=== PATIENT | female | born 1940 | race Caucasian/White ===

== ENCOUNTER 2017-02-01 08:44 | Day surgery (SDC) | payer BC ==
[2017-01-28 14:41] VITALS: BMI 23.2
[2017-02-01] MEDS ORDERED: PROPOFOL 20 ML ONE ×2 (10:41)
[2017-02-01] MEDS ORDERED: MIDAZOLAM HCL 2 MG/2 ML SINGLE DOSE VIAL ONE (10:41)
[2017-02-01] MEDS ORDERED: LIDOCAINE HCL/PF 2% SDV 5ML VIAL ONE (10:49)
[2017-02-01] MEDS ORDERED: ceFAZolin SODIUM 1 GM VIAL IVPB ONE (10:50)
[2017-02-01] MEDS ORDERED: ONDANSETRON 4 MG/2 ML VIAL IVPUSH PRN (11:13)
[2017-02-01] MEDS ORDERED: oxyCODONE HCL 5 MG TABLET PO PRN (11:13)
[2017-02-01] MEDS ORDERED: LACTATED RINGERS SOLUTION 1,000 ML IV SCH (11:15)
--- NOTE | 2017-02-01 11:50 | HP ---
Past Medical History - Primary Care Physician PCP:: Rogelio Holcomb - Admission Chief Complaint: 76yo female with uterine/endometrial polyps admitted for hysteroscopy, polypectomy, D&C History of Present Illness: US showed thick Endom, EMB showed uterine polyps. Pt with h/o breast cancer. History Source: Patient, Medical Record Limitations to Obtaining History: No Limitations - Past Medical History Cardiovascular: Yes: HTN, Hyperlipdemia Hepatobiliary: Yes: Cirrhosis (cryptogenic), Cholelithiasis Heme/Onc: Yes: Cancer (breast), Thrombocytopenia Endocrine: Yes: Diabetes Mellitus, Hypothyroidism - Past Surgical History Past Surgical History: Yes: Breast Biopsy, Mastectomy Hx Myomectomy: No Hx Transabdominal Cerclage: No Additional Surgical History: D&C - Smoking History Smoking history: Never smoked Have you smoked in the past 12 months: No - Alcohol/Substance Use Hx Alcohol Use: No History of Substance Use: reports: None - Social History Usual Living Arrangement: Yes: Alone ADL: Independent History of Recent Travel: No Home Medications - Allergies Allergies/Adverse Reactions: Allergies Allergy/AdvReac Type Severity Reaction Status Date / Time No Known Drug Allergies Allergy Verified 08/16/15 12:19 - Home Medications Home Medications: Ambulatory Orders Levothyroxine [Synthroid -] 88 mcg PO DAILY 06/21/15 Lovastatin 40 mg PO DAILY 06/21/15 Cholecalciferol (Vitamin D3) [Vitamin D3 -] 1,000 unit PO DAILY 01/28/17 Glipizide Xl [Glucotrol Xl -] 10 mg PO BID 01/28/17 Losartan Potassium [Cozaar] 100 mg PO DAILY 01/28/17 Niacin 500 mg PO DAILY 01/28/17 Spironolactone 25 mg PO DAILY 01/28/17 Tramadol HCl 50 mg PO TID PRN 01/28/17 Family Disease History - Family Disease History Family Disease History: Respiratory: Brother (?COPD, from smoking) Review of Systems - Review of Systems Constitutional: reports: No Symptoms Eyes: reports: No Symptoms HENT: reports: No Symptoms Neck: reports: No Symptoms Cardiovascular: reports: No Symptoms Respiratory: reports: No Symptoms Gastrointestinal: reports: No Symptoms Genitourinary: reports: No Symptoms Breasts: reports: No Symptoms Reported Musculoskeletal: reports: No Symptoms Integumentary: reports: No Symptoms Neurological: reports: No Symptoms Endocrine: reports: No Symptoms Hematology/Lymphatic: reports: No Symptoms Psychiatric: reports: No Symptoms Pain Intensity: 0 Physical Exam-GROCERY CHECKER Vital Signs: Vital Signs Temperature 97.9 F 01/28/17 14:33 Pulse Rate 70 01/28/17 14:33 Respiratory Rate 20 01/28/17 14:33 Blood Pressure 148/74 01/28/17 14:33 O2 Sat by Pulse Oximetry (%) 98 02/01/17 09:58 Constitutional: Yes: Well Nourished, No Distress, Calm Eyes: Yes: WNL, Conjunctiva Clear HENT: Yes: WNL, Atraumatic, Normocephalic Neck: Yes: WNL, Supple, Trachea Midline Cardiovascular: Yes: WNL, Regular Rate and Rhythm Respiratory: Yes: WNL, Regular, CTA Bilaterally Gastrointestinal: Yes: Normal Bowel Sounds, Soft ...Rectal Exam: Yes: Deferred Renal/: Yes: WNL Pelvis: Yes: WNL External Genitalia: Yes: Normal Internal Exam Deferred: No Vaginal Exam: Yes: Normal Cervix: Yes: Normal Uterus: Yes: Normal Adnexa: Normal: Left, Right Musculoskeletal: Yes: WNL Extremities: Yes: WNL Edema: No Integumentary: Yes: WNL Neurological: Yes: WNL, Alert, Oriented ...Motor Strength: WNL Psychiatric: Yes: WNL, Alert, Oriented Imaging - Results Ultrasound: Report Reviewed Assessment/Plan 76yo female admitted for hysteroscopy, polypectomy, D&C. We had discussed the risks, benefits, alternatives of surgery at length including but not limited to infection, bleeding, scarring, perforation, hysterectomy, etc. The pt verbalized understanding and requested to proceed with surgery. I emphasized that all surgeries have risks and no guarantees can be provided
--- NOTE | 2017-02-01 11:54 | OP ---
Operative Note - Note: Operative Date: 02/01/17 Pre-Operative Diagnosis: Endometrial hyperplasia. Uterine polyps. Personal Hx of breast cancer Operation: Hysteroscopy, polypectomy, D&C Findings: Multiple uterine polyps, large necrotic mass/tissue within uterine cavity Post-Operative Diagnosis: Same as Pre-op Surgeon: Rogelio Holcomb Anesthesiologist/SLASHER SAWYER: Jennifer Coronado Anesthesia: General Specimens Removed: Uterine polyps, uterine mass, endometrial curettings Estimated Blood Loss (mls): 35 Blood Volume Replaced (mls): 0 Fluid Volume Replaced (mls): 600 (Hysteroscopy deficit 200ml) Operative Report Dictated: Yes
[2017-02-01 12:43] VITALS: TEMP 98
[2017-02-01 14:13] VITALS: BP 142/74; PULSE 75
--- NOTE | 2017-02-02 09:11 | OP ---
DATE OF OPERATION: 02/01/2017 PREOPERATIVE DIAGNOSIS: Endometrial hyperplasia, uterine polyps, personal history of breast cancer. POSTOPERATIVE DIAGNOSIS: Endometrial hyperplasia, uterine polyps, personal history of breast cancer. PROCEDURE: Hysteroscopy, polypectomy, dilatation and curettage. SURGEON: Rogelio Holcomb MD ANESTHESIOLOGIST: Jennifer Coronado MD ANESTHESIA: General. COMPLICATIONS: None. ESTIMATED BLOOD LOSS: 35 mL. INTRAVENOUS FLUIDS: Crystalloid, 600 mL. HYSTEROSCOPY FLUID DEFICIT: Crystalloid, 200 mL. PATHOLOGY: Uterine polyps, uterine mass, endometrial curettings. FINDINGS: Examination under anesthesia revealed a slightly enlarged uterus with no pelvic or adnexal masses. Hysteroscopy revealed an atrophic uterine cavity with multiple uterine polyps as well as a large necrotic mass within endometrial cavity, which was semidetached and uncertain in etiology. DESCRIPTION OF PROCEDURE: The patient was met preoperatively. Risks, benefits, and alternatives of surgery were discussed in details. All questions were answered. The patient was brought to the OR with IV running. She was placed on the surgical table in the supine position. The anesthesia was established without difficulty. The patient was then placed in a dorsal lithotomy position using adjustable Reji stirrups. The patient was examined under anesthesia with the findings as described above. A time-out procedure was conducted as per standard protocol. The patient was then prepped and draped in the usual sterile fashion. A weighted speculum was introduced inside the vagina with good visualization of the cervix. The cervix was grasped with a single-tooth tenaculum. The endocervical os was dilated to accommodate a size 17 Larose dilator. A hysteroscope was gently introduced into the uterine cavity with the findings as described above. A TruClear hysteroscopic resection device was then used to resect multiple uterine polyps. A large semidetached necrotic uterine mass was also removed using polyp forceps. An endometrial curettage was then performed, and tissue was sent to Pathology. A hysteroscope was once again introduced into the uterine cavity. No other uterine lesions were noted. Good hemostasis was noted. All of the instruments were then removed from the patient. Sponge, instrument, lap counts were correct. The patient was returned to supine position. The patient was transferred to recovery room awake and in stable condition. Cindi [id number]
--- NOTE | 2017-02-02 10:29 | PATH ---
Surgical Pathology Report Patient Name: ALEXIS LAGOS [facility]. Rec. #: [id number] /Age/Gender: 1940 (Age: 76) / F Account: [id number] Location: [facility] SURGICAL Taken: 02/01/2017 Received: 02/01/2017 Reported: 02/02/2017 Physicians: Rogelio Holcomb M.D. Specimen(s) Received A: UTERINE POLYP B: UTERINE MASS C: ENDOMETRIAL CURETTINGS Clinical History History of breast cancer Uterine polyp, endometrial hyperplasia Final Diagnosis A. ENDOMETRIUM, POLYPECTOMY: PORTIONS OF BENIGN ENDOMETRIAL POLYP, AND ATROPHIC ENDOMETRIUM. NECROTIC AND FIBRINOUS MATERIAL IS PRESENT. NO ENDOMETRIAL HYPERPLASIA OR CARCINOMA IDENTIFIED. B. UTERINE MASS, EXCISION: NECROTIC MATERIAL WITH AREAS SUGGESTIVE OF INFARCTED ENDOMETRIAL POLYP. NO VIABLE TISSUE IDENTIFIED. C. ENDOMETRIUM, CURETTING: INACTIVE TO ATROPHIC ENDOMETRIUM, BENIGN ENDOCERVICAL EPITHELIUM, AND CLOTTED BLOOD. NO ENDOMETRIAL HYPERPLASIA OR CARCINOMA IDENTIFIED. Comment: Recommend correlation with clinical and radiologic findings and follow up as clinically indicated. Electronically Signed Josué Carroll M.D. Gross Description A. Received in formalin labeled "uterine polyp," is a 4.3 x 3.0 x 0.4 cm aggregate of contreras soft tissue fragments. The formalin is filtered and the specimen is entirely submitted in 3 cassettes. B. Received in formalin labeled "uterine mass," is a 4.8 x 2.5 x 0.4 cm portion of contreras-griffith, necrotic appearing soft tissue. The specimen is sectioned and entirely submitted in 3 cassettes. C. Received in formalin labeled "endometrial curettings," is a 1.3 x 1.0 x 0.2 cm aggregate of contreras red soft tissue fragments. The formalin is filtered and the specimen is entirely submitted in one cassette. DL/02/01/2017 saudi/02/01/2017
== END 2017-02-01 14:00 | disposition home or self-care (01) ==
LOC: JASU-SURG 08:44
PROVIDERS: ATTEND Obstetrics & Gynecology
PROC: 0UB98ZX Excision of Uterus, Via Natural or Artificial Opening Endoscopic, Diagnostic (ICD-10-PCS; principal; 2017-02-01 10:30)
PROC: 0UDB8ZX Extraction of Endometrium, Via Natural or Artificial Opening Endoscopic, Diagnostic (ICD-10-PCS; 2017-02-01 10:30)
DX: N85.00 Endometrial hyperplasia, unspecified (principal); N84.0 Polyp of corpus uteri; Z85.3 Personal history of malignant neoplasm of breast
CPT/HCPCS: 86850; 86900; 86901; 88304-TC; 88305-TC; 94760

== ENCOUNTER 2017-02-05 12:33 | Emergency (ER) | payer BC ==
[2017-02-05 13:36] VITALS: BMI 23.2
--- NOTE | 2017-02-05 14:27 | PDOC ---
History of Present Illness - General History Source: Patient Exam Limitations: No Limitations - History of Present Illness Initial Comments: 02/05/17 15:26 The patient is a 76 year old female, with a significant past medical history CAD , diabetes, hypertension, hyperlipidemia, hypothyroidism, vitamin D deficiency, thrombocytopenia, left breast cancer, cholelithiasis, endometrial hyperplasia/ polyps (s/p Hysteroscopic Polypectomy and D/C on 02/01/17), who presents to the emergency department sent by Dr. Salinas office for evaluation of surgical site vaginal bleeding s/p Hysteroscopic Polypectomy on 02/01/17. Patient reports she has been experiencing vaginal bleeding s/p surgery, and has gone through 2 pads today. Patient reports associated weakness, but denies any nausea , vomiting, diarrhea, constipation, headache, or dizziness. She denies any chest pain shortness of breath, diaphoresis, or palpitations. She denies any dysuria, hematuria, frequency, urgency, or urinary incontinence. She denies any fever or chills. She denies any recent travel or sick contacts. Allergies: NKDA Past Surgical History: Hysteroscopic polypectomy and D/C on 02/01/17 Social History: Non smoker. No ETOH or recreational drug use. PCP: Dr. Amador HEALTH PRACTICE MANAGER: Dr. Holcomb <Donald Ford - Last Filed: 02/05/17 17:41> <Katlyn Sorenson - Last Filed: 02/05/17 18:47> - General Chief Complaint: Revisit, Lab Variance Stated Complaint: REVISIT/ FOLLOW UP Time Seen by Provider: 02/05/17 13:56 Past History <Donald Ford - Last Filed: 02/05/17 17:41> - Past Medical History Anemia: Yes (THROMBOCYTOPENIA) Asthma: No Cancer: Yes (Breast LEFT) Cardiac Disorders: Yes (CAD) CVA: No COPD: No Dementia: No Diabetes: Yes GI Disorders: (cholelithiasis) Disorders: No HTN: Yes Hypercholesterolemia: Yes Liver Disease: No Seizures: No Thyroid Disease: Yes - Surgical History Abdominal Surgery: No Appendectomy: No Cardiac Surgery: No Cholecystectomy: No Lung Surgery: No Neurologic Surgery: No Orthopedic Surgery: No - Suicide/Smoking/Psychosocial Hx Smoking History: Never smoked Have you smoked in the past 12 months: No Information on smoking cessation initiated: No Hx Alcohol Use: No Drug/Substance Use Hx: No Substance Use Type: None Hx Substance Use Treatment: No <Katlyn Sorenson - Last Filed: 02/05/17 18:47> - Past Medical History Allergies/Adverse Reactions: Allergies Allergy/AdvReac Type Severity Reaction Status Date / Time No Known Drug Allergies Allergy Verified 02/05/17 13:27 Home Medications: Ambulatory Orders Levothyroxine [Synthroid -] 88 mcg PO DAILY 06/21/15 Lovastatin 40 mg PO DAILY 06/21/15 Cholecalciferol (Vitamin D3) [Vitamin D3 -] 1,000 unit PO DAILY 01/28/17 Glipizide Xl [Glucotrol Xl -] 10 mg PO BID 01/28/17 Losartan Potassium [Cozaar] 100 mg PO DAILY 01/28/17 Niacin 500 mg PO DAILY 01/28/17 Spironolactone 25 mg PO DAILY 01/28/17 Tramadol HCl 50 mg PO TID PRN 01/28/17 Review of Systems - Review of Systems Able to Perform ROS?: Yes Comments:: 02/05/17 15:30 GENERAL/CONSTITUTIONAL: Yes weakness. No fever or chills. HEAD, EYES, EARS, NOSE AND THROAT: No change in vision. No ear pain or discharge. No sore throat. GASTROINTESTINAL: No nausea, vomiting, diarrhea or constipation. GENITOURINARY: No dysuria, frequency, or change in urination. PELVIC: Yes vaginal spotting. CARDIOVASCULAR: No chest pain or shortness of breath. RESPIRATORY: No cough, wheezing, or hemoptysis. MUSCULOSKELETAL: No joint or muscle swelling or pain. No neck or back pain. SKIN: No rash NEUROLOGIC: No headache, vertigo, loss of consciousness, or change in strength/ sensation. ENDOCRINE: No increased thirst. No abnormal weight change. HEMATOLOGIC/LYMPHATIC: No anemia, easy bleeding, or history of blood clots. ALLERGIC/IMMUNOLOGIC: No hives or skin allergy. <Donald Ford - Last Filed: 02/05/17 17:41> *Physical Exam - Vital Signs Last Vital Signs Temp Pulse Resp BP Pulse Ox 98.3 F 80 16 159/75 100 02/05/17 13:28 02/05/17 13:28 02/05/17 13:28 02/05/17 13:28 02/05/17 13:28 - Physical Exam Comments: 02/05/17 15:30 Constitutional: Awake, alert, oriented. No acute distress. Head: Normocephalic. Atraumatic Eyes: PERRL. EOMI. Conjunctivae are not pale. ENT: Mucous membranes are moist and intact. Posterior pharynx without exudates or erythema. Uvula midline. Neck: Supple. Full ROM. No lymphadenopathy. Cardiovascular: Regular rate. Regular rhythm. S1, S2 regular. Distal pulses are 2+ and symmetric. Pulmonary/Chest: No evidence of respiratory distress. Clear to auscultation bilaterally No wheezing, rales or rhonchi. Abdominal: Soft and non-distended. There is no tenderness. No rebound, guarding or rigidity. No organomegaly. No palpable masses. Good bowel sounds. Pelvic: Blood in vaginal vault, but no clots or active bleeding. Cervix was closed. No adenexal tenderness and no cervical motion tenderness. Back: No CVA tenderness. Musculoskeletal: No edema. No cyanosis. No clubbing. Full range of motion in all extremities. No calf tenderness. Radial/pedal pulses are intact and 2+ bilaterally Skin: Skin is warm and dry. No petechiae. No purpura. Neurological: Alert and oriented to person, place, and time. Cranial nerves II -XII are grossly intact. Normal speech. Strength is grossly symmetric. No sensory deficits. Psychiatric: Good eye contact. Normal interaction, affect and behavior. <Donald Ford - Last Filed: 02/05/17 17:41> - Vital Signs Last Vital Signs Temp Pulse Resp BP Pulse Ox 98.3 F 80 16 159/75 100 02/05/17 13:28 02/05/17 13:28 02/05/17 13:28 02/05/17 13:28 02/05/17 13:28 <Katlyn Sorenson - Last Filed: 02/05/17 18:47> ED Treatment Course - LABORATORY CBC & Chemistry Diagram: 02/05/17 15:30 02/05/17 15:09 <Donald Ford - Last Filed: 02/05/17 17:41> - LABORATORY CBC & Chemistry Diagram: 02/05/17 15:30 02/05/17 15:09 <Katlyn Sorenson - Last Filed: 02/05/17 18:47> Medical Decision Making - Medical Decision Making 02/05/17 15:[address] Holcomb at 15:07. Awaiting call back. Case discussed with Dr. Villa, who requests US at this time and will f/u when results return. Dr. Youssef returned call, and requests US to be cancelled. <Donald Ford - Last Filed: 02/05/17 17:41> - Medical Decision Making 02/05/17 15:16 a/p: 76yo female 3 days s/p polypectomy, hysteroscopy, necrotic mass removal with DR. Holcomb now with vaginal bleeding -wearing a panty liner -no cp/sob/lightheaded -will check labs and discuss with Dr. Holcomb the plan for poss imaging vs MAP CLERK eval. 02/05/17 18:40 unofficial plt count is 87, pending official plt count by the lab 02/05/17 18:[address] Villa who states mild vaginal bleeding post hysteroscopy with polypectomy can be normal up to 2 weeks. Needs to follow up in the office. Hx of thrombocytopenia. Will recommend follow up with Dr. Gipson as well. Pt at this time with minimal bleeding. Not symptomatic from bleeding. HGB is 15. <Katlyn Sorenson - Last Filed: 02/05/17 18:47> *DC/Admit/Observation/Transfer - Attestations Scribe Attestion: 02/05/17 15:08 Documentation prepared by Donald Ford, acting as medical associate for Katlyn Sorenson DO. <Donald Ford - Last Filed: 02/05/17 17:41> - Discharge Dispostion Admit: No - Attestations Physician Attestion: 02/05/17 18:47 I, Dr. Katlyn Sorenson DO, attest that this document has been prepared under my direction and personally reviewed by me in its entirety. I further attest, that it accurately reflects all work, treatment, procedures and medical decision -making performed by me. <Katlyn Sorenson - Last Filed: 02/05/17 18:47> Diagnosis at time of Disposition: Vaginal bleeding, abnormal - Discharge Dispostion Disposition: HOME Condition at time of disposition: Stable - Referrals Referrals: Efren Amador MD [Primary Care Provider] - Rogelio Holcomb MD [Staff Physician] - Gume Gipson MD [Staff Physician] - - Patient Instructions Printed Discharge Instructions: DI for Vaginal Bleeding Additional Instructions: Please follow up with the armature winder repair. Please return to the ED with any further concerns. Please follow up with the ecological risk assessor for further eval of the low platelets. Please follow up with your PMD.
[2017-02-05] MEDS ORDERED: SODIUM CHLORIDE 0.9% 1000 ML INFUS.BAG IV ONE (15:05)
[2017-02-05 15:57] LABS: EOSINOPHIL 1.3 % (0-4.5); MCHC 33.9 g/dl (32.0-36.0); MEAN CELL VOLUME 94.4 fl (80-96); MEAN PLT VOLUME 11.8 fl (7.5-11.1); NEUTROPHILS 65.5 % (42.8-82.8); WHITE BLOOD COUNT 6.9 K/mm3 (4.0-10.0)
[2017-02-05 15:59] LABS: URINE APPEARANCE SLCLOUDY; URINE BILIRUBIN NEGATIVE (NEGATIVE); URINE BLOOD 3+ (NEGATIVE); URINE COLOR YELLOW; URINE GLUCOSE (UA) 2+ (NEGATIVE); URINE KETONE NEGATIVE (NEGATIVE); URINE NITRITE NEGATIVE (NEGATIVE); URINE PROTEIN NEGATIVE (NEGATIVE); URINE UROBILINOGEN NEGATIVE mg/dL (0.2-1.0)
[2017-02-05 16:02] LABS: ALBUMIN 3.7 g/dl (3.4-5.0); ALK PHOS 123 U/L (45-117); ANION GAP 7 (8-16); BILIRUBIN,TOTAL 0.9 mg/dL (0.2-1.0); CALCIUM 9.3 mg/dL (8.5-10.1); CO2 27 mmol/L (21-32); CREATININE 0.8 mg/dL (0.55-1.02); GLUCOSE,RANDOM 223 mg/dL (74-106); SGOT/AST 49 U/L (15-37); SGPT/ALT 46 U/L (12-78); TOT PROT 8.3 g/dl (6.4-8.2)
[2017-02-05 16:16] LABS: INR 1.16 (0.82-1.09); PROTHROMBIN TIME (PATIENT) 13.1 SEC (9.98-11.88)
[2017-02-05 16:27] LABS: URINE MUCUS RARE; URINE RBC 931 /hpf (0-3); URINE WBC 79 /hpf (3-5)
[2017-02-05 16:41] VITALS: BP 154/69; PULSE 79; TEMP 98.5
[2017-02-05 18:43] LABS: PLATELET COUNT 87 K/MM3 (134-434); PLATELET ESTIMATE SLT DECREASED (NORMAL)
[2017-02-05 19:24] LABS: URINE LEUK ESTERASE Negative (NEGATIVE)
== END 2017-02-05 18:56 | disposition home or self-care (01) ==
LOC: JER 12:33
DX: N99.820 Postprocedural hemorrhage of a genitourinary system organ or structure following a genitourinary system procedure (principal); I25.10 Atherosclerotic heart disease of native coronary artery without angina pectoris; I10 Essential (primary) hypertension; E11.9 Type 2 diabetes mellitus without complications; Z79.84 Long term (current) use of oral hypoglycemic drugs; E78.00 Pure hypercholesterolemia, unspecified; E03.9 Hypothyroidism, unspecified; E55.9 Vitamin D deficiency, unspecified; D69.6 Thrombocytopenia, unspecified; K80.20 Calculus of gallbladder without cholecystitis without obstruction; Z85.3 Personal history of malignant neoplasm of breast
CPT/HCPCS: 36415; 80053; 81003; 81015; 85025; 85610; 85730; 86850; 86900; 86901; 99283-25

== ENCOUNTER 2017-10-23 18:03 | Emergency (ER) | payer BC ==
[2017-10-23 18:07] VITALS: BP 117/86; PULSE 96; TEMP 98.1; BMI 21.2
--- NOTE | 2017-10-23 18:40 | PDOC ---
History of Present Illness - General Chief Complaint: Injury Stated Complaint: PAIN Time Seen by Provider: 10/23/17 18:32 History Source: Patient Exam Limitations: No Limitations - History of Present Illness Initial Comments: This is a 76 YOF with h/o NIDDM, hypothyroidism, and left breast CA who suffered a fall in the bathroom two days ago, striking her left lower rib cage and hip on ceramic rolando. She has had constant, worsening pain since that time. She additionally notes left lateral hip bruising. She denies any preceding symptoms before the fall (no palpitations, SOB, lightheadedness, chest pain, diaphoresis, or other symptoms), denies hitting her head or neck, and denies LOC as a result of the fall. She was able to pick herself up and walk around after this fall. She has not had any additional symptoms in the past two days except for SOB which she attributes to worsening rib pain. She has not taken any medications for the pain. Past History - Past Medical History Allergies/Adverse Reactions: Allergies Allergy/AdvReac Type Severity Reaction Status Date / Time No Known Drug Allergies Allergy Verified 10/23/17 18:07 Home Medications: Ambulatory Orders Levothyroxine [Synthroid -] 88 mcg PO DAILY 06/21/15 Lovastatin 40 mg PO DAILY 06/21/15 Losartan Potassium [Cozaar] 100 mg PO DAILY 01/28/17 Spironolactone 25 mg PO DAILY 01/28/17 Pioglitazone HCl [Actos] 30 mg PO DAILY 10/23/17 Tramadol HCl 50 mg PO BID PRN #10 tablet MDD 2 tabs 10/23/17 Anemia: Yes (THROMBOCYTOPENIA) Asthma: No Cancer: Yes (Breast LEFT) Cardiac Disorders: Yes (CAD) CVA: No COPD: No Dementia: No Diabetes: Yes GI Disorders: (cholelithiasis) Disorders: No HTN: Yes Hypercholesterolemia: Yes Liver Disease: No Seizures: No Thyroid Disease: Yes - Surgical History Abdominal Surgery: No Appendectomy: No Cardiac Surgery: No Cholecystectomy: No Lung Surgery: No Neurologic Surgery: No Orthopedic Surgery: No - Suicide/Smoking/Psychosocial Hx Smoking History: Never smoked Have you smoked in the past 12 months: No Hx Alcohol Use: No Drug/Substance Use Hx: No Substance Use Type: None Hx Substance Use Treatment: No Review of Systems - Review of Systems Able to Perform ROS?: Yes Constitutional: No: Chills, Fever, Unexplained wgt Loss HEENTM: No: Nose Congestion, Throat Pain Respiratory: Yes: Shortness of Breath (2/2 pain). No: Cough Cardiac (ROS): No: Chest Pain, Palpitations ABD/GI: Yes: Other (burping). No: Constipated, Diarrhea, Nausea, Vomiting : No: Burning, Dysuria Musculoskeletal: Yes: Other (rib pain, hip pain). No: Back Pain, Neck Pain Integumentary: Yes: Bruising. No: Rash Neurological: No: Headache, Numbness, Tingling, Weakness, Dizziness Endocrine: No: Unexplained Weight Gain, Unexplained Weight Loss *Physical Exam - Vital Signs Last Vital Signs Temp Pulse Resp BP Pulse Ox 98.1 F 96 H 18 117/86 99 10/23/17 18:05 10/23/17 18:05 10/23/17 18:05 10/23/17 18:05 10/23/17 18:05 - Physical Exam General Appearance: Yes: Nourished, Appropriately Dressed, Other (alert, oriented, nontoxic and well appearing, answering questions appropriately). No: Apparent Distress HEENT: positive: EOMI, MORIAH, Normal ENT Inspection, Normal Voice, Hearing Grossly Normal, Other (no cephalohematoma, no scalp laceration, no raccoon eyes , no montero sign, no hemotympanum, no CSF rhinorrhea/otorrhea). negative: Scleral Icterus (R), Scleral Icterus (L), Nasal Congestion Neck: positive: Trachea midline, Supple. negative: Tender, Rigid Respiratory/Chest: positive: Lungs Clear, Normal Breath Sounds, Other (equal bilateral breath sounds, no flail chest, mild tenderness to palpation of left posterior ribs 7-10 without ovelrying ecchymosis). negative: Respiratory Distress, Crackles, Rhonchi, Stridor, Wheezing Cardiovascular: positive: Regular Rhythm, Regular Rate, S1, S2, Murmur (2/6 systolic). negative: Edema, JVD Gastrointestinal/Abdominal: positive: Normal Bowel Sounds, Soft. negative: Tender, Organomegaly, Pulsatile Mass, Guarding Musculoskeletal: positive: Normal Inspection, Other (no midline vertebral tenderness C/T/L spine, no back hematoma). negative: CVA Tenderness, Decreased Range of Motion, Vertebral Tenderness Extremity: positive: Normal Capillary Refill, Normal Range of Motion, Pelvis Stable, Other (no thigh hematoma). negative: Tender, Cyanosis, Swelling Integumentary: positive: Normal Color, Dry, Warm, Bruising (one 3 cm and one 2 cm ecchymosis overlying left greater trochanter). 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 negative: EOM Palsy, Facial Droop, Numbness, Sensory Deficit, Confused, Disoriented ED Treatment Course - RADIOLOGY Radiology Studies Ordered: Category Date Time Status CHEST PA & LAT [RAD] Stat Radiology 10/23/17 18:34 Ordered HIP & PELVIS-LEFT [RAD] Stat Radiology 10/23/17 18:34 Ordered Medical Decision Making - Medical Decision Making 10/23/17 18:42 Elderly patient p/w GLF 2 days ago with subsequent hip and rib cage pain. Initial Vital Signs Temp Pulse Resp BP Pulse Ox 98.1 F 96 H 18 117/86 99 10/23/17 18:05 10/23/17 18:05 10/23/17 18:05 10/23/17 18:05 10/23/17 18:05 Exam: Results as noted in Physical Exam section. DDX IBNLT: rib fxr, chest wall contusion, hip/pelvis/femur fxr, hip dislocation , thigh hematoma, compartment syndrome, sprain/strain, contusion, etc. W/U ordered: XR hip/pelvis CXR T-spine XR EKG TX ordered: None Bedside US: negative FAST exam. XR Hip/Pelvis: Nothing acute T-spine XR: Nothing acute CXR: Nothing acute Reassessment: Patient feels well, no pain, wants to go home, walking around the department. Repeat VS: HR re-checked to be 80 on my repeat exam. DISCHARGE The Pt has gotten significant relief of symptoms with ED medications. They are appropriate for discharge with close outpatient follow up. The Pt is comfortable with this plan and will follow up with their PCP in 1-3 days. E-Rx written by Dr. Valencia for tramadol as patient cannot take Tylenol or Motrin. Specific return precautions are discussed and they will come back to the ER if necessary. *DC/Admit/Observation/Transfer Diagnosis at time of Disposition: Fall from ground level Chest wall contusion Qualifiers: Encounter type: initial encounter Laterality: left Qualified Code(s): S20.212A - Contusion of left front wall of thorax, initial encounter Hip pain Qualifiers: Laterality: left Qualified Code(s): M25.552 - Pain in left hip - Discharge Dispostion Disposition: HOME Condition at time of disposition: Stable Decision to Admit order: No - Prescriptions Prescriptions: Tramadol HCl 50 mg PO BID PRN #10 tablet MDD 2 tabs PRN Reason: Pain - Referrals Referrals: Efren Amador MD [Staff Physician] - - Patient Instructions Printed Discharge Instructions: DI for Rib Contusion Additional Instructions: You were seen in the ER for a fall and associated injuries. We did x-rays and did not see any abnormalities to the bones. After our assessment, we do not believe you are having a medical emergency at this time, and we believe you are safe to go home. Please follow up with your regular PCP doctor in 1-3 days. Call their clinic as soon as possible, tell them you were seen in the ER, and tell them you need an appointment. If you have any new or worsening symptoms, please come back to the ER at any time (24 hours a day). Read through the discharge instructions we are including in this information packet. If you are having severe or life threatening symptoms, or symptoms that make it unsafe to drive or have someone drive you, please call 911. - Post Discharge Activity
--- NOTE | 2017-10-23 19:12 | PDOC ---
Attending Attestation - Resident Resident Name: Erika Lezama - ED Attending Attestation I have performed the following: I have examined & evaluated the patient, The case was reviewed & discussed with the resident, I agree w/resident's findings & plan - HPI HPI: 10/23/17 19:07 76-year-old female with history of breast CA in remission, liver disease with some baseline from septicemia presents 3 days after mechanical slip and fall from her bathtub. Patient was closing a window when she lost her balance and fell backwards, landing on her back on her bathroom floor. No head injury or loss of consciousness, she stood up immediately and was completely asymptomatic until the next day, when she started having some discomfort in her left back, particularly with deep inspiration. No dyspnea on exertion or shortness of breath, no cough or hemoptysis, no palpitations or chest pain, no lightheadedness or syncope. She noticed 2 small bruises on her left hip today and given the persistence left back/rib pain, presents for evaluation. She is ambulating comfortably without leg/hip pain. Did not take anything for pain, has no other complaints. - Physicial Exam PE: 10/23/17 19:09 Vital signs stable, heart rate 84 on my examination, triage 95 Very well-appearing and high functioning 76-year-old woman seated in stretcher speaking full sentences in no acute distress Head is atraumatic, some vitiligo on her upper back No C-spine tenderness, full range of motion Heart is regular, lungs are clear without decreased breath sounds, symmetric chest rise. There is some focal tenderness to the mid scapular region of the lower left ribs around 10 or 11, there is no superimposed soft tissue swelling or bruising. Abdomen is benign, soft/nontender/nondistended, no guarding or rebound, no flank ecchymosis Pelvis is stable and nontender including the left hip, which is full range of motion. There is a 1 cm and 2 cm superficial ecchymosis over her left hip, no tracking ecchymosis or other deformity. Neurovascularly intact Neurologically intact - Medical Decision Making 10/23/17 19:10 76-year-old female with mechanical slip and fall 3 days ago, hemodynamically stable here a trauma exam very localized to the left posterior lower ribs, and without red flags concerning for internal bleeding or further deep tissue injury. She is well appearing and uncomfortable, and the delayed onset of her symptoms the following day is reassuring against fracture, and more consistent with bruising/contusion. Given 3 day duration and fall and hemodynamically stable, internal injury such as renal or retroperitoneal bleed is lower on the differential Chest x-ray, thoracic spine x-ray, left hip/pelvic x-ray Declining pain control Wants to go home, will reassess 10/23/17 20:59 on prelim review, no displaced fractures noted. slight irregularity to L hip but pt ambulating, has no pain, likely arthritic. neuro intact, d/c with return precautions. Heart Score/ECG Review #1 ECG reviewed & interpreted by me at: 19:18 General ECG Interpretation: Sinus Rhythm, Normal Rate (77), Normal Intervals ( qtc 416), No acute ischemic changes
--- NOTE | 2017-10-24 14:16 | EKG ---
Test Reason : Blood Pressure : / mmHG Vent. Rate : 077 BPM Atrial Rate : 077 BPM P-R Int : 198 ms QRS Dur : 088 ms QT Int : 368 ms P-R-T Axes : 020 -28 029 degrees QTc Int : 416 ms NORMAL SINUS RHYTHM CANNOT RULE OUT ANTERIOR INFARCT , AGE UNDETERMINED ABNORMAL ECG WHEN COMPARED WITH ECG OF 15-JUL-2015 18:24, NO SIGNIFICANT CHANGE WAS FOUND Confirmed by Jvue Kwan ([id number]) on 10/24/2017 2:16:35 PM Referred By: Confirmed By:Juve Kwan
== END 2017-10-23 21:03 | disposition home or self-care (01) ==
LOC: JER 18:03
DX: S20.212A Contusion of left front wall of thorax, initial encounter (principal); S70.02XA Contusion of left hip, initial encounter; W18.39XA Other fall on same level, initial encounter; Y93.89 Activity, other specified; Y92.031 Bathroom in apartment as the place of occurrence of the external cause; Y99.8 Other external cause status; I10 Essential (primary) hypertension; E11.9 Type 2 diabetes mellitus without complications; Z79.84 Long term (current) use of oral hypoglycemic drugs; E06.9 Thyroiditis, unspecified; D69.6 Thrombocytopenia, unspecified; C50.912 Malignant neoplasm of unspecified site of left female breast
CPT/HCPCS: 71046-TC-FY; 72070-TC-FY; 73523-TC-FY; 93005; 93010; 99282-25

== ENCOUNTER 2018-04-02 16:39 | Observation (INO) | payer BC ==
--- NOTE | 2018-04-02 16:57 | PDOC ---
Attending Attestation - HPI HPI: 04/02/18 18:04 The patient is a 77 year old female with a past medical history of HTN, NIDDM, hypothyroidism, cirrhosis here today for evaluation of bilateral leg swelling. The patient reports that her leg swelling has been present for a while but has been getting worse in the past few days. She also notes associated shortness of breath and abdominal pain which she reports is worse in the morning and is alleviated when she moves around. Patient denies headache, lightheadedness. Denies fever, chills. Denies chest pain. Denies nausea, vomiting, diarrhea. Allergies: NKA PCP: Efren Amador - Physicial Exam PE: 04/02/18 18:07 GENERAL: Awake, alert, and fully oriented, in no acute distress. Normal mood and affect. HEAD: No signs of trauma EYES: PERRLA, EOMI, sclera anicteric, conjunctiva clear ENT: Auricles normal inspection, hearing grossly normal, nares patent, oropharynx clear without exudates. Moist mucosa NECK: Normal ROM, supple, no lymphadenopathy, JVD, or masses LUNGS: Breath sounds equal, clear to auscultation bilaterally. No wheezes, and no crackles HEART: Regular rate and rhythm, normal S1 and S2, no murmurs, rubs or gallops ABDOMEN: +distended. Soft, nontender, normoactive bowel sounds. No guarding, no rebound. No masses EXTREMITIES: +1+ pitting edema of the bilateral lower extremities to the mid calf. Normal range of motion. No clubbing or cyanosis. No cords, erythema, or tenderness NEUROLOGICAL: Cranial nerves II through XII grossly intact. Normal speech, normal gait SKIN: Warm, Dry, normal turgor, no rashes or lesions noted. <Yaniv Delgado - Last Filed: 04/02/18 18:07> - Medical Decision Making 04/02/18 19:00 Pt presents to the ED complaining of bilateral leg edema that has been worsening over the last two days and shortness of breath that has been persistent for the last year. Denies chest pain. Differential included worsening liver failure, CHF, less likely ACS. Labs show elevated troponin. Will treat with ASA and admit for serial troponins. 04/02/18 19:12 <Ann Ramos - Last Filed: 04/02/18 19:13>
--- NOTE | 2018-04-02 17:26 | PDOC ---
History of Present Illness - General Chief Complaint: Edema Stated Complaint: SWELLING TO LEG Time Seen by Provider: 04/02/18 16:48 History Source: Patient Exam Limitations: No Limitations - History of Present Illness Initial Comments: 04/02/18 17:21 Patient is a 77F with history of HTN, NIDDM, hypothyroidism, cirrhosis here today complaining of bilateral leg swelling for the past 4-5 days. Patient endorses an associated shortness of breath and increasing abdominal distention. She states the abdominal distention has been getting worse for the past few months; she had her spironolactone dose changed from 50mg per day to 25mg per day because she was urinating too much. Denies chest pain, abdominal pain, fevers, nausea, vomiting. Endorses chills. Denies history of blood clots. Past History - Past Medical History Allergies/Adverse Reactions: Allergies Allergy/AdvReac Type Severity Reaction Status Date / Time No Known Drug Allergies Allergy Verified 04/02/18 16:43 Home Medications: Ambulatory Orders Levothyroxine [Synthroid -] 88 mcg PO DAILY 06/21/15 Lovastatin 40 mg PO DAILY 06/21/15 Losartan Potassium [Cozaar] 100 mg PO DAILY 01/28/17 Spironolactone 25 mg PO DAILY 01/28/17 Pioglitazone HCl [Actos] 30 mg PO DAILY 10/23/17 Anemia: Yes (THROMBOCYTOPENIA) Asthma: No Cancer: Yes (Breast LEFT) Cardiac Disorders: Yes (CAD) CVA: No COPD: No Dementia: No Diabetes: Yes GI Disorders: (cholelithiasis) Disorders: No HTN: Yes Hypercholesterolemia: Yes Liver Disease: No Seizures: No Thyroid Disease: Yes - Surgical History Abdominal Surgery: No Appendectomy: No Cardiac Surgery: No Cholecystectomy: No Lung Surgery: No Neurologic Surgery: No Orthopedic Surgery: No - Suicide/Smoking/Psychosocial Hx Smoking History: Never smoked Have you smoked in the past 12 months: No Hx Alcohol Use: No Drug/Substance Use Hx: No Substance Use Type: None Hx Substance Use Treatment: No Review of Systems - Review of Systems Comments:: 04/02/18 17:23 GENERAL/CONSTITUTIONAL: No fever +chills. No weakness. HEAD, EYES, EARS, NOSE AND THROAT: No change in vision. No sore throat. CARDIOVASCULAR: No chest pain +shortness of breath RESPIRATORY: No cough, wheezing, or hemoptysis. GASTROINTESTINAL: No nausea, vomiting, diarrhea or constipation. GENITOURINARY: No dysuria, frequency, or change in urination. MUSCULOSKELETAL: No joint or muscle swelling or pain. No neck or back pain. SKIN: No rash NEUROLOGIC: No headache, vertigo, loss of consciousness, or change in strength/ sensation. HEMATOLOGIC/LYMPHATIC: No anemia, easy bleeding, or history of blood clots. ALLERGIC/IMMUNOLOGIC: No hives or skin allergy. *Physical Exam - Vital Signs Last Vital Signs Temp Pulse Resp BP Pulse Ox 98.2 F 82 18 160/73 97 04/02/18 16:40 04/02/18 16:40 04/02/18 16:40 04/02/18 16:40 04/02/18 16:40 - Physical Exam Comments: 04/02/18 17:24 GENERAL: Awake, alert, and fully oriented, in no acute distress HEAD: No signs of trauma, normocephalic, atraumatic EYES: PERRLA, EOMI, sclera anicteric, conjunctiva clear ENT: Auricles normal inspection, hearing grossly normal, nares patent, oropharynx clear without exudates. Moist mucosa NECK: Normal ROM, supple, no lymphadenopathy, JVD, or masses LUNGS: No distress, speaks full sentences, decreased breath sounds on right HEART: Regular rate and rhythm, normal S1 and S2, no murmurs, rubs or gallops, peripheral pulses normal and equal bilaterally. ABDOMEN: +fluid wave, nontender EXTREMITIES: Normal inspection, Normal range of motion, 2+ edema. No clubbing or cyanosis. NEUROLOGICAL: Cranial nerves II through XII grossly intact. Normal speech, no focal sensorimotor deficits SKIN: Warm, Dry, normal turgor, no rashes or lesions noted. Moderate Sedation - Procedure Monitoring Vital Signs: Procedure Monitoring Vital Signs Temperature 98.2 F 04/02/18 16:40 Pulse Rate 82 04/02/18 16:40 Respiratory Rate 18 04/02/18 16:40 Blood Pressure 160/73 04/02/18 16:40 O2 Sat by Pulse Oximetry (%) 97 04/02/18 16:40 ED Treatment Course - LABORATORY CBC & Chemistry Diagram: 04/02/18 17:29 04/02/18 17:29 - RADIOLOGY Radiology Studies Ordered: Category Date Time Status CHEST X-RAY PORTABLE* [RAD] Stat Radiology 04/02/18 17:11 Ordered Medical Decision Making - Medical Decision Making 04/02/18 17:25 Patient is 77F here today with history of NIDDM, hypothyroidism, HTN, cirrhosis here today with signs of fluid overload. Vitals normal and stable. DDx is heavily weighted towards fluid overload 2/2 cirrhosis or CHF. Will evaluate with cardiac labs, bnp, ekg, cxr. PE considered, but does not fit clinical picture. 04/02/18 18:57 Laboratory Tests 04/02/18 04/02/18 17:29 17:29 WBC 3.2 L Hgb 9.0 L Plt Count 52 L D BUN 11 Creatinine 0.6 Creat Clearance w eGFR > 60 CK-MB (CK-2) 3.7 H Troponin I 0.08 H B-Natriuretic Peptide 60.2 CBC shows anemia, last hgb 15 1 year ago. Platelets at baseline. No symptoms of GI bleed reported. Patient reports having camera evaluate her GI from below, but is unsure what was done. FOBT added. CXR clear. CMP shows normal renal function, mildly elevated AST. Troponin indeterminate at 0.08. Will obs. Rectal exam shows no erica blood, several hemorrhoids, nontender. 04/02/18 19:40 D/w Dr Rogers. Accepted to tele obs. *DC/Admit/Observation/Transfer Diagnosis at time of Disposition: Troponin I above reference range - Discharge Dispostion Condition at time of disposition: Stable Decision to Admit order: Yes - Referrals Referrals: Efren Amador MD [Primary Care Provider] - - Patient Instructions - Post Discharge Activity
[2018-04-02 17:40] LABS: BASO % 1.4 % (0-2.0); EOS % 3.8 % (0-4.5); LYMPH % 27.7 % (8-40); MCH 22.2 pg (25.7-33.7); MEAN CELL VOLUME 69.4 fl (80-96); MEAN PLT VOLUME 10.8 fl (7.5-11.1); MONO % 7.5 % (3.8-10.2); NEUT % 59.6 % (42.8-82.8); PLATELET COUNT 52 K/MM3 (134-434); RBC 4.04 M/mm3 (3.60-5.2); RDW 20.2 % (11.6-15.6); WHITE BLOOD COUNT 3.2 K/mm3 (4.0-10.0)
[2018-04-02 18:03] LABS: INR 1.24 (0.83-1.09); PROTHROMBIN TIME (PATIENT) 14.7 SEC (9.7-13.0)
[2018-04-02 18:20] LABS: ALBUMIN 3.3 g/dl (3.4-5.0); ALK PHOS 125 U/L (45-117); ANION GAP 7 MMOL/L (8-16); BILIRUBIN,TOTAL 0.6 mg/dL (0.2-1); BLOOD UREA NITROGEN 11 mg/dL (7-18); CALCIUM 8.2 mg/dL (8.5-10.1); CHLORIDE 110 mmol/L (98-107); CO2 24 mmol/L (21-32); CREATININE 0.6 mg/dL (0.55-1.3); GLUCOSE,RANDOM 170 mg/dL (74-106); N-TERMINAL BNP 60.2 pg/ml (5-450); POTASSIUM 4.1 mmol/L (3.5-5.1); SGOT/AST 69 U/L (15-37); SGPT/ALT 30 U/L (13-61); SODIUM 141 mmol/L (136-145); TOT PROT 7.2 g/dl (6.4-8.2)
[2018-04-02] MEDS ORDERED: ASPIRIN 81 MG CHEWABLE TABLETS PO ONE (19:08)
[2018-04-02] MEDS ORDERED: ASPIRIN 81 MG CHEWABLE TABLETS ONE (20:07)
--- NOTE | 2018-04-02 21:25 | HP ---
CHIEF COMPLAINT: B/L Leg swelling and burning pain PCP: Dr. 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 She states the swelling has been occurring for the last few days, but with the burning she became afraid and came to the ED for evaluation. She is unsure of medication changes, but as per chart, her Spironolactone was recently decreased by half. She currently denies any chest pain, SOB, cough, abdominal pain, n/v/d, urinary symptoms. ER course was notable for: (1) H/H 9.0/28 (2) EKG normal sinus without concerning ST/T wave abnormalities (3) Troponin 0.04 Recent Travel: none PAST MEDICAL HISTORY: HTN, NIDDM, Hypothyroid, Cryptogenic cirrhosis PAST SURGICAL HISTORY: denies Social History: Smoking: Denies, former smoker many years ago, does not remember quantity Alcohol: Denies Drugs: Denies Family History: Allergies No Known Drug Allergies Allergy (Verified 04/02/18 16:43) HOME MEDICATIONS: Home Medications Medication Instructions Recorded Levothyroxine [Synthroid -] 88 mcg PO DAILY 06/21/15 Lovastatin 40 mg PO DAILY 06/21/15 Losartan Potassium [Cozaar] 100 mg PO DAILY 01/28/17 Spironolactone 25 mg PO DAILY 01/28/17 Pioglitazone HCl [Actos] 30 mg PO DAILY 10/23/17 REVIEW OF SYSTEMS CONSTITUTIONAL: Absent: fever, chills, diaphoresis, generalized weakness, malaise, loss of appetite, weight change HEENT: Absent: rhinorrhea, nasal congestion, throat pain, throat swelling, difficulty swallowing, mouth swelling, ear pain, eye pain, visual changes CARDIOVASCULAR: Absent: chest pain, syncope, palpitations, irregular heart rate, lightheadedness , peripheral edema RESPIRATORY: Absent: cough, shortness of breath, dyspnea with exertion, orthopnea, wheezing, stridor, hemoptysis GASTROINTESTINAL: Abdominal Fullness Absent: abdominal pain, abdominal distension, nausea, vomiting, diarrhea, constipation, melena, hematochezia GENITOURINARY: Absent: dysuria, frequency, urgency, hesitancy, hematuria, flank pain, genital pain MUSCULOSKELETAL: back pain, burning pain in LE Absent: myalgia, arthralgia, joint swelling, , neck pain SKIN: Absent: rash, itching, pallor HEMATOLOGIC/IMMUNOLOGIC: Absent: easy bleeding, easy bruising, lymphadenopathy, frequent infections ENDOCRINE: Absent: unexplained weight gain, unexplained weight loss, heat intolerance, cold intolerance NEUROLOGIC: Absent: headache, focal weakness or paresthesias, dizziness, unsteady gait, seizure, mental status changes, bladder or bowel incontinence PSYCHIATRIC: Absent: anxiety, depression, suicidal or homicidal ideation, hallucinations. PHYSICAL EXAMINATION Vital Signs - 24 hr 04/02/18 04/02/18 16:40 17:11 Temperature 98.2 F Pulse Rate 82 62 Respiratory 18 Rate Blood Pressure 160/73 O2 Sat by Pulse 97 98 Oximetry (%) GENERAL: A&O, no acute distress HEAD: Normocephalic, atraumatic. EYES: PERRL, no scleral icterus EARS, NOSE, THROAT: oropharynx clear without exudates. Moist mucous membranes. NECK: supple without lymphadenopathy LUNGS: CTA b/l, no crackles or wheezes HEART: Regular rate and rhythm, normal S1 and S2 without murmur ABDOMEN: Abdominal fullness noted with some shifting dullness, Soft, nontender to palpation, normoactive bowel sounds EXTREMITIES: 2+ pulses, warm, well-perfused. 1+ pitting edema below the knee NEUROLOGICAL: Cranial nerves II-XII grossly intact. Normal speech. PSYCHIATRIC: Cooperative. Good eye contact. Appropriate mood and affect. SKIN: Warm, dry, no rashes or lesions noted Laboratory Results - last 24 hr 04/02/18 04/02/18 04/02/18 17:29 17:29 17:29 WBC 3.2 L RBC 4.04 Hgb 9.0 L Hct 28.0 L D MCV 69.4 L MCH 22.2 L MCHC 32.0 RDW 20.2 H Plt Count 52 L D MPV 10.8 Absolute Neuts (auto) 1.9 Neutrophils % 59.6 Lymphocytes % 27.7 Monocytes % 7.5 Eosinophils % 3.8 D Basophils % 1.4 Nucleated RBC % 0 PT with INR 14.70 H INR 1.24 H Sodium 141 Potassium 4.1 Chloride 110 H Carbon Dioxide 24 Anion Gap 7 L BUN 11 Creatinine 0.6 Creat Clearance w eGFR > 60 Random Glucose 170 H Calcium 8.2 L Magnesium 2.0 Total Bilirubin 0.6 AST 69 H ALT 30 Alkaline Phosphatase 125 H Creatine Kinase 301 H Creatine Kinase Index 1.2 CK-MB (CK-2) 3.7 H Troponin I 0.08 H B-Natriuretic Peptide 60.2 Total Protein 7.2 Albumin 3.3 L Stool Occult Blood 04/02/18 19:05 WBC RBC Hgb Hct MCV MCH MCHC RDW Plt Count MPV Absolute Neuts (auto) Neutrophils % Lymphocytes % Monocytes % Eosinophils % Basophils % Nucleated RBC % PT with INR INR Sodium Potassium Chloride Carbon Dioxide Anion Gap BUN Creatinine Creat Clearance w eGFR Random Glucose Calcium Magnesium Total Bilirubin AST ALT Alkaline Phosphatase Creatine Kinase Creatine Kinase Index CK-MB (CK-2) Troponin I B-Natriuretic Peptide Total Protein Albumin Stool Occult Blood Negative ASSESSMENT/PLAN: 77 yo female with PMH of HTN, NIDDM, Hypothyroid, 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, with complaint of b/l leg swelling and pain, found to have Troponin of 0.04 in ED Leg Swelling and Pain -Edema likely secondary to chronic cirrhosis -ECHO to evaluate for wall motion abnormalities and CHF diagnosis as pt with no history of CHF -Lasix 40 mg IV Once -Will continue to monitor fluid output -I&Os -Daily weights Troponin -0.04 -Pt asymptomatic and denies any chest pain or concerning cardiac symptoms -EKG normal sinus with no concerning ST/T wave abnormalities -Cardiac monitoring -Repeat troponin ordered Anemia -Has not been worked up here in the past -H/H 9.0/28, MCV 69.4 -Retics and Iron studies ordered HTN -Losartan 100 mg PO Daily Hypothyroid -On synthroid 88 mcg PO Daily -Hypothyroidism could play role in edema though less likely -consider TSH if not fully resolved by above plan NIDDM -BGMs ACHS -Insulin sliding scale for glycemic control Cirrhosis -Prior CT consistent with cryptogenic cirrhosis, mildly enlarged spleen, prominent paraesophageal/gastric varices suggestive of portal hypertension -Likely contributing to abdominal fullness and fluid buildup DVT Prophylaxis -Lovenox 40 mg SQ, consider holding pending platelet count on repeat CBC FEN -Fluids: none -Electrolytes: No electrolyte abnormalities, BMP in AM -Nutrition: Na controlled diet Disposition Tele Observation, can likely DC in AM after repeat troponin overnight Visit type - Emergency Visit Emergency Visit: Yes ED Registration Date: 04/02/18 Care time: The patient presented to the Emergency Department on the above date and was hospitalized for further evaluation of their emergent condition. - New Patient This patient is new to me today: Yes Date on this admission: 04/02/18 - Critical Care Critical Care patient: No
--- NOTE | 2018-04-02 21:26 | PN ---
Teaching Attending Note Name of Resident: Graeme Mcintosh ATTENDING PHYSICIAN STATEMENT I saw and evaluated the patient. I reviewed the resident's note and discussed the case with the resident. I agree with the resident's findings and plan as documented. SUBJECTIVE: Patient is a 77 year old woman with history of HTN, NIDDM, HLD, left breast cancer, hypothyroidism, cirrhosis here today complaining of bilateral leg swelling for the past 4-5 days. Patient endorses an associated shortness of breath and increasing abdominal distention. She states the abdominal distention has been getting worse for the past few months; she had her spironolactone dose changed from 50mg per day to 25mg per day because she was urinating too much. Denies chest pain, abdominal pain, fevers, nausea, vomiting. Endorses chills. Denies history of blood clots. OBJECTIVE: Alert Vital Signs Period Temp Pulse Resp BP Sys/Carrizales Pulse Ox Last 24 Hr 98.2 F 62-82 18 160/73 97-98 HEENT: No Jaundice, eye redness or discharge, PERRLA, EOMI. Normocephalic, atraumatic. External ears are normal and hearing is grossly intact. No nasal discharge. Neck: Supple, nontender. No palpable adenopathy or thyromegaly. No JVD Chest: Good effort. Clear to auscultation and percussion. Heart: Regular. No S3, rub or murmur Abdomen: Not distended, soft, nontender and no HSM. No rebound or guarding. Normoactive bowel sounds. Ext: Peripheral pulses intact. Leg edema. Skin: Warm and dry. No petechiae, rash or ecchymosis. Neuro: Alert. Oriented x3. CN 2-12 grossly intact. Sensation grossly intact in all four extremities and DTR are symmetric. Home Medications Medication Instructions Recorded Levothyroxine [Synthroid -] 88 mcg PO DAILY 06/21/15 Lovastatin 40 mg PO DAILY 06/21/15 Losartan Potassium [Cozaar] 100 mg PO DAILY 01/28/17 Spironolactone 25 mg PO DAILY 01/28/17 Pioglitazone HCl [Actos] 30 mg PO DAILY 10/23/17 Abnormal Lab Results 04/02/18 04/02/18 04/02/18 17:29 17:29 17:29 WBC 3.2 L Hgb 9.0 L Hct 28.0 L D MCV 69.4 L MCH 22.2 L RDW 20.2 H Plt Count 52 L D PT with INR 14.70 H INR 1.24 H Chloride 110 H Anion Gap 7 L Random Glucose 170 H Calcium 8.2 L AST 69 H Alkaline Phosphatase 125 H Creatine Kinase 301 H CK-MB (CK-2) 3.7 H Troponin I 0.08 H Albumin 3.3 L ASSESSMENT AND PLAN: 1. Decompensated cirrhosis/Elevated troponin - Reportedly stopped taking spironolactone recently, thus the increasing leg edema. Will get sonogram to quantify ascites. No acute pathology on CXR. Will get ECHO to rule out CHF. Treat with IV lasix, restart aldactone, monitor daily standing weight and avoid excessive salt intake. Elevated troponin is likely due to demand ischemia. No changes of ischemia on EKG. Will trend troponin and rule out ACS. 2. Pancytopenia - Likely due to portal hypertension and splenomegaly. May also have bone marrow suppression. Do basic anemia work up including serial stool guaiacs, reticulocyte count and iron studies. 3. DM - Check HbA1c. Implement sliding scale insulin regimen. Provide comprehensive diabetes care with patient teaching and counseling about the importance of euglycemia, eye care and foot care. 4. DVT prophylaxis - Early ambulation. Low platelets precludes use of heparin or compression devices. 5. Advance directives - Full code
[2018-04-02] MEDS: INSULIN SLIDING SCALE (NOVOLOG) 1 VIAL SQ SCH (22:23)
[2018-04-02] MEDS ORDERED: FUROSEMIDE 40 MG/4 ML INJECTABLE VIAL IVPUSH ONE (22:54)
[2018-04-03] MEDS ORDERED: FUROSEMIDE 40 MG/4 ML INJECTABLE VIAL ONE (02:08)
[2018-04-03 06:14] LABS: HEMOGLOBIN 7.5 GM/dL (10.7-15.3); MCHC 30.1 g/dl (32.0-36.0); MEAN CELL VOLUME 69.7 fl (80-96); MEAN PLT VOLUME 9.6 fl (7.5-11.1); RBC 3.58 M/mm3 (3.60-5.2); RDW 20.1 % (11.6-15.6); RETICULOCYTES 1.82 % (0.5-1.5); WHITE BLOOD COUNT 2.1 K/mm3 (4.0-10.0)
[2018-04-03 06:20] LABS: PLATELET COUNT 31 K/MM3 (134-434)
[2018-04-03] MEDS: LEVOTHYROXINE NA 88 MCG TABLET (FP) PO SCH (07:19)
[2018-04-03] MEDS: INSULIN SLIDING SCALE (NOVOLOG) 1 VIAL SQ SCH ×4 (07:19→21:45)
[2018-04-03 07:33] LABS: ALBUMIN 2.6 g/dl (3.4-5.0); ALK PHOS 101 U/L (45-117); ANION GAP 5 MMOL/L (8-16); BILIRUBIN,TOTAL 0.6 mg/dL (0.2-1); BLOOD UREA NITROGEN 10 mg/dL (7-18); CALCIUM 8.1 mg/dL (8.5-10.1); CHLORIDE 111 mmol/L (98-107); CO2 27 mmol/L (21-32); CREATININE 0.5 mg/dL (0.55-1.3); GLUCOSE,RANDOM 108 mg/dL (74-106); MAGNESIUM 1.9 mg/dL (1.8-2.4); POTASSIUM 3.3 mmol/L (3.5-5.1); SGOT/AST 36 U/L (15-37); SGPT/ALT 21 U/L (13-61); SODIUM 144 mmol/L (136-145); TOT PROT 5.9 g/dl (6.4-8.2)
[2018-04-03] MEDS ORDERED: POTASSIUM CHLORIDE TABS 20 MEQ TABLET.ER (FP) PO ONE ×2 (09:45→10:59)
--- NOTE | 2018-04-03 09:47 | PN ---
Addendum entered and electronically signed by Andria Luna, RESIDENT 17:29: Repeat Troponin 0.12 from 0.08. Patient is asymptomatic. Ordered troponin at 10 pm. Will request night team to follow. Repeat Platelet count is pending. Original Note: Physical Exam: SUBJECTIVE: Patient seen and examined at bed side this morning. States her breathing has improved, chest pain and headache has resolved, b/l swelling of the legs has improved. Has chronic cough with production of whitish sputum. Has had it for many years. Denies fever, chills, rigors or sweating, chest pain, sob, palpitation, abdominal pain, nausea or vomiting. NO BM since admission. Bladder habit normal. Sleep/Appetite normal. no acute overnight events. OBJECTIVE: Vital Signs Period Temp Pulse Resp BP Sys/Carrizales Pulse Ox Last 24 Hr 98.2 F-98.4 F 62-82 16-18 149-160/73-94 96-98 GENERAL: Elderly female, lying in bed comfortably, is awake, alert, and fully oriented, in no acute distress. HEAD: Normal with no signs of trauma. EYES: EOM intact ,no pallor or icterus. ENT: Ears normal, dry mucous membranes. NECK: Supple. LUNGS: Breath sounds equal, clear to auscultation bilaterally, no wheezes, no crackles, no accessory muscle use. HEART: Regular rate and rhythm, S1, S2 without murmur. ABDOMEN: Soft, nontender, no organomegaly. UPPER EXTREMITIES: 2+ pulses, warm, well-perfused, no edema. LOWER EXTREMITIES: 2+ pulses, warm, well-perfused, B/L trace edema. NEUROLOGICAL: No facial droop. Normal speech, gait not observed. PSYCH: Normal mood, normal affect. SKIN: Warm, dry, normal turgor, no rashes or lesions noted Laboratory Results - last 24 hr 04/02/1818 04/02/18 17:29 17:29 17:29 WBC 3.2 L RBC 4.04 Hgb 9.0 L Hct 28.0 L D MCV 69.4 L MCH 22.2 L MCHC 32.0 RDW 20.2 H Plt Count 52 L D MPV 10.8 Absolute Neuts (auto) 1.9 Neutrophils % 59.6 Lymphocytes % 27.7 Monocytes % 7.5 Eosinophils % 3.8 D Basophils % 1.4 Nucleated RBC % 0 Retic Count PT with INR 14.70 H INR 1.24 H Sodium 141 Potassium 4.1 Chloride 110 H Carbon Dioxide 24 Anion Gap 7 L BUN 11 Creatinine 0.6 Creat Clearance w eGFR > 60 POC Glucometer Random Glucose 170 H Calcium 8.2 L Phosphorus Magnesium 2.0 Ferritin Total Bilirubin 0.6 AST 69 H ALT 30 Alkaline Phosphatase 125 H Creatine Kinase 301 H Creatine Kinase Index 1.2 CK-MB (CK-2) 3.7 H Troponin I 0.08 H B-Natriuretic Peptide 60.2 Total Protein 7.2 Albumin 3.3 L Stool Occult Blood 04/02/18 04/02/18 04/03/18 19:05 22:22 01:30 WBC RBC Hgb Hct MCV MCH MCHC RDW Plt Count MPV Absolute Neuts (auto) Neutrophils % Lymphocytes % Monocytes % Eosinophils % Basophils % Nucleated RBC % Retic Count PT with INR INR Sodium Potassium Chloride Carbon Dioxide Anion Gap BUN Creatinine Creat Clearance w eGFR POC Glucometer 182.13664 Random Glucose Calcium Phosphorus Magnesium Ferritin Total Bilirubin AST ALT Alkaline Phosphatase Creatine Kinase Creatine Kinase Index CK-MB (CK-2) Troponin I 0.10 H B-Natriuretic Peptide Total Protein Albumin Stool Occult Blood Negative 04/03/18 04/03/18 04/03/18 05:08 05:08 07:13 WBC 2.1 L RBC 3.58 L Hgb 7.5 L Hct 25.0 L MCV 69.7 L MCH 21.0 L MCHC 30.1 L RDW 20.1 H Plt Count 31 L* D MPV 9.6 D Absolute Neuts (auto) Neutrophils % Lymphocytes % Monocytes % Eosinophils % Basophils % Nucleated RBC % Retic Count 1.82 H PT with INR INR Sodium 144 Potassium 3.3 L Chloride 111 H Carbon Dioxide 27 Anion Gap 5 L BUN 10 Creatinine 0.5 L Creat Clearance w eGFR > 60 POC Glucometer [phone] Random Glucose 108 H Calcium 8.1 L Phosphorus 3.0 Magnesium 1.9 Ferritin 5.1 L Total Bilirubin 0.6 AST 36 ALT 21 Alkaline Phosphatase 101 Creatine Kinase Creatine Kinase Index CK-MB (CK-2) Troponin I 0.08 H B-Natriuretic Peptide Total Protein 5.9 L Albumin 2.6 L Stool Occult Blood Active Medications Generic Name Dose Route Start Last Admin Trade Name Freq PRN Reason Stop Dose Admin Atorvastatin Calcium 10 mg 04/03/18 22:00 Lipitor - PO HS TERESA Insulin Aspart 1 vial 04/02/18 22:00 04/03/18 07:19 Novolog Vial Sliding Scale - SQ Not Given ACHS [facility] Protocol Levothyroxine Sodium 88 mcg 04/03/18 07:00 04/03/18 07:19 Synthroid - PO 88 mcg DAILY@0700 [facility] Administration Losartan Potassium 100 mg 04/03/18 10:00 Cozaar - PO DAILY [facility] Spironolactone 25 mg 04/03/18 10:00 Aldactone - PO DAILY [facility] ASSESSMENT/PLAN: Patient is a 77 year female with PMH of HTN, NIDDM, Hypothyroidism, 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 # B/L Leg swelling and pain likely secondary to chronic cirrhosis Received one dose of IV Lasix, has only trace pitting edema. Patient reports , leg swelling has improved. BNP is 60, unlikely in CHF. No calf tenderness, low suspicion for DVT ECHO pending # Elevated troponins wihtout EKG changes likely demand ischemia Troponin 0.08--> pending Will trend # Thrombocytopenia could be from cirrhosis Hx of thrombocytopenia since 2010, highest 102, lowest 31 today. Platelet count 52---> 31 Hold a/c, will repeat CBC this afternoon. # Hypertension Continue Losartan 100 mg PO Daily and aldactone 25mg PO daily # Microcytic anemia H/H 01/07-->7.5/25, no signs of active bleeding. Iron studies pending. ferritin low. # Hypothyroid Continue Synthroid 88 mcg PO Daily # DM Continue ISS, finger stick BGMs, Watch for hypoglycemic episodes. # Hx of Cirrhosis # Hx of Breast cancer (off Tamoxifen) # FEN Not on IV fluids Electrolytes WNL Diabetic diet # Prophylaxis For DVT: On SCDs, a/c on hold due to thrombocytopenia For GI: not indicated # Code Status: Full Code # Dispo: Admitted in Tele. D/c planning in AM if labs are normal. Plan of care explained to the patient. She verbalized understanding. Case discussed with Dr. Donovan. Problem List - Problems (1) Troponin I above reference range Code(s): R74.8 - ABNORMAL LEVELS OF OTHER SERUM ENZYMES (2) Breast cancer Code(s): C50.919 - MALIGNANT NEOPLASM OF UNSP SITE OF UNSPECIFIED FEMALE BREAST (3) Dehydration Code(s): E86.0 - DEHYDRATION (4) HLD (hyperlipidemia) Code(s): E78.5 - HYPERLIPIDEMIA, UNSPECIFIED (5) HTN (hypertension) Code(s): I10 - ESSENTIAL (PRIMARY) HYPERTENSION (6) Thrombocytopenia Code(s): D69.6 - THROMBOCYTOPENIA, UNSPECIFIED Visit type - Emergency Visit Emergency Visit: Yes ED Registration Date: 04/02/18 Care time: The patient presented to the Emergency Department on the above date and was hospitalized for further evaluation of their emergent condition. - New Patient This patient is new to me today: Yes Date on this admission: 04/03/18 - Critical Care Critical Care patient: No - Discharge Referral Referred to [facility] Med P.C.: No
[2018-04-03] MEDS: SPIRONOLACTONE 25 MG TABLET (FP) PO SCH (10:55)
[2018-04-03] MEDS: LOSARTAN POTASSIUM 50 MG TABLET (FP) PO SCH (10:56)
[2018-04-03 16:12] LABS: HEMATOCRIT 26.4 % (32.4-45.2); HEMOGLOBIN 8.4 GM/dL (10.7-15.3); MCHC 31.9 g/dl (32.0-36.0); MEAN CELL VOLUME 69.1 fl (80-96); RBC 3.81 M/mm3 (3.60-5.2); RDW 20.6 % (11.6-15.6); WHITE BLOOD COUNT 2.5 K/mm3 (4.0-10.0)
[2018-04-03 18:35] LABS: PLATELET COUNT 62 K/MM3 (134-434)
--- NOTE | 2018-04-03 18:39 | PN ---
Teaching Attending Note Name of Resident: Andria Luna ATTENDING PHYSICIAN STATEMENT I saw and evaluated the patient. I reviewed the resident's note and discussed the case with the resident. I agree with the resident's findings and plan as documented. SUBJECTIVE: Patient has cough. She denies SOB. Leg edema has improved. OBJECTIVE: Vital Signs Period Temp Pulse Resp BP Sys/Carrizales Pulse Ox Last 24 Hr 97.0 F-98.4 F 72-100 16-20 131-149/65-94 96-97 HEART: S1S2, RRR LUNGS: Clear ABDOMEN: Soft, non-laura, non-distended, normal BS EXTREMITIES: Trace edema Laboratory Results - last 24 hr 04/02/18 04/02/18 04/02/18 17:29 19:05 22:22 WBC RBC Hgb Hct MCV MCH MCHC RDW Plt Count MPV Retic Count Sodium Potassium Chloride Carbon Dioxide Anion Gap BUN Creatinine Creat Clearance w eGFR POC Glucometer [phone] Random Glucose Calcium Phosphorus Magnesium Ferritin Total Bilirubin AST ALT Alkaline Phosphatase Creatine Kinase Index 1.2 CK-MB (CK-2) 3.7 H Troponin I Total Protein Albumin Stool Occult Blood Negative 04/03/18 04/03/18 04/03/18 01:30 05:08 05:08 WBC 2.1 L RBC 3.58 L Hgb 7.5 L Hct 25.0 L MCV 69.7 L MCH 21.0 L MCHC 30.1 L RDW 20.1 H Plt Count 31 L* D MPV 9.6 D Retic Count 1.82 H Sodium 144 Potassium 3.3 L Chloride 111 H Carbon Dioxide 27 Anion Gap 5 L BUN 10 Creatinine 0.5 L Creat Clearance w eGFR > 60 POC Glucometer Random Glucose 108 H Calcium 8.1 L Phosphorus 3.0 Magnesium 1.9 Ferritin 5.1 L Total Bilirubin 0.6 AST 36 ALT 21 Alkaline Phosphatase 101 Creatine Kinase Index CK-MB (CK-2) Troponin I 0.10 H 0.08 H Total Protein 5.9 L Albumin 2.6 L Stool Occult Blood 04/03/18 04/03/18 04/03/18 07:13 16:04 16:04 WBC 2.5 L RBC 3.81 Hgb 8.4 L Hct 26.4 L MCV 69.1 L MCH 22.0 L MCHC 31.9 L RDW 20.6 H Plt Count 62 L D MPV 11.0 D Retic Count Sodium Potassium Chloride Carbon Dioxide Anion Gap BUN Creatinine Creat Clearance w eGFR POC Glucometer 144.21954 Random Glucose Calcium Phosphorus Magnesium Ferritin Total Bilirubin AST ALT Alkaline Phosphatase Creatine Kinase Index CK-MB (CK-2) Troponin I 0.12 H Total Protein Albumin Stool Occult Blood 04/03/18 17:02 WBC RBC Hgb Hct MCV MCH MCHC RDW Plt Count MPV Retic Count Sodium Potassium Chloride Carbon Dioxide Anion Gap BUN Creatinine Creat Clearance w eGFR POC Glucometer 199 Random Glucose Calcium Phosphorus Magnesium Ferritin Total Bilirubin AST ALT Alkaline Phosphatase Creatine Kinase Index CK-MB (CK-2) Troponin I Total Protein Albumin Stool Occult Blood Current Medications Generic Name Dose Route Start Last Admin Trade Name Freq PRN Reason Stop Dose Admin Atorvastatin Calcium 10 mg 04/03/18 22:00 Lipitor - PO HS TERESA Insulin Aspart 1 vial 04/02/18 22:00 04/03/18 17:15 Novolog Vial Sliding Scale - SQ Not Given ACHS [facility] Protocol Levothyroxine Sodium 88 mcg 04/03/18 07:00 04/03/18 07:19 Synthroid - PO 88 mcg DAILY@0700 [facility] Administration Losartan Potassium 100 mg 04/03/18 10:00 04/03/18 10:56 Cozaar - PO 100 mg DAILY [facility] Administration Spironolactone 25 mg 04/03/18 10:00 04/03/18 10:55 Aldactone - PO 25 mg DAILY [facility] Administration ASSESSMENT AND PLAN: This is a 77 year old woman with a history of HTN, type 2 DM, hypothyroidism, cryptogenic cirrhosis, breast cancer, postmenopausal bleeding, D&C who presented to the ED with leg swelling and pain. 1. B/L leg edema and pain possibly secondary to cirrhosis - Edema improved with Lasix IV in ED - Echo pending 2. Elevated troponins, possibly demand ischemia - Continue telemetry monitoring - Continue to monitor troponins - Echo pending 3. Pancytopenia - Thought to be secondary to cirrhosis - Anemia likely iron deficiency - ferritin low; iron, TIBC, iron sat pending - Monitor CBC - If counts stable, would recommend outpatient heme follow up 4. Hypertension - Continue Cozaar, Aldactone 5. Hypothyroidism - Continue Synthroid 6. Type 2 DM - Continue Novolog sliding scale 7. Cryptogenic cirrhosis 8. History of breast cancer
[2018-04-03] MEDS: ATORVASTATIN CA 10 MG TABLET (FP) PO SCH (22:12)
[2018-04-04 04:11] LABS: SERUM IRON SATURATION 4 % (15-55); TOTAL IRON BINDING CAPACITY 410 ug/dL (250-450); UIBC 392 ug/dL (118-369)
[2018-04-04] MEDS: INSULIN SLIDING SCALE (NOVOLOG) 1 VIAL SQ SCH ×4 (05:59→21:25)
[2018-04-04] MEDS: LEVOTHYROXINE NA 88 MCG TABLET (FP) PO SCH (05:59)
[2018-04-04 06:51] LABS: HEMOGLOBIN 7.9 GM/dL (10.7-15.3); MCH 21.2 pg (25.7-33.7); MCHC 30.5 g/dl (32.0-36.0); MEAN CELL VOLUME 69.4 fl (80-96); MEAN PLT VOLUME 10.3 fl (7.5-11.1); PLATELET COUNT 37 K/MM3 (134-434); RBC 3.74 M/mm3 (3.60-5.2); RDW 20.3 % (11.6-15.6); WHITE BLOOD COUNT 2.4 K/mm3 (4.0-10.0)
[2018-04-04 07:04] LABS: ANION GAP 5 MMOL/L (8-16); BLOOD UREA NITROGEN 8 mg/dL (7-18); CALCIUM 8.3 mg/dL (8.5-10.1); CHLORIDE 110 mmol/L (98-107); CO2 26 mmol/L (21-32); CREATININE 0.5 mg/dL (0.55-1.3); GLUCOSE,RANDOM 122 mg/dL (74-106); POTASSIUM 3.7 mmol/L (3.5-5.1); SODIUM 141 mmol/L (136-145)
--- NOTE | 2018-04-04 07:14 | EKG ---
Test Reason : Blood Pressure : / mmHG Vent. Rate : 078 BPM Atrial Rate : 078 BPM P-R Int : 192 ms QRS Dur : 074 ms QT Int : 394 ms P-R-T Axes : -26 -35 004 degrees QTc Int : 449 ms NORMAL SINUS RHYTHM LEFT AXIS DEVIATION LOW VOLTAGE QRS CANNOT RULE OUT ANTERIOR INFARCT , AGE UNDETERMINED ABNORMAL ECG WHEN COMPARED WITH ECG OF 02-APR-2018 18:24, PREMATURE ATRIAL COMPLEXES ARE NO LONGER PRESENT Confirmed by JESSI CLAROS MD ([id number]) on 04/04/2018 7:14:37 AM Referred By: Confirmed By:JESSI CLAROS MD
--- NOTE | 2018-04-04 07:18 | EKG ---
Test Reason : Blood Pressure : / mmHG Vent. Rate : 073 BPM Atrial Rate : 073 BPM P-R Int : 200 ms QRS Dur : 074 ms QT Int : 400 ms P-R-T Axes : -28 -27 009 degrees QTc Int : 440 ms SINUS RHYTHM WITH PREMATURE ATRIAL COMPLEXES LOW VOLTAGE QRS BORDERLINE ECG WHEN COMPARED WITH ECG OF 23-OCT-2017 19:18, PREMATURE ATRIAL COMPLEXES ARE NOW PRESENT Confirmed by HARLAN GALO, JESSI ([id number]) on 04/04/2018 7:18:25 AM Referred By: Confirmed By:JESSI CLAROS MD
[2018-04-04] MEDS: LOSARTAN POTASSIUM 50 MG TABLET (FP) PO SCH (09:55)
[2018-04-04] MEDS: SPIRONOLACTONE 25 MG TABLET (FP) PO SCH (09:55)
--- NOTE | 2018-04-04 13:54 | ECHO ---
Name: ALEXIS LAGOS Exam:Adult Echocardiogram Study Date: 04/04/2018 09:19 AM Age: 77 yrs Reason For Study: possible chf Height: 59 in Weight: 114 lb BSA: 1.5 m2 MMode/2D Measurements & Calculations IVSd: 0.70 cm Ao root diam: 2.9 cm LVIDd: 3.6 cm LA dimension: 4.2 cm LVIDs: 2.4 cm ACS: 1.3 cm LVPWd: 0.77 cm IVSs: 1.1 cm LVPWs: 0.91 cm EDV(Teich): 55.0 ml ESV(Teich): 20.8 ml Doppler Measurements & Calculations MV E max ghanshyam: 110.3 cm/sec Ao V2 max: 148.3 cm/sec MV A max ghanshyam: 142.2 cm/sec Ao max P.8 mmHg MV E/A: 0.78 Ao V2 mean: 100.4 cm/sec Ao mean P.6 mmHg Ao V2 VTI: 32.2 cm Med Peak E' Ghanshyam: 5.8 cm/sec Med E/e': 18.9 Lat Peak E' Ghanshyam: 8.1 cm/sec Lat E/e': 13.6 Procedure A complete two-dimensional transthoracic echocardiogram was performed (2D, M-mode, Doppler and color flow Doppler). The study was technically excellent with all images being of optimal quality. Left Ventricle The left ventricular size, thickness and function are normal. The transmitral spectral Doppler flow p attern is suggestive of impaired LV relaxation. The left ventricular wall motion is normal. Right Ventricle The right ventricle is normal in size and function. There is normal right ventricular wall thickness. Atria Normal left and right atrial size and function. Mitral Valve There is mild mitral valve thickening. There is trace mitral regurgitation. Tricuspid Valve The tricuspid valve is normal in structure and function. There is trace tricuspid regurgitation. Aortic Valve There is mild aortic sclerosis.;. No aortic regurgitation is present. Pulmonic Valve The pulmonic valve is normal in structure and function. Trace pulmonic valvular regurgitation. Great Vessels The aortic root is normal size. Pericardium/Pleura There is no pericardial effusion. Interpretation Summary The left ventricular size, thickness and function are normal The transmitral spectral Doppler flow pattern is suggestive of impaired LV relaxation. The right ventricle is normal in size and function. Juve Kwan 04/04/2018 01:54 PM
[2018-04-04 14:57] VITALS: BMI 22.4
--- NOTE | 2018-04-04 17:53 | PN ---
Physical Exam: SUBJECTIVE: Patient seen and examined. She reports chronic cough with white sputum. She denies SOB. OBJECTIVE: Vital Signs Period Temp Pulse Resp BP Sys/Carrizales Pulse Ox Last 24 Hr 97.4 F-100.5 F 79-89 18-18 110-144/57-65 95-98 GENERAL: The patient is awake, alert, and fully oriented, in no acute distress. LUNGS: Breath sounds equal, clear to auscultation bilaterally, no wheezes, no crackles, no accessory muscle use. HEART: Regular rate and rhythm, S1, S2 without murmur, rub or gallop. ABDOMEN: Soft, nontender, nondistended, normoactive bowel sounds, no guarding, no rebound, no hepatosplenomegaly, no masses. EXTREMITIES: 2+ pulses, warm, well-perfused, no edema. Laboratory Results - last 24 hr 04/03/18 04/03/18 04/03/18 05:08 16:04 21:33 WBC RBC Hgb Hct MCV MCH MCHC RDW Plt Count 62 L D MPV 11.0 D Sodium Potassium Chloride Carbon Dioxide Anion Gap BUN Creatinine Creat Clearance w eGFR POC Glucometer Random Glucose Calcium Iron 18 L TIBC 410 Iron Saturation 4 L Troponin I 0.09 H 04/03/18 04/04/18 04/04/18 21:36 05:47 06:00 WBC 2.4 L RBC 3.74 Hgb 7.9 L Hct 26.0 L MCV 69.4 L MCH 21.2 L MCHC 30.5 L RDW 20.3 H Plt Count 37 L D MPV 10.3 Sodium Potassium Chloride Carbon Dioxide Anion Gap BUN Creatinine Creat Clearance w eGFR POC Glucometer 159 132 Random Glucose Calcium Iron TIBC Iron Saturation Troponin I 04/04/18 04/04/18 04/04/18 06:00 11:44 16:42 WBC RBC Hgb Hct MCV MCH MCHC RDW Plt Count MPV Sodium 141 Potassium 3.7 Chloride 110 H Carbon Dioxide 26 Anion Gap 5 L BUN 8 Creatinine 0.5 L Creat Clearance w eGFR > 60 POC Glucometer 213 131 Random Glucose 122 H Calcium 8.3 L Iron TIBC Iron Saturation Troponin I Active Medications Generic Name Dose Route Start Last Admin Trade Name Freq PRN Reason Stop Dose Admin Atorvastatin Calcium 10 mg 04/03/18 22:00 04/03/18 22:12 Lipitor - PO 10 mg HS TERESA Administration Insulin Aspart 1 vial 04/02/18 22:00 04/04/18 17:00 Novolog Vial Sliding Scale - SQ Not Given ACHS [facility] Protocol Levothyroxine Sodium 88 mcg 04/03/18 07:00 04/04/18 05:59 Synthroid - PO 88 mcg DAILY@0700 TERESA Administration Losartan Potassium 100 mg 04/03/18 10:00 04/04/18 09:55 Cozaar - PO 100 mg DAILY TERESA Administration Spironolactone 25 mg 04/03/18 10:00 04/04/18 09:55 Aldactone - PO 25 mg DAILY TERESA Administration ASSESSMENT/PLAN: This is a 77 year old woman with a history of HTN, hyperlipidemia, type 2 DM, hypothyroidism, cryptogenic cirrhosis, breast cancer, postmenopausal bleeding, D &C who presented to the ED with leg swelling and pain. 1. B/L leg edema and pain possibly secondary to cirrhosis - Edema improved with Lasix IV in ED - Echo shows normal LV size and function, impaired LV relaxation, normal RV 2. Elevated troponins, possibly demand ischemia - Continue telemetry monitoring - Troponins 0.08-0.12 - no further monitoring - Echo shows normal LV size and function, impaired LV relaxation, normal RV 3. Pancytopenia - Thought to be secondary to cirrhosis - Anemia likely iron deficiency - ferritin, iron, iron sat low; TIBC normal - Monitor CBC - Start iron supplementation - If counts stable, would recommend outpatient heme follow up 4. Hypertension - Continue Cozaar, Aldactone 5. Hyperlipidemia - Continue Lipitor 6. Hypothyroidism - Continue Synthroid 7. Type 2 DM - Continue Novolog sliding scale 8. Cryptogenic cirrhosis 9. History of breast cancer Visit type - Emergency Visit Emergency Visit: Yes ED Registration Date: 04/02/18 Care time: The patient presented to the Emergency Department on the above date and was hospitalized for further evaluation of their emergent condition. - New Patient This patient is new to me today: No - Critical Care Critical Care patient: No - Discharge Referral Referred to [facility] Med P[facility].: No
[2018-04-04] MEDS: ATORVASTATIN CA 10 MG TABLET (FP) PO SCH (21:25)
[2018-04-05] MEDS: LEVOTHYROXINE NA 88 MCG TABLET (FP) PO SCH (06:21)
[2018-04-05] MEDS: INSULIN SLIDING SCALE (NOVOLOG) 1 VIAL SQ SCH ×4 (06:21→21:17)
[2018-04-05 07:49] LABS: EOS % 4.5 % (0-4.5); HEMOGLOBIN 8.7 GM/dL (10.7-15.3); LYMPH % 32.1 % (8-40); MCH 20.9 pg (25.7-33.7); MCHC 29.9 g/dl (32.0-36.0); MEAN PLT VOLUME 9.9 fl (7.5-11.1); MONO % 9.5 % (3.8-10.2); NEUT % 52.9 % (42.8-82.8); PLATELET COUNT 51 K/MM3 (134-434); RBC 4.14 M/mm3 (3.60-5.2); RDW 20.4 % (11.6-15.6); WHITE BLOOD COUNT 2.8 K/mm3 (4.0-10.0)
[2018-04-05 08:14] LABS: ANION GAP 9 MMOL/L (8-16); BLOOD UREA NITROGEN 9 mg/dL (7-18); CALCIUM 8.1 mg/dL (8.5-10.1); CHLORIDE 110 mmol/L (98-107); CO2 25 mmol/L (21-32); CREATININE 0.5 mg/dL (0.55-1.3); GLUCOSE,RANDOM 123 mg/dL (74-106); POTASSIUM 3.5 mmol/L (3.5-5.1); SODIUM 143 mmol/L (136-145)
[2018-04-05] MEDS: SPIRONOLACTONE 25 MG TABLET (FP) PO SCH (09:30)
[2018-04-05] MEDS: LOSARTAN POTASSIUM 50 MG TABLET (FP) PO SCH (09:30)
[2018-04-05 10:45] LABS: ANISOCYTOSIS 1+; MACROCYTOSIS 0; PLATELET ESTIMATE DECREASED
--- NOTE | 2018-04-05 11:22 | PN ---
Physical Exam: SUBJECTIVE: Patient seen and examined at bed side this morning. states she feels much better, swelling of the legs have improved. Denies chest pain, sob, cough, palpitation, abdominal pain, nausea or vomiting. No BM since admission. Bladder habit normal. No acute overnight events. OBJECTIVE: Vital Signs Period Temp Pulse Resp BP Sys/Carrizales Pulse Ox Last 24 Hr 98 F-98.3 F 77-86 18-20 110-141/52-67 95-95 GENERAL: Elderly female, lying in bed comfortably, is awake, alert, and fully oriented, in no acute distress. HEAD: Normal with no signs of trauma. EYES: EOM intact ,no pallor or icterus. ENT: Ears normal, moist mucous membranes. NECK: Supple. LUNGS: Breath sounds equal, clear to auscultation bilaterally, no wheezes, no crackles, no accessory muscle use. HEART: Regular rate and rhythm, S1, S2 without murmur. ABDOMEN: Soft, nontender, no organomegaly. UPPER EXTREMITIES: 2+ pulses, warm, well-perfused, no edema. LOWER EXTREMITIES: 2+ pulses, warm, well-perfused, B/L trace edema. NEUROLOGICAL: No facial droop. Normal speech, gait not observed. PSYCH: Normal mood, normal affect. SKIN: Warm, dry, normal turgor, no rashes or lesions noted Laboratory Results - last 24 hr 04/04/18 04/04/18 04/04/18 11:44 16:42 20:29 WBC RBC Hgb Hct MCV MCH MCHC RDW Plt Count MPV Absolute Neuts (auto) Neutrophils % Lymphocytes % Monocytes % Eosinophils % Basophils % Nucleated RBC % Sodium Potassium Chloride Carbon Dioxide Anion Gap BUN Creatinine Creat Clearance w eGFR POC Glucometer 213 131 178 Random Glucose Calcium 04/05/18 04/05/18 04/05/18 05:32 06:00 06:00 WBC 2.8 L RBC 4.14 Hgb 8.7 L Hct 29.0 L MCV 70.0 L MCH 20.9 L MCHC 29.9 L RDW 20.4 H Plt Count 51 L D MPV 9.9 Absolute Neuts (auto) 1.5 Neutrophils % 52.9 Lymphocytes % 32.1 Monocytes % 9.5 Eosinophils % 4.5 Basophils % 1.0 Nucleated RBC % 0 Sodium 143 Potassium 3.5 Chloride 110 H Carbon Dioxide 25 Anion Gap 9 BUN 9 Creatinine 0.5 L Creat Clearance w eGFR > 60 POC Glucometer 135 Random Glucose 123 H Calcium 8.1 L Active Medications Generic Name Dose Route Start Last Admin Trade Name Flora PRN Reason Stop Dose Admin Atorvastatin Calcium 10 mg 04/03/18 22:00 04/04/18 21:25 Lipitor - PO 10 mg HS TERESA Administration Insulin Aspart 1 vial 04/02/18 22:00 04/05/18 06:21 Novolog Vial Sliding Scale - SQ Not Given ACHS TERESA Protocol Levothyroxine Sodium 88 mcg 04/03/18 07:00 04/05/18 06:21 Synthroid - PO 88 mcg DAILY@0700 TERESA Administration Losartan Potassium 100 mg 04/03/18 10:00 04/05/18 09:30 Cozaar - PO 100 mg DAILY TERESA Administration Spironolactone 25 mg 04/03/18 10:00 04/05/18 09:30 Aldactone - PO 25 mg DAILY TERESA Administration ASSESSMENT/PLAN: Patient is a 77 year female with PMH of HTN, NIDDM, Hypothyroidism, 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 # Constipation No BM since admission. Will add bowel regimen # # Microcytic anemia likely from Iron def anemia No signs of active bleeding. Will add Ferrous sulphate. # B/L Leg swelling and pain likely secondary to chronic cirrhosis- improved. Leg swelling has improved. Not on Lasix. BNP is 60, unlikely in CHF. No calf tenderness, low suspicion for DVT ECHO 04/04/18: Left ventricular size, thickness and function normal. Suggestive of impaired LV relaxation. Right ventricle is normal in size and function. # Elevated troponins without EKG changes likely demand ischemia Troponins trended down. # Thrombocytopenia could be from cirrhosis Platelet count pending. Hx of thrombocytopenia since 2010, highest 102, lowest 31 today. Hold a/c due to thrombocytopenia # Hypertension-controlled Continue Losartan 100 mg PO Daily and aldactone 25mg PO daily # Hypothyroid Continue Synthroid 88 mcg PO Daily # DM Continue ISS, finger stick BGMs, Watch for hypoglycemic episodes. # Hx of Cirrhosis # Hx of Breast cancer (off Tamoxifen) # FEN Not on IV fluids Electrolytes WNL Diabetic diet # Prophylaxis For DVT: On SCDs, a/c on hold due to thrombocytopenia For GI: not indicated # Code Status: Full Code # Dispo: Admitted in Tele. D/c planning tomorrow. Plan of care explained to the patient. She verbalized understanding. Case discussed with Dr. Donovan. Problem List - Problems (1) Troponin I above reference range Code(s): R74.8 - ABNORMAL LEVELS OF OTHER SERUM ENZYMES (2) Breast cancer Code(s): C50.919 - MALIGNANT NEOPLASM OF UNSP SITE OF UNSPECIFIED FEMALE BREAST (3) Dehydration Code(s): E86.0 - DEHYDRATION (4) HLD (hyperlipidemia) Code(s): E78.5 - HYPERLIPIDEMIA, UNSPECIFIED (5) HTN (hypertension) Code(s): I10 - ESSENTIAL (PRIMARY) HYPERTENSION (6) Thrombocytopenia Code(s): D69.6 - THROMBOCYTOPENIA, UNSPECIFIED Visit type - Emergency Visit Emergency Visit: Yes ED Registration Date: 04/02/18 Care time: The patient presented to the Emergency Department on the above date and was hospitalized for further evaluation of their emergent condition. - New Patient This patient is new to me today: No - Critical Care Critical Care patient: No - Discharge Referral Referred to [facility] Med P.C.: No
[2018-04-05] MEDS ORDERED: SENNOSIDES 8.6MG TABLET (FP) PO PRN (11:23)
[2018-04-05] MEDS ORDERED: DOCUSATE SODIUM 100 MG CAPSULE (FP) PO PRN (11:23)
[2018-04-05] MEDS: FERROUS SO4 325 MG TABLET (FP) PO SCH (12:06)
[2018-04-05 12:42] LABS: HEMATOCRIT 27.1 % (32.4-45.2); HEMOGLOBIN 8.8 GM/dL (10.7-15.3); MCH 22.2 pg (25.7-33.7); MCHC 32.4 g/dl (32.0-36.0); MEAN CELL VOLUME 68.7 fl (80-96); MEAN PLT VOLUME 9.4 fl (7.5-11.1); PLATELET COUNT 54 K/MM3 (134-434); RBC 3.94 M/mm3 (3.60-5.2); RDW 20.1 % (11.6-15.6); WHITE BLOOD COUNT 2.7 K/mm3 (4.0-10.0)
[2018-04-05 13:22] LABS: ANION GAP 9 MMOL/L (8-16); BLOOD UREA NITROGEN 9 mg/dL (7-18); CALCIUM 7.9 mg/dL (8.5-10.1); CHLORIDE 109 mmol/L (98-107); CO2 24 mmol/L (21-32); CREATININE 0.6 mg/dL (0.55-1.3); GLUCOSE,RANDOM 202 mg/dL (74-106); POTASSIUM 3.5 mmol/L (3.5-5.1); SODIUM 141 mmol/L (136-145)
--- NOTE | 2018-04-05 18:42 | PN ---
Teaching Attending Note Name of Resident: Andria Luna ATTENDING PHYSICIAN STATEMENT I saw and evaluated the patient. I reviewed the resident's note and discussed the case with the resident. I agree with the resident's findings and plan as documented. SUBJECTIVE: No new complaints. OBJECTIVE: Vital Signs Period Temp Pulse Resp BP Sys/Carrizales Pulse Ox Last 24 Hr 98 F-98.3 F 77-94 18-18 110-141/52-73 95-95 GENERAL: The patient is awake, alert, and fully oriented, in no acute distress. LUNGS: Breath sounds equal, clear to auscultation bilaterally, no wheezes, no crackles, no accessory muscle use. HEART: Regular rate and rhythm, S1, S2 without murmur, rub or gallop. ABDOMEN: Soft, nontender, nondistended, normoactive bowel sounds, no guarding, no rebound, no hepatosplenomegaly, no masses. EXTREMITIES: 2+ pulses, warm, well-perfused, no edema. Laboratory Results - last 24 hr 04/04/18 04/05/18 04/05/18 20:29 05:32 06:00 WBC 2.8 L RBC 4.14 Hgb 8.7 L Hct 29.0 L MCV 70.0 L MCH 20.9 L MCHC 29.9 L RDW 20.4 H Plt Count 51 L D MPV 9.9 Absolute Neuts (auto) 1.5 Neutrophils % 52.9 Lymphocytes % 32.1 Monocytes % 9.5 Eosinophils % 4.5 Basophils % 1.0 Nucleated RBC % 0 Hypochromia 1+ Platelet Estimate Decreased Polychromasia 0 Poikilocytosis 1+ Anisocytosis 1+ Microcytosis 1+ Macrocytosis 0 Sodium Potassium Chloride Carbon Dioxide Anion Gap BUN Creatinine Creat Clearance w eGFR POC Glucometer 178 135 Random Glucose Calcium 04/05/18 04/05/18 04/05/18 06:00 11:31 12:29 WBC 2.7 L RBC 3.94 Hgb 8.8 L Hct 27.1 L MCV 68.7 L MCH 22.2 L MCHC 32.4 RDW 20.1 H Plt Count 54 L MPV 9.4 Absolute Neuts (auto) Neutrophils % Lymphocytes % Monocytes % Eosinophils % Basophils % Nucleated RBC % Hypochromia Platelet Estimate Polychromasia Poikilocytosis Anisocytosis Microcytosis Macrocytosis Sodium 143 Potassium 3.5 Chloride 110 H Carbon Dioxide 25 Anion Gap 9 BUN 9 Creatinine 0.5 L Creat Clearance w eGFR > 60 POC Glucometer 279 Random Glucose 123 H Calcium 8.1 L 04/05/18 04/05/18 12:29 17:14 WBC RBC Hgb Hct MCV MCH MCHC RDW Plt Count MPV Absolute Neuts (auto) Neutrophils % Lymphocytes % Monocytes % Eosinophils % Basophils % Nucleated RBC % Hypochromia Platelet Estimate Polychromasia Poikilocytosis Anisocytosis Microcytosis Macrocytosis Sodium 141 Potassium 3.5 Chloride 109 H Carbon Dioxide 24 Anion Gap 9 BUN 9 Creatinine 0.6 Creat Clearance w eGFR > 60 POC Glucometer 150 Random Glucose 202 H Calcium 7.9 L Current Medications Generic Name Dose Route Start Last Admin Trade Name Freq PRN Reason Stop Dose Admin Atorvastatin Calcium 10 mg 04/03/18 22:00 04/04/18 21:25 Lipitor - PO 10 mg HS TERESA Administration Docusate Sodium 100 mg 04/05/18 11:23 Colace - PO BID PRN CONSTIPATION Ferrous Sulfate 325 mg 04/05/18 11:30 04/05/18 12:06 Feosol - PO 325 mg DAILY TERESA Administration Insulin Aspart 1 vial 04/02/18 22:00 04/05/18 17:16 Novolog Vial Sliding Scale - SQ Not Given ACHS [facility] Protocol Levothyroxine Sodium 88 mcg 04/03/18 07:00 04/05/18 06:21 Synthroid - PO 88 mcg DAILY@0700 TERESA Administration Losartan Potassium 100 mg 04/03/18 10:00 04/05/18 09:30 Cozaar - PO 100 mg DAILY TERESA Administration Senna 2 tab 04/05/18 11:23 Senna - PO HS PRN CONSTIPATION Spironolactone 25 mg 04/03/18 10:00 04/05/18 09:30 Aldactone - PO 25 mg DAILY TERESA Administration ASSESSMENT AND PLAN: This is a 77 year old woman with a history of HTN, hyperlipidemia, type 2 DM, hypothyroidism, cryptogenic cirrhosis, breast cancer, postmenopausal bleeding, D &C who presented to the ED with leg swelling and pain. 1. B/L leg edema and pain possibly secondary to cirrhosis - Edema improved with Lasix IV in ED - Echo shows normal LV size and function, impaired LV relaxation, normal RV 2. Elevated troponins, possibly demand ischemia - Continue telemetry monitoring - Troponins 0.08-0.12 - no further monitoring - Echo shows normal LV size and function, impaired LV relaxation, normal RV 3. Pancytopenia - Thought to be secondary to cirrhosis - Anemia likely iron deficiency - ferritin, iron, iron sat low; TIBC normal - Ferrous sulfate started - WBC, Hgb, platelets stable - Outpatient heme follow up 4. Hypertension - Continue Cozaar, Aldactone 5. Hyperlipidemia - Continue Lipitor 6. Hypothyroidism - Continue Synthroid 7. Type 2 DM - Continue Novolog sliding scale 8. Cryptogenic cirrhosis 9. History of breast cancer
[2018-04-05] MEDS: ATORVASTATIN CA 10 MG TABLET (FP) PO SCH (21:17)
[2018-04-06] MEDS: LEVOTHYROXINE NA 88 MCG TABLET (FP) PO SCH (06:05)
[2018-04-06] MEDS: INSULIN SLIDING SCALE (NOVOLOG) 1 VIAL SQ SCH ×2 (06:05→11:55)
[2018-04-06 07:37] LABS: HEMATOCRIT 26.6 % (32.4-45.2); HEMOGLOBIN 8.6 GM/dL (10.7-15.3); MCH 22.2 pg (25.7-33.7); MCHC 32.4 g/dl (32.0-36.0); MEAN CELL VOLUME 68.5 fl (80-96); MEAN PLT VOLUME 9.7 fl (7.5-11.1); PLATELET COUNT 62 K/MM3 (134-434); RBC 3.88 M/mm3 (3.60-5.2); RDW 20.7 % (11.6-15.6); WHITE BLOOD COUNT 2.9 K/mm3 (4.0-10.0)
[2018-04-06 08:35] LABS: ANION GAP 8 MMOL/L (8-16); BLOOD UREA NITROGEN 11 mg/dL (7-18); CHLORIDE 108 mmol/L (98-107); CO2 25 mmol/L (21-32); CREATININE 0.5 mg/dL (0.55-1.3); GLUCOSE,RANDOM 131 mg/dL (74-106); POTASSIUM 3.6 mmol/L (3.5-5.1); SODIUM 141 mmol/L (136-145)
[2018-04-06 08:57] VITALS: BP 114/54; PULSE 85; TEMP 98
[2018-04-06] MEDS: FERROUS SO4 325 MG TABLET (FP) PO SCH (09:03)
[2018-04-06] MEDS: SPIRONOLACTONE 25 MG TABLET (FP) PO SCH (09:03)
[2018-04-06] MEDS: LOSARTAN POTASSIUM 50 MG TABLET (FP) PO SCH (09:03)
--- NOTE | 2018-04-06 11:52 | DS ---
Physical Exam: SUBJECTIVE: Patient seen and examined at bed side this morning. Reports she feels better. SOB and leg swelling has resolved. Denies chest pain, sob, cough, palpitation, abdominal pain, nausea or vomiting. No acute overnight events. No events on tele. OBJECTIVE: Vital Signs Period Temp Pulse Resp BP Sys/Carrizales Pulse Ox Last 24 Hr 98.0 F-98.3 F 74-94 18-18 112-130/54-73 95-95 PHYSICAL EXAM GENERAL: Elderly female, lying in bed comfortably, is awake, alert, and fully oriented, in no acute distress. HEAD: Normal with no signs of trauma. EYES: EOM intact ,no pallor or icterus. ENT: Ears normal, moist mucous membranes. NECK: Supple. LUNGS: Breath sounds equal, clear to auscultation bilaterally, no wheezes, no crackles, no accessory muscle use. HEART: Regular rate and rhythm, S1, S2 without murmur. ABDOMEN: Soft, nontender, no organomegaly. UPPER EXTREMITIES: 2+ pulses, warm, well-perfused, no edema. LOWER EXTREMITIES: 2+ pulses, warm, well-perfused, no edema. NEUROLOGICAL: No facial droop. Normal speech, gait not observed. PSYCH: Normal mood, normal affect. SKIN: Warm, dry, normal turgor, no rashes or lesions noted LABS Laboratory Results - last 24 hr 04/05/18 04/05/18 04/05/18 12:29 12:29 17:14 WBC 2.7 L RBC 3.94 Hgb 8.8 L Hct 27.1 L MCV 68.7 L MCH 22.2 L MCHC 32.4 RDW 20.1 H Plt Count 54 L MPV 9.4 Sodium 141 Potassium 3.5 Chloride 109 H Carbon Dioxide 24 Anion Gap 9 BUN 9 Creatinine 0.6 Creat Clearance w eGFR > 60 POC Glucometer 150 Random Glucose 202 H Calcium 7.9 L 04/05/18 04/06/18 04/06/18 21:15 06:04 06:10 WBC 2.9 L RBC 3.88 Hgb 8.6 L Hct 26.6 L MCV 68.5 L MCH 22.2 L MCHC 32.4 RDW 20.7 H Plt Count 62 L MPV 9.7 Sodium Potassium Chloride Carbon Dioxide Anion Gap BUN Creatinine Creat Clearance w eGFR POC Glucometer 162 144 Random Glucose Calcium 04/06/18 06:10 WBC RBC Hgb Hct MCV MCH MCHC RDW Plt Count MPV Sodium 141 Potassium 3.6 Chloride 108 H Carbon Dioxide 25 Anion Gap 8 BUN 11 Creatinine 0.5 L Creat Clearance w eGFR > 60 POC Glucometer Random Glucose 131 H Calcium 8.0 L HOSPITAL COURSE: Date of Admission:04/02/18 Date of Discharge: 04/06/18 Patient is a 77 year female with PMH of HTN, NIDDM, Hypothyroidism, 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 Was admitted in Tele with continuous cardiac monitoring. There were no events on tele during hospitalization. Echo was done on 04/04/18 which showed Left ventricular size, thickness and function normal. Suggestive of impaired LV relaxation. Right ventricle is normal in size and function. BNP was 60 , CHF ruled out. With a dose of IV Lasix her shortness of breath improved and b/l leg swelling decreased. On further assessment, she didn't require lasix. There was slight elevations in troponins which trended down, no EKG changes, likely from demand ischemia. She was found to have Iron deficiency anemia, started on Ferrous Sulphate. Patient was also constipated, started on bowel regimen and had normal bowel movements today. Has h/o thrombocytopenia which could be from cryptogenic cirrhosis. Hx of thrombocytopenia since 2010, didn't require platelet transfusion. Hypertension-controlled with Losartan 100 mg PO Daily and aldactone 25mg PO daily. DM- Pioglitazone was stopped , ISS during hospitalization and started on Metformin 500 mg PO daily. 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 Labs are unremarkable. Hospitalization course was uncomplicated. Hence, stable for discharge. Plan of care explained to the patient. She verbalized understanding. Minutes to complete discharge: 45 Discharge Summary Reason For Visit: ELEVATED TROPONIN I LEVEL Current Active Problems Hypophosphatemia (Acute) Troponin I above reference range (Acute) Condition: Improved - Instructions Diet, Activity, Other Instructions: You were admitted for evaluation of bilateral swelling of the leg and shortness of breath which has now resolved. You were diagnosed to have Iron deficiency anemia so sending you prescription for Iron pills. Please take once daily. You might notice dark colored stool after you start taking Iron. Please drink plenty of water to avoid constipation. Please follow the instructions below:- 1. Primary care physician within a week. 2. Follow up with your oncologist 3. Drink plenty of water 4. Exercise at least 3-4 times/week, 30 mins/day. 5. Continue taking your home medications daily. 6. We discontinued Pioglitazone and added Metformin 500 mg PO daily for diabetes. Please repeat your blood work in a month. Return to the ED if your symptoms worsen or if you develop any new symptoms. Referrals: Efren Amador MD [Primary Care Provider] - 1 Week Disposition: HOME - Home Medications Comprehensive Discharge Medication List: Ambulatory Orders Levothyroxine [Synthroid -] 88 mcg PO DAILY 06/21/15 Lovastatin 40 mg PO DAILY 06/21/15 Losartan Potassium [Cozaar] 100 mg PO DAILY 01/28/17 Spironolactone 25 mg PO DAILY 01/28/17 Ferrous Sulfate 325 mg PO DAILY #30 tablet 04/06/18 Problem List - Problems (1) Troponin I above reference range Code(s): R74.8 - ABNORMAL LEVELS OF OTHER SERUM ENZYMES (2) Breast cancer Code(s): C50.919 - MALIGNANT NEOPLASM OF UNSP SITE OF UNSPECIFIED FEMALE BREAST (3) Dehydration Code(s): E86.0 - DEHYDRATION (4) HLD (hyperlipidemia) Code(s): E78.5 - HYPERLIPIDEMIA, UNSPECIFIED (5) HTN (hypertension) Code(s): I10 - ESSENTIAL (PRIMARY) HYPERTENSION (6) Thrombocytopenia Code(s): D69.6 - THROMBOCYTOPENIA, UNSPECIFIED This patient is new to me today: Yes Date on this admission: 04/06/18 Emergency Visit: No Critical Care patient: No - Discharge Referral Referred to [facility] Med [facility].: No
--- NOTE | 2018-04-06 14:15 | PN ---
Teaching Attending Note Name of Resident: Andria Luna ATTENDING PHYSICIAN STATEMENT I saw and evaluated the patient. I reviewed the resident's note and discussed the case with the resident. I agree with the resident's findings and plan as documented. SUBJECTIVE: Ms Machuca says she is feeling well and is without complaint. Denies cp, sob, n/v, leg edema OBJECTIVE: Gen: nad Pulm: ctab w/o w/r/r CV: rrr w/o m/r/g Abd: +bs, s/nt/nd Ext: no c/c/e ASSESSMENT AND PLAN: Ms Machuca is a very pleasant 77 year old female who came in with bilateral leg edema. She was admitted to telemetry as there was concern for CHF. She received lasix and her leg edema improved. She had an ECHO which was normal. She was noted to have thromboyctopenia, this was monitored and it improved as well. Her venous duplex dopplers were negative for DVT. Currently she is doing well and stable for discharge. Her pioglitazone was changed to metformin secondary to pioglitazone can cause edema. Problem List - Problems (1) Bilateral leg edema Code(s): R60.0 - LOCALIZED EDEMA (2) Troponin I above reference range Code(s): R74.8 - ABNORMAL LEVELS OF OTHER SERUM ENZYMES (3) HLD (hyperlipidemia) Code(s): E78.5 - HYPERLIPIDEMIA, UNSPECIFIED (4) HTN (hypertension) Code(s): I10 - ESSENTIAL (PRIMARY) HYPERTENSION (5) Hypothyroid Code(s): E03.9 - HYPOTHYROIDISM, UNSPECIFIED (6) Thrombocytopenia Code(s): D69.6 - THROMBOCYTOPENIA, UNSPECIFIED
== END 2018-04-06 12:40 | disposition home or self-care (01) ==
LOC: JER 16:39 → JERBED 19:08 → J4S 04-03 11:38
PROVIDERS: ADMIT Internal Medicine; ATTEND Internal Medicine
PROC: 3E033GC Introduction of Other Therapeutic Substance into Peripheral Vein, Percutaneous Approach (ICD-10-PCS; principal; 2018-04-02)
PROC: 3E013VG Introduction of Insulin into Subcutaneous Tissue, Percutaneous Approach (ICD-10-PCS; 2018-04-02)
DX: R77.8 Other specified abnormalities of plasma proteins (principal); R60.0 Localized edema; M79.605 Pain in left leg; M79.604 Pain in right leg; E86.0 Dehydration; E83.39 Other disorders of phosphorus metabolism; D61.818 Other pancytopenia; D64.9 Anemia, unspecified; I10 Essential (primary) hypertension; E11.9 Type 2 diabetes mellitus without complications; E03.9 Hypothyroidism, unspecified; K74.69 Other cirrhosis of liver; I25.10 Atherosclerotic heart disease of native coronary artery without angina pectoris; Z85.3 Personal history of malignant neoplasm of breast; D69.6 Thrombocytopenia, unspecified
CPT/HCPCS: 36415; 71045-TC-FY; 80048; 80053; 82272; 82550; 82553; 82728; 82962; 83540; 83550; 83735; 83880; 84100; 84484; 85025; 85027; 85044; 85610; 93005; 93010; 93306-TC; 93970-TC; 96372; 96374; 99285-25; G0378

== ENCOUNTER 2018-06-23 10:41 | Inpatient (IN) | payer BC ==
--- NOTE | 2018-06-23 12:10 | PDOC ---
History of Present Illness - General Chief Complaint: Weakness Stated Complaint: BACK PAIN/ABD Time Seen by Provider: 06/23/18 12:07 - History of Present Illness Initial Comments: 77yo F with PMH of HTN, HLD, DM, hypothyroid, cryptogenic cirrhosis with thrombocytopenia, breast CA, colitis presenting with back pain and bloating. Patient states that for the past 3-4 days she feels 7/10 back pain anytime she bends down. Denies any fall or inciting injury. She does admit to picking up heavy objects as she is cleaning around the house. Patient has not taken anything for her pain as her primary care physician has advised her to be careful of her kidneys and liver. Denies saddle anesthesia, urinary/stool incontinence, or recent weight changes. She is generally adherent with her medicines, only missing about 3-4 doses in the past month. Patient feels her stomach is distended. She has had regular bowel movements, though they are sometimes loose. Last bowel movement was today and was a normal formed brown stool without blood. Denies abdominal pain, though she will sometimes feel a pain overlying her left lower ribs intermittently which she has told her doctor about and has been Xrayed for. Patient lives with her son at home and reports feeling like she can perform ADLs at home without difficulty. She was admitted to the hospital for lower leg edema around [place] time last year. Denies fevers, but endorses feeling cold all the time. No chest pain or shortness of breath. PCP: Dr. Efren Amador Past History - Past Medical History Allergies/Adverse Reactions: Allergies Allergy/AdvReac Type Severity Reaction Status Date / Time No Known Drug Allergies Allergy Verified 06/23/18 11:10 Home Medications: Ambulatory Orders Albuterol Sulfate [Proair Respiclick] 90 mcg IH Q4H PRN 06/23/18 Cholecalciferol (Vitamin D3) [Vitamin D3] 1,000 unit PO DAILY 06/23/18 Ferrous Sulfate 325 mg PO DAILY 06/23/18 Glipizide [Glucotrol Xl] 10 mg PO BID 06/23/18 Levothyroxine [Synthroid -] 75 mcg PO DAILY 06/23/18 Losartan Potassium [Cozaar] 100 mg PO DAILY 06/23/18 Lovastatin 40 mg PO DAILY 06/23/18 Niacinamide [Niacin] 500 mg PO DAILY 06/23/18 Pioglitazone HCl [Actos] 30 mg PO DAILY 06/23/18 Spironolactone 25 mg PO DAILY 06/23/18 Anemia: Yes (THROMBOCYTOPENIA) Asthma: No Cancer: Yes (Breast LEFT) Cardiac Disorders: Yes (CAD) CVA: No COPD: No Dementia: No Diabetes: Yes GI Disorders: (cholelithiasis) Disorders: No HTN: Yes Hypercholesterolemia: Yes Liver Disease: No Seizures: No Thyroid Disease: Yes - Surgical History Abdominal Surgery: No Appendectomy: No Cardiac Surgery: No Cholecystectomy: No Lung Surgery: No Neurologic Surgery: No Orthopedic Surgery: No - Immunization History Immunization Up to Date: Yes - Suicide/Smoking/Psychosocial Hx Smoking History: Former smoker Have you smoked in the past 12 months: No If you are a former smoker, when did you quit?: 17YEARS AGO Information on smoking cessation initiated: No Hx Alcohol Use: No Drug/Substance Use Hx: No Substance Use Type: None Hx Substance Use Treatment: No Review of Systems - Review of Systems Comments:: Constitutional: no fever, no chills HEENT: no throat pain, no dysphagia Cardiovascular: no chest pain, no palpitations Respiratory: no cough, no shortness of breath Gastrointestinal: no abdominal pain, +distention Genitourinary: no dysuria, no frequency Musculoskeletal: +back pain, no myalgia Skin: no rash, no itching Neurologic: no headache, no dizziness *Physical Exam - Vital Signs Last Vital Signs Temp Pulse Resp BP Pulse Ox 97.8 F 85 20 107/75 99 06/23/18 11:04 06/23/18 11:04 06/23/18 11:04 06/23/18 11:04 06/23/18 11:04 - Physical Exam Comments: General: Awake, alert, and fully oriented, in no acute distress, pleasant Head: No signs of trauma Eyes: EOMI, sclera anicteric ENT: Moist mucus membranes Neck: Normal ROM, supple Lungs: Lungs clear, Normal breath sounds Cardio: Regular rhythm, S1 and S2 present Abdomen: Soft, nontender. No guarding, no rebound, no masses. No fluid wave appreciated. Extremities: Normal range of motion, Distal pulses present SKIN: Warm, Dry, normal turgor Neurologic: Cranial nerves II through XII grossly intact. Normal speech Moderate Sedation - Procedure Monitoring Vital Signs: Procedure Monitoring Vital Signs Temperature 97.8 F 06/23/18 11:04 Pulse Rate 85 06/23/18 11:04 Respiratory Rate 20 06/23/18 11:04 Blood Pressure 107/75 06/23/18 11:04 O2 Sat by Pulse Oximetry (%) 99 06/23/18 11:04 ED Treatment Course - LABORATORY CBC & Chemistry Diagram: 06/23/18 12:00 06/23/18 16:50 Medical Decision Making - Medical Decision Making 77yo F with PMH of HTN, HLD, DM, hypothyroid, cryptogenic cirrhosis with thrombocytopenia, breast CA, colitis presenting with back pain and bloating. DDX including but not limited to MSK, breast CA metastasis, spinal stenosis, fracture DDX including but not limited to ascites, constipation, anasarca, Basic workup Lidocaine patch for back pain Informed than potassium hemolyzed. Will repeat BMP 06/23/18 13:10 repeat K=5.9 insulin/dextrose albuterol Labs showing dehydration 1L NS EKG: rate 131, Qtc 283, peaked t waves Plan to admit for hyperkalemia Patient reports she has only had coffee today and two meals yesterday. She has been told to eat three meals a day but finds this difficult. 06/23/18 14:[address] Quach. Plan to repeat BMP and EKG. If peaked t waves and hyperkalemia resolved, plan to admit to telemetry. Otherwise, will consult the ICU. 06/23/18 15:36 Repeat K=4.5 EKG no longer has peaked t waves Admitted to telemetry 06/23/18 21:22 *DC/Admit/Observation/Transfer Diagnosis at time of Disposition: Hyperkalemia - Discharge Dispostion Condition at time of disposition: Guarded Decision to Admit order: Yes - Referrals - Patient Instructions - Post Discharge Activity
[2018-06-23 12:30] LABS: EOS % 1.3 % (0-4.5); HEMATOCRIT 37.8 % (32.4-45.2); LYMPH % 23.3 % (8-40); MCH 32.5 pg (25.7-33.7); MCHC 34.3 g/dl (32.0-36.0); MEAN CELL VOLUME 94.7 fl (80-96); MEAN PLT VOLUME 11.3 fl (7.5-11.1); MONO % 7.9 % (3.8-10.2); NEUT % 66.5 % (42.8-82.8); PLATELET COUNT 85 K/MM3 (134-434); RBC 3.99 M/mm3 (3.60-5.2); RDW 26.1 % (11.6-15.6); WHITE BLOOD COUNT 4.8 K/mm3 (4.0-10.0)
[2018-06-23 12:54] LABS: INR 1.14 (0.83-1.09); PROTHROMBIN TIME (PATIENT) 13.5 SEC (9.7-13.0)
--- NOTE | 2018-06-23 12:54 | PDOC ---
Attending Attestation - Resident Resident Name: Carolina Kramer - ED Attending Attestation I have performed the following: I have examined & evaluated the patient, The case was reviewed & discussed with the resident, I agree w/resident's findings & plan - HPI HPI: 06/23/18 16:13 77YOF, with a significant past medical history of Thrombocytopenia, HTN, NIDDM, Hypothyroid, Cryptogenic cirrhosis, and breast ca (in remission), who presents to the emergency department with, back pain and stomach distention/bloating. No cp, sob. Compliant with meds, occasionally missing doses of her medications. Denies fever, chills, chest pain, SOB, palpitation, dizziness, weakness, N, V, D , abdominal pain, bladder and bowel problems, leg swelling, No sick contacts or travel. No new changes in medications. Allergies: NKA Past Medical History: Thrombocytopenia, HTN, NIDDM, Hypothyroid, Cryptogenic cirrhosis, and breast ca (in remission) Social history: Lives with family. Former smoker. No alcohol. No illicit drugs. Surgical history: None reported. PMD: Dr. Amador - Physicial Exam PE: 06/23/18 16:13 NAD, well appearing, PERRL, EOMI, MMM, nl conjunctiva, anicteric; neck supple. lungs clear, RRR, abdomen soft nontender, mild distension, no rebound or guarding. BROWN x4, no focal neuro deficits. No peripheral edema. normal color for ethnicity, WWP, +Hypopigmentation to the skin. - Medical Decision Making 06/23/18 12:54 I, Bia Johnston MD, attest that this document has been prepared under my direction and personally reviewed by me in its entirety. I further attest, that it accurately reflects all work, treatment, procedures and medical decision -making performed by me. See HPI for details DDx. electrolyte/metabolic derangements, ACS, arrhythmia, uremia, renal insufficiency, dehydration, infection. Vital signs reviewed, wnl. normal HR, no respiratory distress or hypoxia. Prior notes reviewed, including admissions, discharges and consultations. laboratory results and imaging reviewed, basic labs and lytes wnl, notable for -hyperkalemia with EKG changes, peaked T waves, though minimally symptomatic - baseline elevated coags with liver disease. - trop and bnp neg CXR neg for effusion/edema or infiltrate, normal cardiac silhouette. EKG normal sinus rhythm, no interval abnormalities, narrow QRS, ST segments and morphology normal. Nonspecific T wave abnormalities similar to prior EKGs, + peaked T waves noted. ED course: hyper K treatment with calcium, dextrose/insulin, albuterol no benefit of kayexalate. Cr function normal. is dehydrated based on BUN/Cr ratio. given IVF hydration recheck labs and EKG admit for hyper-K workup, hydration and medical management. 06/23/18 16:15 06/23/18 16:58 Heart Score/ECG Review #1 ECG reviewed & interpreted by me at: 12:35 General ECG Interpretation: Sinus Rhythm, Normal Rate Compared to previous ECG there are: No significant change 06/23/18 12:54 EKG normal sinus rhythm at 66 bpm, no interval abnormalities, narrow QRS, ST and T wave segments and morphology normal. Nonspecific T wave abnormalities with some artifact. (rate not 131 bpm as labelled on EKG); peaked T waves on repeat. 06/23/18 14:16
[2018-06-23] MEDS ORDERED: LIDOCAINE 5% TOPICAL PATCH TP ONE (12:57)
[2018-06-23] MEDS ORDERED: LIDOCAINE 5% TOPICAL PATCH ONE (12:59)
[2018-06-23 13:05] LABS: ALBUMIN 3.6 g/dl (3.4-5.0); ALK PHOS 129 U/L (45-117); ANION GAP 5 MMOL/L (8-16); BILIRUBIN,TOTAL 0.6 mg/dL (0.2-1); BLOOD UREA NITROGEN 34 mg/dL (7-18); CALCIUM 9.4 mg/dL (8.5-10.1); CHLORIDE 106 mmol/L (98-107); CO2 22 mmol/L (21-32); GLUCOSE,RANDOM 144 mg/dL (74-106); MAGNESIUM 2.6 mg/dL (1.8-2.4); SGOT/AST 56 U/L (15-37); SGPT/ALT 47 U/L (13-61); SODIUM 133 mmol/L (136-145); TOT PROT 7.7 g/dl (6.4-8.2)
[2018-06-23 13:06] LABS: POTASSIUM 6.6 mmol/L (3.5-5.1)
[2018-06-23 14:01] LABS: ANION GAP 6 MMOL/L (8-16); BLOOD UREA NITROGEN 33 mg/dL (7-18); CALCIUM 9.2 mg/dL (8.5-10.1); CHLORIDE 108 mmol/L (98-107); CO2 19 mmol/L (21-32); CREATININE 0.9 mg/dL (0.55-1.3); GLUCOSE,RANDOM 131 mg/dL (74-106); POTASSIUM 5.9 mmol/L (3.5-5.1); SODIUM 132 mmol/L (136-145)
[2018-06-23] MEDS ORDERED: SODIUM CHLORIDE 1,000 ML IV STA (14:16)
[2018-06-23] MEDS ORDERED: CALCIUM GLUCONATE 10% - 1,000 MG/10 ML VIAL IVPB ONE (14:18)
[2018-06-23] MEDS ORDERED: ALBUTEROL SO4 0.083% IH SOL 2.5 MG/3 ML VIAL.NEB. NEB ONE ×2 (14:23→14:25)
[2018-06-23] MEDS ORDERED: INSULIN REGULAR HUMAN 100 UNITS/ML *VIAL IVPUSH ONE (14:24)
[2018-06-23] MEDS ORDERED: CALCIUM GLUCONATE 10% - 1,000 MG/10 ML VIAL ONE (14:26)
[2018-06-23] MEDS ORDERED: DEXTROSE 50%-WATER - 25 GM/50 ML VIAL IVPUSH ONE (14:26)
[2018-06-23] MEDS ORDERED: DEXTROSE 50%-WATER 25 GM/50 ML DISP.SYRIN ONE (14:40)
[2018-06-23] MEDS ORDERED: INSULIN REGULAR HUMAN 100 UNITS/ML *VIAL ONE (14:41)
[2018-06-23 15:06] LABS: ANISOCYTOSIS 1+; MACROCYTOSIS 1+; OVALOCYTE 1+; PLATELET ESTIMATE DECREASED
--- NOTE | 2018-06-23 15:34 | EKG ---
Test Reason : Blood Pressure : / mmHG Vent. Rate : 131 BPM Atrial Rate : 131 BPM P-R Int : 228 ms QRS Dur : 074 ms QT Int : 192 ms P-R-T Axes : 020 -29 -22 degrees QTc Int : 283 ms SINUS TACHYCARDIA WITH 1ST DEGREE A-V BLOCK WITH FREQUENT PREMATURE VENTRICULAR COMPLEXES IN A PATTERN OF BIGEMINY POSSIBLE ANTERIOR INFARCT (CITED ON OR BEFORE 03-APR-2018) ABNORMAL ECG WHEN COMPARED WITH ECG OF 03-APR-2018 08:00, PREMATURE VENTRICULAR COMPLEXES ARE NOW PRESENT IA INTERVAL HAS INCREASED VENT. RATE HAS INCREASED BY 53 BPM NONSPECIFIC T WAVE ABNORMALITY NOW EVIDENT IN LATERAL LEADS Confirmed by DIANNA GALO, ELÍAS ([id number]) on 06/23/2018 3:34:27 PM Referred By: Confirmed By:ELÍAS BUSTAMANTE MD
[2018-06-23 17:47] LABS: ANION GAP 8 MMOL/L (8-16); BLOOD UREA NITROGEN 31 mg/dL (7-18); CALCIUM 9.4 mg/dL (8.5-10.1); CHLORIDE 110 mmol/L (98-107); CO2 17 mmol/L (21-32); CREATININE 0.9 mg/dL (0.55-1.3); GLUCOSE,RANDOM 52 mg/dL (74-106); POTASSIUM 4.5 mmol/L (3.5-5.1); SODIUM 135 mmol/L (136-145)
--- NOTE | 2018-06-23 18:08 | HP ---
CHIEF COMPLAINT: PCP: HISTORY OF PRESENT ILLNESS: 77 with a history of breast CA s/p left lumpectomy and tamoxofen (%yrs ago; d/ cd due to vaginal bleeding), cryptogenic cirrhosis, PAD, colitis, who presents with lower back pain and bloating and nausea after eating [id number]. Denies fever , chills, v. States she has liquid like foul, green stool. ER course was notable for:hyperkalemia; exg with peeked t waves; s/p insulin/ca gluc/albuterol; ekg improved Recent Travel: no PAST MEDICAL HISTORY: cryptogenic cirrhosis, breast ca s/p partial mastectomy/LN biopsy, NIDDM, HLD, HTN, hypothyroidism, PAD, chronic thrombocytopenia, colitis in 06/2015, PAST SURGICAL HISTORY: lumpectomy Social History: Smoking:one year when 17 yo Alcohol:no Drugs: no Family History: Allergies No Known Drug Allergies Allergy (Verified 06/23/18 11:10) HOME MEDICATIONS: Home Medications Medication Instructions Recorded Levothyroxine [Synthroid -] 88 mcg PO DAILY 06/21/15 Lovastatin 40 mg PO DAILY 06/21/15 Losartan Potassium [Cozaar] 100 mg PO DAILY 01/28/17 Spironolactone 25 mg PO DAILY 01/28/17 Ferrous Sulfate 325 mg PO DAILY #30 tablet 04/06/18 Metformin HCl [Glucophage] 500 mg PO DAILY #30 tablet 04/06/18 REVIEW OF SYSTEMS CONSTITUTIONAL: Absent: fever, chills, diaphoresis, generalized weakness, malaise, loss of appetite, weight change HEENT: Absent: rhinorrhea, nasal congestion, throat pain, throat swelling, difficulty swallowing, mouth swelling, ear pain, eye pain, visual changes CARDIOVASCULAR: Absent: chest pain, syncope, palpitations, irregular heart rate, lightheadedness , peripheral edema RESPIRATORY: Absent: cough, shortness of breath, dyspnea with exertion, orthopnea, wheezing, stridor, hemoptysis GASTROINTESTINAL: Positive: abdominal distension, nausea, Absent: abdominal pain, vomiting, diarrhea, constipation, melena, hematochezia GENITOURINARY: Absent: dysuria, frequency, urgency, hesitancy, hematuria, flank pain, genital pain MUSCULOSKELETAL: Absent: myalgia, arthralgia, joint swelling, back pain, neck pain SKIN: Absent: rash, itching, pallor HEMATOLOGIC/IMMUNOLOGIC: Absent: easy bleeding, easy bruising, lymphadenopathy, frequent infections ENDOCRINE: Absent: unexplained weight gain, unexplained weight loss, heat intolerance, cold intolerance NEUROLOGIC: Absent: headache, focal weakness or paresthesias, dizziness, unsteady gait, seizure, mental status changes, bladder or bowel incontinence PSYCHIATRIC: Absent: anxiety, depression, suicidal or homicidal ideation, hallucinations. PHYSICAL EXAMINATION Vital Signs - 24 hr 06/23/18 06/23/18 11:04 16:47 Temperature 97.8 F Pulse Rate 85 Pulse Rate [ 98 H Apical] Respiratory 20 18 Rate Blood Pressure 107/75 Blood Pressure 121/56 L [Right Arm] O2 Sat by Pulse 99 100 Oximetry (%) GENERAL: Awake, alert, and fully oriented, in no acute distress. HEAD: Normal with no signs of trauma. EYES: Pupils equal, round and reactive to light, extraocular movements intact, sclera anicteric, conjunctiva clear. No lid lag. EARS, NOSE, THROAT: Ears normal, nares patent, oropharynx clear without exudates. Moist mucous membranes. NECK: Normal range of motion, supple without lymphadenopathy, JVD, or masses. Breast/axilla; area of left breast where lumpectomy was done no erythema. swelling; nipple discharge or masses LUNGS: Breath sounds equal, clear to auscultation bilaterally. No wheezes, and no crackles. No accessory muscle use. HEART: Regular rate and rhythm, normal S1 and S2 without murmur, rub or gallop. ABDOMEN: abdominal distention; LLQ tenderness MUSCULOSKELETAL: Normal range of motion at all joints. No bony deformities or tenderness. No CVA tenderness. UPPER EXTREMITIES: 2+ pulses, warm, well-perfused. No cyanosis. No clubbing. No peripheral edema. LOWER EXTREMITIES: 2+ pulses, warm, well-perfused. No calf tenderness. No peripheral edema. NEUROLOGICAL: Cranial nerves II-XII intact. Normal speech. Normal gait. PSYCHIATRIC: Cooperative. Good eye contact. Appropriate mood and affect. SKIN: Warm, dry, normal turgor, no rashes or lesions noted, normal capillary refill. Laboratory Results - last 24 hr 06/23/18 06/23/18 06/23/18 12:00 12:00 12:05 WBC 4.8 RBC 3.99 Hgb 13.0 Hct 37.8 D MCV 94.7 MCH 32.5 D MCHC 34.3 RDW 26.1 H Plt Count 85 L D MPV 11.3 H D Absolute Neuts (auto) 3.2 Neutrophils % 66.5 D Lymphocytes % 23.3 D Monocytes % 7.9 Eosinophils % 1.3 Basophils % 1.0 Nucleated RBC % 0 Hypochromia 0 Platelet Estimate Decreased Polychromasia 0 Poikilocytosis 1+ Anisocytosis 1+ Microcytosis 0 Macrocytosis 1+ Ovalocytes 1+ PT with INR 13.50 H INR 1.14 H Sodium 133 L Potassium 6.6 H* Chloride 106 Carbon Dioxide 22 Anion Gap 5 L BUN 34 H Creatinine 1.0 Creat Clearance w eGFR 53.48 Random Glucose 144 H Calcium 9.4 Magnesium 2.6 H Total Bilirubin 0.6 AST 56 H ALT 47 Alkaline Phosphatase 129 H Troponin I 0.02 B-Natriuretic Peptide 22.0 Total Protein 7.7 Albumin 3.6 TSH 0.97 06/23/18 06/23/18 13:23 16:50 WBC RBC Hgb Hct MCV MCH MCHC RDW Plt Count MPV Absolute Neuts (auto) Neutrophils % Lymphocytes % Monocytes % Eosinophils % Basophils % Nucleated RBC % Hypochromia Platelet Estimate Polychromasia Poikilocytosis Anisocytosis Microcytosis Macrocytosis Ovalocytes PT with INR INR Sodium 132 L 135 L Potassium 5.9 H 4.5 Chloride 108 H 110 H Carbon Dioxide 19 L 17 L Anion Gap 6 L 8 BUN 33 H 31 H Creatinine 0.9 0.9 Creat Clearance w eGFR > 60 60.40 Random Glucose 131 H 52 L Calcium 9.2 9.4 Magnesium Total Bilirubin AST ALT Alkaline Phosphatase Troponin I B-Natriuretic Peptide Total Protein Albumin TSH ASSESSMENT/PLAN: This is a 77 year old female with a history of cryptogenic cirrhosis, breast CA , PAD, HTN, HLD, hypothyroid, who presents with abodominal distention and nausea after eating with back pain usually provoked at the same time. #abdominal bloating; nausea -currently slightly distended; +BS -will order CT abdomen and pelvis to r/o colitis/partial sbo, possible mets? -keep npo for now -stool studies c diff # back pain; r/o bone mets - #hyperkalemia with initial ekg changes -now improved medically ttreated -dc spironolacton -d/c losartan K -legal counsel on diet #hypothyroid: -cont levothyroxine #Cryptogenic cirrhosis with CT evidence of splenomegaly/gastric and esophageal varices -may be attributing to thrombocytopenia Diet: npo for now IVF scds gi ppl Visit type - Emergency Visit Emergency Visit: Yes ED Registration Date: 06/23/18 Care time: The patient presented to the Emergency Department on the above date and was hospitalized for further evaluation of their emergent condition. - New Patient This patient is new to me today: No - Critical Care Critical Care patient: No
[2018-06-23] MEDS ORDERED: SODIUM CHLORIDE 1,000 ML IV SCH ×2 (18:15→18:30)
--- NOTE | 2018-06-23 18:28 | PN ---
Teaching Attending Note Name of Resident: Viry Guaman ATTENDING PHYSICIAN STATEMENT I saw and evaluated the patient. I reviewed the resident's note and discussed the case with the resident. I agree with the resident's findings and plan as documented with exceptions below. SUBJECTIVE: 77 yof with PMhx of cryptogenic cirrhosis with CT evidence of splenomegaly/ gastric and esophageal varices, breast ca s/p partial mastectomy/LN biopsy. off tamoxifen due to vaginal bleed, NIDDM, HLD, HTN, hypothyroidism, PAD, chronic thrombocytopenia, colitis in 06/2015, no prior EGD/colonscopy comes with 3 weeks of progressive abdominal bloating/distension, low back pain, nausea, multiple soft greenish stools with decreased oral intake. Denies any fevers, chills, dark or bloody stools, abdominal pain, recent antibiotics, travel or sick contact. patient reports eating bananas as is good for 'potassium'. 12 point ROS done, weakness but negative for leg weakness/tingling/numbness, fall, chest pain, palpitations, dyspnea or dizziness. OBJECTIVE: Vital Signs Period Temp Pulse Resp BP Sys/Carrizales Pulse Ox Last 24 Hr 97.8 F 85-98 18-20 107-121/56-75 99-100 Intake & Output 06/20/18 06/21/18 06/22/18 06/23/18 23:59 23:59 23:59 23:59 Weight 108 lb GENERAL: Awake, alert, and fully oriented, in no acute distress. HEAD: Normal with no signs of trauma. EYES: Pupils equal, round and reactive to light, extraocular movements intact, sclera anicteric, conjunctiva clear. No lid lag. EARS, NOSE, THROAT: Ears normal, nares patent, oropharynx clear without exudates. dry mucous membranes. NECK: Normal range of motion, supple , no JVD appreciated LUNGS: Breath sounds equal, clear to auscultation bilaterally. No wheezes, and no crackles. No accessory muscle use. HEART: Regular rate and rhythm, normal S1 and S2 ABDOMEN: Soft, distended, Mild LLQ tenderness, no voluntary or involuntary guarding or rigidity, positive bowel sounds, splenomegaly MUSCULOSKELETAL: Normal range of motion at all joints. No bony deformities or tenderness. No CVA tenderness. no spinal tenderness present UPPER EXTREMITIES: 2+ pulses, warm, well-perfused. No cyanosis. No clubbing. No peripheral edema. LOWER EXTREMITIES: 2+ pulses, warm, well-perfused. No calf tenderness. No peripheral edema. NEUROLOGICAL: AAOx3, Cranial nerves II-XII intact. Normal speech. Normal gait. PSYCHIATRIC: Cooperative. Good eye contact. Appropriate mood and affect. SKIN: Warm, dry, decreased skin turgor, no rashes or lesions noted, normal capillary refill. Home Medications Medication Instructions Recorded Albuterol Sulfate [Proair 90 mcg IH Q4H PRN 06/23/18 Respiclick] Cholecalciferol (Vitamin D3) 1,000 unit PO DAILY 06/23/18 [Vitamin D3] Ferrous Sulfate 325 mg PO DAILY 06/23/18 Glipizide [Glucotrol Xl] 10 mg PO BID 06/23/18 Levothyroxine [Synthroid -] 75 mcg PO DAILY 06/23/18 Losartan Potassium [Cozaar] 100 mg PO DAILY 06/23/18 Lovastatin 40 mg PO DAILY 06/23/18 Niacinamide [Niacin] 500 mg PO DAILY 06/23/18 Pioglitazone HCl [Actos] 30 mg PO DAILY 06/23/18 Spironolactone 25 mg PO DAILY 06/23/18 Active Medications Atorvastatin Calcium (Lipitor -) 10 mg PO HS [facility] Heparin Sodium (Porcine) (Heparin -) 5,000 unit SQ TID [facility] Sodium Chloride (Normal Saline -) 1,000 mls @ 100 mls/hr IV ASDIR [facility] Insulin Aspart (Novolog Vial Sliding Scale -) 1 vial SQ [facility]; Protocol Levothyroxine Sodium (Synthroid -) 75 mcg PO DAILY@0700 [facility] Miscellaneous (Lidoderm Patch Removal) 1 each DAILY@2200 [facility] Laboratory Results - last 24 hr 06/23/18 06/23/18 06/23/18 12:00 12:00 12:05 WBC 4.8 RBC 3.99 Hgb 13.0 Hct 37.8 D MCV 94.7 MCH 32.5 D MCHC 34.3 RDW 26.1 H Plt Count 85 L D MPV 11.3 H D Absolute Neuts (auto) 3.2 Neutrophils % 66.5 D Lymphocytes % 23.3 D Monocytes % 7.9 Eosinophils % 1.3 Basophils % 1.0 Nucleated RBC % 0 Hypochromia 0 Platelet Estimate Decreased Polychromasia 0 Poikilocytosis 1+ Anisocytosis 1+ Microcytosis 0 Macrocytosis 1+ Ovalocytes 1+ PT with INR 13.50 H INR 1.14 H Sodium 133 L Potassium 6.6 H* Chloride 106 Carbon Dioxide 22 Anion Gap 5 L BUN 34 H Creatinine 1.0 Creat Clearance w eGFR 53.48 Random Glucose 144 H Calcium 9.4 Magnesium 2.6 H Total Bilirubin 0.6 AST 56 H ALT 47 Alkaline Phosphatase 129 H Troponin I 0.02 B-Natriuretic Peptide 22.0 Total Protein 7.7 Albumin 3.6 TSH 0.97 06/23/18 06/23/18 13:23 16:50 WBC RBC Hgb Hct MCV MCH MCHC RDW Plt Count MPV Absolute Neuts (auto) Neutrophils % Lymphocytes % Monocytes % Eosinophils % Basophils % Nucleated RBC % Hypochromia Platelet Estimate Polychromasia Poikilocytosis Anisocytosis Microcytosis Macrocytosis Ovalocytes PT with INR INR Sodium 132 L 135 L Potassium 5.9 H 4.5 Chloride 108 H 110 H Carbon Dioxide 19 L 17 L Anion Gap 6 L 8 BUN 33 H 31 H Creatinine 0.9 0.9 Creat Clearance w eGFR > 60 60.40 Random Glucose 131 H 52 L Calcium 9.2 9.4 Magnesium Total Bilirubin AST ALT Alkaline Phosphatase Troponin I B-Natriuretic Peptide Total Protein Albumin TSH EKG 1 peaked T waves in Anterolateral leads EKG 2 NSR, T waves changes resolved ASSESSMENT AND PLAN: 77 yof with PMHx of 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 -Nausea/diarrhea/Abdominal distension/back pain, r/o infectious vs inlammatory colitis, mets vs ascitis/Decompensated cirrhosis, IBD -HYperkalemia with EKG changes, suspect from dehydration/High K diet and continuation of aldactone/Losartan -Dehydration -Cryptogenic cirrhosis with CT evidence of splenomegaly/gastric and esophageal varices -breast ca s/p partial mastectomy/LN biopsy -NIDDM -HTN -Hypothyroidism -PAD -Chronic thrombocytopenia -Colitis 06/2015 Plan: K normalized. Admit to telemetry, low K diet counseling. IVF, hold aldactone/losartan for now CT A/P. Clears as tolerated. Abx and GI input based on imaging and clinical symptoms. Stool studies including ova &P, C difficile toxin. Continue levothyroxine PT eval Dispo pending GI input and clinical improvement. Protonix daily. DVTPPX with SCDs given thrombocytopenia. Plan discussed with patient in detail, all questions answered. Care co-ordinated with ED. total admit time 65 min.
[2018-06-23] MEDS ORDERED: DEXTROSE 5%-NORMAL SALINE 1,000 ML IV SCH (18:30)
[2018-06-23] MEDS ORDERED: ATORVASTATIN CA 10 MG TABLET (FP) PO SCH (22:00)
[2018-06-23] MEDS ORDERED: LIDOCAINE PATCH REMOVAL MC SCH (22:00)
[2018-06-23] MEDS: HEPARIN NA (PORCINE) 5,000 UNITS/ML 1ML VIAL SQ SCH (22:37)
[2018-06-23] MEDS: INSULIN SLIDING SCALE (NOVOLOG) 1 VIAL SQ SCH (22:38)
[2018-06-24] MEDS: HEPARIN NA (PORCINE) 5,000 UNITS/ML 1ML VIAL SQ SCH ×2 (06:24→14:02)
[2018-06-24] MEDS: INSULIN SLIDING SCALE (NOVOLOG) 1 VIAL SQ SCH ×2 (06:24→11:32)
[2018-06-24] MEDS ORDERED: LEVOTHYROXINE NA 75 MCG TABLET (FP) PO SCH (07:00)
[2018-06-24 07:42] LABS: BASO % 0.5 % (0-2.0); EOS % 2.1 % (0-4.5); HEMATOCRIT 30.2 % (32.4-45.2); HEMOGLOBIN 10.4 GM/dL (10.7-15.3); LYMPH % 35.1 % (8-40); MCH 32.2 pg (25.7-33.7); MCHC 34.3 g/dl (32.0-36.0); MEAN CELL VOLUME 93.9 fl (80-96); MEAN PLT VOLUME 9.9 fl (7.5-11.1); MONO % 6.9 % (3.8-10.2); NEUT % 55.4 % (42.8-82.8); PLATELET COUNT 42 K/MM3 (134-434); RBC 3.22 M/mm3 (3.60-5.2); RDW 26.1 % (11.6-15.6); WHITE BLOOD COUNT 3.2 K/mm3 (4.0-10.0)
[2018-06-24 08:03] LABS: BLOOD UREA NITROGEN 19 mg/dL (7-18); CHLORIDE 109 mmol/L (98-107); CO2 19 mmol/L (21-32); CREATININE 0.7 mg/dL (0.55-1.3); GLUCOSE,RANDOM 92 mg/dL (74-106); POTASSIUM 5.3 mmol/L (3.5-5.1); SODIUM 136 mmol/L (136-145)
[2018-06-24 08:04] LABS: ALBUMIN 3.2 g/dl (3.4-5.0); ALK PHOS 107 U/L (45-117); ANION GAP 9 MMOL/L (8-16); BILIRUBIN,DIRECT 0.3 mg/dL (0.0-0.2); BILIRUBIN,TOTAL 0.6 mg/dL (0.2-1); CALCIUM 8.8 mg/dL (8.5-10.1); GAMMA GLUTAMYL TRANSPEPTIDASE 191 U/L (5-85); MAGNESIUM 1.7 mg/dL (1.8-2.4); PHOSPHOROUS 3.3 mg/dL (2.5-4.9); SGOT/AST 39 U/L (15-37); SGPT/ALT 33 U/L (13-61); TOT PROT 6.4 g/dl (6.4-8.2)
[2018-06-24] MEDS ORDERED: MAGNESIUM SULF 50% (8.12 MEQ/2 ML-1 GM VIAL) IVPB ONE (08:45)
[2018-06-24] MEDS ORDERED: SODIUM POLYSTYRENE SULFONATE 15 GM/60 ML BOTTLE PO ONE (08:45)
[2018-06-24] MEDS ORDERED: PATIENT'S OWN MEDICATION (NON-FORMULARY) (Losartan Potassium [Cozaar] 100 MG) PO SCH (10:00)
[2018-06-24] MEDS ORDERED: PANTOPRAZOLE 40 MG TABLET (FP) PO SCH (10:00)
--- NOTE | 2018-06-24 11:07 | EKG ---
Test Reason : Blood Pressure : / mmHG Vent. Rate : 079 BPM Atrial Rate : 079 BPM P-R Int : 216 ms QRS Dur : 076 ms QT Int : 372 ms P-R-T Axes : 022 -27 031 degrees QTc Int : 426 ms SINUS RHYTHM WITH 1ST DEGREE A-V BLOCK WITH PREMATURE ATRIAL COMPLEXES CANNOT RULE OUT INFERIOR INFARCT , AGE UNDETERMINED ABNORMAL ECG Confirmed by AGUILA AUSTIN MD ([id number]) on 06/24/2018 11:07:12 AM Referred By: Confirmed By:AGUILA AUSTIN MD
[2018-06-24 11:28] LABS: N-TERMINAL BNP 48.8 pg/ml (5-450)
--- NOTE | 2018-06-24 12:21 | PN ---
Teaching Attending Note Name of Resident: Viry Guaman ATTENDING PHYSICIAN STATEMENT I saw and evaluated the patient. I reviewed the resident's note and discussed the case with the resident. I agree with the resident's findings and plan as documented with exceptions below. SUBJECTIVE: Patient seen and examined. no nausea, vomiting, diarrhea. Tolerating diet well. No abdominal pain or concerns. OBJECTIVE: Vital Signs Period Temp Pulse Resp BP Sys/Carrizales Pulse Ox Last 24 Hr 97.8 F-98.6 F 76-98 17-20 118-130/54-66 97-100 Intake & Output 06/21/18 06/22/18 06/23/18 06/24/18 23:59 23:59 23:59 23:59 Weight 108 lb 109 lb 12.8 oz General: sitting in bed in no acute distress Chest: CTAB, no rales or wheezing Abdomen: soft, NT throughout, ND positive bowel sounds Extremities: no edema Home Medications Medication Instructions Recorded Albuterol Sulfate [Proair 90 mcg IH Q4H PRN 06/23/18 Respiclick] Cholecalciferol (Vitamin D3) 1,000 unit PO DAILY 06/23/18 [Vitamin D3] Ferrous Sulfate 325 mg PO DAILY 06/23/18 Glipizide [Glucotrol Xl] 10 mg PO BID 06/23/18 Levothyroxine [Synthroid -] 75 mcg PO DAILY 06/23/18 Losartan Potassium [Cozaar] 100 mg PO DAILY 06/23/18 Lovastatin 40 mg PO DAILY 06/23/18 Niacinamide [Niacin] 500 mg PO DAILY 06/23/18 Pioglitazone HCl [Actos] 30 mg PO DAILY 06/23/18 Spironolactone 25 mg PO DAILY 06/23/18 Active Medications Atorvastatin Calcium (Lipitor -) 10 mg PO HS TERESA Last Admin: 06/23/18 22:37 Dose: 10 mg Heparin Sodium (Porcine) (Heparin -) 5,000 unit SQ TID TERESA Last Admin: 06/24/18 06:24 Dose: 5,000 unit Sodium Chloride (Normal Saline -) 1,000 mls @ 100 mls/hr IV ASDIR TERSEA Last Admin: 06/23/18 21:20 Dose: 100 mls/hr Insulin Aspart (Novolog Vial Sliding Scale -) 1 vial SQ ACHS [facility]; Protocol Last Admin: 06/24/18 11:32 Dose: Not Given Levothyroxine Sodium (Synthroid -) 75 mcg PO DAILY@0700 [facility] Last Admin: 06/24/18 06:24 Dose: 75 mcg Miscellaneous (Lidoderm Patch Removal) 1 each MC DAILY@2200 [facility] Last Admin: 06/23/18 22:38 Dose: 1 each Pantoprazole Sodium (Protonix -) 40 mg PO DAILY [facility] Last Admin: 06/24/18 10:17 Dose: 40 mg Laboratory Results - last 24 hr 06/23/18 06/23/18 06/23/18 12:00 12:00 12:05 WBC 4.8 RBC 3.99 Hgb 13.0 Hct 37.8 D MCV 94.7 MCH 32.5 D MCHC 34.3 RDW 26.1 H Plt Count 85 L D MPV 11.3 H D Absolute Neuts (auto) 3.2 Neutrophils % 66.5 D Lymphocytes % 23.3 D Monocytes % 7.9 Eosinophils % 1.3 Basophils % 1.0 Nucleated RBC % 0 Hypochromia 0 Platelet Estimate Decreased Polychromasia 0 Poikilocytosis 1+ Anisocytosis 1+ Microcytosis 0 Macrocytosis 1+ Ovalocytes 1+ PT with INR 13.50 H INR 1.14 H Sodium 133 L Potassium 6.6 H* Chloride 106 Carbon Dioxide 22 Anion Gap 5 L BUN 34 H Creatinine 1.0 Creat Clearance w eGFR 53.48 POC Glucometer Random Glucose 144 H Calcium 9.4 Phosphorus Magnesium 2.6 H Total Bilirubin 0.6 Direct Bilirubin GGT AST 56 H ALT 47 Alkaline Phosphatase 129 H Troponin I 0.02 B-Natriuretic Peptide 22.0 Total Protein 7.7 Albumin 3.6 TSH 0.97 06/23/18 06/23/18 06/23/18 13:23 16:50 22:36 WBC RBC Hgb Hct MCV MCH MCHC RDW Plt Count MPV Absolute Neuts (auto) Neutrophils % Lymphocytes % Monocytes % Eosinophils % Basophils % Nucleated RBC % Hypochromia Platelet Estimate Polychromasia Poikilocytosis Anisocytosis Microcytosis Macrocytosis Ovalocytes PT with INR INR Sodium 132 L 135 L Potassium 5.9 H 4.5 Chloride 108 H 110 H Carbon Dioxide 19 L 17 L Anion Gap 6 L 8 BUN 33 H 31 H Creatinine 0.9 0.9 Creat Clearance w eGFR > 60 60.40 POC Glucometer 112 Random Glucose 131 H 52 L Calcium 9.2 9.4 Phosphorus Magnesium Total Bilirubin Direct Bilirubin GGT AST ALT Alkaline Phosphatase Troponin I B-Natriuretic Peptide Total Protein Albumin TSH 06/24/18 06/24/18 06/24/18 05:30 05:30 06:16 WBC 3.2 L RBC 3.22 L Hgb 10.4 L Hct 30.2 L D MCV 93.9 MCH 32.2 MCHC 34.3 RDW 26.1 H Plt Count 42 L D MPV 9.9 D Absolute Neuts (auto) 1.8 Neutrophils % 55.4 Lymphocytes % 35.1 D Monocytes % 6.9 Eosinophils % 2.1 Basophils % 0.5 Nucleated RBC % 0 Hypochromia Platelet Estimate Polychromasia Poikilocytosis Anisocytosis Microcytosis Macrocytosis Ovalocytes PT with INR INR Sodium 136 Potassium 5.3 H Chloride 109 H Carbon Dioxide 19 L Anion Gap 9 BUN 19 H Creatinine 0.7 Creat Clearance w eGFR 80.72 POC Glucometer 95 Random Glucose 92 Calcium 8.8 Phosphorus 3.3 Magnesium 1.7 L Total Bilirubin 0.6 Direct Bilirubin 0.3 H GGT 191 H AST 39 H ALT 33 Alkaline Phosphatase 107 Troponin I B-Natriuretic Peptide 48.8 Total Protein 6.4 Albumin 3.2 L TSH 06/24/18 11:29 WBC RBC Hgb Hct MCV MCH MCHC RDW Plt Count MPV Absolute Neuts (auto) Neutrophils % Lymphocytes % Monocytes % Eosinophils % Basophils % Nucleated RBC % Hypochromia Platelet Estimate Polychromasia Poikilocytosis Anisocytosis Microcytosis Macrocytosis Ovalocytes PT with INR INR Sodium Potassium Chloride Carbon Dioxide Anion Gap BUN Creatinine Creat Clearance w eGFR POC Glucometer 175 Random Glucose Calcium Phosphorus Magnesium Total Bilirubin Direct Bilirubin GGT AST ALT Alkaline Phosphatase Troponin I B-Natriuretic Peptide Total Protein Albumin TSH CT A/p results reviewed ASSESSMENT AND PLAN: 77 yof with PMHx of 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 -Nausea/diarrhea/Abdominal distension/back pain, resolved, ?self-limiting gastroenteritis -Hyperkalemia with EKG changes, suspect from dehydration/High K diet and continuation of aldactone/Losartan -Dehydration -Hypomagnesemia -Cryptogenic cirrhosis with CT evidence of splenomegaly/gastric and esophageal varices -Breast ca s/p partial mastectomy/LN biopsy -NIDDM -HTN -Hypothyroidism -PAD -Chronic thrombocytopenia -Colitis 06/2015 Plan: No GI symptoms inhouse. Tolerating diet. Advance to regular. Low K diet, Dietary consult for low K diet education. Kayexalate x 1, continue to hold aldactone/ARB. Continue levothyroxine Hold oral DM meds, ISS. Dispo plan for d/c later today if K normalized and tolerating diet well. Plan discussed with patient and nursing, all questions answered.
[2018-06-24 12:43] VITALS: BMI 21.2
[2018-06-24 14:14] LABS: ANION GAP 9 MMOL/L (8-16); BLOOD UREA NITROGEN 18 mg/dL (7-18); CALCIUM 8.6 mg/dL (8.5-10.1); CHLORIDE 109 mmol/L (98-107); CO2 17 mmol/L (21-32); CREATININE 0.7 mg/dL (0.55-1.3); GLUCOSE,RANDOM 216 mg/dL (74-106); POTASSIUM 4.5 mmol/L (3.5-5.1); SODIUM 135 mmol/L (136-145)
[2018-06-24 15:27] VITALS: BP 109/63; PULSE 90; TEMP 98.1
--- NOTE | 2018-06-24 16:41 | DS ---
Physical Exam: SUBJECTIVE: Patient seen and examined; no complaints; vital s stable; tolerated regular diet without symptoms; hyperkalemia has resolved; OBJECTIVE: Vital Signs Period Temp Pulse Resp BP Sys/Carrizales Pulse Ox Last 24 Hr 97.8 F-98.6 F 76-98 17-20 109-130/54-66 97-100 PHYSICAL EXAM GENERAL: The patient is awake, alert, and fully oriented, in no acute distress. LUNGS: Breath sounds equal, clear to auscultation bilaterally, no wheezes, no crackles, no accessory muscle use. HEART: Regular rate and rhythm, S1, S2 without murmur, rub or gallop. ABDOMEN: Soft, nontender, slightly' distended, normoactive bowel sounds, no guarding, no rebound, no hepatosplenomegaly, no masses. EXTREMITIES: 2+ pulses, warm, well-perfused, no edema. NEUROLOGICAL: Cranial nerves II through XII grossly intact. Normal speech, gait not observed. PSYCH: Normal mood, normal affect. SKIN: Warm, dry, normal turgor, no rashes or lesions noted. LABS Laboratory Results - last 24 hr 06/23/18 06/23/18 06/24/18 16:50 22:36 05:30 WBC 3.2 L RBC 3.22 L Hgb 10.4 L Hct 30.2 L D MCV 93.9 MCH 32.2 MCHC 34.3 RDW 26.1 H Plt Count 42 L D MPV 9.9 D Absolute Neuts (auto) 1.8 Neutrophils % 55.4 Lymphocytes % 35.1 D Monocytes % 6.9 Eosinophils % 2.1 Basophils % 0.5 Nucleated RBC % 0 Sodium 135 L Potassium 4.5 Chloride 110 H Carbon Dioxide 17 L Anion Gap 8 BUN 31 H Creatinine 0.9 Creat Clearance w eGFR 60.40 POC Glucometer 112 Random Glucose 52 L Calcium 9.4 Phosphorus Magnesium Total Bilirubin Direct Bilirubin GGT AST ALT Alkaline Phosphatase B-Natriuretic Peptide Total Protein Albumin 06/24/18 06/24/18 06/24/18 05:30 06:16 11:29 WBC RBC Hgb Hct MCV MCH MCHC RDW Plt Count MPV Absolute Neuts (auto) Neutrophils % Lymphocytes % Monocytes % Eosinophils % Basophils % Nucleated RBC % Sodium 136 Potassium 5.3 H Chloride 109 H Carbon Dioxide 19 L Anion Gap 9 BUN 19 H Creatinine 0.7 Creat Clearance w eGFR 80.72 POC Glucometer 95 175 Random Glucose 92 Calcium 8.8 Phosphorus 3.3 Magnesium 1.7 L Total Bilirubin 0.6 Direct Bilirubin 0.3 H GGT 191 H AST 39 H ALT 33 Alkaline Phosphatase 107 B-Natriuretic Peptide 48.8 Total Protein 6.4 Albumin 3.2 L 06/24/18 13:40 WBC RBC Hgb Hct MCV MCH MCHC RDW Plt Count MPV Absolute Neuts (auto) Neutrophils % Lymphocytes % Monocytes % Eosinophils % Basophils % Nucleated RBC % Sodium 135 L Potassium 4.5 Chloride 109 H Carbon Dioxide 17 L Anion Gap 9 BUN 18 Creatinine 0.7 Creat Clearance w eGFR 80.72 POC Glucometer Random Glucose 216 H Calcium 8.6 Phosphorus Magnesium Total Bilirubin Direct Bilirubin GGT AST ALT Alkaline Phosphatase B-Natriuretic Peptide Total Protein Albumin HOSPITAL COURSE: Date of Admission:06/23/18 Date of Discharge: 06/24/18 This is a 77 year old female with a history of cryptogenic cirrhosis, breast CA , PAD, HTN, HLD, hypothyroid, who presents with abdominal distention and nausea after eating with back pain usually provoked at the same time. Patient was found to have hyperkalemia with peaked t waves on ecg. She was medically treated and potassium decreased and ecg peaked t waves resolved #abdominal bloating; nausea -currently slightly distended; +BS -will order CT abdomen and pelvis to r/o colitis/partial sbo, possible mets? -keep npo for now -stool studies c diff Repeat K levels normal. patient has been tolerating diet. Low K diet education has been provided. hypoglycemia resolved, Blood sugars rising. patient with earlier than expected resolution of Gi symptoms and electrolyte abnormalities. D/c home today with outpatient PCP and GI follow up. # back pain; r/o bone mets - #hyperkalemia with initial ekg changes -now improved medically ttreated -dc spironolacton -d/c losartan K -career guidance counselor on diet #hypothyroid: -cont levothyroxine #Cryptogenic cirrhosis with CT evidence of splenomegaly/gastric and esophageal varices -may be attributing to thrombocytopenia Discharge Summary Reason For Visit: HYPERKALEMIA Current Active Problems Abdominal discomfort (Acute) Hyperkalemia (Acute) Condition: Stable - Instructions Diet, Activity, Other Instructions: Ms Machuca, you were in the hospital for high potassium. Please be advised that we have changed some of your medications. Also, you abdominal CAT scan was negative. PLease follow up with your primary and power line installer for further management. Medication: STOP taking aldactone (spironolactone) STOP taking losartan Continue: lovastatin, levothyroxine, ferrous iron, pioglitazone Diet: low potassium diet; monitor for food that are high in potassium; ex banana and canned beans. low carb and sugar diet duet o you diabetes history Activity: As tolerated. You blood pressure medications have been stopped for now. Your BP has been stable in the hospital off the medications. You are recommended home BP check daily till your next doctor. If your SBP (upper reading) is persistently > 135 please call your doctor to discuss starting your on an alternate BP medication. Also you are recommended to check blood sugars before meals and at bedtime and maintain a diary. Notify your doctor if > 150 or any concerns. noted Follow up plan: -please visit your primary care physician with in one week to monitor you blood counts, electrolytes including potassium and magnesium and to discuss you regimen for diabetes medications. -please be advised; your blood pressure in hospital have been normal without blood pressure medication. Please check your blood pressure daily; also follow up with your primary doctor to monitor you blood pressure. -please follow up with you power line installer Dr. Bertrand. BLOOD WORK: BMP (basic metabolic panel) and CBC (Complete blood count) in 3-4 days with your doctor. If you notice any new weakness, nausea, vomiting, diarrhea, inability to eat or any new concerns, please call 911 or come to the ED> Referrals: Efren Amador MD [Primary Care Provider] - Yadiel Bertrand MD [Staff Physician] - Disposition: HOME - Home Medications Comprehensive Discharge Medication List: Ambulatory Orders Albuterol Sulfate [Proair Respiclick] 90 mcg IH Q4H PRN 06/23/18 Cholecalciferol (Vitamin D3) [Vitamin D3] 1,000 unit PO DAILY 06/23/18 Ferrous Sulfate 325 mg PO DAILY 06/23/18 Levothyroxine [Synthroid -] 75 mcg PO DAILY 06/23/18 Lovastatin 40 mg PO HS 06/24/18 Pioglitazone HCl [Actos] 30 mg PO DAILY 06/24/18
== END 2018-06-24 17:55 | disposition home or self-care (01) | DRG 641 ==
LOC: JER 10:41 → JERBED 14:37 → OBSVTOIN 18:01 → J4W 21:34
PROVIDERS: ADMIT Hospitalist; ATTEND Hospitalist
DX: E87.5 Hyperkalemia (principal); I85.00 Esophageal varices without bleeding; I86.4 Gastric varices; R16.1 Splenomegaly, not elsewhere classified; E03.9 Hypothyroidism, unspecified; I10 Essential (primary) hypertension; E86.0 Dehydration; E78.5 Hyperlipidemia, unspecified; R10.9 Unspecified abdominal pain; K74.69 Other cirrhosis of liver; Z85.3 Personal history of malignant neoplasm of breast; D69.6 Thrombocytopenia, unspecified; I25.10 Atherosclerotic heart disease of native coronary artery without angina pectoris; Z87.891 Personal history of nicotine dependence; E11.9 Type 2 diabetes mellitus without complications; Z79.84 Long term (current) use of oral hypoglycemic drugs; Z90.12 Acquired absence of left breast and nipple
CPT/HCPCS: 36415; 71045-TC-FY; 74177-TC; 80048; 80053; 80076; 82962; 82977; 83735; 83880; 84100; 84443; 84484; 85025; 85027; 85610; 93005; 93010; 99283-25; G0378; J1644; J7030

== ENCOUNTER 2018-08-23 07:20 | Day surgery (SDC) | payer BC, OTHER ==
[2018-08-22 16:37] VITALS: BMI 22.0
[2018-08-23 08:59] VITALS: TEMP 97.1
[2018-08-23 09:50] VITALS: BP 146/73; PULSE 69
== END 2018-08-23 09:51 | disposition home or self-care (01) ==
LOC: JASU-ENDO 07:20
PROVIDERS: ATTEND Internal Medicine Gastroenterology
PROC: 0DJ08ZZ Inspection of Upper Intestinal Tract, Via Natural or Artificial Opening Endoscopic (ICD-10-PCS; principal; 2018-08-23 08:30)
DX: Z13.810 Encounter for screening for upper gastrointestinal disorder (principal); I85.00 Esophageal varices without bleeding; K31.9 Disease of stomach and duodenum, unspecified
CPT/HCPCS: 82962

== ENCOUNTER 2019-10-01 10:06 | Inpatient (IN) | payer BC, OTHER ==
--- NOTE | 2019-10-01 10:42 | PDOC ---
History of Present Illness - General Chief Complaint: Lightheaded Stated Complaint: DIZZY/WEAKNESS Time Seen by Provider: 10/01/19 10:33 History Source: Patient Exam Limitations: Clinical Condition - History of Present Illness Initial Comments: Hx limited bc patient is a poor historian. She does not give a good historical narrative but can answer goal directed questions appropriately. Carol is an 78 yo F w a hx of HTN, HLD, NIDDM, hypothyroidism, cryptogenic cirrhosis with thrombocytopenia, breast CA, and colitis who presents to the [facility] er from home because she has been feeling weak and dizzy. She states she feels like she is drunk and cannot walk straight but she did not actually drink any alcohol. She states she has been having headaches but does not have one here in the ER today. Patient states her abdomen is frequently distended but she has no pain at the present time. She states that she recently received a "detox for her abdomen" but cannot explain the exact details. Denies chest pain, SOB, difficulty breathing, nausea, vomiting. PCP: Dr. Amador PSH: Hysteroscopic polypectomy Allergies: NKA, NKDA Social Hx: Denies smoking, drinking, and other substance abuse. Past History - Medical History Allergies/Adverse Reactions: Allergies Allergy/AdvReac Type Severity Reaction Status Date / Time No Known Drug Allergies Allergy Verified 10/01/19 10:11 Home Medications: Ambulatory Orders Albuterol Sulfate [Proair Respiclick] 90 mcg IH BID 06/23/18 Cholecalciferol (Vitamin D3) [Vitamin D3] 1,000 unit PO DAILY 06/23/18 Ferrous Sulfate 325 mg PO DAILY 06/23/18 Levothyroxine [Synthroid -] 75 mcg PO DAILY 06/23/18 Lovastatin 40 mg PO HS 06/24/18 Glipizide 10 mg PO DAILY 08/23/18 Omeprazole 20 mg PO DAILY #1 tablet. 08/23/18 Propranolol HCl 10 mg PO TID 08/23/18 Spironolactone 25 mg PO DAILY 08/23/18 Anemia: Yes (THROMBOCYTOPENIA) Asthma: No Cancer: Yes (Breast LEFT) Cardiac Disorders: Yes (CAD) CVA: No COPD: No Dementia: No Diabetes: Yes GI Disorders: (cholelithiasis) Disorders: No HTN: Yes Hypercholesterolemia: Yes Liver Disease: No Seizures: No Thyroid Disease: Yes (Hypo) - Surgical History Abdominal Surgery: No Appendectomy: No Cardiac Surgery: No Cholecystectomy: No Lung Surgery: No Neurologic Surgery: No Orthopedic Surgery: No - Immunization History Immunization Up to Date: Yes - Psycho-Social/Smoking History Smoking History: Never smoked Have you smoked in the past 12 months: No If you are a former smoker, when did you quit?: 17YEARS AGO Review of Systems - Review of Systems Able to Perform ROS?: Yes Comments:: CONSTITUTIONAL: Present: fatigue Absent: fever, no chills EYES: Absent: visual changes ENT: Absent: ear pain, no sore throat CARDIOVASCULAR: Absent: chest pain, no palpitations RESPIRATORY: Absent: cough, no SOB GI: Present: Abdominal distension Absent: abdominal pain, no nausea, no vomiting, no constipation, no diarrhea GENITOURINARY: Absent: dysuria, no frequency, no hematuria MUSKULOSKELETAL: Absent: back pain, no arthralgia, no myalgia SKIN: Absent: rash NEURO: Present: headache *Physical Exam - Vital Signs Last Vital Signs Temp Pulse Resp BP Pulse Ox 98 F 78 18 120/63 97 10/01/19 10:07 10/01/19 10:07 10/01/19 10:07 10/01/19 10:07 10/01/19 10:07 - Physical Exam GENERAL: Confused. Laying calm on the bed. No apparent distress. HEENT: Normocephalic, atraumatic. PERRL, EOM intact. CARDIOVASCULAR: Normal S1, S2. Regular rate and rhythm. PULMONARY: No evidence of respiratory distress. Lungs clear to auscultation bilaterally. No wheezing, rales or rhonchi. ABDOMEN: Abdomen is distended. There is no abdominal TTP. Abdomen is soft, not peritoneal, no rebound or guarding. Normal bowel sounds. EXTREMITIES: Normal ROM in all four extremities. No gross deformities. SKIN: Warm, dry. No rash NEUROLOGICAL: No focal neurological deficits. ED Treatment Course - LABORATORY CBC & Chemistry Diagram: 10/01/19 10:35 10/01/19 10:35 - RADIOLOGY Radiograph Interpretation: CTAP: HISTORY PROVIDED: Abdominal distention TECHNIQUE: Sequential axial images were obtained from the domes of the diaphragm through the symphysis pubis. The study is limited without the use of any contrast material. There is a 2 cm mass within the right middle lobe anteriorly that has increased in size since a prior study of 06/23/2018. Multiple additional nodules are identified b ilaterally. This appearance is suspicious for metastatic disease. Clinical correlation is advised. There is a moderate amount of ascites throughout the abdomen and pelvis. The liver is somewhat small in size. It is irregular in contour consistent with advanced hepatocellular disease. The spleen is also enlarged measuring 13.6 cm in craniocaudad dimension. This is an additional sign of cirrhosis. The pancreas, adrenal glands and kidneys demonstrate no significant abnormalities. Calcified gallstones are identified within the gallbladder. There is no evidence of pneumoperitoneum, bowel obstruction or intra-abdominal abscess. Examination of the pelvis demonstrates no evidence of pelvic masses, fluid collections or lymphadenopathy. There is no evidence of acute bony pathology. IMPRESSION: 1. Bibasilar lung nodules. The largest nodule measures approximately 2 cm within the right middle lobe and has increased in size since 06/23/2018. These nodules are suspicious for metastatic disease. 2. Findings consistent with cirrhosis, including a small irregular liver, ascites and splenomegaly. 3. Cholelithiasis. 4. No evidence of acute pathology within the abdomen or pelvis. Please see above discussion. Medical Decision Making - Medical Decision Making Hx limited bc patient is a poor historian. She does not give a good historical narrative but can answer goal directed questions appropriately. Carol is an 78 yo F w a hx of HTN, HLD, NIDDM, hypothyroidism, cryptogenic cirrhosis with thrombocytopenia, breast CA, and colitis who presents to the [facility] er from home because she has been feeling weak and dizzy. She states she feels like she is drunk and cannot walk straight but she did not actually drink any alcohol. She states she has been having headaches but does not have one here in the ER today. Patient states her abdomen is frequently distended but she has no pain at the present time. She states that she recently received a "detox for her abdomen" but cannot explain the exact details. Per Carine daughter: "all the water taken out of her bc of her liver." Her whole process was performed at [facility]. They took out two liters of water from her abdomen via paracentesis. Erika the daughter who is [place] - [phone] Denies chest pain, SOB, difficulty breathing, nausea, vomiting. Vital Signs Temp Pulse Resp BP Pulse Ox 98 F 78 18 120/63 97 10/01/19 10:07 10/01/19 10:07 10/01/19 10:07 10/01/19 10:07 10/01/19 10:07 DDx IBNLT: Brain bleed, electrolyte/metabolic disturbance, MURPHY, ACS, pancreatitis, UTI, dehydration, CVA, hepatic encephelopathy, myxedema coma Plan: Labs, urine, EKG, head CT, Abdomen CT, CXR, admission to hospital as patient is an unsafe discharge Labs: - ELevated ammonia level suggesting hepatic encephalopathy, - Patient has an MURPHY - Mildly elevated trop, appears baseline Urine: Unremarkable Head CT: Unremarkable CXR: unremarkable Dispo: Admission to hospital - Accepted onto Dr. [place] service Discharge - Discharge Information Problems reviewed: Yes Clinical Impression/Diagnosis: Hepatic encephalopathy, MURPHY (acute kidney injury), Weakness, Confusion Condition: Stable - Admission Yes - Follow up/Referral Referrals: Yadiel Bertrand MD [Primary Care Provider] - - Patient Discharge Instructions - Post Discharge Activity
[2019-10-01] MEDS ORDERED: SODIUM CHLORIDE 1,000 ML IV ONE (10:43)
[2019-10-01 11:07] LABS: URINE APPEARANCE CLEAR; URINE BILIRUBIN NEGATIVE (NEGATIVE); URINE COLOR YELLOW; URINE GLUCOSE (UA) NEGATIVE (NEGATIVE); URINE KETONE NEGATIVE (NEGATIVE); URINE LEUK ESTERASE NEGATIVE (NEGATIVE); URINE NITRITE NEGATIVE (NEGATIVE); URINE PROTEIN NEGATIVE (NEGATIVE)
[2019-10-01 11:23] LABS: BASO % 0.8 % (0-2.0); EOS % 3.5 % (0-4.5); HEMATOCRIT 40.3 % (32.4-45.2); HEMOGLOBIN 13.9 GM/dL (10.7-15.3); LYMPH % 15.5 % (8-40); MCHC 34.5 g/dl (32.0-36.0); MEAN CELL VOLUME 98.6 fl (80-96); MEAN PLT VOLUME 10.7 fl (7.5-11.1); MONO % 7.6 % (3.8-10.2); NEUT % 72.6 % (42.8-82.8); PLATELET COUNT 156 K/MM3 (134-434); RBC 4.09 M/mm3 (3.60-5.2); RDW 14.6 % (11.6-15.6); WHITE BLOOD COUNT 9.8 K/mm3 (4.0-10.0)
[2019-10-01 11:31] LABS: VENOUS BASE EXCESS 3.2 mmol/L (-2-2); VENOUS O2 SATURATION 82.6 % (70-80); VENOUS PCO2 36.8 mmHg (38-52); VENOUS PH 7.475 (7.310-7.410)
[2019-10-01 11:46] LABS: ALBUMIN 2.9 g/dl (3.4-5.0); BILIRUBIN,TOTAL 1.9 mg/dL (0.2-1); BLOOD UREA NITROGEN 25.4 mg/dL (7-18); CALCIUM 8.1 mg/dL (8.5-10.1); CREATININE 1.8 mg/dL (0.55-1.3); N-TERMINAL BNP 149.4 pg/ml (5-450); POTASSIUM 4.3 mmol/L (3.5-5.1); TOT PROT 7.2 g/dl (6.4-8.2)
[2019-10-01 11:47] LABS: INR 1.27 (0.83-1.09)
[2019-10-01 11:49] LABS: ACTIVATED PTT 30.3 SECONDS (25.2-36.5)
--- NOTE | 2019-10-01 12:58 | PDOC ---
Documentation entered by Mitra Brown SCRIBE, acting as scribe for Gume Ricketts MD. Gume Ricketts MD: This documentation has been prepared by the Kevin potter Xhesika, SCRIBE, under my direction and personally reviewed by me in its entirety. I confirm that the documentation accurately reflects all work, treatment, procedures, and medical decision making performed by me. Attending Attestation - Resident Resident Name: Jeff Vasquez - ED Attending Attestation I have performed the following: I have examined & evaluated the patient, The case was reviewed & discussed with the resident, I agree w/resident's findings & plan, Exceptions are as noted - HPI HPI: 10/01/19 10:41 Patient is an 78 year old female with a PMH of HTN, HLD, DM, hypothyroid, cryptogenic cirrhosis with thrombocytopenia, breast CA, colitis who presents to the ED with dizziness and generalized weakness x3 days. Patient describes her dizziness as "feeling drunk but is not drunk." Pt states her abdomen is always distended. Pt states she recently had a "stomach detox" where they took something out of her abdomen. Pt is a poor historian and unable to contribute to further history. Pt reports a remote headache earlier but denies a headache now. Patient denies SOB, chest pain. Denies fevers, chills, N/V/D. Denies any urinary complaints. Allergies: NKDA 10/01/19 12:49 per marah, she had a paracentesis at [facility] approx 2 weeks ago. - Physicial Exam PE: 10/01/19 12:50 GENERAL: The patient is awake, alert, and oriented x 2, slow to respond HEAD: Normocephalic, atraumatic. EYES: extraocular movements intact, sclera anicteric, conjunctiva clear. ENT: Normal voice, dry mucous membranes. NECK: Normal range of motion, supple LUNGS: Breath sounds equal, clear to auscultation bilaterally. No wheezes, no rhonchi, no rales. HEART: Regular rate and rhythm, normal S1 and S2 without murmur, rub or gallop. ABDOMEN: Soft, nontender, distended abdomen, No guarding, no rebound. No CVA te nderness NEUROLOGICAL: No facial assymetry, Normal speech, normal finger to nose, normal rpapid alternating movements, UE/LE 5/5 and symmetric SKIN: Warm, Dry, normal turgor, - Medical Decision Making 10/01/19 12:55 ddx 0 includes but not limited to occult infection, metabolic derangement, hyperammoniemia, cva labs reviewed elevated cr, ammonia ct head wot occult findings anticipate admission for further mnagement suspect her AMS may be due to hyper ammoniemia Heart Score/ECG Review - ECG Impressions Comment:: 10/01/19 12:56 Twelve-lead EKG was performed and reviewed by me. There is normal sinus rhythm with a normal rate. Rate of 73 PACs present LAFB Abnormal R wave progression 10/01/19 13:03 Discharge - Discharge Information Problems reviewed: Yes Clinical Impression/Diagnosis: Hepatic encephalopathy, UMRPHY (acute kidney injury), Weakness, Confusion Condition: Stable Disposition: HOME - Follow up/Referral - Patient Discharge Instructions - Post Discharge Activity
--- NOTE | 2019-10-01 14:33 | HP ---
CHIEF COMPLAINT: feels dizzy, unsteady while walking and stomach big again PCP: Perry HISTORY OF PRESENT ILLNESS: 78 year old female with a PMH of HTN, HLD, DM, hypothyroid, cryptogenic cirrhosis with thrombocytopenia, breast CA, colitis who presents to the ED with dizziness and generalized weakness x3 days. Patient describes her dizziness as "feeling drunk but is not drunk." Pt denies any hx of alcohol use. States not sure how she got this liver problem. Pt states her abdomen is always distended. Pt states she recently had a "stomach detox" where they took something out of her abdomen. From patient's daughter, chart reports she had a large volume paracentesis about 2 weeks ago at [facility]. Pt reports a remote headache earlier but denies a headache now. Patient denies SOB, chest pain. Denies fevers, chills, N/V/D. Denies any urinary complaints. No recent illnesses except for the paracentesis two weeks ago. No other sick contacts. Pt resides with her son at home. ER course was notable for: (1) abdominal distention (2) Cr 1.8 (3) ammonia 137 (4) Tsh 19 Recent Travel: Denies PAST MEDICAL HISTORY: as above PAST SURGICAL HISTORY: polypectomy Social History: Smoking: denies Alcohol: denies Drugs: denies Allergies No Known Drug Allergies Allergy (Verified 10/01/19 10:11) HOME MEDICATIONS: Home Medications Medication Instructions Recorded Albuterol Sulfate [Proair 90 mcg IH BID 06/23/18 Respiclick] Cholecalciferol (Vitamin D3) 1,000 unit PO DAILY 06/23/18 [Vitamin D3] Ferrous Sulfate 325 mg PO DAILY 06/23/18 Levothyroxine [Synthroid -] 75 mcg PO DAILY 06/23/18 Lovastatin 40 mg PO HS 06/24/18 Glipizide 10 mg PO DAILY 08/23/18 Omeprazole 20 mg PO DAILY #1 tablet. 08/23/18 Propranolol HCl 10 mg PO TID 08/23/18 Spironolactone 25 mg PO DAILY 08/23/18 REVIEW OF SYSTEMS CONSTITUTIONAL: Absent: fever, chills, diaphoresis POS generalized weakness, malaise, some loss of appetite, No weight change HEENT: Absent: rhinorrhea, nasal congestion, throat pain, throat swelling, difficulty swallowing, mouth swelling, ear pain, eye pain, visual changes pos headache CARDIOVASCULAR: Absent: chest pain, syncope, palpitations, irregular heart rate, lightheadedness, peripheral edema RESPIRATORY: Absent: cough, shortness of breath, dyspnea with exertion, orthopnea, wheezing, stridor, hemoptysis GASTROINTESTINAL: Absent: abdominal pain, pos abdominal distension, No nausea, vomiting, diarrhea, constipation, melena, hematochezia GENITOURINARY: Absent: dysuria, frequency, urgency, hesitancy, hematuria, flank pain, genital pain MUSCULOSKELETAL: Absent: myalgia, arthralgia, joint swelling, back pain, neck pain SKIN: Absent: rash, itching, pallor HEMATOLOGIC/IMMUNOLOGIC: Absent: easy bleeding, easy bruising, lymphadenopathy, frequent infections ENDOCRINE: Absent: unexplained weight gain, unexplained weight loss, heat intolerance, cold intolerance NEUROLOGIC: Absent: headache, focal weakness or paresthesias, dizziness, unsteady gait, seizure, mental status changes, bladder or bowel incontinence PSYCHIATRIC: Absent: anxiety, depression, suicidal or homicidal ideation, hallucinations. PHYSICAL EXAMINATION Vital Signs - 24 hr 10/01/19 10/01/19 10:07 14:11 Temperature 98 F 98.4 F Pulse Rate 78 Pulse Rate [ 81 Apical] Respiratory 18 19 Rate Blood Pressure 120/63 Blood Pressure 129/80 [Right Arm] O2 Sat by Pulse 97 98 Oximetry (%) GENERAL: Awake, alert, and fully oriented, in no acute distress. Forgetful at times but mostly oriented HEAD: Normal with no signs of trauma. EYES: extraocular movements intact, sclera anicteric, conjunctiva clear. No lid lag. EARS, NOSE, THROAT: Ears normal, nares patent, oropharynx clear without exudates. Moist mucous membranes. NECK: Normal range of motion, supple LUNGS: Breath sounds equal, clear to auscultation bilaterally. No wheezes, and no crackles. No accessory muscle use. HEART: Regular rate and rhythm, normal S1 and S2 without murmur, rub or gallop. ABDOMEN: Soft, nontender, Softly distended normoactive bowel sounds, no guarding, no rebound, no masses. No hepatomegaly or splenomegaly. MUSCULOSKELETAL: Normal range of motion at all joints. No bony deformities or tenderness. No CVA tenderness. UPPER EXTREMITIES: 2+ pulses, warm, well-perfused. No cyanosis. No clubbing. No peripheral edema. LOWER EXTREMITIES: 2+ pulses, warm, well-perfused. No calf tenderness. No peripheral edema. NEUROLOGICAL: Cranial nerves II-XII intact. Normal speech. PSYCHIATRIC: Cooperative. Good eye contact. Appropriate mood and affect. SKIN: Warm, dry, normal turgor, no rashes or lesions noted, normal capillary refill. Laboratory Results - last 24 hr 10/01/19 10/01/19 10/01/19 10:35 10:35 10:35 WBC 9.8 RBC 4.09 Hgb 13.9 Hct 40.3 D MCV 98.6 H MCH 34.0 H MCHC 34.5 RDW 14.6 D Plt Count 156 D MPV 10.7 Absolute Neuts (auto) 7.1 Neutrophils % 72.6 D Lymphocytes % 15.5 D Monocytes % 7.6 Eosinophils % 3.5 Basophils % 0.8 Nucleated RBC % 0 PT with INR 15.00 H INR 1.27 H PTT (Actin FS) 30.3 VBG pH POC VBG pCO2 POC VBG pO2 VBG HCO3 VBG O2 Sat ([place]) VBG Base Excess Sodium 141 Potassium 4.3 Chloride 104 Carbon Dioxide 25 Anion Gap 12 BUN 25.4 H Creatinine 1.8 H Est GFR (CKD-EPI)AfAm 30.28 Est GFR (CKD-EPI)NonAf 26.12 Random Glucose 124 H Calcium 8.1 L Total Bilirubin 1.9 H AST 78 H ALT 34 Alkaline Phosphatase 194 H Ammonia Creatine Kinase 260 H Creatine Kinase Index 1.2 CK-MB (CK-2) 3.3 Troponin I 0.08 H B-Natriuretic Peptide 149.4 Total Protein 7.2 Albumin 2.9 L TSH 19.80 H Urine Color Urine Appearance Urine pH Ur Specific [place] Urine Protein Urine Glucose (UA) Urine Ketones Urine Blood Urine Nitrite Urine Bilirubin Urine Urobilinogen Ur Leukocyte Esterase Urine Osmolality Ur Random Creatinine Ur Random Sodium HIV Ag/Ab Combo Qual 10/01/19 10/01/19 10/01/19 10:35 10:35 10:35 WBC RBC Hgb Hct MCV MCH MCHC RDW Plt Count MPV Absolute Neuts (auto) Neutrophils % Lymphocytes % Monocytes % Eosinophils % Basophils % Nucleated RBC % PT with INR INR PTT (Actin FS) VBG pH 7.475 H POC VBG pCO2 36.8 L POC VBG pO2 < 46.9 VBG HCO3 26.5 VBG O2 Sat ([place]) 82.6 H VBG Base Excess 3.2 H Sodium Potassium Chloride Carbon Dioxide Anion Gap BUN Creatinine Est GFR (CKD-EPI)AfAm Est GFR (CKD-EPI)NonAf Random Glucose Calcium Total Bilirubin AST ALT Alkaline Phosphatase Ammonia 137.20 H Creatine Kinase Creatine Kinase Index CK-MB (CK-2) Troponin I B-Natriuretic Peptide Total Protein Albumin TSH Urine Color Urine Appearance Urine pH Ur Specific [place] Urine Protein Urine Glucose (UA) Urine Ketones Urine Blood Urine Nitrite Urine Bilirubin Urine Urobilinogen Ur Leukocyte Esterase Urine Osmolality Ur Random Creatinine Ur Random Sodium HIV Ag/Ab Combo Qual Negative 10/01/19 10/01/19 10:45 10:45 WBC RBC Hgb Hct MCV MCH MCHC RDW Plt Count MPV Absolute Neuts (auto) Neutrophils % Lymphocytes % Monocytes % Eosinophils % Basophils % Nucleated RBC % PT with INR INR PTT (Actin FS) VBG pH POC VBG pCO2 POC VBG pO2 VBG HCO3 VBG O2 Sat ([place]) VBG Base Excess Sodium Potassium Chloride Carbon Dioxide Anion Gap BUN Creatinine Est GFR (CKD-EPI)AfAm Est GFR (CKD-EPI)NonAf Random Glucose Calcium Total Bilirubin AST ALT Alkaline Phosphatase Ammonia Creatine Kinase Creatine Kinase Index CK-MB (CK-2) Troponin I B-Natriuretic Peptide Total Protein Albumin TSH Urine Color Yellow Urine Appearance Clear Urine pH 8.0 D Ur Specific [place] 1.010 Urine Protein Negative Urine Glucose (UA) Negative Urine Ketones Negative Urine Blood Negative Urine Nitrite Negative Urine Bilirubin Negative Urine Urobilinogen 1.0 Ur Leukocyte Esterase Negative Urine Osmolality 266 L Ur Random Creatinine 76.0 Ur Random Sodium 43 HIV Ag/Ab Combo Qual EKG: SR@73bpm, blocked p's? LAFB, Q's in 2,[address] abd/pelvis: bibasilar nodules splenomegaly acites cirrhosis CXR: NAPD ASSESSMENT/PLAN: 78 y/o female with the above med hx admitted with MURPHY, ascites due to cryptogenic cirrhosis *MURPHY - on two diuretics for cirrhosis, WIll hold due to increased CR Gentle hydrate with 250cc bolus Recheck in am Start of hepatorenal? prerenal? *cryptogenic cirrhosis with ascites -- IR eval for paracentesis Restart diuretics once renal fn stablizies Cont bb Add lactulose for increased ammonia ?hepatic encephalopahy -- seems awake and alert with appropriate mental status *hypothyroidism - reports taking her medication daily TSH high Will increase dose *bibasilar nodules on ct chest -- concerning for malignancy (met lesions) Will order a dedicated ct chest for further eval *DM - place on iss with bgm monitoring dc oral agents *HL - cont statin dvt prophy - platelets stable, place on sq heparin Family Medical History Family Hx Cardiac Disorders: Mother Family Hx Diabetes: Mother Problem List - Problem (1) MURPHY (acute kidney injury) Code(s): N17.9 - ACUTE KIDNEY FAILURE, UNSPECIFIED (2) Abdominal discomfort Code(s): R10.9 - UNSPECIFIED ABDOMINAL PAIN (3) Cirrhosis Code(s): K74.60 - UNSPECIFIED CIRRHOSIS OF LIVER Visit type - Emergency Visit Emergency Visit: Yes Care time: The patient presented to the Emergency Department on the above date and was hospitalized for further evaluation of their emergent condition. - New Patient This patient is new to me today: Yes Date on this admission: 10/01/19 - Critical Care Critical Care patient: No
[2019-10-01] MEDS ORDERED: SODIUM CHLORIDE 500 ML IV STA (15:11)
[2019-10-01] MEDS: INSULIN SLIDING SCALE (NOVOLOG) 1 VIAL SQ SCH ×2 (16:21→22:19)
[2019-10-01] MEDS: LEVOTHYROXINE NA 100 MCG TABLET (FP) PO SCH (17:23)
[2019-10-01] MEDS: LACTULOSE 20 GM/30 ML UDC (FOR ORAL USE ONLY) PO SCH ×2 (17:23→22:19)
[2019-10-01 18:00] VITALS: BMI 34.4
[2019-10-01] MEDS ORDERED: ALBUTEROL SO4 HFA INHALER IH PRN (22:00)
[2019-10-01] MEDS ORDERED: ATORVASTATIN CA 10 MG TABLET (FP) PO SCH (22:00)
[2019-10-01] MEDS ORDERED: PT OWN MED DRAWER 7, Y5N ONE (22:04)
[2019-10-01] MEDS: HEPARIN NA (PORCINE) 5,000 UNITS/ML 1ML VIAL SQ SCH (22:19)
[2019-10-02] MEDS: LEVOTHYROXINE NA 100 MCG TABLET (FP) PO SCH (06:25)
[2019-10-02] MEDS: INSULIN SLIDING SCALE (NOVOLOG) 1 VIAL SQ SCH ×4 (06:26→22:14)
[2019-10-02 07:52] LABS: HEMATOCRIT 33.7 % (32.4-45.2); HEMOGLOBIN 11.4 GM/dL (10.7-15.3); MCHC 33.9 g/dl (32.0-36.0); MEAN CELL VOLUME 100.4 fl (80-96); MEAN PLT VOLUME 10.4 fl (7.5-11.1); PLATELET COUNT 86 K/MM3 (134-434); RBC 3.35 M/mm3 (3.60-5.2); RDW 14.7 % (11.6-15.6); WHITE BLOOD COUNT 5.4 K/mm3 (4.0-10.0)
[2019-10-02 08:46] LABS: CALCIUM 7.8 mg/dL (8.5-10.1); CREATININE 1.2 mg/dL (0.55-1.3); MAGNESIUM 1.7 mg/dL (1.8-2.4); PHOSPHOROUS 2.9 mg/dL (2.5-4.9)
[2019-10-02 08:51] LABS: POTASSIUM 2.9 mmol/L (3.5-5.1)
[2019-10-02] MEDS ORDERED: cefTRIAXone SODIUM 1 GM VIAL ONE (09:08)
[2019-10-02] MEDS ORDERED: DEXTROSE 5%-WATER - 50 ML IVPB ONE (09:08)
[2019-10-02] MEDS: FERROUS SO4 325 MG TABLET (FP) PO SCH (09:17)
[2019-10-02] MEDS: PANTOPRAZOLE 20 MG TABLET PO SCH (09:17)
[2019-10-02] MEDS: CHOLECALCIFEROL (VIT D3) 1,000 UNIT (25 MCG) TABLET PO SCH (09:17)
[2019-10-02] MEDS: LACTULOSE 20 GM/30 ML UDC (FOR ORAL USE ONLY) PO SCH ×4 (09:17→22:13)
[2019-10-02] MEDS: CEFTRIAXONE 1 GM in DEXTROSE 5%-WATER - 50 ML IVPB SCH (09:17)
[2019-10-02] MEDS: HEPARIN NA (PORCINE) 5,000 UNITS/ML 1ML VIAL SQ SCH ×2 (09:17→22:13)
--- NOTE | 2019-10-02 09:25 | EKG ---
Test Reason : Blood Pressure : / mmHG Vent. Rate : 073 BPM Atrial Rate : 073 BPM P-R Int : 194 ms QRS Dur : 084 ms QT Int : 436 ms P-R-T Axes : -28 -47 013 degrees QTc Int : 480 ms SINUS RHYTHM WITH PREMATURE ATRIAL COMPLEXES First degree AVB LEFT ANTERIOR FASCICULAR BLOCK CANNOT RULE OUT INFERIOR INFARCT (CITED ON OR BEFORE 23-JUN-2018) ABNORMAL ECG WHEN COMPARED WITH ECG OF 23-JUN-2018 16:58, QT HAS LENGTHENED Confirmed by Shannon Rick ([id number]) on 10/02/2019 9:25:13 AM Referred By: Confirmed By:Shannon Rick
[2019-10-02] MEDS: KCL 10 MEQ IVPB 10 MEQ/100 ML INFUS.BAG IVPB SCH ×3 (09:54→14:48)
[2019-10-02] MEDS ORDERED: POTASSIUM CHLORIDE TABS 20 MEQ TABLET.ER (FP) PO ONE (10:00)
[2019-10-02] MEDS ORDERED: MAGNESIUM SULF 50% (8.12 MEQ/2 ML-1 GM VIAL) IVPB ONE (10:26)
[2019-10-02 12:46] LABS: ALBUMIN 2.6 g/dl (3.4-5.0); BILIRUBIN,TOTAL 1.3 mg/dL (0.2-1); BLOOD UREA NITROGEN 22.4 mg/dL (7-18); CREATININE 1.2 mg/dL (0.55-1.3); POTASSIUM 3.3 mmol/L (3.5-5.1); TOT PROT 6.3 g/dl (6.4-8.2)
--- NOTE | 2019-10-02 13:42 | PN ---
Physical Exam: SUBJECTIVE: Patient seen and examined at bedside. States that her belly has been this size for a while. OBJECTIVE: Vital Signs Period Temp Pulse Resp BP Sys/Carrizales Pulse Ox Last 24 Hr 97.9 F-98.4 F 64-82 16-19 100-129/50-80 94-98 Gen: NAD, AAOx3 HEENT: NCAT, EOMI Neck: No jvd Cardio: rrr, normal s1s2, no mrg noted Pulm: cta b/l Abd: Distended, soft, nontender Ext: mild edema Laboratory Results - last 24 hr 10/01/19 10/01/19 10/01/19 11:20 16:18 21:08 WBC RBC Hgb Hct MCV MCH MCHC RDW Plt Count MPV Sodium Potassium Chloride Carbon Dioxide Anion Gap BUN Creatinine Est GFR (CKD-EPI)AfAm Est GFR (CKD-EPI)NonAf POC Glucometer 101 113 Random Glucose Calcium Phosphorus Magnesium Total Bilirubin AST ALT Alkaline Phosphatase Total Protein Albumin Hep A IgM Ab Confirm Negative Hep Bs Antigen Negative Hep B Core IgM Ab Negative Hepatitis C Ab (EIA) 0.1 10/02/19 10/02/19 10/02/19 06:24 07:00 07:00 WBC 5.4 RBC 3.35 L Hgb 11.4 Hct 33.7 D MCV 100.4 H MCH 34.0 H MCHC 33.9 RDW 14.7 Plt Count 86 L D MPV 10.4 Sodium 144 Potassium 2.9 L* Chloride 110 H Carbon Dioxide 22 Anion Gap 13 BUN 23.0 H Creatinine 1.2 Est GFR (CKD-EPI)AfAm 49.43 Est GFR (CKD-EPI)NonAf 42.65 POC Glucometer 117 Random Glucose 123 H Calcium 7.8 L Phosphorus 2.9 Magnesium 1.7 L Total Bilirubin AST ALT Alkaline Phosphatase Total Protein Albumin Hep A IgM Ab Confirm Hep Bs Antigen Hep B Core IgM Ab Hepatitis C Ab (EIA) 10/02/19 10/02/19 11:10 11:21 WBC RBC Hgb Hct MCV MCH MCHC RDW Plt Count MPV Sodium 142 Potassium 3.3 L Chloride 109 H Carbon Dioxide 24 Anion Gap 9 BUN 22.4 H Creatinine 1.2 Est GFR (CKD-EPI)AfAm 49.43 Est GFR (CKD-EPI)NonAf 42.65 POC Glucometer 182 Random Glucose 194 H Calcium 8.0 L Phosphorus Magnesium Total Bilirubin 1.3 H AST 40 H ALT 25 Alkaline Phosphatase 153 H Total Protein 6.3 L Albumin 2.6 L Hep A IgM Ab Confirm Hep Bs Antigen Hep B Core IgM Ab Hepatitis C Ab (EIA) Active Medications Generic Name Dose Route Start Last Admin Trade Name Freq PRN Reason Stop Dose Admin Albuterol Sulfate 1 puff 10/01/19 22:00 Ventolin Hfa Inhaler - IH Q12H PRN SHORTNESS OF BREATH Atorvastatin Calcium 10 mg 10/01/19 22:00 10/01/19 22:18 Lipitor - PO 10 mg HS TERESA Administration Cholecalciferol 1,000 unit 10/02/19 10:00 10/02/19 09:17 Vitamin D3 - PO 1,000 unit DAILY TERESA Administration Ferrous Sulfate 325 mg 10/02/19 10:00 10/02/19 09:17 Feosol - PO 325 mg DAILY TERESA Administration Heparin Sodium (Porcine) 5,000 unit 10/01/19 22:00 10/02/19 09:17 Heparin - SQ 5,000 unit BID TERESA Administration Ceftriaxone Sodium 1 gm/ 50 mls @ 100 mls/hr 10/02/19 10:00 10/02/19 09:17 Dextrose IVPB 100 mls/hr DAILY TERESA Administration Protocol Insulin Aspart 1 vial 10/01/19 16:30 10/02/19 11:29 Novolog Vial Sliding Scale - SQ 2 units ACHS TERESA Administration Protocol Lactulose 20 gm 10/02/19 10:21 Cephulac (Oral Use) PO QID TERESA Levothyroxine Sodium 100 mcg 10/01/19 17:00 10/02/19 06:25 Synthroid - PO 10/08/19 07:00 100 mcg DAILY@0700 TERESA Administration Pantoprazole Sodium 20 mg 10/02/19 10:00 10/02/19 09:17 Protonix - PO 20 mg DAILY TERESA Administration Propranolol HCl 10 mg 10/01/19 22:00 10/02/19 06:25 Inderal - PO 10 mg TID TERSEA Administration ASSESSMENT/PLAN: 78 y/o F with PMH HTN, HLD, DM, hypothyroid, cryptogenic cirrhosis with thrombocytopenia, breast CA, colitis who presents to the ED with dizziness and generalized weakness x3 days. She was admitted with MURPHY and cryptogenic cirrhosis. Cirrhosis/Actites/hepatic encephalopathy with thrombocytopenia -long-statnding cryptogenic cirrhosis -reportedly with some confusion on admission. AAOx3 on my exam -elevated ammonia -bilirubin improving -AST & AlkP moderately elevated -ascites present -Paracentesis. 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 Peripherally located in anterior chest -suspiscious for metastatic disease -Pulm on board -may benefit from biopsy HTN -c/w propranolol HLD -hold statin in setting of liver failure DM -BGM, ISS ACHS Hypothyroid -c/w levothyroxine DVT ppx -HSQ Visit type - Emergency Visit Emergency Visit: No - New Patient This patient is new to me today: Yes Date on this admission: 10/02/19 - Critical Care Critical Care patient: No ATTENDING PHYSICIAN STATEMENT I saw and evaluated the patient. I reviewed the resident's note and discussed the case with the resident. I agree with the resident's findings and plan as documented. SUBJECTIVE: OBJECTIVE: ASSESSMENT AND PLAN:
[2019-10-02] MEDS ORDERED: PT OWN MED DRAWER 7, Y5N ONE ×3 (13:45→21:39)
--- NOTE | 2019-10-02 14:43 | CON.PULM ---
Consult Consult Specialty:: PULM/CCM Referred by:: Hospitalist Reason for Consultation:: abnornmal CT - History of Present Illness Chief Complaint: SOB / increased ascites History of Present Illness: 78 F, HTN, HLD, DM, hypothyroid, cryptogenic cirrhosis with thrombocytopenia, breast CA, colitis, and recent large volume paracentesis at [facility]. Admitted via the ER due to dizziness and generalized weakness x 3 days. No overt CP or SOB. No fever or chills. No hemoptysis or night sweats. CT: increased irregular lung nodules (right) : increased from previous imaging. Spoke with PMD (Dr Amador) Patient has been followed in the past for these nodules with serial scans. - History Source History Provided By: Patient Limitations to Obtaining History: Poor Historian - Past Medical History Cardio/Vascular: Yes: HTN, Hyperlipdemia Pulmonary: Yes: Bronchitis. No: Asthma, Cancer, COPD, O2 Dependent, Pneumonia, Previously Intubated, Pulmonary Embolus, Pulmonary Fibrosis, Sleep Apnea Gastrointestinal: Yes: Ascites Hepatobiliary: Yes: Cirrhosis (cryptogenic), Cholelithiasis ...: No Endocrine: Yes: Diabetes Mellitus, Hypothyroidism - Past Surgical History Past Surgical History: Yes: Breast Biopsy, Mastectomy - Alcohol/Substance Use Hx Alcohol Use: No History of Substance Use: reports: None - Smoking History Smoking history: Never smoked Have you smoked in the past 12 months: No If you are a former smoker, when did you quit?: 17YEARS AGO - Social History ADL: Independent History of Recent Travel: No Home Medications - Allergies Allergies/Adverse Reactions: Allergies Allergy/AdvReac Type Severity Reaction Status Date / Time No Known Drug Allergies Allergy Verified 10/01/19 10:11 - Home Medications Home Medications: Ambulatory Orders Albuterol Sulfate [Proair Respiclick] 90 mcg IH BID 06/23/18 Cholecalciferol (Vitamin D3) [Vitamin D3] 1,000 unit PO DAILY 06/23/18 Ferrous Sulfate 325 mg PO DAILY 06/23/18 Levothyroxine [Synthroid -] 75 mcg PO DAILY 06/23/18 Lovastatin 40 mg PO HS 06/24/18 Glipizide 10 mg PO DAILY 08/23/18 Omeprazole 20 mg PO DAILY #1 tablet. 08/23/18 Propranolol HCl 10 mg PO TID 08/23/18 Spironolactone 25 mg PO DAILY 08/23/18 Review of Systems - Review of Systems Constitutional: reports: Lethargy, Malaise, Weakness. denies: Chills, Fever, Night Sweats, Unintentional Wgt. Loss Eyes: reports: No Symptoms HENT: reports: No Symptoms, Ringing in Ears Cardiovascular: reports: Edema. denies: Chest Pain, Palpitations, Shortness of Breath Respiratory: reports: Cough, Orthopnea. denies: Hemoptysis, PND, Snoring, SOB, SOB on Exertion, Wheezing Gastrointestinal: reports: Bloating, Indigestion, Nausea. denies: Rectal Bleeding, Vomiting Blood Genitourinary: reports: No Symptoms Breasts: reports: No Symptoms Reported Musculoskeletal: reports: No Symptoms Integumentary: reports: No Symptoms Neurological: reports: No Symptoms Endocrine: reports: No Symptoms Hematology/Lymphatic: reports: No Symptoms Psychiatric: reports: No Symptoms Physical Exam Vital Sings: Vital Signs Temperature 98 F 10/02/19 08:11 Pulse Rate 67 10/02/19 08:11 Respiratory Rate 16 10/02/19 08:46 Blood Pressure 109/50 L 10/02/19 08:11 O2 Sat by Pulse Oximetry (%) 96 10/02/19 08:46 Constitutional: Yes: No Distress, Obese Eyes: Yes: Conjunctiva Clear, EOM Intact HENT: Yes: Atraumatic, Normocephalic Neck: Yes: Supple, Trachea Midline Cardiovascular: Yes: Regular Rate and Rhythm Respiratory: Yes: Diminished, Dullness. No: Accessory Muscle Use, Rales, Rhonchi, SOB, SOB on Exertion, Stridor, Tachypnea, Wheezes ...Inspection: Yes: WNL Gastrointestinal: Yes: Soft, Abdomen, Obese, Other (Ascites ) Renal/: Yes: WNL, Urethral Discharge Musculoskeletal: Yes: WNL Extremities: Yes: WNL Edema: Yes Peripheral Pulses WNL: No Integumentary: Yes: WNL Neurological: Yes: WNL, Alert, Oriented ...Motor Strength: WNL Psychiatric: Yes: WNL, Alert, Oriented Labs: CBC, BMP 10/02/19 07:00 10/02/19 11:10 Imaging - Results Chest X-ray: Report Reviewed, Image Reviewed Cat Scan: Report Reviewed, Image Reviewed Problem List - Problems (1) Cirrhosis Code(s): K74.60 - UNSPECIFIED CIRRHOSIS OF LIVER (2) Weakness Code(s): R53.1 - WEAKNESS (3) Abdominal discomfort Code(s): R10.9 - UNSPECIFIED ABDOMINAL PAIN (4) Bilateral leg edema Code(s): R60.0 - LOCALIZED EDEMA (5) Breast cancer Code(s): C50.919 - MALIGNANT NEOPLASM OF UNSP SITE OF UNSPECIFIED FEMALE BREAST (6) HLD (hyperlipidemia) Code(s): E78.5 - HYPERLIPIDEMIA, UNSPECIFIED (7) HTN (hypertension) Code(s): I10 - ESSENTIAL (PRIMARY) HYPERTENSION (8) Hypothyroid Code(s): E03.9 - HYPOTHYROIDISM, UNSPECIFIED (9) Thrombocytopenia Code(s): D69.6 - THROMBOCYTOPENIA, UNSPECIFIED Assessment/Plan D/W PMD : patient has been followed with serial CT scans. No PET imaging or biopsy has been performed. Supplemental O2 as needed Daily weights Paracentesis. Monitor off ABX PET imaging after discharge (D/W PMD) Will follow Thank you. Dr Lake
--- NOTE | 2019-10-02 14:59 | CONSULT ---
Consult Consult Specialty:: Nephrology Reason for Consultation:: hypokalemia and ascites - History of Present Illness Chief Complaint: malaise History of Present Illness: Pt is an 78 year old female with pmhx of htn, hld, DM, hypothyroidism, cryptogenic cirrhosis, thrombocytopenia and breast cancer who presents to the ER with generalized weakness and malaise. 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 She was also found to be hypokalemic. She does not remember why or how she developed liver disease. She denies shortness of breath. She recently had paracentesis in [facility]. SHe denies chest pain. She denies dysuria or hematuria. She denies fevers or chills. - History Source History Provided By: Patient, Medical Record - Past Medical History Cardio/Vascular: Yes: HTN, Hyperlipdemia Pulmonary: Yes: Bronchitis Gastrointestinal: Yes: Ascites Hepatobiliary: Yes: Cirrhosis (cryptogenic), Cholelithiasis ...: No Endocrine: Yes: Diabetes Mellitus, Hypothyroidism - Past Surgical History Past Surgical History: Yes: Breast Biopsy, Mastectomy - Alcohol/Substance Use Hx Alcohol Use: No History of Substance Use: reports: None - Smoking History Smoking history: Never smoked Have you smoked in the past 12 months: No If you are a former smoker, when did you quit?: 17YEARS AGO - Social History ADL: Independent History of Recent Travel: No Home Medications - Allergies Allergies/Adverse Reactions: Allergies Allergy/AdvReac Type Severity Reaction Status Date / Time No Known Drug Allergies Allergy Verified 10/01/19 10:11 - Home Medications Home Medications: Ambulatory Orders Albuterol Sulfate [Proair Respiclick] 90 mcg IH BID 06/23/18 Cholecalciferol (Vitamin D3) [Vitamin D3] 1,000 unit PO DAILY 06/23/18 Ferrous Sulfate 325 mg PO DAILY 06/23/18 Levothyroxine [Synthroid -] 75 mcg PO DAILY 06/23/18 Lovastatin 40 mg PO HS 06/24/18 Glipizide 10 mg PO DAILY 08/23/18 Omeprazole 20 mg PO DAILY #1 tablet. 08/23/18 Propranolol HCl 10 mg PO TID 08/23/18 Spironolactone 25 mg PO DAILY 08/23/18 Family Medical History Family History: Denies Review of Systems - Review of Systems Constitutional: reports: Malaise Eyes: reports: No Symptoms HENT: reports: No Symptoms Neck: reports: No Symptoms Cardiovascular: reports: No Symptoms. denies: Edema Respiratory: reports: No Symptoms Gastrointestinal: reports: Other (ascites) Genitourinary: reports: No Symptoms Musculoskeletal: reports: No Symptoms Neurological: reports: No Symptoms Endocrine: reports: No Symptoms Hematology/Lymphatic: reports: No Symptoms Psychiatric: reports: No Symptoms Physical Exam Vital Signs: Vital Signs Temperature 98 F 10/02/19 08:11 Pulse Rate 67 10/02/19 08:11 Respiratory Rate 16 10/02/19 08:46 Blood Pressure 109/50 L 10/02/19 08:11 O2 Sat by Pulse Oximetry (%) 96 10/02/19 08:46 Constitutional: Yes: Calm Eyes: Yes: Conjunctiva Clear HENT: Yes: Atraumatic Neck: Yes: Supple Cardiovascular: Yes: S1, S2 Respiratory: Yes: CTA Bilaterally Gastrointestinal: Yes: Ascites Musculoskeletal: Yes: WNL Edema: No Neurological: Yes: Oriented Labs: CBC, BMP 10/02/19 07:00 10/02/19 11:10 Imaging - Results Cat Scan: Report Reviewed Problem List - Problems (1) MURPHY (acute kidney injury) Code(s): N17.9 - ACUTE KIDNEY FAILURE, UNSPECIFIED (2) Cirrhosis Code(s): K74.60 - UNSPECIFIED CIRRHOSIS OF LIVER Assessment/Plan Current Medications Generic Name Dose Route Start Last Admin Trade Name Freq PRN Reason Stop Dose Admin Albuterol Sulfate 1 puff 10/01/19 22:00 Ventolin Hfa Inhaler - IH Q12H PRN SHORTNESS OF BREATH Cholecalciferol 1,000 unit 10/02/19 10:00 10/02/19 09:17 Vitamin D3 - PO 1,000 unit DAILY TERESA Administration Ferrous Sulfate 325 mg 10/02/19 10:00 10/02/19 09:17 Feosol - PO 325 mg DAILY TERESA Administration Heparin Sodium (Porcine) 5,000 unit 10/01/19 22:00 10/02/19 09:17 Heparin - SQ 5,000 unit BID TERESA Administration Ceftriaxone Sodium 1 gm/ 50 mls @ 100 mls/hr 10/02/19 10:00 10/02/19 09:17 Dextrose IVPB 100 mls/hr DAILY TERESA Administration Protocol Insulin Aspart 1 vial 10/01/19 16:30 10/02/19 11:29 Novolog Vial Sliding Scale - SQ 2 units ACHS TERESA Administration Protocol Lactulose 20 gm 10/02/19 10:21 10/02/19 14:52 Cephulac (Oral Use) PO 20 gm QID TERESA Administration Levothyroxine Sodium 100 mcg 10/01/19 17:00 10/02/19 06:25 Synthroid - PO 10/08/19 07:00 100 mcg DAILY@0700 TERESA Administration Pantoprazole Sodium 20 mg 10/02/19 10:00 10/02/19 09:17 Protonix - PO 20 mg DAILY TERESA Administration Propranolol HCl 10 mg 10/01/19 22:00 10/02/19 14:48 Inderal - PO 10 mg TID TERESA Administration Laboratory Tests 10/01/19 10/01/19 10/01/19 10:35 10:45 10:45 Sodium Potassium Creatinine 1.8 H Urine Protein Negative Urine Blood Negative Ur Random Sodium 43 10/02/19 10/02/19 07:00 11:10 Sodium 144 142 Potassium 2.9 L* 3.3 L Creatinine 1.2 1.2 Urine Protein Urine Blood Ur Random Sodium Impression 1. MURPHY 2. hypokalemia 3. liver cirrhosis 4. ascites 5. htn 6. hld 7. dm 8. breast ca 9. lung nodules 10. thombocytopenia Plan - renal function improved - repeat labs in am - replace potassium - follow paracentesis results - agree with albumin - will evaluate for aldactone in am - pt for paracentesis
--- NOTE | 2019-10-02 16:49 | CON.GI ---
Consult Consult Specialty:: GI: For Dr. Workman who resumes care 10/02 Referred by:: Hospitalist Service Reason for Consultation:: Cirrhosis - History of Present Illness Chief Complaint: Weakness History of Present Illness: 78F admitted for evaluation of generalized weakness. She is a poor historian. H&P describes her as having a "drunk sensation". Has history of decompensated cirrhosis (presumably CHOW?) and is followed by Dr. Yadiel Bertrand. She had a paracentesis performed 2 weeks ago at [facility] per the chart. She had an upper endoscopy with Dr. Bertrand 08/23/18 revealing medium sized esophageal varices, portal gastropathy. Unclear if she has had a colonoscopy. CT scan on admission revealed findings consistent with portal hypertension / cirrhosis and bilateral pulmonasry nodules (seen by Dr. ferris this admission, advised PET as outpatient). She denies abdominal pain. Does state that she has been more constipated over the last couple of weeks. She denies nausea, vomiting, rectal bleeding, melena. She had a paracentesis today. It is unclear how much was removed or if studies were sent. Her main complaint is cough. - History Source History Provided By: Patient, Medical Record Limitations to Obtaining History: Poor Historian - Past Medical History Cardio/Vascular: Yes: HTN, Hyperlipdemia Pulmonary: Yes: Bronchitis Gastrointestinal: Yes: Ascites Hepatobiliary: Yes: Cirrhosis (cryptogenic), Cholelithiasis ...: No Heme/Onc: Yes: Cancer (Left breast cancer) Infectious Disease: Yes: Herpes Zoster Endocrine: Yes: Diabetes Mellitus, Hypothyroidism - Past Surgical History Past Surgical History: Yes: Breast Biopsy, Mastectomy - Alcohol/Substance Use Hx Alcohol Use: No History of Substance Use: reports: None - Smoking History Smoking history: Never smoked Have you smoked in the past 12 months: No If you are a former smoker, when did you quit?: 17YEARS AGO - Social History ADL: Independent History of Recent Travel: No Home Medications - Allergies Allergies/Adverse Reactions: Allergies Allergy/AdvReac Type Severity Reaction Status Date / Time No Known Drug Allergies Allergy Verified 10/01/19 10:11 - Home Medications Home Medications: Ambulatory Orders Albuterol Sulfate [Proair Respiclick] 90 mcg IH BID 06/23/18 Cholecalciferol (Vitamin D3) [Vitamin D3] 1,000 unit PO DAILY 06/23/18 Ferrous Sulfate 325 mg PO DAILY 06/23/18 Levothyroxine [Synthroid -] 75 mcg PO DAILY 06/23/18 Lovastatin 40 mg PO HS 06/24/18 Glipizide 10 mg PO DAILY 08/23/18 Omeprazole 20 mg PO DAILY #1 tablet. 08/23/18 Propranolol HCl 10 mg PO TID 08/23/18 Spironolactone 25 mg PO DAILY 08/23/18 Family Medical History Other Family History: No family hsitory of colorectal cancer / liver disease or other GI malignancy. Review of Systems - Review of Systems Constitutional: reports: Weakness. denies: Chills Cardiovascular: denies: Chest Pain, Edema Respiratory: reports: Cough Gastrointestinal: reports: Constipation. denies: Abdominal Pain, Diarrhea, Melena, Nausea, Rectal Bleeding, Vomiting Physical Exam-GI Vital Signs: Vital Signs Temperature 98.0 F 10/02/19 13:00 Pulse Rate 69 10/02/19 13:00 Respiratory Rate 16 10/02/19 13:00 Blood Pressure 135/61 10/02/19 13:00 O2 Sat by Pulse Oximetry (%) 96 10/02/19 08:46 Constitutional: Yes: Calm Eyes: No: Sclera Icterus Cardiovascular: Yes: Regular Rate and Rhythm, Murmur (2/6 systolic murmur at the LSB) Respiratory: Yes: CTA Bilaterally Gastrointestinal Inspection: Yes: Distention (softly protuberant). No: Scars ...Auscultate: Yes: Normoactive Bowel Sounds ...Palpate: Yes: Hepatomegaly (Indurated border of liver), Soft. No: Tenderness ...Percussion: Yes: Fluid Wave. No: Tympanitic ...Rectal Exam: Yes: Other (+ external hemorrhoids. No masses, trace light contreras stool in rectal vault, guaiac negative) Edema: No (No LE edema) Neurological: Yes: Alert, Oriented (x person, place, partially to time (did not know the month)), [employer] Labs: CBC, BMP 10/02/19 07:00 10/02/19 11:10 INR, PTT INR 1.27 (0.83-1.09) H 10/01/19 10:35 Hepatic Panel Total Bilirubin 1.3 mg/dL (0.2-1) H 10/02/19 11:10 AST 40 U/L (15-37) H 10/02/19 11:10 ALT 25 U/L (13-61) 10/02/19 11:10 Alkaline Phosphatase 153 U/L (45-117) H 10/02/19 11:10 Albumin 2.6 g/dl (3.4-5.0) L 10/02/19 11:10 Imaging - Results Cat Scan: Report Reviewed, Image Reviewed Problem List - Problems (1) Cirrhosis Assessment/Plan: With hepatic encephalopathy: By description, constipation may have precipitated the enceophalopathy. Also with indurated liver border noted on exam: Advise: Agree with Lactulos 20g QID for now. Titrate to 4-5 loose BM's to day and avoid excessive diarrhea. Gentle IV hydration for 1 liter Monitor mental status Continue non selective beta von. Hold for SBP<90, HR <55 or if patient symptomatic Triple phase MRI of the abdomen to exclude hepatoma / evaluate for portal vein thrombosis that could be contributing to more rapid ascited accumulation paracentesis was performed today. If not done please send fluid for cell count with Diff, culture, total protein, albumin, cytology Will need diuretic therapy started prior to discharge (can start with Lasix 40mg / Aldactone 100mg daily and titrate as needed) Daily weights, I's and O's COVID testing pending Code(s): K74.60 - UNSPECIFIED CIRRHOSIS OF LIVER Qualifiers: Hepatic cirrhosis type: unspecified hepatic cirrhosis Ascites presence: with ascites Qualified Code(s): K74.60 - Unspecified cirrhosis of liver; R18.8 - Other ascites
[2019-10-02] MEDS: ALBUMIN HUMAN 25% 100 ML VIAL IVPB SCH (17:57)
--- NOTE | 2019-10-02 18:12 | PN ---
Progress Note (short form) - Note Progress Note: An addendum to Dr Sol's excellent GI consultation. Pt has been followed by me for cirrhosis. Ascites developed this year and was difficult to control, at least in part because Ms Machuca has been confused about her medications. I have tried repeatedly to help her organize her outpatient medications. Her most recent prescribed meds at of September 24 were: spironolactone 100 mg po daily furosemide 40 mg po daily glipizide ER 10 mg po daily losartan pot 100 mg po daily levothyroxine 0.075 mg po daily (note: this was the dose on the bottles she last brought to me, it may not be what was prescribed or what she was taking). Iron was stopped as she was not iron deficient and was having trouble keeping her medications straight. She also had not been taking propranolol in a while; although it is certainly advisable for someone with varices, it probably added to her confusion. She had a negative test for SARS-2 on 09/26/19. I performed a diagnostic and therapeutic paracentesis on 09/28/19 (not two weeks ago, rather, 4 days ago), removing 2.5L of clear, straw-colored fluid. Pt was given IV albumin during the procedure. The albumin on the fluid was <1, glucose 95, total protein <3, consistent with a transudate (serum albumin was 3.3 on 09/25). The cytology is stlll pending; I spoke with the pathologist, who stated that it could be a poorly differentiated adenoca but it also may just be free-floating liver cells, and immunohistochemical staining is pending. Her BUN had been 23, creatinine 1.10 (on 09/25). CBC, BMP 10/02/19 07:00 10/02/19 11:10 There is no suggestion of hepatorenal syndrome. It appears that she was encephalopathic on admission. Agree with lactulose. Would resume furosemide and spironolactone at the doses prescribed as outpatient. I do not know whether her prescribed thyroid replacement was 100 mcg or [address] Amador should be able to clarify this.
[2019-10-02 18:31] LABS: BF WBC & OTHER NUCLEATED CELLS 373 /mm3
[2019-10-02 19:17] LABS: BODY FLUID BASOPHIL 0 %; BODY FLUID MACROPHAGES 10 %; BODY FLUID MESOTHELIAL 71 %; BODY FLUID MONOCYTE 0 %; BODYL FLD EOSINOPHIL 1 %
[2019-10-03] MEDS: ALBUMIN HUMAN 25% 100 ML VIAL IVPB SCH (01:21)
[2019-10-03] MEDS: LEVOTHYROXINE NA 100 MCG TABLET (FP) PO SCH (06:42)
[2019-10-03] MEDS: INSULIN SLIDING SCALE (NOVOLOG) 1 VIAL SQ SCH ×5 (06:42→21:54)
[2019-10-03] MEDS ORDERED: PT OWN MED DRAWER 7, Y5N ONE (07:04)
[2019-10-03 08:41] LABS: BASO % 0.9 % (0-2.0); EOS % 2.4 % (0-4.5); HEMATOCRIT 31.1 % (32.4-45.2); HEMOGLOBIN 10.7 GM/dL (10.7-15.3); MCH 34.3 pg (25.7-33.7); MCHC 34.3 g/dl (32.0-36.0); MEAN CELL VOLUME 100.1 fl (80-96); MEAN PLT VOLUME 10.4 fl (7.5-11.1); MONO % 7.5 % (3.8-10.2); NEUT % 62.2 % (42.8-82.8); PLATELET COUNT 70 K/MM3 (134-434); RBC 3.11 M/mm3 (3.60-5.2); RDW 15.4 % (11.6-15.6); WHITE BLOOD COUNT 3.9 K/mm3 (4.0-10.0)
[2019-10-03 08:54] LABS: INR 1.3 (0.83-1.09); PROTHROMBIN TIME (PATIENT) 15.4 SEC (9.7-13.0)
[2019-10-03 09:08] LABS: ALBUMIN 3.1 g/dl (3.4-5.0); BILIRUBIN,TOTAL 1.9 mg/dL (0.2-1); BLOOD UREA NITROGEN 17.5 mg/dL (7-18); CALCIUM 8.3 mg/dL (8.5-10.1); CREATININE 0.9 mg/dL (0.55-1.3); POTASSIUM 3.4 mmol/L (3.5-5.1); TOT PROT 5.9 g/dl (6.4-8.2)
[2019-10-03] MEDS ORDERED: POTASSIUM CHLORIDE TABS 20 MEQ TABLET.ER (FP) PO ONE (09:15)
--- NOTE | 2019-10-03 09:29 | PN ---
Progress Note (short form) - Note Progress Note: I contacted Dr Amador, her primary care physician. Her prescribed dose of levothyroxine is 75 mcg, not 100 mcg. I changed the order.
[2019-10-03] MEDS ORDERED: cefTRIAXone SODIUM 1 GM VIAL ONE (10:06)
[2019-10-03] MEDS ORDERED: DEXTROSE 5%-WATER - 50 ML IVPB ONE (10:07)
[2019-10-03] MEDS: PANTOPRAZOLE 20 MG TABLET PO SCH (10:13)
[2019-10-03] MEDS: FUROSEMIDE 40 MG TABLET (FP) PO SCH (10:13)
[2019-10-03] MEDS: FERROUS SO4 325 MG TABLET (FP) PO SCH (10:13)
[2019-10-03] MEDS: LACTULOSE 20 GM/30 ML UDC (FOR ORAL USE ONLY) PO SCH ×4 (10:13→21:54)
[2019-10-03] MEDS: CHOLECALCIFEROL (VIT D3) 1,000 UNIT (25 MCG) TABLET PO SCH (10:13)
[2019-10-03] MEDS: SPIRONOLACTONE 25 MG TABLET PO SCH (10:14)
[2019-10-03] MEDS: CEFTRIAXONE 1 GM in DEXTROSE 5%-WATER - 50 ML IVPB SCH (10:18)
[2019-10-03] MEDS: HEPARIN NA (PORCINE) 5,000 UNITS/ML 1ML VIAL SQ SCH ×2 (10:18→21:54)
--- NOTE | 2019-10-03 10:39 | PN ---
Progress Note (short form) - Note Progress Note: Pt alert, awake, oriented, sitting in chair having breakfast and feeding herself. She complains of feeling "jumpy", which may be a consequence of too much thyroid replacement (see my previous notes). No asterixis. CBC, BMP 10/03/19 07:16 10/03/19 07:16 Ascitic fluid cell count does not suggest spontaneous bacterial peritonitis. Awaiting final cytology report from the large volume paracentesis performed 09/28/19.
--- NOTE | 2019-10-03 10:43 | PN ---
<Keith Tomlin - Last Filed: 10/03/19 10:40> Physical Exam: SUBJECTIVE: Patient seen and examined at bedside. Feels better. OBJECTIVE: Vital Signs Period Temp Pulse Resp BP Sys/Carrizales Pulse Ox Last 24 Hr 98.0 F-98.2 F 62-75 16-18 95-135/50-66 95 Gen: NAD, AAOx3 HEENT: NCAT, EOMI Neck: No jvd Cardio: rrr, normal s1s2, no mrg noted Pulm: cta b/l Abd: Distended, soft, nontender Ext: mild edema Laboratory Results - last 24 hr 10/01/19 10/01/19 10/02/19 11:20 14:35 11:10 WBC RBC Hgb Hct MCV MCH MCHC RDW Plt Count MPV Absolute Neuts (auto) Neutrophils % Lymphocytes % Monocytes % Eosinophils % Basophils % Nucleated RBC % PT with INR INR Sodium 142 Potassium 3.3 L Chloride 109 H Carbon Dioxide 24 Anion Gap 9 BUN 22.4 H Creatinine 1.2 Est GFR (CKD-EPI)AfAm 49.43 Est GFR (CKD-EPI)NonAf 42.65 POC Glucometer Random Glucose 194 H Calcium 8.0 L Total Bilirubin 1.3 H AST 40 H ALT 25 Alkaline Phosphatase 153 H Total Protein 6.3 L Albumin 2.6 L Fluid Source Fluid WBC Fluid RBC Fluid Neutrophils Fluid Lymphocytes Pleural Monocytes Pleural Eosinophils Pleural Basophils Pleural Macrophages Pleural Mesothelial COVID-19 ([facility]) Not detected Hep A IgM Ab Confirm Negative Hep Bs Antigen Negative Hep B Core IgM Ab Negative Hepatitis C Ab (EIA) 0.1 10/02/19 10/02/19 10/02/19 11:21 13:30 16:25 WBC RBC Hgb Hct MCV MCH MCHC RDW Plt Count MPV Absolute Neuts (auto) Neutrophils % Lymphocytes % Monocytes % Eosinophils % Basophils % Nucleated RBC % PT with INR INR Sodium Potassium Chloride Carbon Dioxide Anion Gap BUN Creatinine Est GFR (CKD-EPI)AfAm Est GFR (CKD-EPI)NonAf POC Glucometer 182 173 Random Glucose Calcium Total Bilirubin AST ALT Alkaline Phosphatase Total Protein Albumin Fluid Source Abd.fluid Fluid WBC 373 Fluid RBC 467 Fluid Neutrophils 18 Fluid Lymphocytes 0 Pleural Monocytes 0 Pleural Eosinophils 1 Pleural Basophils 0 Pleural Macrophages 10 Pleural Mesothelial 71 COVID-19 ([facility]) Hep A IgM Ab Confirm Hep Bs Antigen Hep B Core IgM Ab Hepatitis C Ab (EIA) 10/02/19 10/03/19 10/03/19 20:53 06:08 07:16 WBC 3.9 L RBC 3.11 L Hgb 10.7 Hct 31.1 L MCV 100.1 H MCH 34.3 H MCHC 34.3 RDW 15.4 Plt Count 70 L MPV 10.4 Absolute Neuts (auto) 2.4 Neutrophils % 62.2 Lymphocytes % 27.0 D Monocytes % 7.5 Eosinophils % 2.4 Basophils % 0.9 Nucleated RBC % 0 PT with INR INR Sodium Potassium Chloride Carbon Dioxide Anion Gap BUN Creatinine Est GFR (CKD-EPI)AfAm Est GFR (CKD-EPI)NonAf POC Glucometer 152 111 Random Glucose Calcium Total Bilirubin AST ALT Alkaline Phosphatase Total Protein Albumin Fluid Source Fluid WBC Fluid RBC Fluid Neutrophils Fluid Lymphocytes Pleural Monocytes Pleural Eosinophils Pleural Basophils Pleural Macrophages Pleural Mesothelial COVID-19 ([facility]) Hep A IgM Ab Confirm Hep Bs Antigen Hep B Core IgM Ab Hepatitis C Ab (EIA) 10/03/19 10/03/19 07:16 07:16 WBC RBC Hgb Hct MCV MCH MCHC RDW Plt Count MPV Absolute Neuts (auto) Neutrophils % Lymphocytes % Monocytes % Eosinophils % Basophils % Nucleated RBC % PT with INR 15.40 H INR 1.30 H Sodium 145 Potassium 3.4 L Chloride 115 H Carbon Dioxide 23 Anion Gap 7 L BUN 17.5 Creatinine 0.9 Est GFR (CKD-EPI)AfAm 69.99 Est GFR (CKD-EPI)NonAf 60.39 POC Glucometer Random Glucose 105 Calcium 8.3 L Total Bilirubin 1.9 H AST 27 ALT 20 Alkaline Phosphatase 112 Total Protein 5.9 L Albumin 3.1 L Fluid Source Fluid WBC Fluid RBC Fluid Neutrophils Fluid Lymphocytes Pleural Monocytes Pleural Eosinophils Pleural Basophils Pleural Macrophages Pleural Mesothelial COVID-19 ([facility]) Hep A IgM Ab Confirm Hep Bs Antigen Hep B Core IgM Ab Hepatitis C Ab (EIA) Active Medications Generic Name Dose Route Start Last Admin Trade Name Freq PRN Reason Stop Dose Admin Albuterol Sulfate 1 puff 10/01/19 22:00 Ventolin Hfa Inhaler - IH Q12H PRN SHORTNESS OF BREATH Cholecalciferol 1,000 unit 10/02/19 10:00 10/03/19 10:13 Vitamin D3 - PO 1,000 unit DAILY [facility] Administration Ferrous Sulfate 325 mg 10/02/19 10:00 10/03/19 10:13 Feosol - PO 325 mg DAILY [facility] Administration Furosemide 40 mg 10/03/19 10:00 10/03/19 10:13 Lasix - PO 40 mg DAILY [facility] Administration Heparin Sodium (Porcine) 5,000 unit 10/01/19 22:00 10/03/19 10:18 Heparin - SQ 5,000 unit BID [facility] Administration Ceftriaxone Sodium 1 gm/ 50 mls @ 100 mls/hr 10/02/19 10:00 10/03/19 10:18 Dextrose IVPB 100 mls/hr DAILY [facility] Administration Protocol Insulin Aspart 1 vial 10/01/19 16:30 10/03/19 06:42 Novolog Vial Sliding Scale - SQ Not Given ACHS [facility] Protocol Lactulose 20 gm 10/02/19 10:21 10/03/19 10:13 Cephulac (Oral Use) PO 20 gm QID [facility] Administration Levothyroxine Sodium 75 mcg 10/04/19 07:00 Synthroid - PO DAILY@0700 [facility] Pantoprazole Sodium 20 mg 10/02/19 10:00 10/03/19 10:13 Protonix - PO 20 mg DAILY [facility] Administration Propranolol HCl 10 mg 10/01/19 22:00 10/03/19 06:42 Inderal - PO Not Given TID [facility] Spironolactone 100 mg 10/03/19 10:00 10/03/19 10:14 Aldactone - PO 100 mg DAILY [facility] Administration ASSESSMENT/PLAN: 78 y/o F with PMH HTN, HLD, DM, hypothyroid, cryptogenic cirrhosis with thrombocytopenia, breast CA, colitis who presents to the ED with dizziness and generalized weakness x3 days. She was admitted with MURPHY and cryptogenic cirrhosis. Cirrhosis/Actites/hepatic encephalopathy with thrombocytopenia -long-statnding cryptogenic cirrhosis -reportedly with some confusion on admission -elevated ammonia -bilirubin worse today -AST & AlkP moderately elevated -ascites present -Paracentesis. Results pending -Hepatitis panel unremarkable -prophylactic Ceftriaxone -Lactulose to 4 BM daily -Hold statin -GI on board. 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 Peripherally located in anterior chest -suspiscious for metastatic disease -Pulm on board -may benefit from biopsy HTN -c/w propranolol HLD -hold statin in setting of liver failure DM -BGM, ISS ACHS Hypothyroid -c/w levothyroxine DVT ppx -HSQ Visit type - Emergency Visit Emergency Visit: No - New Patient This patient is new to me today: No - Critical Care Critical Care patient: No ATTENDING PHYSICIAN STATEMENT I saw and evaluated the patient. I reviewed the resident's note and discussed the case with the resident. I agree with the resident's findings and plan as documented. SUBJECTIVE: OBJECTIVE: ASSESSMENT AND PLAN: <Farhan Jacobsen - Last Filed: 10/03/19 18:57> Physical Exam: SUBJECTIVE: Patient seen and examined OBJECTIVE: Vital Signs Period Temp Pulse Resp BP Sys/Carrizales Pulse Ox Last 24 Hr 98.0 F-98.3 F 62-75 18-20 95-122/50-68 95-95 Laboratory Results - last 24 hr 10/01/19 10/02/19 10/02/19 14:35 13:30 20:53 WBC RBC Hgb Hct MCV MCH MCHC RDW Plt Count MPV Absolute Neuts (auto) Neutrophils % Lymphocytes % Monocytes % Eosinophils % Basophils % Nucleated RBC % PT with INR INR Sodium Potassium Chloride Carbon Dioxide Anion Gap BUN Creatinine Est GFR (CKD-EPI)AfAm Est GFR (CKD-EPI)NonAf POC Glucometer 152 Random Glucose Calcium Total Bilirubin AST ALT Alkaline Phosphatase Total Protein Albumin Fluid Neutrophils 18 Fluid Lymphocytes 0 Pleural Monocytes 0 Pleural Eosinophils 1 Pleural Basophils 0 Pleural Macrophages 10 Pleural Mesothelial 71 COVID-19 ([facility]) Not detected 10/03/19 10/03/19 10/03/19 06:08 07:16 07:16 WBC 3.9 L RBC 3.11 L Hgb 10.7 Hct 31.1 L MCV 100.1 H MCH 34.3 H MCHC 34.3 RDW 15.4 Plt Count 70 L MPV 10.4 Absolute Neuts (auto) 2.4 Neutrophils % 62.2 Lymphocytes % 27.0 D Monocytes % 7.5 Eosinophils % 2.4 Basophils % 0.9 Nucleated RBC % 0 PT with INR INR Sodium 145 Potassium 3.4 L Chloride 115 H Carbon Dioxide 23 Anion Gap 7 L BUN 17.5 Creatinine 0.9 Est GFR (CKD-EPI)AfAm 69.99 Est GFR (CKD-EPI)NonAf 60.39 POC Glucometer 111 Random Glucose 105 Calcium 8.3 L Total Bilirubin 1.9 H AST 27 ALT 20 Alkaline Phosphatase 112 Total Protein 5.9 L Albumin 3.1 L Fluid Neutrophils Fluid Lymphocytes Pleural Monocytes Pleural Eosinophils Pleural Basophils Pleural Macrophages Pleural Mesothelial COVID-19 ([facility]) 10/03/19 10/03/19 10/03/19 07:16 11:24 16:46 WBC RBC Hgb Hct MCV MCH MCHC RDW Plt Count MPV Absolute Neuts (auto) Neutrophils % Lymphocytes % Monocytes % Eosinophils % Basophils % Nucleated RBC % PT with INR 15.40 H INR 1.30 H Sodium Potassium Chloride Carbon Dioxide Anion Gap BUN Creatinine Est GFR (CKD-EPI)AfAm Est GFR (CKD-EPI)NonAf POC Glucometer 165 144 Random Glucose Calcium Total Bilirubin AST ALT Alkaline Phosphatase Total Protein Albumin Fluid Neutrophils Fluid Lymphocytes Pleural Monocytes Pleural Eosinophils Pleural Basophils Pleural Macrophages Pleural Mesothelial COVID-19 ([facility]) Active Medications Generic Name Dose Route Start Last Admin Trade Name Freq PRN Reason Stop Dose Admin Albuterol Sulfate 1 puff 10/01/19 22:00 Ventolin Hfa Inhaler - IH Q12H PRN SHORTNESS OF BREATH Cholecalciferol 1,000 unit 10/02/19 10:00 10/03/19 10:13 Vitamin D3 - PO 1,000 unit DAILY [facility] Administration Ferrous Sulfate 325 mg 10/02/19 10:00 10/03/19 10:13 Feosol - PO 325 mg DAILY [facility] Administration Furosemide 40 mg 10/03/19 10:00 10/03/19 10:13 Lasix - PO 40 mg DAILY [facility] Administration Heparin Sodium (Porcine) 5,000 unit 10/01/19 22:00 10/03/19 10:18 Heparin - SQ 5,000 unit BID [facility] Administration Ceftriaxone Sodium 1 gm/ 50 mls @ 100 mls/hr 10/02/19 10:00 10/03/19 10:18 Dextrose IVPB 100 mls/hr DAILY [facility] Administration Protocol Insulin Aspart 1 vial 10/01/19 16:30 10/03/19 16:50 Novolog Vial Sliding Scale - SQ Not Given ACHS [facility] Protocol Lactulose 20 gm 10/02/19 10:21 10/03/19 18:24 Cephulac (Oral Use) PO 20 gm QID [facility] Administration Levothyroxine Sodium 75 mcg 10/04/19 07:00 Synthroid - PO DAILY@0700 [facility] Pantoprazole Sodium 20 mg 10/02/19 10:00 10/03/19 10:13 Protonix - PO 20 mg DAILY [facility] Administration Propranolol HCl 10 mg 10/01/19 22:00 10/03/19 16:23 Inderal - PO Not Given TID [facility] Spironolactone 100 mg 10/03/19 10:00 10/03/19 10:14 Aldactone - PO 100 mg DAILY [facility] Administration ASSESSMENT/PLAN: 78 y/o F with PMH HTN, HLD, DM, hypothyroid, cryptogenic cirrhosis with thrombocytopenia, breast CA, colitis who presents to the ED with dizziness and generalized weakness x3 days. She was admitted with MURPHY and cryptogenic cirrhosis. Cirrhosis/Actites/hepatic encephalopathy with thrombocytopenia -long-statnding cryptogenic cirrhosis -reportedly with some confusion on admission -elevated ammonia -bilirubin worse today -AST & AlkP moderately elevated -ascites present -Paracentesis. Results pending for chemistry but cytologys is negative -Hepatitis panel unremarkable -prophylactic Ceftriaxone -Lactulose to 4 BM daily -Hold statin -GI on board. 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 Peripherally located in anterior chest -suspiscious for metastatic disease -Pulm on board -may benefit from biopsy HTN -c/w propranolol HLD -hold statin in setting of liver failure DM -BGM, ISS ACHS Hypothyroid -c/w levothyroxine DVT ppx -HSQ ATTENDING PHYSICIAN STATEMENT I saw and evaluated the patient. I reviewed the resident's note and discussed the case with the resident. I agree with the resident's findings and plan as documented. SUBJECTIVE: OBJECTIVE: ASSESSMENT AND PLAN:
--- NOTE | 2019-10-03 11:50 | PN ---
Progress Note, Physician - Current Medication List Current Medications: Active Medications Albuterol Sulfate (Ventolin Hfa Inhaler -) 1 puff IH Q12H PRN PRN Reason: SHORTNESS OF BREATH Cholecalciferol (Vitamin D3 -) 1,000 unit PO DAILY [facility] Last Admin: 10/03/19 10:13 Dose: 1,000 unit Documented by: Ferrous Sulfate (Feosol -) 325 mg PO DAILY [facility] Last Admin: 10/03/19 10:13 Dose: 325 mg Documented by: Furosemide (Lasix -) 40 mg PO DAILY [facility] Last Admin: 10/03/19 10:13 Dose: 40 mg Documented by: Heparin Sodium (Porcine) (Heparin -) 5,000 unit SQ BID [facility] Last Admin: 10/03/19 10:18 Dose: 5,000 unit Documented by: Ceftriaxone Sodium 1 gm/ (Dextrose) 50 mls @ 100 mls/hr IVPB DAILY [facility]; Protocol Last Admin: 10/03/19 10:18 Dose: 100 mls/hr Documented by: Insulin Aspart (Novolog Vial Sliding Scale -) 1 vial SQ ACHS [facility]; Protocol Last Admin: 10/03/19 06:42 Dose: Not Given Documented by: Lactulose (Cephulac (Oral Use)) 20 gm PO QID [facility] Last Admin: 10/03/19 10:13 Dose: 20 gm Documented by: Levothyroxine Sodium (Synthroid -) 75 mcg PO DAILY@0700 [facility] Pantoprazole Sodium (Protonix -) 20 mg PO DAILY [facility] Last Admin: 10/03/19 10:13 Dose: 20 mg Documented by: Propranolol HCl (Inderal -) 10 mg PO TID [facility] Last Admin: 10/03/19 06:42 Dose: Not Given Documented by: Spironolactone (Aldactone -) 100 mg PO DAILY [facility] Last Admin: 10/03/19 10:14 Dose: 100 mg Documented by: - Objective Vital Signs: Vital Signs Temperature 98.3 F 10/03/19 10:00 Pulse Rate 71 10/03/19 10:00 Respiratory Rate 20 10/03/19 10:00 Blood Pressure 122/55 L 10/03/19 10:00 O2 Sat by Pulse Oximetry (%) 95 10/03/19 09:00 Labs: CBC, BMP 10/03/19 07:16 10/03/19 07:16 INR, PTT INR 1.30 (0.83-1.09) H 10/03/19 07:16 Assessment/Plan Problem List - Problems (1) Cirrhosis Code(s): K74.60 - UNSPECIFIED CIRRHOSIS OF LIVER (2) Weakness Code(s): R53.1 - WEAKNESS (3) Abdominal discomfort Code(s): R10.9 - UNSPECIFIED ABDOMINAL PAIN (4) Bilateral leg edema Code(s): R60.0 - LOCALIZED EDEMA (5) Breast cancer Code(s): C50.919 - MALIGNANT NEOPLASM OF UNSP SITE OF UNSPECIFIED FEMALE BREAST (6) HLD (hyperlipidemia) Code(s): E78.5 - HYPERLIPIDEMIA, UNSPECIFIED (7) HTN (hypertension) Code(s): I10 - ESSENTIAL (PRIMARY) HYPERTENSION (8) Hypothyroid Code(s): E03.9 - HYPOTHYROIDISM, UNSPECIFIED (9) Thrombocytopenia Code(s): D69.6 - THROMBOCYTOPENIA, UNSPECIFIED Assessment/Plan D/W PMD : patient has been followed with serial CT scans. No PET imaging or biopsy has been performed. Supplemental O2 as needed Daily weights Monitor off ABX PET imaging after discharge (D/W PMD) monitor ammonia level lactulose aldactone DR LÓPEZ
--- NOTE | 2019-10-03 14:17 | PN ---
Progress Note, Physician History of Present Illness: Pt seen and examined at bedside. She is awake and alert. She denies shortness of breath. - Current Medication List Current Medications: Active Medications Albuterol Sulfate (Ventolin Hfa Inhaler -) 1 puff IH Q12H PRN PRN Reason: SHORTNESS OF BREATH Cholecalciferol (Vitamin D3 -) 1,000 unit PO DAILY [facility] Last Admin: 10/03/19 10:13 Dose: 1,000 unit Documented by: Ferrous Sulfate (Feosol -) 325 mg PO DAILY [facility] Last Admin: 10/03/19 10:13 Dose: 325 mg Documented by: Furosemide (Lasix -) 40 mg PO DAILY [facility] Last Admin: 10/03/19 10:13 Dose: 40 mg Documented by: Heparin Sodium (Porcine) (Heparin -) 5,000 unit SQ BID [facility] Last Admin: 10/03/19 10:18 Dose: 5,000 unit Documented by: Ceftriaxone Sodium 1 gm/ (Dextrose) 50 mls @ 100 mls/hr IVPB DAILY [facility]; Protocol Last Admin: 10/03/19 10:18 Dose: 100 mls/hr Documented by: Insulin Aspart (Novolog Vial Sliding Scale -) 1 vial SQ ACHS [facility]; Protocol Last Admin: 10/03/19 11:47 Dose: 2 units Documented by: Lactulose (Cephulac (Oral Use)) 20 gm PO QID [facility] Last Admin: 10/03/19 10:13 Dose: 20 gm Documented by: Levothyroxine Sodium (Synthroid -) 75 mcg PO DAILY@0700 [facility] Pantoprazole Sodium (Protonix -) 20 mg PO DAILY [facility] Last Admin: 10/03/19 10:13 Dose: 20 mg Documented by: Propranolol HCl (Inderal -) 10 mg PO TID [facility] Last Admin: 10/03/19 06:42 Dose: Not Given Documented by: Spironolactone (Aldactone -) 100 mg PO DAILY [facility] Last Admin: 10/03/19 10:14 Dose: 100 mg Documented by: - Objective Vital Signs: Vital Signs Temperature 98.3 F 10/03/19 10:00 Pulse Rate 71 10/03/19 10:00 Respiratory Rate 20 10/03/19 10:00 Blood Pressure 122/55 L 10/03/19 10:00 O2 Sat by Pulse Oximetry (%) 95 10/03/19 09:00 Constitutional: Yes: Calm Eyes: Yes: Conjunctiva Clear HENT: Yes: Atraumatic Neck: Yes: Supple Cardiovascular: Yes: S1, S2 Respiratory: Yes: CTA Bilaterally Gastrointestinal: Yes: Soft, Ascites Genitourinary: Yes: WNL Musculoskeletal: Yes: WNL Edema: No Integumentary: Yes: WNL Neurological: Yes: Oriented Labs: CBC, BMP 10/03/19 07:16 10/03/19 07:16 INR, PTT INR 1.30 (0.83-1.09) H 10/03/19 07:16 Problem List - Problems (1) MURPHY (acute kidney injury) Code(s): N17.9 - ACUTE KIDNEY FAILURE, UNSPECIFIED (2) Cirrhosis Code(s): K74.60 - UNSPECIFIED CIRRHOSIS OF LIVER Qualifiers: Hepatic cirrhosis type: unspecified hepatic cirrhosis Ascites presence: with ascites Qualified Code(s): K74.60 - Unspecified cirrhosis of liver; R18.8 - Other ascites Assessment/Plan Current Medications Generic Name Dose Route Start Last Admin Trade Name Freq PRN Reason Stop Dose Admin Albuterol Sulfate 1 puff 10/01/19 22:00 Ventolin Hfa Inhaler - IH Q12H PRN SHORTNESS OF BREATH Cholecalciferol 1,000 unit 10/02/19 10:00 10/03/19 10:13 Vitamin D3 - PO 1,000 unit DAILY [facility] Administration Ferrous Sulfate 325 mg 10/02/19 10:00 10/03/19 10:13 Feosol - PO 325 mg DAILY [facility] Administration Furosemide 40 mg 10/03/19 10:00 10/03/19 10:13 Lasix - PO 40 mg DAILY [facility] Administration Heparin Sodium (Porcine) 5,000 unit 10/01/19 22:00 10/03/19 10:18 Heparin - SQ 5,000 unit BID [facility] Administration Ceftriaxone Sodium 1 gm/ 50 mls @ 100 mls/hr 10/02/19 10:00 10/03/19 10:18 Dextrose IVPB 100 mls/hr DAILY [facility] Administration Protocol Insulin Aspart 1 vial 10/01/19 16:30 10/03/19 11:47 Novolog Vial Sliding Scale - SQ 2 units ACHS [facility] Administration Protocol Lactulose 20 gm 10/02/19 10:21 10/03/19 10:13 Cephulac (Oral Use) PO 20 gm QID [facility] Administration Levothyroxine Sodium 75 mcg 10/04/19 07:00 Synthroid - PO DAILY@0700 [facility] Pantoprazole Sodium 20 mg 10/02/19 10:00 10/03/19 10:13 Protonix - PO 20 mg DAILY [facility] Administration Propranolol HCl 10 mg 10/01/19 22:00 10/03/19 06:42 Inderal - PO Not Given TID [facility] Spironolactone 100 mg 10/03/19 10:00 10/03/19 10:14 Aldactone - PO 100 mg DAILY [facility] Administration Impression 1. MURPHY 2. hypokalemia 3. liver cirrhosis 4. ascites 5. htn 6. hld 7. dm 8. breast ca 9. lung nodules 10. 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
--- NOTE | 2019-10-03 16:06 | PN ---
Progress Note (short form) - Note Progress Note: Final cytology on 09/28/19 paracentesis: negative for malignancy, only reactive mesothelial cells.
--- NOTE | 2019-10-03 16:08 | PATH ---
Cytology Non-Gynecological Report Patient Name: ALEXIS LAGOS Med. Rec. #: [id number] /Age/Gender: 1940 (Age: 78) / F Account: [id number] Location: [address] [place] [address]/[facility] Taken: 10/02/2019 Received: 10/02/2019 Reported: 10/03/2019 Physicians: Cindi Torres M.D. Specimen(s) Received A: ABDOMINAL FLUID B: ABDOMINAL FLUID Clinical History Cirrhosis, breast CA Final Diagnosis A-B. ABDOMINAL FLUID, PARACENTESIS: SATISFACTORY FOR EVALUATION. NEGATIVE FOR MALIGNANCY. MESOTHELIAL CELLS, MACROPHAGES, FEW NEUTROPHILS, AND FEW LYMPHOCYTES PRESENT. Electronically Signed Yael Key M.D. Gross Description A. Approximately 55 cc of cloudy yellow fluid received fixed in 50% alcohol. One cytofunnel prepared and Pap stained. One cellblock prepared. B. Approximately 2200 cc of yellow fluid received fresh. One cytofunnel prepared and Pap stained. One cellblock prepared.
[2019-10-04] MEDS: INSULIN SLIDING SCALE (NOVOLOG) 1 VIAL SQ SCH ×2 (06:54→11:38)
[2019-10-04] MEDS ORDERED: LEVOTHYROXINE NA 75 MCG TABLET (FP) PO SCH (07:00)
[2019-10-04] MEDS ORDERED: PT OWN MED DRAWER 7, Y5N ONE ×2 (07:11→14:01)
[2019-10-04 08:58] LABS: BASO % 0.9 % (0-2.0); EOS % 3.7 % (0-4.5); HEMATOCRIT 34.1 % (32.4-45.2); HEMOGLOBIN 11.6 GM/dL (10.7-15.3); LYMPH % 22.5 % (8-40); MCH 34.5 pg (25.7-33.7); MEAN CELL VOLUME 101.5 fl (80-96); MEAN PLT VOLUME 10.6 fl (7.5-11.1); MONO % 7.7 % (3.8-10.2); NEUT % 65.2 % (42.8-82.8); PLATELET COUNT 79 K/MM3 (134-434); RBC 3.36 M/mm3 (3.60-5.2); WHITE BLOOD COUNT 4.5 K/mm3 (4.0-10.0)
[2019-10-04 09:08] LABS: ALBUMIN 3.1 g/dl (3.4-5.0); BILIRUBIN,TOTAL 1.3 mg/dL (0.2-1); CALCIUM 8.5 mg/dL (8.5-10.1); CREATININE 0.9 mg/dL (0.55-1.3); POTASSIUM 3.9 mmol/L (3.5-5.1); TOT PROT 6.4 g/dl (6.4-8.2)
--- NOTE | 2019-10-04 09:53 | PN ---
Physical Exam: SUBJECTIVE: Patient seen and examined at bedside. Looks better. OBJECTIVE: Vital Signs Period Temp Pulse Resp BP Sys/Carrizales Pulse Ox Last 24 Hr 97.8 F-98.3 F 69-86 19-20 101-139/54-77 96 Gen: NAD, AAOx3 HEENT: NCAT, EOMI Neck: No jvd Cardio: rrr, normal s1s2, no mrg noted Pulm: cta b/l Abd: Distended, soft, nontender Ext: no edema Laboratory Results - last 24 hr 10/03/19 10/03/19 10/03/19 11:24 16:46 21:04 WBC RBC Hgb Hct MCV MCH MCHC RDW Plt Count MPV Absolute Neuts (auto) Neutrophils % Lymphocytes % Monocytes % Eosinophils % Basophils % Nucleated RBC % Sodium Potassium Chloride Carbon Dioxide Anion Gap BUN Creatinine Est GFR (CKD-EPI)AfAm Est GFR (CKD-EPI)NonAf POC Glucometer 165 144 148 Random Glucose Calcium Total Bilirubin AST ALT Alkaline Phosphatase Total Protein Albumin 10/04/19 10/04/19 10/04/19 05:52 07:40 07:40 WBC 4.5 RBC 3.36 L Hgb 11.6 Hct 34.1 MCV 101.5 H MCH 34.5 H MCHC 34.0 RDW 15.0 Plt Count 79 L MPV 10.6 Absolute Neuts (auto) 3.0 Neutrophils % 65.2 Lymphocytes % 22.5 Monocytes % 7.7 Eosinophils % 3.7 Basophils % 0.9 Nucleated RBC % 0 Sodium 143 Potassium 3.9 Chloride 113 H Carbon Dioxide 21 Anion Gap 8 BUN 18.0 Creatinine 0.9 Est GFR (CKD-EPI)AfAm 69.99 Est GFR (CKD-EPI)NonAf 60.39 POC Glucometer 141 Random Glucose 129 H Calcium 8.5 Total Bilirubin 1.3 H AST 35 ALT 23 Alkaline Phosphatase 146 H Total Protein 6.4 Albumin 3.1 L Active Medications Generic Name Dose Route Start Last Admin Trade Name Freq PRN Reason Stop Dose Admin Albuterol Sulfate 1 puff 10/01/19 22:00 Ventolin Hfa Inhaler - IH Q12H PRN SHORTNESS OF BREATH Cholecalciferol 1,000 unit 10/02/19 10:00 10/03/19 10:13 Vitamin D3 - PO 1,000 unit DAILY [facility] Administration Ferrous Sulfate 325 mg 10/02/19 10:00 10/03/19 10:13 Feosol - PO 325 mg DAILY [facility] Administration Furosemide 40 mg 10/03/19 10:00 10/03/19 10:13 Lasix - PO 40 mg DAILY [facility] Administration Heparin Sodium (Porcine) 5,000 unit 10/01/19 22:00 10/03/19 21:54 Heparin - SQ 5,000 unit BID [facility] Administration Ceftriaxone Sodium 1 gm/ 50 mls @ 100 mls/hr 10/02/19 10:00 10/03/19 10:18 Dextrose IVPB 100 mls/hr DAILY [facility] Administration Protocol Insulin Aspart 1 vial 10/01/19 16:30 10/04/19 06:54 Novolog Vial Sliding Scale - SQ Not Given ACHS [facility] Protocol Lactulose 20 gm 10/02/19 10:21 10/03/19 21:54 Cephulac (Oral Use) PO 20 gm QID [facility] Administration Levothyroxine Sodium 75 mcg 10/04/19 07:00 10/04/19 06:54 Synthroid - PO 75 mcg DAILY@0700 [facility] Administration Pantoprazole Sodium 20 mg 10/02/19 10:00 10/03/19 10:13 Protonix - PO 20 mg DAILY [facility] Administration Propranolol HCl 10 mg 10/01/19 22:00 10/04/19 06:54 Inderal - PO 10 mg TID [facility] Administration Spironolactone 100 mg 10/03/19 10:00 10/03/19 10:14 Aldactone - PO 100 mg DAILY [facility] Administration ASSESSMENT/PLAN: 78 y/o F with PMH HTN, HLD, DM, hypothyroid, cryptogenic cirrhosis with thrombocytopenia, breast CA, colitis who presents to the ED with dizziness and generalized weakness x3 days. She was admitted with MURPHY and cryptogenic cirrhosis. Cirrhosis/Actites/hepatic encephalopathy with thrombocytopenia -long-statnding cryptogenic cirrhosis -reportedly with some confusion on admission -elevated ammonia -bilirubin worse today -AST & AlkP moderately elevated -ascites present -Paracentesis. Results pending -Hepatitis panel unremarkable -prophylactic Ceftriaxone -Lactulose to 4 BM daily -Hold statin -GI on board. 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 Peripherally located in anterior chest -suspiscious for metastatic disease -Pulm on board -may benefit from biopsy. Planning for PET following d/c HTN -c/w propranolol HLD -hold statin in setting of liver failure DM -BGM, ISS ACHS Hypothyroid -c/w levothyroxine DVT ppx -HSQ Visit type - Emergency Visit Emergency Visit: No - New Patient This patient is new to me today: No - Critical Care Critical Care patient: No ATTENDING PHYSICIAN STATEMENT I saw and evaluated the patient. I reviewed the resident's note and discussed the case with the resident. I agree with the resident's findings and plan as documented. SUBJECTIVE: OBJECTIVE: ASSESSMENT AND PLAN:
[2019-10-04] MEDS ORDERED: cefTRIAXone SODIUM 1 GM VIAL ONE (10:10)
[2019-10-04] MEDS ORDERED: DEXTROSE 5%-WATER - 50 ML IVPB ONE (10:11)
[2019-10-04] MEDS: PANTOPRAZOLE 20 MG TABLET PO SCH (10:30)
[2019-10-04] MEDS: CHOLECALCIFEROL (VIT D3) 1,000 UNIT (25 MCG) TABLET PO SCH (10:30)
[2019-10-04] MEDS: LACTULOSE 20 GM/30 ML UDC (FOR ORAL USE ONLY) PO SCH ×2 (10:30→14:08)
[2019-10-04] MEDS: FERROUS SO4 325 MG TABLET (FP) PO SCH (10:30)
[2019-10-04] MEDS: FUROSEMIDE 40 MG TABLET (FP) PO SCH (10:30)
[2019-10-04] MEDS: SPIRONOLACTONE 25 MG TABLET PO SCH (10:30)
[2019-10-04] MEDS: HEPARIN NA (PORCINE) 5,000 UNITS/ML 1ML VIAL SQ SCH (10:30)
[2019-10-04] MEDS: CEFTRIAXONE 1 GM in DEXTROSE 5%-WATER - 50 ML IVPB SCH (10:30)
[2019-10-04] MEDS ORDERED: INSULIN (NOVOLOG) ASPART 100 UNITS/ML 10ML VIAL ONE (11:35)
--- NOTE | 2019-10-04 12:39 | PN ---
Progress Note, Physician History of Present Illness: Pt seen and examined at bedside. She is awake and alert. She denies shortness of breath. - Current Medication List Current Medications: Active Medications Albuterol Sulfate (Ventolin Hfa Inhaler -) 1 puff IH Q12H PRN PRN Reason: SHORTNESS OF BREATH Cholecalciferol (Vitamin D3 -) 1,000 unit PO DAILY [facility] Last Admin: 10/04/19 10:30 Dose: 1,000 unit Documented by: Ferrous Sulfate (Feosol -) 325 mg PO DAILY [facility] Last Admin: 10/04/19 10:30 Dose: 325 mg Documented by: Furosemide (Lasix -) 40 mg PO DAILY [facility] Last Admin: 10/04/19 10:30 Dose: 40 mg Documented by: Heparin Sodium (Porcine) (Heparin -) 5,000 unit SQ BID [facility] Last Admin: 10/04/19 10:30 Dose: 5,000 unit Documented by: Ceftriaxone Sodium 1 gm/ (Dextrose) 50 mls @ 100 mls/hr IVPB DAILY [facility]; Protocol Last Admin: 10/04/19 10:30 Dose: 100 mls/hr Documented by: Insulin Aspart (Novolog Vial Sliding Scale -) 1 vial SQ ACHS [facility]; Protocol Last Admin: 10/04/19 11:38 Dose: 2 units Documented by: Lactulose (Cephulac (Oral Use)) 20 gm PO QID [facility] Last Admin: 10/04/19 10:30 Dose: 20 gm Documented by: Levothyroxine Sodium (Synthroid -) 75 mcg PO DAILY@0700 [facility] Last Admin: 10/04/19 06:54 Dose: 75 mcg Documented by: Pantoprazole Sodium (Protonix -) 20 mg PO DAILY [facility] Last Admin: 10/04/19 10:30 Dose: 20 mg Documented by: Propranolol HCl (Inderal -) 10 mg PO TID [facility] Last Admin: 10/04/19 06:54 Dose: 10 mg Documented by: Spironolactone (Aldactone -) 100 mg PO DAILY [facility] Last Admin: 10/04/19 10:30 Dose: 100 mg Documented by: - Objective Vital Signs: Vital Signs Temperature 97.9 F 10/04/19 10:00 Pulse Rate 66 10/04/19 10:00 Respiratory Rate 20 10/04/19 10:00 Blood Pressure 138/70 06/24/20 10:00 O2 Sat by Pulse Oximetry (%) 96 10/03/19 21:00 Constitutional: Yes: Calm Eyes: Yes: Conjunctiva Clear HENT: Yes: Atraumatic Cardiovascular: Yes: S1, S2 Respiratory: Yes: CTA Bilaterally Gastrointestinal: Yes: Ascites Genitourinary: Yes: WNL Musculoskeletal: Yes: WNL Edema: No Neurological: Yes: Oriented Psychiatric: Yes: Oriented Labs: CBC, BMP 10/04/19 07:40 10/04/19 07:40 INR, PTT INR 1.30 (0.83-1.09) H 10/03/19 07:16 Problem List - Problems (1) MURPHY (acute kidney injury) Code(s): N17.9 - ACUTE KIDNEY FAILURE, UNSPECIFIED (2) Cirrhosis Code(s): K74.60 - UNSPECIFIED CIRRHOSIS OF LIVER Qualifiers: Hepatic cirrhosis type: unspecified hepatic cirrhosis Ascites presence: with ascites Qualified Code(s): K74.60 - Unspecified cirrhosis of liver; R18.8 - Other ascites Assessment/Plan Current Medications Generic Name Dose Route Start Last Admin Trade Name Freq PRN Reason Stop Dose Admin Albuterol Sulfate 1 puff 10/01/19 22:00 Ventolin Hfa Inhaler - IH Q12H PRN SHORTNESS OF BREATH Cholecalciferol 1,000 unit 10/02/19 10:00 10/04/19 10:30 Vitamin D3 - PO 1,000 unit DAILY [facility] Administration Ferrous Sulfate 325 mg 10/02/19 10:00 10/04/19 10:30 Feosol - PO 325 mg DAILY [facility] Administration Furosemide 40 mg 10/03/19 10:00 10/04/19 10:30 Lasix - PO 40 mg DAILY [facility] Administration Heparin Sodium (Porcine) 5,000 unit 10/01/19 22:00 10/04/19 10:30 Heparin - SQ 5,000 unit BID [facility] Administration Ceftriaxone Sodium 1 gm/ 50 mls @ 100 mls/hr 10/02/19 10:00 10/04/19 10:30 Dextrose IVPB 100 mls/hr DAILY [facility] Administration Protocol Insulin Aspart 1 vial 10/01/19 16:30 10/04/19 11:38 Novolog Vial Sliding Scale - SQ 2 units ACHS [facility] Administration Protocol Lactulose 20 gm 10/02/19 10:21 10/04/19 10:30 Cephulac (Oral Use) PO 20 gm QID [facility] Administration Levothyroxine Sodium 75 mcg 10/04/19 07:00 10/04/19 06:54 Synthroid - PO 75 mcg DAILY@0700 [facility] Administration Pantoprazole Sodium 20 mg 10/02/19 10:00 10/04/19 10:30 Protonix - PO 20 mg DAILY [facility] Administration Propranolol HCl 10 mg 10/01/19 22:00 10/04/19 06:54 Inderal - PO 10 mg TID [facility] Administration Spironolactone 100 mg 10/03/19 10:00 10/04/19 10:30 Aldactone - PO 100 mg DAILY [facility] Administration Impression 1. MURPHY 2. hypokalemia 3. liver cirrhosis 4. ascites 5. htn 6. hld 7. dm 8. breast ca 9. lung nodules 10. thombocytopenia Plan - renal function stable - cont duiretics - GI follow up - monitor lytes - repeat labs in am - check mag level
--- NOTE | 2019-10-04 13:14 | PN ---
Progress Note (short form) - Note Progress Note: Resting in NAD on RA. No CP or SOB. No acute events overnight. Intake & Output 10/01/19 10/02/19 10/03/19 10/04/19 23:59 23:59 23:59 23:59 Intake Total 950 375 820 Output Total 3 Balance 947 375 820 Weight 113 lb 0.5 oz Last Vital Signs Temp Pulse Resp BP Pulse Ox 97.9 F 66 20 138/70 95 10/04/19 10:00 10/04/19 10:00 10/04/19 10:00 10/04/19 10:00 10/04/19 09:00 Active Medications Albuterol Sulfate (Ventolin Hfa Inhaler -) 1 puff IH Q12H PRN PRN Reason: SHORTNESS OF BREATH Cholecalciferol (Vitamin D3 -) 1,000 unit PO DAILY [facility] Last Admin: 10/04/19 10:30 Dose: 1,000 unit Documented by: Ferrous Sulfate (Feosol -) 325 mg PO DAILY [facility] Last Admin: 10/04/19 10:30 Dose: 325 mg Documented by: Furosemide (Lasix -) 40 mg PO DAILY [facility] Last Admin: 10/04/19 10:30 Dose: 40 mg Documented by: Heparin Sodium (Porcine) (Heparin -) 5,000 unit SQ BID [facility] Last Admin: 10/04/19 10:30 Dose: 5,000 unit Documented by: Ceftriaxone Sodium 1 gm/ (Dextrose) 50 mls @ 100 mls/hr IVPB DAILY [facility]; Protocol Last Admin: 10/04/19 10:30 Dose: 100 mls/hr Documented by: Insulin Aspart (Novolog Vial Sliding Scale -) 1 vial SQ ACHS [facility]; Protocol Last Admin: 10/04/19 11:38 Dose: 2 units Documented by: Lactulose (Cephulac (Oral Use)) 20 gm PO QID [facility] Last Admin: 10/04/19 10:30 Dose: 20 gm Documented by: Levothyroxine Sodium (Synthroid -) 75 mcg PO DAILY@0700 [facility] Last Admin: 10/04/19 06:54 Dose: 75 mcg Documented by: Pantoprazole Sodium (Protonix -) 20 mg PO DAILY [facility] Last Admin: 10/04/19 10:30 Dose: 20 mg Documented by: Propranolol HCl (Inderal -) 10 mg PO TID [facility] Last Admin: 10/04/19 06:54 Dose: 10 mg Documented by: Spironolactone (Aldactone -) 100 mg PO DAILY [facility] Last Admin: 10/04/19 10:30 Dose: 100 mg Documented by: Constitutional: Yes: No Distress, Obese Eyes: Yes: Conjunctiva Clear, EOM Intact HENT: Yes: Atraumatic, Normocephalic Neck: Yes: Supple, Trachea Midline Cardiovascular: Yes: Regular Rate and Rhythm Respiratory: Yes: Diminished, Dullness. No: Accessory Muscle Use, Rales, Rhonchi, SOB, SOB on Exertion, Stridor, Tachypnea, Wheezes ...Inspection: Yes: WNL Gastrointestinal: Yes: Soft, Abdomen, Obese, Other (Ascites ) Renal/: Yes: WNL, Urethral Discharge Musculoskeletal: Yes: WNL Extremities: Yes: WNL Edema: Yes Peripheral Pulses WNL: No Integumentary: Yes: WNL Neurological: Yes: WNL, Alert, Oriented ...Motor Strength: WNL Psychiatric: Yes: WNL, Alert, Oriented Labs: Laboratory Results - last 24 hr 10/03/19 10/03/19 10/04/19 16:46 21:04 05:52 WBC RBC Hgb Hct MCV MCH MCHC RDW Plt Count MPV Absolute Neuts (auto) Neutrophils % Lymphocytes % Monocytes % Eosinophils % Basophils % Nucleated RBC % Sodium Potassium Chloride Carbon Dioxide Anion Gap BUN Creatinine Est GFR (CKD-EPI)AfAm Est GFR (CKD-EPI)NonAf POC Glucometer 144 148 141 Random Glucose Calcium Total Bilirubin AST ALT Alkaline Phosphatase Total Protein Albumin 10/04/19 10/04/19 10/04/19 07:40 07:40 11:32 WBC 4.5 RBC 3.36 L Hgb 11.6 Hct 34.1 MCV 101.5 H MCH 34.5 H MCHC 34.0 RDW 15.0 Plt Count 79 L MPV 10.6 Absolute Neuts (auto) 3.0 Neutrophils % 65.2 Lymphocytes % 22.5 Monocytes % 7.7 Eosinophils % 3.7 Basophils % 0.9 Nucleated RBC % 0 Sodium 143 Potassium 3.9 Chloride 113 H Carbon Dioxide 21 Anion Gap 8 BUN 18.0 Creatinine 0.9 Est GFR (CKD-EPI)AfAm 69.99 Est GFR (CKD-EPI)NonAf 60.39 POC Glucometer 214 Random Glucose 129 H Calcium 8.5 Total Bilirubin 1.3 H AST 35 ALT 23 Alkaline Phosphatase 146 H Total Protein 6.4 Albumin 3.1 L Imaging - Results Chest X-ray: Report Reviewed, Image Reviewed Cat Scan: Report Reviewed, Image Reviewed Problem List - Problems (1) Cirrhosis Code(s): K74.60 - UNSPECIFIED CIRRHOSIS OF LIVER (2) Weakness Code(s): R53.1 - WEAKNESS (3) Abdominal discomfort Code(s): R10.9 - UNSPECIFIED ABDOMINAL PAIN (4) Bilateral leg edema Code(s): R60.0 - LOCALIZED EDEMA (5) Breast cancer Code(s): C50.919 - MALIGNANT NEOPLASM OF UNSP SITE OF UNSPECIFIED FEMALE BREAST (6) HLD (hyperlipidemia) Code(s): E78.5 - HYPERLIPIDEMIA, UNSPECIFIED (7) HTN (hypertension) Code(s): I10 - ESSENTIAL (PRIMARY) HYPERTENSION (8) Hypothyroid Code(s): E03.9 - HYPOTHYROIDISM, UNSPECIFIED (9) Thrombocytopenia Code(s): D69.6 - THROMBOCYTOPENIA, UNSPECIFIED Assessment/Plan Previously D/W PMD : patient has been followed with serial CT scans. No PET imaging or biopsy has been performed. Supplemental O2 only as needed Daily weights Monitor off ABX PET imaging after discharge (D/W PMD) Dr Lake Problem List - Problems (1) Cirrhosis Code(s): K74.60 - UNSPECIFIED CIRRHOSIS OF LIVER Qualifiers: Hepatic cirrhosis type: unspecified hepatic cirrhosis Ascites presence: with ascites Qualified Code(s): K74.60 - Unspecified cirrhosis of liver; R18.8 - Other ascites (2) Weakness Code(s): R53.1 - WEAKNESS (3) Abdominal discomfort Code(s): R10.9 - UNSPECIFIED ABDOMINAL PAIN (4) Bilateral leg edema Code(s): R60.0 - LOCALIZED EDEMA (5) Breast cancer Code(s): C50.919 - MALIGNANT NEOPLASM OF UNSP SITE OF UNSPECIFIED FEMALE BREAST (6) HLD (hyperlipidemia) Code(s): E78.5 - HYPERLIPIDEMIA, UNSPECIFIED (7) HTN (hypertension) Code(s): I10 - ESSENTIAL (PRIMARY) HYPERTENSION (8) Hypothyroid Code(s): E03.9 - HYPOTHYROIDISM, UNSPECIFIED (9) Thrombocytopenia Code(s): D69.6 - THROMBOCYTOPENIA, UNSPECIFIED
[2019-10-04 14:20] VITALS: BP 120/60; PULSE 81; TEMP 98
--- NOTE | 2019-10-04 14:21 | DS ---
Physical Exam: SUBJECTIVE: Patient seen and examined at bedside. Feels much better OBJECTIVE: Vital Signs Period Temp Pulse Resp BP Sys/Carrizales Pulse Ox Last 24 Hr 97.8 F-98.0 F 66-86 19-20 101-139/54-77 95-96 PHYSICAL EXAM Gen: Awake, alert, NAD HEENT: NCAT, EOMI Neck: supple, no jvd Cardio: rrr, normal s1s2, no mrg Pulm: cta b/l Abd: distended, soft, nontender Ext: no edema LABS Laboratory Results - last 24 hr 10/03/19 10/03/19 10/04/19 16:46 21:04 05:52 WBC RBC Hgb Hct MCV MCH MCHC RDW Plt Count MPV Absolute Neuts (auto) Neutrophils % Lymphocytes % Monocytes % Eosinophils % Basophils % Nucleated RBC % Sodium Potassium Chloride Carbon Dioxide Anion Gap BUN Creatinine Est GFR (CKD-EPI)AfAm Est GFR (CKD-EPI)NonAf POC Glucometer 144 148 141 Random Glucose Calcium Total Bilirubin AST ALT Alkaline Phosphatase Total Protein Albumin 10/04/19 10/04/19 10/04/19 07:40 07:40 11:32 WBC 4.5 RBC 3.36 L Hgb 11.6 Hct 34.1 MCV 101.5 H MCH 34.5 H MCHC 34.0 RDW 15.0 Plt Count 79 L MPV 10.6 Absolute Neuts (auto) 3.0 Neutrophils % 65.2 Lymphocytes % 22.5 Monocytes % 7.7 Eosinophils % 3.7 Basophils % 0.9 Nucleated RBC % 0 Sodium 143 Potassium 3.9 Chloride 113 H Carbon Dioxide 21 Anion Gap 8 BUN 18.0 Creatinine 0.9 Est GFR (CKD-EPI)AfAm 69.99 Est GFR (CKD-EPI)NonAf 60.39 POC Glucometer 214 Random Glucose 129 H Calcium 8.5 Total Bilirubin 1.3 H AST 35 ALT 23 Alkaline Phosphatase 146 H Total Protein 6.4 Albumin 3.1 L HOSPITAL COURSE: Date of Admission:10/01/19 Date of Discharge: 10/04/19 Mrs Machuca is an 78 y/o F with a PMH HTN, HLD, DM, hypothyroid, cryptogenic cirrhosis with thrombocytopenia, breast CA, colitis who presented to the ED with dizziness and generalized weakness x3 days. She was admitted with MURPHY and cryptogenic cirrhosis with acute hepatic encephalopathy. She was treated with diuretics and lactulose, and she had a paracentesis. Her mental status improved. In discussion with her md physician dermatologist, the decision was made to stop her propranalol as it may be worsening her mental status. She is being discharged with lactulose and instructions to follow up with Dr. Bertrand in the office on Wednesday. She had an elevated creatinine on admission which was attributed to MURPHY likely 2/2 hepatorenal syndrome. 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 She was found to have Lung nodules on CT which was suspicious for metastasis. Pulmonary was consulted, and recommended out patient PET scan. Her other chronic medical problems were treated with home medications. Her out patient plan was discussed with her daughter who helps care for her. Stable for discharge. Minutes to complete discharge: 35 Discharge Summary Problems reviewed: Yes Reason For Visit: ACUTE KIDNEY INJURY; WEAKNESS; EPATIC ENCEPHALOPA Current Active Problems MURPHY (acute kidney injury) (Acute) Cirrhosis (Acute) Confusion (Acute) Hepatic encephalopathy (Acute) Weakness (Acute) Condition: Stable - Instructions Diet, Activity, Other Instructions: You were in the hospital because of liver failure. You need to follow up with your primary care doctor and with your GI doctor, Dr. Bertrand who can see you on Wednesday. Your imaging showed lung nodules that need to be followed up by your regular doctor and by a lung doctor. You will need more imaging tests, which can be done as an out patient. You need to call and make appointments. The contact information is in your discharge packet. STOP taking propranalol. You are being sent home with a medicine called Lactulose. You need to adjust the dose of this medication so that you have about 3 or 4 bowel movements per day. If you have less than 3 or more than 4, you should call your doctor to adjust the dosage. If you experience worsening symptoms, call your doctor or return to the emergency room. Referrals: Efren Amador MD [Staff Physician] - Yadiel Bertrand MD [Primary Care Provider] - Davina Sanchez MD [Staff Physician] - Jose D Rivas MD [Staff Physician] - Disposition: HOME - Home Medications Comprehensive Discharge Medication List: Ambulatory Orders Albuterol Sulfate [Proair Respiclick] 90 mcg IH BID 06/23/18 Cholecalciferol (Vitamin D3) [Vitamin D3] 1,000 unit PO DAILY 06/23/18 Ferrous Sulfate 325 mg PO DAILY 06/23/18 Levothyroxine [Synthroid -] 75 mcg PO DAILY 06/23/18 Lovastatin 40 mg PO HS 06/24/18 Glipizide 10 mg PO DAILY 08/23/18 Omeprazole 20 mg PO DAILY #1 tablet. 08/23/18 Propranolol HCl 10 mg PO TID 08/23/18 Spironolactone 25 mg PO DAILY 08/23/18 Lactulose (Oral Use) [Cephulac -] 20 gm PO QID #56 c 10/04/19 This patient is new to me today: No Emergency Visit: No Critical Care patient: No - Discharge Referral Referred to [facility] Med [facility].C[facility] No ATTENDING PHYSICIAN STATEMENT I saw and evaluated the patient. I reviewed the resident's note and discussed the case with the resident. I agree with the resident's findings and plan as documented. SUBJECTIVE: OBJECTIVE: ASSESSMENT AND PLAN:
[2019-10-04 17:07] LABS: BODY FLUID ALBUMIN 0.9 g/dL (Not Estab.)
== END 2019-10-04 16:17 | disposition home or self-care (01) | DRG 432 ==
LOC: JER 10:06 → JERBED 12:33 → J5S 14:45
PROVIDERS: ADMIT Internal Medicine; ATTEND Internal Medicine
PROC: 0W9G3ZX Drainage of Peritoneal Cavity, Percutaneous Approach, Diagnostic (ICD-10-PCS; principal; 2019-10-02)
DX: K74.69 Other cirrhosis of liver (principal); K76.7 Hepatorenal syndrome; N17.9 Acute kidney failure, unspecified; R18.8 Other ascites; K72.90 Hepatic failure, unspecified without coma; E87.6 Hypokalemia; R91.8 Other nonspecific abnormal finding of lung field; D69.6 Thrombocytopenia, unspecified; E11.9 Type 2 diabetes mellitus without complications; I10 Essential (primary) hypertension; E78.5 Hyperlipidemia, unspecified; E03.9 Hypothyroidism, unspecified
CPT/HCPCS: 36415; 70450-TC; 71045-TC-FY; 71250-TC; 74176-TC; 76942-TC; 80048; 80053; 80074; 81003; 82042; 82140; 82150; 82465; 82550; 82553; 82565; 82803; 82945; 82962; 83615; 83735; 83880; 83935; 83986; 84100; 84157; 84300; 84443; 84478; 84484; 85025; 85027; 85610; 85730; 87070; 87075; 87086; 87102; 87116; 87205; 87206; 87210; 87389; 88108; 88305-TC; 93005; 93010; 99285-25; J1644; U0003

== ENCOUNTER 2019-11-19 08:40 | Inpatient (IN) | payer BC, OTHER ==
--- NOTE | 2019-11-19 08:55 | PDOC ---
History of Present Illness - General Chief Complaint: Lethargy Stated Complaint: AMS Time Seen by Provider: 11/19/19 08:45 History Source: Patient, EMS, Old Records Exam Limitations: No Limitations - History of Present Illness Initial Comments: 11/19/19 08:55 Carol Machuca is an 78F with PMH HTN, HLD, NIDDM, hypothyroidism, cryptogenic cirrhosis with thrombocytopenia c/c hepatic encephalopathy, breast CA, and colitis, BIBA for AMS. Patient reports that she was walking around naked in her apartment this AM and is not sure why, found by her son in this state and got dressed. Did not eat breakfast. Said she was craving watermelon, so she and her son went out to buy some. Lives on first floor apartment, elevator broken. Tried walking up stairs and fell down, watermelon crushed, injured her left knee and big toe, denies LOC or head injury. Denies chest pain, SOB, fever, chills, N/V, sensation of heat, dizziness, cough, or palpitations. Denies recollection of the event. Has known history of hepatic encephalopathy and ascites 2/2 cryptogenic cirrhosis. Last paracentesis last September, follows with Dr. Bertrand. Denies abdominal pain, says her stomach is the normal amount of swelling. Has outpatient lactulose but apparently pharmacy has not filled, has not been taking. Denies allergies. Denies recent alcohol/drug/tobacco use. Past History - Medical History Allergies/Adverse Reactions: Allergies Allergy/AdvReac Type Severity Reaction Status Date / Time No Known Drug Allergies Allergy Verified 11/19/19 09:17 Home Medications: Ambulatory Orders Albuterol Sulfate [Proair Respiclick] 90 mcg IH BID 06/23/18 Cholecalciferol (Vitamin D3) [Vitamin D3] 1,000 unit PO DAILY 06/23/18 Ferrous Sulfate 325 mg PO DAILY 06/23/18 Levothyroxine [Synthroid -] 75 mcg PO DAILY 06/23/18 Lovastatin 40 mg PO HS 06/24/18 Glipizide 10 mg PO DAILY 08/23/18 Omeprazole 20 mg PO DAILY #1 tablet. 08/23/18 Spironolactone 25 mg PO DAILY 08/23/18 Lactulose (Oral Use) [Cephulac -] 20 gm PO QID #56 udc 10/04/19 Anemia: Yes (THROMBOCYTOPENIA) Asthma: No Cancer: Yes (Breast LEFT) Cardiac Disorders: Yes (CAD) CVA: No COPD: No Dementia: No Diabetes: Yes GI Disorders: (cholelithiasis) Disorders: No HTN: Yes Hypercholesterolemia: Yes Liver Disease: No Seizures: No Thyroid Disease: Yes (Hypo) - Surgical History Abdominal Surgery: No Appendectomy: No Cardiac Surgery: No Cholecystectomy: No Lung Surgery: No Neurologic Surgery: No Orthopedic Surgery: No - Immunization History Immunization Up to Date: Yes - Psycho-Social/Smoking History Smoking History: Never smoked Have you smoked in the past 12 months: No If you are a former smoker, when did you quit?: 17YEARS AGO Review of Systems - Review of Systems Able to Perform ROS?: Yes Constitutional: No: Symptoms Reported HEENTM: No: Symptoms Reported Respiratory: No: Symptoms reported Cardiac (ROS): No: Symptoms Reported ABD/GI: No: Constipated, Diarrhea, Nausea, Poor Appetite, Poor Fluid Intake, Vomiting : No: Symptoms Reported Musculoskeletal: Yes: Joint Swelling Integumentary: Yes: Bruising Neurological: Yes: Unsteady Gait Endocrine: No: Symptoms Reported Hematologic/Lymphatic: No: Symptoms Reported All Other Systems: Reviewed and Negative *Physical Exam - Physical Exam General Appearance: Yes: Nourished, Appropriately Dressed, Thin, Other (abdominal swelling with thin extremities, but resting comfortably in bed). No: Apparent Distress HEENT: positive: EOMI, MORIAH, Normal Voice, Symmetrical, Pharynx Normal, Hearing Grossly Normal, Other (no jaundice noted to tongue or eyes). negative: Scleral Icterus (R), Scleral Icterus (L), Pharyngeal Erythema, Tonsillar Exudate, Tonsillar Erythema Neck: positive: Normal Thyroid, Supple. negative: Tender, Rigid, Decreased range of motion, Lymphadenopathy (R), Lymphadenopathy (L), Tender lateral, Tender midline Respiratory/Chest: positive: Lungs Clear, Normal Breath Sounds. negative: Chest Tender, Respiratory Distress, Accessory Muscle Use, Labored Respiration, Crackles, Rales, Rhonchi, Stridor, Wheezing Cardiovascular: negative: Regular Rhythm, Regular Rate, Murmur Gastrointestinal/Abdominal: positive: Normal Bowel Sounds, Protuberent, Distended, Hernia (periumbilical). negative: Tender, Tenderness Musculoskeletal: positive: Normal Inspection. negative: CVA Tenderness (R), CVA Tenderness (L), Decreased Range of Motion Extremity: positive: Normal Capillary Refill, Normal Range of Motion, Pelvis Stable. 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 negative: Numbness, Sensory Deficit ED Treatment Course - LABORATORY CBC & Chemistry Diagram: 11/19/19 09:34 11/19/19 09:34 Medical Decision Making - Medical Decision Making 11/19/19 11:38 Patient presents with AMS and mechanical fall today with PMH hepatic disease and encephalopathy and has not been taking lactulose. VSS, no evidence of fever, patient fully A/O but has asterixis. Concerned for SBP vs. hyperammonemi a/encephalopahty vs. UTI vs. PNA. Patient denies syncope or cardiac symptoms, lower concern for ACS-related syncope. Evaluating broadly with CBC/CMP/CP/ammonia/ECG/CXR/BNP/Mag/Phos. Getting CT head/c-spine given fall and AMS this morning. XR left knee and big toe, non- tender and full ROM but bruised. ECG shows sinus tachycardia with HR 106, QTc 478, no ROJELIO/D or TWI. CXR atelectasis at bases possibly 2/[address] head no acute pathology. CT c-spine shows multilevel disc-herniation but no acute fracture. L foot XR no pathology. L knee XR no pathology. Labs notable for: - WBC 7.5, lower suspicion for SBP - Coags WNL - AST 83 - ammonia 148.80, consistent with prior - trop 0.10, has baseline leak - Cr 1.1 - UA contaminated with epithelials but no concerning markers of infection Called Dr. Bertrand's office, spoke to Dr. Workman. Patient not taking lactulose, recommends giving dose of lactulose now, lower concern for SBP. If admitting will consult. 11/19/19 11:46 Plan to admit patient to Med/Surg for fall and hepatic evaluation. 11/19/19 12:20 Dr. Ordoñez at bedside to evaluate, accepts for admission to Med/Surg. Discharge - Discharge Information Problems reviewed: Yes Clinical Impression/Diagnosis: Hepatic encephalopathy AMS (altered mental status) Qualifiers: Altered mental status type: unspecified Qualified Code(s): R41.82 - Altered mental status, unspecified Fall Qualifiers: Encounter type: initial encounter Qualified Code(s): W19.XXXA - Unspecified fall, initial encounter Condition: Stable - Admission Yes - Follow up/Referral - Patient Discharge Instructions - Post Discharge Activity
[2019-11-19 09:47] LABS: BASO % 0.4 % (0-2.0); EOS % 2.1 % (0-4.5); HEMATOCRIT 39.3 % (32.4-45.2); HEMOGLOBIN 13.4 GM/dL (10.7-15.3); LYMPH % 15.6 % (8-40); MCH 35.1 pg (25.7-33.7); MCHC 34.2 g/dl (32.0-36.0); MEAN CELL VOLUME 102.7 fl (80-96); MEAN PLT VOLUME 11.4 fl (7.5-11.1); MONO % 7.9 % (3.8-10.2); PLATELET COUNT 106 K/MM3 (134-434); RBC 3.83 M/mm3 (3.60-5.2); RDW 14.1 % (11.6-15.6); WHITE BLOOD COUNT 7.5 K/mm3 (4.0-10.0)
[2019-11-19 09:59] LABS: INR 1.22 (0.83-1.09); PROTHROMBIN TIME (PATIENT) 14.4 SEC (9.7-13.0)
[2019-11-19 10:02] LABS: ACTIVATED PTT 29.6 SECONDS (25.2-36.5)
[2019-11-19 10:14] LABS: BILIRUBIN,TOTAL 1.3 mg/dL (0.2-1); BLOOD UREA NITROGEN 21.6 mg/dL (7-18); CALCIUM 8.6 mg/dL (8.5-10.1); CREATININE 1.1 mg/dL (0.55-1.3); MAGNESIUM 1.8 mg/dL (1.8-2.4); PHOSPHOROUS 2.8 mg/dL (2.5-4.9); POTASSIUM 4.3 mmol/L (3.5-5.1); TOT PROT 7.4 g/dl (6.4-8.2)
[2019-11-19 10:47] LABS: EPI CELLS >36 /uL (0-25.1); HYALINE CASTS 0 /uL (0-3.1); URINE APPEARANCE CLOUDY; URINE BACTERIA 293 /uL (0-1359); URINE BILIRUBIN NEGATIVE (NEGATIVE); URINE COLOR YELLOW; URINE GLUCOSE (UA) NEGATIVE (NEGATIVE); URINE KETONE NEGATIVE (NEGATIVE); URINE LEUK ESTERASE TRACE (NEGATIVE); URINE NITRITE NEGATIVE (NEGATIVE); URINE PROTEIN NEGATIVE (NEGATIVE); URINE RBC 8 /uL (0-23.9); URINE UROBILINOGEN 0.2 mg/dL (0.2-1.0); URINE WBC 19 /uL (0-25.8)
[2019-11-19] MEDS ORDERED: LACTULOSE 20 GM/30 ML UDC (FOR ORAL USE ONLY) PO PRN (11:33)
[2019-11-19] MEDS ORDERED: LACTULOSE 20 GM/30 ML UDC (FOR ORAL USE ONLY) ONE (11:37)
--- NOTE | 2019-11-19 12:07 | HP ---
CHIEF COMPLAINT: AMS PCP: Dr. Amador HISTORY OF PRESENT ILLNESS: 78yo F with h/o of hypothyroidism, cryptogenic cirrhosis, HTN, HLD, previous Breast Ca of unknown type, and iron deficiency anemia who presents today with altered mental status. Pt is pleasantly confused, but does not confabulate or have any dysarthria or aphasia. She does not remember the course of the days. Per EMR, pt was tracey in by son who found her walking around naked and confused. She has suffered from long-standing cirrhosis and was given instructions to take Lactulose. She did not fill her prescription and has not been taking her medication as prescribed. Patient is followed by Dr. Bertrand on an outpatient basis for her cirrhosis. Today, patient fell noted to be likely mechanical in her altered state. She suffered abrasions on her head and shoulder and in the ED trauma workup was all negative. Pt currently denies any pain or complaints at the current moment. She is pleasant and oriented to self. She cannot provide further history. PAST MEDICAL HISTORY: As above PAST SURGICAL HISTORY: Unable to obtain Social History (per chart): Smoking: Never Alcohol: None Drugs: None Family Hx: No incidence of cirrhosis Allergies No Known Drug Allergies Allergy (Verified 11/19/19 09:17) HOME MEDICATIONS: Home Medications Medication Instructions Recorded Albuterol Sulfate [Proair 90 mcg IH BID 06/23/18 Respiclick] Cholecalciferol (Vitamin D3) 1,000 unit PO DAILY 06/23/18 [Vitamin D3] Ferrous Sulfate 325 mg PO DAILY 06/23/18 Levothyroxine [Synthroid -] 75 mcg PO DAILY 06/23/18 Lovastatin 40 mg PO HS 06/24/18 Glipizide 10 mg PO DAILY 08/23/18 Omeprazole 20 mg PO DAILY #1 tablet. 08/23/18 Propranolol HCl 10 mg PO TID 08/23/18 Spironolactone 25 mg PO DAILY 08/23/18 Lactulose (Oral Use) [Cephulac -] 20 gm PO QID #56 c 10/04/19 REVIEW OF SYSTEMS As per HPI PHYSICAL EXAMINATION Vital Signs - 24 hr 11/19/19 08:40 Temperature 98.3 F Pulse Rate 110 H Respiratory 18 Rate Blood Pressure 130/67 O2 Sat by Pulse 100 Oximetry (%) GENERAL: Awake, alert, and oriented to self, NAD HEENT: No hematomas noted, sclera anicteric, EOMI, LORA, MMM, abraisions of L face without any erythema or edema noted NECK: No JVD, No C-spine tenderness with palpation LUNGS: CTA bilaterally. No wheezes, and no crackles. No accessory muscle use. HEART: RRR, normal S1 and S2 without murmur ABDOMEN: Soft, mod distended, nontender, distant BS, no guarding, no masses appreciated, no hepatomegaly, no caput medusa. No asterixis EXTREMITIES: 2+ pulses, warm, well-perfused. No calf tenderness. No peripheral edema. PSYCHIATRIC: Cooperative. Good eye contact. SKIN: Warm, dry, no rashes, abrasions as above Laboratory Results - last 24 hr 11/19/19 11/19/19 11/19/19 09:34 09:34 09:34 WBC 7.5 RBC 3.83 Hgb 13.4 Hct 39.3 D MCV 102.7 H MCH 35.1 H MCHC 34.2 RDW 14.1 Plt Count 106 L D MPV 11.4 H Absolute Neuts (auto) 5.5 Neutrophils % 74.0 Lymphocytes % 15.6 D Monocytes % 7.9 Eosinophils % 2.1 Basophils % 0.4 Nucleated RBC % 0 PT with INR 14.40 H INR 1.22 H PTT (Actin FS) 29.6 Sodium 138 Potassium 4.3 Chloride 107 Carbon Dioxide 20 L Anion Gap 11 BUN 21.6 H Creatinine 1.1 Est GFR (CKD-EPI)AfAm 54.91 Est GFR (CKD-EPI)NonAf 47.38 Random Glucose 137 H Calcium 8.6 Phosphorus 2.8 Magnesium 1.8 Total Bilirubin 1.3 H AST 83 H ALT 44 Alkaline Phosphatase 312 H Ammonia Creatine Kinase 109 Troponin I 0.10 H Total Protein 7.4 Albumin 3.0 L Lipase 193 Urine Color Urine Appearance Urine pH Ur Specific [place] Urine Protein Urine Glucose (UA) Urine Ketones Urine Blood Urine Nitrite Urine Bilirubin Urine Urobilinogen Ur Leukocyte Esterase Urine WBC (Auto) Urine RBC (Auto) Urine Casts (Auto) U Epithel Cells (Auto) Urine Bacteria (Auto) 11/19/19 11/19/19 09:34 10:40 WBC RBC Hgb Hct MCV MCH MCHC RDW Plt Count MPV Absolute Neuts (auto) Neutrophils % Lymphocytes % Monocytes % Eosinophils % Basophils % Nucleated RBC % PT with INR INR PTT (Actin FS) Sodium Potassium Chloride Carbon Dioxide Anion Gap BUN Creatinine Est GFR (CKD-EPI)AfAm Est GFR (CKD-EPI)NonAf Random Glucose Calcium Phosphorus Magnesium Total Bilirubin AST ALT Alkaline Phosphatase Ammonia 148.80 H Creatine Kinase Troponin I Total Protein Albumin Lipase Urine Color Yellow Urine Appearance Cloudy Urine pH 7.0 Ur Specific [place] 1.006 L Urine Protein Negative Urine Glucose (UA) Negative Urine Ketones Negative Urine Blood Negative Urine Nitrite Negative Urine Bilirubin Negative Urine Urobilinogen 0.2 Ur Leukocyte Esterase Trace Urine WBC (Auto) 19 Urine RBC (Auto) 8 Urine Casts (Auto) 0 U Epithel Cells (Auto) >36 Urine Bacteria (Auto) 293 ASSESSMENT/PLAN: Hepatic Encephalopathy Cirrhosis with ascites Type 2 DM Hyperlipidemia Iron deficiency anemia --Given patient's noncompliance with lactulose it explains her presentation --Lactulose QID scheduled until pt has 2-3 BM in 24hr period --Fall precautions --Continue to reorient for confusion and avoid DANIELA's list medications --GI on board --Continue Aldactone daily --Pt previously had propanolol discontinued on last admission; continue to hold until notable evidence of varices --Continue rest of home medications with exception of iron supplementation Diet: Soft diet PPX: Lovenox SQ daily Dispo: Admit M/S Max Ordoñez DO - IM Visit type - Medication Review Med list reviewed for High Risk Meds patients 65 and older: Yes - Emergency Visit Emergency Visit: Yes ED Registration Date: 11/19/19 Care time: The patient presented to the Emergency Department on the above date and was hospitalized for further evaluation of their emergent condition. - New Patient This patient is new to me today: Yes Date on this admission: 11/19/19 - Critical Care Critical Care patient: No
--- NOTE | 2019-11-19 12:17 | PDOC ---
Documentation entered by Kristina Hopson SCRIBE, acting as scribe for Sandy Murray MD. Sandy Murray MD: This documentation has been prepared by the scribeMark Anthony Ana, SCRIBE, under my direction and personally reviewed by me in its entirety. I confirm that the documentation accurately reflects all work, treatment, procedures, and medical decision making performed by me. Attending Attestation - Resident Resident Name: ShalondasheyAnthony - ED Attending Attestation I have performed the following: I have examined & evaluated the patient, The case was reviewed & discussed with the resident, I agree w/resident's findings & plan, Exceptions are as noted - HPI HPI: 11/19/19 09:08 Patient is an 78 year old female with a significant past medical history of hypertension, HLD, diabetes, hypothyroid, cryptogenic cirrhosis with thrombocytopenia, breast cancer, colitis, and hepatic encephalopathy, who presents to the ED, BBA, with altered mental status since earlier this morning. Patient stated she did not eat breakfast and was craving watermelon so she and her son went to buy some. Patient said elevator in her apartment building is broken so she was trying to walk up her stairs with watermelon in hand when she fell down injuring her left knee, left big toe, and watermelon was crushed. Patient also mentioned that she was found by her son while she was walking naked around her apartment and cannot recall why she was doing this. Patient endorses: left leg pain and let foot pain. Patient denies: any head trauma, LOC, sensation of heat, fever, chills, nausea, vomiting, SOB, cough, palpitations, chest pain, abdominal pain, diarrhea, constipation, or any other related symptoms. (Denies any recollection of event). Allergies: NKDA - Physicial Exam PE: 11/19/19 10:09 General: non-toxic appearing Chest: CTAB, good air entry, no wheezes rales or rhonchi CVS: + s1 s2, RRR Abdomen: obese, distended, +fluid wave, nt, no rebound, no guarding Neuro: Aox3, no focal deficits, moving all extremities freely, +asterixis - Medical Decision Making 11/19/19 10:11 78 yo F with fall yesterday and concern for decompensated liver failure given report of AMS at home (walking around the house naked) and asterixis on exam. Plan: -labs -urine -cxr -xr L foot/ankle -CT head -CT c-spine -admit This clinical encounter is taking place during a federal and state health care emergency attributable to the novel Ham Virus pandemic. The [place] of the Department of Health and Human Services has declared, pursuant to the Public Health Service Act 319F-3 (42 U.S.C. 247d-6d), that a covered persons activities related to medical countermeasures against COVID-19 will be immune from liability under Federal and State law. Discharge - Discharge Information Problems reviewed: Yes Clinical Impression/Diagnosis: AMS (altered mental status) Fall Qualifiers: Encounter type: initial encounter Qualified Code(s): W19.XXXA - Unspecified fall, initial encounter Condition: Stable - Follow up/Referral Referrals: Efren Amador MD [Primary Care Provider] - - Patient Discharge Instructions - Post Discharge Activity
[2019-11-19 14:24] VITALS: BMI 21.8
--- NOTE | 2019-11-19 15:32 | CON.GI ---
Consult Consult Specialty:: Gastroenterology Referred by:: Dr Anthony Hurtado Reason for Consultation:: Hepatic encephalopathy - History of Present Illness Chief Complaint: Altered mental status History of Present Illness: 78F is brought to the ER after her son was awoken when he heard her walking around the apartment at 4AM. She was naked and confused and was tinkling urine throughout the house. He does not supervise her medication intake and cannot confirm whether or not she was taking Lactulose. She insists that the pharmacy r an out. She does recall stubbing her toe and falling yesterday but denies LOC. She denies fever, chills, cough, diarrhea, bleeding or abdominal pain. 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 She had a paracentesis in 09/29 at [facility] with my partner Dr Bertrand. He discovered medium sized esophageal varices during EGD in 08/28 managed with a beta-von. She belieevs that she also had a colonoscopy remotely with Dr Bertrand but cannot recall the results - History Source History Provided By: Patient, Medical Record Limitations to Obtaining History: Poor Historian - Past Medical History INDUSTRY ANALYST: Yes: Other (Hepatic encephalopathy) Cardio/Vascular: Yes: HTN, Hyperlipdemia Pulmonary: Yes: Bronchitis Gastrointestinal: Yes: Ascites, Esophageal Varices Hepatobiliary: Yes: Cirrhosis (cryptogenic, likely CHOW), Cholelithiasis ...LMP: 11/19/19 ...: No Heme/Onc: Yes: Cancer (left breast cancer) Infectious Disease: Yes: Herpes Zoster Endocrine: Yes: Diabetes Mellitus, Hypothyroidism - Past Surgical History Past Surgical History: Yes: Breast Biopsy, Mastectomy (partial left mastectomy and sentinel node biopsy 2010 Dr. 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year[place] age 8 History of Recent Travel: No Home Medications - Allergies Allergies/Adverse Reactions: Allergies Allergy/AdvReac Type Severity Reaction Status Date / Time No Known Drug Allergies Allergy Verified 11/19/19 09:17 - Home Medications Home Medications: Ambulatory Orders Albuterol Sulfate [Proair Respiclick] 90 mcg IH BID 06/23/18 Cholecalciferol (Vitamin D3) [Vitamin D3] 1,000 unit PO DAILY 06/23/18 Ferrous Sulfate 325 mg PO DAILY 06/23/18 Levothyroxine [Synthroid -] 75 mcg PO DAILY 06/23/18 Lovastatin 40 mg PO HS 06/24/18 Glipizide 10 mg PO DAILY 08/23/18 Omeprazole 20 mg PO DAILY #1 tablet. 08/23/18 Spironolactone 25 mg PO DAILY 08/23/18 Lactulose (Oral Use) [Cephulac -] 20 gm PO QID #56 c 10/04/19 Family Medical History Family Hx Congestive Heart Failure: Mother ( age 80) Family Hx Respiratory Disorders: Father ( of COPD age 70) Review of Systems - Review of Systems Constitutional: reports: Weakness Eyes: reports: No Symptoms HENT: reports: No Symptoms Neck: reports: No Symptoms Cardiovascular: reports: No Symptoms Respiratory: reports: No Symptoms Gastrointestinal: reports: No Symptoms Genitourinary: reports: No Symptoms Physical Exam-GI Vital Signs: Vital Signs Temperature 98.0 F 11/19/19 14:16 Pulse Rate 96 H 11/19/19 14:16 Respiratory Rate 18 11/19/19 14:16 Blood Pressure 130/66 11/19/19 14:16 O2 Sat by Pulse Oximetry (%) 96 11/19/19 14:25 CBC,CMP WBC 7.5 K/mm3 (4.0-10.0) 11/19/19 09:34 RBC 3.83 M/mm3 (3.60-5.2) 11/19/19 09:34 Hgb 13.4 GM/dL (10.7-15.3) 11/19/19 09:34 Hct 39.3 % (32.4-45.2) D 11/19/19 09:34 MCV 102.7 fl (80-96) H 11/19/19 09:34 MCH 35.1 pg (25.7-33.7) H 11/19/19 09:34 MCHC 34.2 g/dl (32.0-36.0) 11/19/19 09:34 RDW 14.1 % (11.6-15.6) 11/19/19 09:34 Plt Count 106 K/MM3 (134-434) L D 11/19/19 09:34 MPV 11.4 fl (7.5-11.1) H 11/19/19 09:34 Absolute Neuts (auto) 5.5 K/mm3 (1.5-8.0) 11/19/19 09:34 Neutrophils % 74.0 % (42.8-82.8) 11/19/19 09:34 Lymphocytes % 15.6 % (8-40) D 11/19/19 09:34 Monocytes % 7.9 % (3.8-10.2) 11/19/19 09:34 Eosinophils % 2.1 % (0-4.5) 11/19/19 09:34 Basophils % 0.4 % (0-2.0) 11/19/19 09:34 Nucleated RBC % 0 % (0-0) 11/19/19 09:34 Sodium 138 mmol/L (136-145) 11/19/19 09:34 Potassium 4.3 mmol/L (3.5-5.1) 11/19/19 09:34 Chloride 107 mmol/L (98-107) 11/19/19 09:34 Carbon Dioxide 20 mmol/L (21-32) L 11/19/19 09:34 Anion Gap 11 MMOL/L (8-16) 11/19/19 09:34 BUN 21.6 mg/dL (7-18) H 11/19/19 09:34 Creatinine 1.1 mg/dL (0.55-1.3) 11/19/19 09:34 Est GFR (CKD-EPI)AfAm 54.91 11/19/19 09:34 Est GFR (CKD-EPI)NonAf 47.38 11/19/19 09:34 Random Glucose 137 mg/dL (74-106) H 11/19/19 09:34 Calcium 8.6 mg/dL (8.5-10.1) 11/19/19 09:34 Phosphorus 2.8 mg/dL (2.5-4.9) 11/19/19 09:34 Magnesium 1.8 mg/dL (1.8-2.4) 11/19/19 09:34 Total Bilirubin 1.3 mg/dL (0.2-1) H 11/19/19 09:34 AST 83 U/L (15-37) H 11/19/19 09:34 ALT 44 U/L (13-61) 11/19/19 09:34 Alkaline Phosphatase 312 U/L (45-117) H 11/19/19 09:34 Ammonia 148.80 umol/L (11-32) H 11/19/19 09:34 Creatine Kinase 109 U/L (26-192) 11/19/19 09:34 Troponin I 0.10 ng/ml (0.00-0.05) H 11/19/19 09:34 Total Protein 7.4 g/dl (6.4-8.2) 11/19/19 09:34 Albumin 3.0 g/dl (3.4-5.0) L 11/19/19 09:34 Lipase 193 U/L (73-393) 11/19/19 09:34 Current Medications Generic Name Dose Route Start Last Admin Trade Name Flora PRN Reason Stop Dose Admin Enoxaparin Sodium 30 mg 11/20/19 10:00 Lovenox - SQ DAILY [facility] Insulin Aspart 1 vial 11/19/19 16:30 Novolog Vial Sliding Scale - SQ ACHS [facility] Protocol Lactulose 20 gm 11/19/19 14:00 11/19/19 15:42 Cephulac (Oral Use) PO 20 gm QID TERESA Administration Levothyroxine Sodium 75 mcg 11/20/19 07:00 Synthroid - PO DAILY@0700 TERESA Pantoprazole Sodium 20 mg 11/20/19 10:00 Protonix - PO DAILY TERESA Spironolactone 25 mg 11/19/19 13:45 11/19/19 15:41 Aldactone - PO 25 mg DAILY TERESA Administration Constitutional: Yes: Calm Eyes: Yes: Conjunctiva Clear HENT: Yes: Normocephalic Neck: Yes: Trachea Midline Cardiovascular: Yes: Regular Rate and Rhythm Respiratory: Yes: CTA Bilaterally Gastrointestinal Inspection: Yes: WNL ...Auscultate: Yes: Normoactive Bowel Sounds ...Palpate: Yes: Soft, Other (nontender) ...Rectal Exam: Yes: Guaiac Negative (no msses, brown guaiac negative stool) Edema: No Peripheral Pulses WNL: Yes Integumentary: Yes: Bruising (left great toe and knee) Neurological: Yes: Alert, Oriented (know place, President Amisha and November 2019 but thought it was ) Labs: CBC, BMP 11/19/19 09:34 11/19/19 09:34 INR, PTT INR 1.22 (0.83-1.09) H 11/19/19 09:34 Problem List - Problems (1) AMS (altered mental status) Code(s): R41.82 - ALTERED MENTAL STATUS, UNSPECIFIED (2) Hepatic encephalopathy Code(s): K72.90 - HEPATIC FAILURE, UNSPECIFIED WITHOUT COMA (3) Cirrhosis of liver with ascites Code(s): K74.60 - UNSPECIFIED CIRRHOSIS OF LIVER; R18.8 - OTHER ASCITES (4) Cirrhosis of liver not due to alcohol Code(s): K74.60 - UNSPECIFIED CIRRHOSIS OF LIVER (5) Esophageal varices determined by endoscopy Code(s): I85.00 - ESOPHAGEAL VARICES WITHOUT BLEEDING (6) Fall from ground level Code(s): W18.30XA - FALL ON SAME LEVEL, UNSPECIFIED, INITIAL ENCOUNTER (7) Breast cancer Code(s): C50.919 - MALIGNANT NEOPLASM OF UNSP SITE OF UNSPECIFIED FEMALE BREAST (8) HLD (hyperlipidemia) Code(s): E78.5 - HYPERLIPIDEMIA, UNSPECIFIED (9) HTN (hypertension) Code(s): I10 - ESSENTIAL (PRIMARY) HYPERTENSION (10) Hypothyroid Code(s): E03.9 - HYPOTHYROIDISM, UNSPECIFIED (11) Thrombocytopenia Code(s): D69.6 - THROMBOCYTOPENIA, UNSPECIFIED Assessment/Plan Impression: - Altered mental status due to hepatic encephalopathy caused by failure to take Lactulose as there is no other obvious inciting event - CHOW related cirrhosis - Acites - Esophageal varices- - Thrombocytopenia Plan: -- Resume lactulose -- I discussed the situation with Carol's son Abdulkadir and advised that henceforth he should supervise her medication administration and the purchasing of her medication so as to avoid such recurrences -- If remains stable can discharge tomorrow
[2019-11-19] MEDS: SPIRONOLACTONE 25 MG TABLET PO SCH (15:41)
[2019-11-19] MEDS: LACTULOSE 20 GM/30 ML UDC (FOR ORAL USE ONLY) PO SCH ×3 (15:42→21:17)
[2019-11-19] MEDS: INSULIN SLIDING SCALE (NOVOLOG) 1 VIAL SQ SCH ×2 (17:25→21:18)
[2019-11-19] MEDS ORDERED: INSULIN (NOVOLOG) ASPART 100 UNITS/ML 10ML VIAL ONE (20:57)
[2019-11-19] MEDS: CARVEDILOL 6.25 MG TABLET (FP) PO SCH (21:17)
[2019-11-20] MEDS: INSULIN SLIDING SCALE (NOVOLOG) 1 VIAL SQ SCH ×3 (06:29→17:11)
[2019-11-20] MEDS ORDERED: LEVOTHYROXINE NA 75 MCG TABLET (FP) PO SCH (07:00)
[2019-11-20 08:32] LABS: BASO % 0.7 % (0-2.0); EOS % 3.4 % (0-4.5); HEMATOCRIT 35.1 % (32.4-45.2); HEMOGLOBIN 11.8 GM/dL (10.7-15.3); LYMPH % 20.5 % (8-40); MCH 34.8 pg (25.7-33.7); MCHC 33.7 g/dl (32.0-36.0); MEAN CELL VOLUME 103.1 fl (80-96); MEAN PLT VOLUME 11.3 fl (7.5-11.1); MONO % 8.2 % (3.8-10.2); NEUT % 67.2 % (42.8-82.8); PLATELET COUNT 81 K/MM3 (134-434); RBC 3.41 M/mm3 (3.60-5.2); RDW 14.2 % (11.6-15.6); WHITE BLOOD COUNT 3.8 K/mm3 (4.0-10.0)
[2019-11-20 08:56] LABS: ALBUMIN 2.4 g/dl (3.4-5.0); BILIRUBIN,TOTAL 1.2 mg/dL (0.2-1); BLOOD UREA NITROGEN 17.7 mg/dL (7-18); CALCIUM 8.4 mg/dL (8.5-10.1); CREATININE 0.8 mg/dL (0.55-1.3); POTASSIUM 3.8 mmol/L (3.5-5.1); TOT PROT 6.1 g/dl (6.4-8.2)
[2019-11-20 09:03] LABS: BILIRUBIN,DIRECT 0.6 mg/dL (0.0-0.2)
--- NOTE | 2019-11-20 09:20 | EKG ---
Test Reason : Blood Pressure : / mmHG Vent. Rate : 106 BPM Atrial Rate : 106 BPM P-R Int : 194 ms QRS Dur : 068 ms QT Int : 360 ms P-R-T Axes : 000 -45 003 degrees QTc Int : 478 ms SINUS TACHYCARDIA LEFT AXIS DEVIATION LOW VOLTAGE QRS INFERIOR INFARCT (CITED ON OR BEFORE 23-JUN-2018) ANTEROLATERAL INFARCT , AGE UNDETERMINED ABNORMAL ECG WHEN COMPARED WITH ECG OF 01-OCT-2019 10:20, PREMATURE ATRIAL COMPLEXES ARE NO LONGER PRESENT QUESTIONABLE CHANGE IN INITIAL FORCES OF INFERIOR LEADS Confirmed by Shannon Rick ([id number]) on 11/20/2019 9:20:01 AM Referred By: Confirmed By:Shannon Rick
[2019-11-20] MEDS: CARVEDILOL 6.25 MG TABLET (FP) PO SCH (09:32)
[2019-11-20] MEDS: SPIRONOLACTONE 25 MG TABLET PO SCH (09:33)
[2019-11-20] MEDS: LACTULOSE 20 GM/30 ML UDC (FOR ORAL USE ONLY) PO SCH ×3 (09:33→17:11)
[2019-11-20 09:48] VITALS: PULSE 77
[2019-11-20] MEDS ORDERED: ENOXAPARIN NA (PORCINE) 30 MG/0.3 ML DISP.SYRIN SQ SCH (10:00)
[2019-11-20] MEDS ORDERED: PANTOPRAZOLE 20 MG TABLET PO SCH (10:00)
[2019-11-20] MEDS ORDERED: PT OWN MED DRAWER 7, Y5N ONE (10:35)
--- NOTE | 2019-11-20 11:07 | PN ---
GI Progress Note Subjective: GI NOte: Interacting well. Ambulation being assessed. Ammonia normalizing but has TSH of 18. - Objective Vital Signs: Vital Signs Temperature 98.0 F 11/20/19 09:46 Pulse Rate 77 11/20/19 09:46 Respiratory Rate 18 11/20/19 09:46 Blood Pressure 124/60 11/20/19 09:46 O2 Sat by Pulse Oximetry (%) 97 11/20/19 06:00 Laboratory Tests 11/19/19 11/20/19 11/20/19 09:34 07:30 07:30 WBC Hgb Plt Count Ferritin Ammonia 148.80 H 57.70 H Tumor Marker AFP Vitamin B12 Serum Folate 15 TSH 18.10 H Thyroxine (T4) 7.3 11/20/19 11/20/19 11/20/19 07:30 07:30 07:30 WBC 3.8 L Hgb 11.8 Plt Count 81 L D Ferritin 290.1 Ammonia Tumor Marker AFP Pending Vitamin B12 584 Serum Folate TSH Thyroxine (T4) Constitutional: Calm ...Auscultate: Yes: Normoactive Bowel Sounds ...Palpate: Yes: Soft, Other (nontender) Labs: CBC, BMP 11/20/19 07:30 11/20/19 07:30 INR, PTT INR 1.22 (0.83-1.09) H 11/19/19 09:34 Assessment/Plan Impression: - Altered mental status due to hepatic encephalopathy caused by failure to take Lactulose perhaps however with a component of hypothyroidism - CHOW related cirrhosis - Acites - Esophageal varices- - Thrombocytopenia Plan: -- Continue lactulose -- Consult endocrine to adjust thyroid supplementation. It is not clear whether she has been taking it properly. Yesterday discussed the situation with Carol's son Abdulkadir and advised that henceforth he should supervise her me dication administration and the purchasing of her medication so as to avoid such recurrences Problem List - Problems (1) AMS (altered mental status) Code(s): R41.82 - ALTERED MENTAL STATUS, UNSPECIFIED Qualifiers: Altered mental status type: unspecified Qualified Code(s): R41.82 - Altered mental status, unspecified (2) Hepatic encephalopathy Code(s): K72.90 - HEPATIC FAILURE, UNSPECIFIED WITHOUT COMA (3) Cirrhosis of liver with ascites Code(s): K74.60 - UNSPECIFIED CIRRHOSIS OF LIVER; R18.8 - OTHER ASCITES (4) Cirrhosis of liver not due to alcohol Code(s): K74.60 - UNSPECIFIED CIRRHOSIS OF LIVER (5) Esophageal varices determined by endoscopy Code(s): I85.00 - ESOPHAGEAL VARICES WITHOUT BLEEDING (6) Fall from ground level Code(s): W18.30XA - FALL ON SAME LEVEL, UNSPECIFIED, INITIAL ENCOUNTER (7) Breast cancer Code(s): C50.919 - MALIGNANT NEOPLASM OF [email or web address]P SITE OF UNSPECIFIED FEMALE BREAST (8) HLD (hyperlipidemia) Code(s): E78.5 - HYPERLIPIDEMIA, UNSPECIFIED (9) HTN (hypertension) Code(s): I10 - ESSENTIAL (PRIMARY) HYPERTENSION (10) Hypothyroid Code(s): E03.9 - HYPOTHYROIDISM, UNSPECIFIED (11) Thrombocytopenia Code(s): D69.6 - THROMBOCYTOPENIA, UNSPECIFIED
--- NOTE | 2019-11-20 13:25 | PN ---
Teaching Attending Note Name of Resident: Cash Onofre ATTENDING PHYSICIAN STATEMENT I saw and evaluated the patient. I reviewed the resident's note and discussed the case with the resident. I agree with the resident's findings and plan as documented. SUBJECTIVE: pt seen and examined, pleasant OBJECTIVE: Last Vital Signs Temp Pulse Resp BP Pulse Ox 98.0 F 77 18 124/60 97 11/20/19 09:46 11/20/19 09:46 11/20/19 09:46 11/20/19 09:46 11/20/19 09:00 GENERAL: Awake, alert, and fully oriented, in no acute distress. HEAD: Normal with no signs of trauma. EYES: Pupils equal, round and reactive to light, sclera anicteric, conjunctiva clear. LUNGS: Breath sounds equal, clear to auscultation bilaterally. No wheezes, and no crackles. No accessory muscle use. HEART: Regular rate and rhythm, normal S1 and S2 ABDOMEN: Soft, nontender, ascitis with fluid wave NEUROLOGICAL: Cranial nerves II-XII intact. Normal speech. no asterixis CBCD WBC 3.8 K/mm3 (4.0-10.0) L 11/20/19 07:30 RBC 3.41 M/mm3 (3.60-5.2) L 11/20/19 07:30 Hgb 11.8 GM/dL (10.7-15.3) 11/20/19 07:30 Hct 35.1 % (32.4-45.2) 11/20/19 07:30 MCV 103.1 fl (80-96) H 11/20/19 07:30 MCHC 33.7 g/dl (32.0-36.0) 11/20/19 07:30 RDW 14.2 % (11.6-15.6) 11/20/19 07:30 Plt Count 81 K/MM3 (134-434) L D 11/20/19 07:30 MPV 11.3 fl (7.5-11.1) H 11/20/19 07:30 CMP Sodium 142 mmol/L (136-145) 11/20/19 07:30 Potassium 3.8 mmol/L (3.5-5.1) 11/20/19 07:30 Chloride 112 mmol/L (98-107) H 11/20/19 07:30 Carbon Dioxide 20 mmol/L (21-32) L 11/20/19 07:30 Anion Gap 10 MMOL/L (8-16) 11/20/19 07:30 BUN 17.7 mg/dL (7-18) 11/20/19 07:30 Creatinine 0.8 mg/dL (0.55-1.3) 11/20/19 07:30 Calcium 8.4 mg/dL (8.5-10.1) L 11/20/19 07:30 Total Bilirubin 1.2 mg/dL (0.2-1) H 11/20/19 07:30 AST 64 U/L (15-37) H 11/20/19 07:30 ALT 35 U/L (13-61) 11/20/19 07:30 Alkaline Phosphatase 277 U/L (45-117) H 11/20/19 07:30 Total Protein 6.1 g/dl (6.4-8.2) L 11/20/19 07:30 Albumin 2.4 g/dl (3.4-5.0) L 11/20/19 07:30 Active Medications Carvedilol (Coreg -) 6.25 mg PO BID [facility] Last Admin: 11/20/19 09:32 Dose: 6.25 mg Documented by: Enoxaparin Sodium (Lovenox -) 30 mg SQ DAILY [facility] Last Admin: 11/20/19 09:33 Dose: 30 mg Documented by: Insulin Aspart (Novolog Vial Sliding Scale -) 1 vial SQ [facility]; Protocol Last Admin: 11/20/19 12:05 Dose: Not Given Documented by: Lactulose (Cephulac (Oral Use)) 20 gm PO QID [facility] Last Admin: 11/20/19 09:33 Dose: 20 gm Documented by: Levothyroxine Sodium (Synthroid -) 75 mcg PO DAILY@0700 [facility] Last Admin: 11/20/19 06:05 Dose: 75 mcg Documented by: Pantoprazole Sodium (Protonix -) 20 mg PO DAILY [facility] Last Admin: 11/20/19 09:32 Dose: 20 mg Documented by: Spironolactone (Aldactone -) 25 mg PO BID [facility] ASSESSMENT AND PLAN: 78yo lady with h/o of hypothyroidism, cirrhosis, HTN, HLD, previous Breast Ca, and iron deficiency anemia who presents today with altered mental status, also fell at home # Delirium -resolved -etiology: Hepatic Encephalopathy, hypothyroidim? -Cirrhosis with ascites, not compliant with lactulose -GI discussed compliance with pt and family, need supervision -resume lactulose, Aldactone -Fall precautions -GI consult appreciated -TSH 18, T4 7.3 -would repeat in 2-4 weeks -PT eval for discharge dispo Type 2 DM Hyperlipidemia PPX: Lovenox SQ daily
[2019-11-20 15:17] VITALS: BP 103/57; TEMP 97.8
--- NOTE | 2019-11-20 19:30 | DS ---
Physical Exam: SUBJECTIVE: Patient seen and examined at bedside. Patient denies any acute overnight events. Patient defers the need for county home demonstration agent stating her son will help her at home. OBJECTIVE: Vital Signs Period Temp Pulse Resp BP Sys/Carrizales Pulse Ox Last 24 Hr 97.8 F-99 F 66-91 18-20 98-132/57-76 96-100 PHYSICAL EXAM GENERAL: The patient is awake, alert, and fully oriented, in no acute distress. LUNGS: Breath sounds equal, clear to auscultation bilaterally, no wheezes, no crackles, no accessory muscle use. HEART: Regular rate and rhythm, S1, S2 without murmur, rub or gallop. ABDOMEN: Soft, nontender, nondistended, normoactive bowel sounds, no guarding, no rebound, no hepatosplenomegaly, no masses. EXTREMITIES: 2+ pulses, warm, well-perfused, no edema. SKIN: Warm, dry, normal turgor, no rashes or lesions noted. LABS Laboratory Results - last 24 hr 11/19/19 11/19/19 11/19/19 11:12 17:20 21:16 WBC RBC Hgb Hct MCV MCH MCHC RDW Plt Count MPV Absolute Neuts (auto) Neutrophils % Lymphocytes % Monocytes % Eosinophils % Basophils % Nucleated RBC % Sodium Potassium Chloride Carbon Dioxide Anion Gap BUN Creatinine Est GFR (CKD-EPI)AfAm Est GFR (CKD-EPI)NonAf POC Glucometer 126 137 Random Glucose Calcium TIBC Ferritin Total Bilirubin Direct Bilirubin AST ALT Alkaline Phosphatase Ammonia Troponin I Total Protein Albumin Vitamin B12 Serum Folate TSH Thyroxine (T4) COVID-19 ([facility]NEST[facility]) Not detected 11/20/19 11/20/19 11/20/19 06:02 07:30 07:30 WBC RBC Hgb Hct MCV MCH MCHC RDW Plt Count MPV Absolute Neuts (auto) Neutrophils % Lymphocytes % Monocytes % Eosinophils % Basophils % Nucleated RBC % Sodium 142 Potassium 3.8 Chloride 112 H Carbon Dioxide 20 L Anion Gap 10 BUN 17.7 Creatinine 0.8 Est GFR (CKD-EPI)AfAm 80.70 Est GFR (CKD-EPI)NonAf 69.63 POC Glucometer 120 Random Glucose 132 H Calcium 8.4 L TIBC Ferritin Total Bilirubin 1.2 H Direct Bilirubin AST 64 H ALT 35 Alkaline Phosphatase 277 H Ammonia 57.70 H Troponin I Total Protein 6.1 L Albumin 2.4 L Vitamin B12 Serum Folate TSH Thyroxine (T4) COVID-19 (HERNESTO) 11/20/19 11/20/19 11/20/19 07:30 07:30 07:30 WBC 3.8 L RBC 3.41 L Hgb 11.8 Hct 35.1 MCV 103.1 H MCH 34.8 H MCHC 33.7 RDW 14.2 Plt Count 81 L D MPV 11.3 H Absolute Neuts (auto) 2.5 Neutrophils % 67.2 Lymphocytes % 20.5 D Monocytes % 8.2 Eosinophils % 3.4 Basophils % 0.7 Nucleated RBC % 0 Sodium Potassium Chloride Carbon Dioxide Anion Gap BUN Creatinine Est GFR (CKD-EPI)AfAm Est GFR (CKD-EPI)NonAf POC Glucometer Random Glucose Calcium TIBC 329 Ferritin 290.1 Total Bilirubin Direct Bilirubin 0.6 H AST ALT Alkaline Phosphatase Ammonia Troponin I 0.07 H Total Protein Albumin Vitamin B12 584 Serum Folate 15 TSH 18.10 H Thyroxine (T4) 7.3 COVID-19 (HERNESTO) 11/20/19 11/20/19 12:05 17:10 WBC RBC Hgb Hct MCV MCH MCHC RDW Plt Count MPV Absolute Neuts (auto) Neutrophils % Lymphocytes % Monocytes % Eosinophils % Basophils % Nucleated RBC % Sodium Potassium Chloride Carbon Dioxide Anion Gap BUN Creatinine Est GFR (CKD-EPI)AfAm Est GFR (CKD-EPI)NonAf POC Glucometer 148 131 Random Glucose Calcium TIBC Ferritin Total Bilirubin Direct Bilirubin AST ALT Alkaline Phosphatase Ammonia Troponin I Total Protein Albumin Vitamin B12 Serum Folate TSH Thyroxine (T4) COVID-19 (HERNESTO) HOSPITAL COURSE: Date of Admission:11/19/19 78yo F with h/o of hypothyroidism, cryptogenic cirrhosis, HTN, HLD, previous Breast Ca, iron deficiency anemia who presented to [facility] w/ AMS, an confusion. Had also fallen while walking up the stairs. Events were witnessed by family member. Pt had not been taking her Lactulose for her chronic cirrhosis. CTH neg for acute pathology, had chronic involutional changes. 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 XR of Left foot and knee neg for acute fracture. Restarted Lactulose as inpatient. Serum AMmonia downtrended from 148.8 to 57.7. GI(Jacinta) consulted and recommended increase in Spironolactone to 25mg BID d/t recent weight gain. He also started Coreg 6.25mg BID. Previous discharge from 10/04/19 notable for discontinuation of Propranolol, but no reason documented. Pt able to ambulate 125ft w/ cane. Deemed stable for discharge home Date of Discharge: 11/20/19 Minutes to complete discharge: 35 Discharge Summary Problems reviewed: Yes Reason For Visit: HEPATIC CIRRHOSIS,AMS,FALL Condition: Stable - Instructions Diet, Activity, Other Instructions: YOUR VISIT You were admitted to the hospital for episodes of confusion. While you were in the hospital we evaluated you with lab work, blood work, imaging including, x- rays of your chest, foot, ankle, and knee, CT scan of you head, and cervical spine. During your hospital course we found that your symptoms were a result of a build up of ammonia in your blood. It is important to take your medications each day to ensure that your ammonia levels are in control. You were evaluated by specialists for your elevated ammonia levels. You will need to follow up with your electrical appliance servicer Dr. Workman for further management of your Cirrhosis. As a result of your cirrhosis, you were found to have decreased blood platelets. You will need to follow up with your primary care physician to have follow up blood work. You were spoken to about medical adherence and have confirmed with us that your son will help you stay on track with your medications. MEDICATIONS: Please START taking SPIRONOLACTONE 25MG twice a day Please START taking CARVEDILOL 6.25mg twice a day. Please take Lactulose[CEPHULAC] 20mg four times a day. Please take one dose less if you have more than 4 bowel movements in a day. Please take one extra dose if you have less than 2 bowel movements in a day Please continue taking all other medications as prescribed. REFERRAL: Please follow up with Dr. Workman([employer]) within 1-2 weeks of discharge Please follow up with your primary care physician within 2 week of discharge to review your hospital course. And discuss the need to check your labwork(BMP). Please discuss your previously seen lung nodules. ADDITIONAL INFORMATION: It is important that you stay up to date with your medication adherence in order to prevent further episodes of confusion. You are being discharged home. Please seek the nearest emergency department if you start experiencing further episodes of Increased Confusion, Loss of Consciousness, dizziness, headache, fever, chills, shortness of breath, or chest pain or any new or concerning symptoms. Referrals: Moses Workman MD [Staff Physician] - 1 Week (discuss your lactulose regimen) Efren Amador MD [Primary Care Provider] - Disposition: HOME - Home Medications Comprehensive Discharge Medication List: Ambulatory Orders Albuterol Sulfate [Proair Respiclick] 90 mcg IH BID 06/23/18 Cholecalciferol (Vitamin D3) [Vitamin D3] 1,000 unit PO DAILY 06/23/18 Ferrous Sulfate 325 mg PO DAILY 06/23/18 Levothyroxine [Synthroid -] 75 mcg PO DAILY 06/23/18 Lovastatin 40 mg PO HS 06/24/18 Glipizide 10 mg PO DAILY 08/23/18 Omeprazole 20 mg PO DAILY #1 tablet. 08/23/18 Lactulose (Oral Use) [Cephulac -] 20 gm PO QID #56 udc 10/04/19 Carvedilol [Coreg -] 6.25 mg PO BID #60 tablet 11/20/19 Lactulose (Oral Use) [Cephulac -] 20 gm PO QID #30 udc 11/20/19 Spironolactone [Aldactone -] 25 mg PO BID #60 tablet 11/20/19 This patient is new to me today: No Emergency Visit: Yes ED Registration Date: 11/19/19 Care time: The patient presented to the Emergency Department on the above date and was hospitalized for further evaluation of their emergent condition. Critical Care patient: No - Discharge Referral Referred to [facility] Med [facility] No ATTENDING PHYSICIAN STATEMENT I saw and evaluated the patient. I reviewed the resident's note and discussed the case with the resident. I agree with the resident's findings and plan as documented. SUBJECTIVE: OBJECTIVE: ASSESSMENT AND PLAN:
[2019-11-20] MEDS ORDERED: SPIRONOLACTONE 25 MG TABLET PO SCH (22:00)
== END 2019-11-20 17:41 | disposition home or self-care (01) | DRG 442 ==
LOC: JER 08:40 → JERBED 11:49 → J5S 13:48
PROVIDERS: ADMIT Internal Medicine; ATTEND Student in an Organized Health Care Education/Training Program
DX: K72.90 Hepatic failure, unspecified without coma (principal); I85.00 Esophageal varices without bleeding; R18.8 Other ascites; I10 Essential (primary) hypertension; E78.5 Hyperlipidemia, unspecified; E11.9 Type 2 diabetes mellitus without complications; E03.9 Hypothyroidism, unspecified; D69.6 Thrombocytopenia, unspecified; E78.00 Pure hypercholesterolemia, unspecified; I25.10 Atherosclerotic heart disease of native coronary artery without angina pectoris; D50.9 Iron deficiency anemia, unspecified; K75.81 Nonalcoholic steatohepatitis (NASH); M47.892 Other spondylosis, cervical region; R41.82 Altered mental status, unspecified; Z91.14 Patient's other noncompliance with medication regimen; Z85.3 Personal history of malignant neoplasm of breast; W19.XXXA Unspecified fall, initial encounter
CPT/HCPCS: 36415; 70450-TC; 71045-TC-FY; 72125-TC; 73560-TC-LT-FY; 73610-TC-LT-FY; 73630-TC-LT; 80053; 81003; 82105; 82140; 82248; 82550; 82607; 82728; 82746; 82962; 83550; 83690; 83735; 84100; 84436; 84443; 84484; 85025; 85610; 85730; 87086; 87186; 93005; 93010; 97116-GP; 97162-GP; 99285-25; U0003

== ENCOUNTER 2019-12-04 11:20 | Inpatient (IN) | payer BC, OTHER ==
--- NOTE | 2019-12-04 13:28 | PDOC ---
History of Present Illness - General Chief Complaint: Edema Stated Complaint: Edema Time Seen by Provider: 12/04/19 13:04 History Source: Patient Exam Limitations: No Limitations - History of Present Illness Initial Comments: 12/04/19 13:07 PCP: Dr. Efren Amador GI: Dr. Bertrand Son: Abdulkadir [phone] HPI: 79 yo F pmh HTN, HLD, NIDDM, hypothyroidism, cryptogenic cirrhosis with th rombocytopenia c/c hepatic encephalopathy, breast CA, and colitis, BIBA for swelling of bilateral LE and ascites last seen here 11/19 admitted for AMS left on lactulose. Patient (A&Ox3) reports she and her son were told to go to the ED by Dr. Bertrand earlier today. They were at his office to schedule an appointment (December 16). Her son Abdulkadir reports that her PCP was planning to "schedule an admission" to manage her fluid buildup. He also reports she has become forgetful with noticeable changes starting about 1 week ago. He expresses concern over managing her medications ("there are 13 bottles!") and wants her to be evaluated because "I've been told having fluid on you too long is dangerous." Patient reports he leg swelling has improved over dorene last 2 weeks, the abdominal swelling is unchanged. Denies fevers, chills, nausea, vomiting, abdominal pain, chest pain, shortness of breath, lightheadedness, passing out, burning with urination. Patient does not know the names of her medications but takes them daily, also endorses taking her lactulose as directed. Received a cane last visit for unsteady gait, feels her gait is unchanged since that time. 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) Past History - Travel History Traveled outside of the country in the last 30 days: No Close contact w/someone who was outside of country & ill: No - Medical History Allergies/Adverse Reactions: Allergies Allergy/AdvReac Type Severity Reaction Status Date / Time No Known Drug Allergies Allergy Verified 12/04/19 11:31 Home Medications: Ambulatory Orders Albuterol Sulfate [Proair Respiclick] 90 mcg IH BID 06/23/18 Cholecalciferol (Vitamin D3) [Vitamin D3] 1,000 unit PO DAILY 06/23/18 Ferrous Sulfate 325 mg PO DAILY 06/23/18 Levothyroxine [Synthroid -] 75 mcg PO DAILY 06/23/18 Lovastatin 40 mg PO HS 06/24/18 Glipizide 10 mg PO DAILY 08/23/18 Omeprazole 20 mg PO DAILY #1 tablet. 08/23/18 Lactulose (Oral Use) [Cephulac -] 20 gm PO QID #56 udc 10/04/19 Carvedilol [Coreg -] 6.25 mg PO BID #60 tablet 11/20/19 Lactulose (Oral Use) [Cephulac -] 20 gm PO QID #30 udc 11/20/19 Spironolactone [Aldactone -] 25 mg PO BID #60 tablet 11/20/19 Anemia: Yes (THROMBOCYTOPENIA) Asthma: No Cancer: Yes (Breast LEFT) Cardiac Disorders: Yes (CAD) CVA: No COPD: No CHF: No Dementia: No Diabetes: Yes GI Disorders: (cholelithiasis) Disorders: No HTN: Yes Hypercholesterolemia: Yes Liver Disease: No Seizures: No Thyroid Disease: Yes (Hypo) - Surgical History Abdominal Surgery: No Appendectomy: No Cardiac Surgery: No Cholecystectomy: No Lung Surgery: No Neurologic Surgery: No Orthopedic Surgery: No - Immunization History Immunization Up to Date: Yes - Psycho-Social/Smoking History Smoking History: Never smoked Have you smoked in the past 12 months: No If you are a former smoker, when did you quit?: 17YEARS AGO - Substance Abuse Hx (Audit-C & DAST Scrn) How often the patient has a drink containing alcohol: Never Score: In Men: 4 or > Positive; In Women: 3 or > Positive: 0 Screen Result (Pos requires Nsg. Audit-10AR): Negative In the last yr the pt used illegal drug/Rx for NonMed reason: No Score: Yes response is considered Positive: 0 Screen Result (Positive result requires Nsg. DAST-10): Negative Review of Systems - Review of Systems Able to Perform ROS?: Yes Is the patient limited Tajik proficient: Yes Constitutional: No: Chills, Diaphoresis, Fever, Weakness HEENTM: No: Nose Pain, Nose Congestion, Mouth Pain Respiratory: No: Cough, Orthopnea, Shortness of Breath, SOB with Exertion, SOB at Rest, Wheezing Cardiac (ROS): Yes: Edema. No: Chest Pain, Irregular Heart Rate, Syncope ABD/GI: Yes: Abdominal Distended (ascites). No: Abd. Pain w/ defecation, Constipated, Diarrhea, Nausea, Poor Appetite, Poor Fluid Intake, Vomiting : No: Burning, Dysuria, Frequency Musculoskeletal: No: Muscle Pain, Muscle Weakness Integumentary: No: Erythema, Pruritus, Rash Neurological: Yes: Unsteady Gait. No: Headache, Numbness, Seizure, Tingling Psychiatric: No: Stressors, Mood Swings, Change in Appetite Endocrine: No: Increased Thirst, Increased Urine, Change in Weight Hematologic/Lymphatic: No: Anemia, Blood Clots, Easy Bleeding All Other Systems: Reviewed and Negative *Physical Exam - Vital Signs Last Vital Signs Temp Pulse Resp BP Pulse Ox 97.7 F 75 18 117/56 L 100 12/04/19 11:31 12/04/19 11:31 12/04/19 11:31 12/04/19 11:31 12/04/19 11:31 - Physical Exam 12/04/19 13:59 Vitals reviewed, AFVSS GEN: Well appearing, appears stated age, NAD, comfortable. AAOx3. HEENT: NCAT, EOMI, PERRL. Sclera anicteric, noninjected. No facial asymmetry. Moist mucous membranes. Normal voice. Trachea midline. CV: RRR, S1/S2, no murmurs / rubs / gallops appreciated. LUNG: CTABL, normal work of breathing. No wheezes, rales, rhonchi. No cough. Speaking full sentences. GI: Soft, NTND, +BS, no guarding, no rebound. No masses. + Ascites EXTREMITIES: 2+ distal pulses. No clubbing / cyanosis. 2+ pitting edema tot the knees. No gross deformity in any extremity. SKIN: Warm, dry, no rashes appreciated, non-jaundiced. PSYCH: Normal mood and affect. Cooperative and appropriate. NEURO: CN grossly intact. Moving all extremities well. Normal strength and sensation grossly ED Treatment Course - LABORATORY CBC & Chemistry Diagram: 12/04/19 13:50 12/04/19 13:50 Medical Decision Making - Medical Decision Making 12/04/19 13:58 79 yo F pmh HTN, HLD, NIDDM, hypothyroidism, cryptogenic cirrhosis with thrombocytopenia c/c hepatic encephalopathy, breast CA, and colitis, BIBA for swelling of bilateral LE and ascites last seen here 11/19 admitted for AMS left on lactulose. Concerning for acute on chronic changes in mentation, unsteady gait, worsening ascites and LE edema, unclear medication use / son expressed concern regarding his ability to care for patient at home, could amelia social work intervention. - CBC, CMP, Ammonia, UA - EKG, CXR 12/04/19 15:28 Labs notable for mild MURPHY, elevated ammonia despite lactulose Send to ED by GI, worsening ascites Spoke with Dr. Amador who would like GI consult, diuresis / fluid balance optimized in setting of MURPHY with edema Ordered EKG, Covid Swab Dispo: Admit medicine Discharge - Discharge Information Problems reviewed: Yes Clinical Impression/Diagnosis: Hepatic encephalopathy Edema Qualifiers: Edema type: unspecified Qualified Code(s): R60.9 - Edema, unspecified Ascites Qualifiers: Ascites type: other type Qualified Code(s): R18.8 - Other ascites Condition: Guarded - Admission Yes - Follow up/Referral Referrals: Efern Amador MD [Primary Care Provider] - - Patient Discharge Instructions - Post Discharge Activity
[2019-12-04 14:07] LABS: BASO % 0.6 % (0-2.0); EOS % 2.5 % (0-4.5); HEMATOCRIT 36.8 % (32.4-45.2); HEMOGLOBIN 12.3 GM/dL (10.7-15.3); LYMPH % 14.9 % (8-40); MCHC 33.5 g/dl (32.0-36.0); MEAN CELL VOLUME 101.6 fl (80-96); MEAN PLT VOLUME 10.7 fl (7.5-11.1); MONO % 8.7 % (3.8-10.2); NEUT % 73.3 % (42.8-82.8); PLATELET COUNT 98 K/MM3 (134-434); RBC 3.62 M/mm3 (3.60-5.2); RDW 14.1 % (11.6-15.6); WHITE BLOOD COUNT 6.2 K/mm3 (4.0-10.0)
[2019-12-04 14:32] LABS: ALBUMIN 2.8 g/dl (3.4-5.0); BILIRUBIN,TOTAL 1.3 mg/dL (0.2-1); BLOOD UREA NITROGEN 26.6 mg/dL (7-18); CALCIUM 8.5 mg/dL (8.5-10.1); CREATININE 1.4 mg/dL (0.55-1.3); TOT PROT 7.2 g/dl (6.4-8.2)
--- NOTE | 2019-12-04 14:52 | PDOC ---
Documentation entered by Kristina Hopson SCRIBE, acting as scribe for Marc Crow MD. Marc Crow MD: This documentation has been prepared by the Mark Anthony potter Ana, SCRIBE, under my direction and personally reviewed by me in its entirety. I confirm that the documentation accurately reflects all work, treatment, procedures, and medical decision making performed by me. Attending Attestation - Resident Resident Name: Darren Perez - ED Attending Attestation I have performed the following: I have examined & evaluated the patient, The case was reviewed & discussed with the resident, I agree w/resident's findings & plan, Exceptions are as noted - HPI HPI: 12/04/19 13:56 Patient is an 79 year old female with a significant past medical history of hypertension, hyperlipidemia, diabetes, hypothyroidism, cryptogenic cirrhosis with thrombocytopenia, hepatic encephalopathy, breast cancer, and colitis, who presents to the ED, BIBA, with bilateral lower extremity edema and ascites. Per the patient's son, her legs and belly have gotten progressively more swollen, and he is concerned that the patient has been drinking "too much fluid". Patient reports that she spoke to her PCP and as instructed to come to the ER. HOwever, pt has poor recollection of this conversation. Patient denies: lightheadedness, syncope, fevers, chills, nausea, vomiting, shortness of breath, chest pain, abdominal pain, burning with urination, or any other related symptoms. Allergies: NKDA - Physicial Exam PE: 12/04/19 13:57 See resident exam. - Medical Decision Making 12/04/19 14:53 79 F with abdominal distention and BLE edema. Suspect worsening ascites/volume overload. - Labs - Discuss with PMD Dr. Amador Discharge - Discharge Information Problems reviewed: Yes Clinical Impression/Diagnosis: Hepatic encephalopathy Edema Qualifiers: Edema type: unspecified Qualified Code(s): R60.9 - Edema, unspecified Ascites Qualifiers: Ascites type: other type Qualified Code(s): R18.8 - Other ascites Condition: Guarded Disposition: HOME - Follow up/Referral - Patient Discharge Instructions - Post Discharge Activity
[2019-12-04 14:57] LABS: PH,URINE 6.5 (5.0-8.0); URINE APPEARANCE CLEAR; URINE BILIRUBIN NEGATIVE (NEGATIVE); URINE COLOR YELLOW; URINE GLUCOSE (UA) NEGATIVE (NEGATIVE); URINE KETONE NEGATIVE (NEGATIVE); URINE LEUK ESTERASE NEGATIVE (NEGATIVE); URINE NITRITE NEGATIVE (NEGATIVE); URINE PROTEIN NEGATIVE (NEGATIVE)
--- NOTE | 2019-12-04 17:15 | HP ---
CHIEF COMPLAINT: fluid overload PCP: Dr barnes, GI: Dr Enamorado HISTORY OF PRESENT ILLNESS: 79 y/o female with PMH of HTN HLD cyptogenic cirrhosis, DM, hypothyroidism, breast ca presents to the ED from her GI doctors office due to increasing ascites and LE edema; Of note patient was in the hosptial around two weeks ago due to altered mental status 2/2 hepatic encephalopathy ; patient states that she has been feeling volume overloaded mainly in her abdomen and that she feels her clothes are tighter around her belly- dr enamorado had performed a paracentesis on her back in September which did relieve some of her symptoms however the fluid re- accumulated though she is not experiencing any dyspnea or major discomfort. she does state that she has been taking all of her medications daily- she has been having around 3-4 bowel movements a day with the lactulose. she denies any systemic symptoms, no sick contacts or rece spoke with Dr Enamorado- patient is very noncompliant with her medications - does not take her diuretics regularly ER course was notable for: (1)vitals wnl; (2)nml CBC: Cr 1.4 (baseline 0.8) ammonia 100 (3) Recent Travel: denies PAST MEDICAL HISTORY: see above PAST SURGICAL HISTORY: denies Social History: Smoking:denies Alcohol:denies Drugs: denies Allergies No Known Drug Allergies Allergy (Verified 12/04/19 11:31) HOME MEDICATIONS: Home Medications Medication Instructions Recorded Albuterol Sulfate [Proair 90 mcg IH BID 06/23/18 Respiclick] Cholecalciferol (Vitamin D3) 1,000 unit PO DAILY 06/23/18 [Vitamin D3] Ferrous Sulfate 325 mg PO DAILY 06/23/18 Levothyroxine [Synthroid -] 75 mcg PO DAILY 06/23/18 Lovastatin 40 mg PO HS 06/24/18 Glipizide 10 mg PO DAILY 08/23/18 Omeprazole 20 mg PO DAILY #1 tablet. 08/23/18 Lactulose (Oral Use) [Cephulac -] 20 gm PO QID #56 c 10/04/19 Carvedilol [Coreg -] 6.25 mg PO BID #60 tablet 11/20/19 Lactulose (Oral Use) [Cephulac -] 20 gm PO QID #30 udc 11/20/19 Spironolactone [Aldactone -] 25 mg PO BID #60 tablet 11/20/19 REVIEW OF SYSTEMS CONSTITUTIONAL: Absent: fever, chills, diaphoresis, generalized weakness, malaise, loss of appetite, weight change HEENT: Absent: rhinorrhea, nasal congestion, throat pain, throat swelling, difficulty swallowing, mouth swelling, ear pain, eye pain, visual changes CARDIOVASCULAR: Absent: chest pain, syncope, palpitations, irregular heart rate, lightheadedness, peripheral edema RESPIRATORY: Absent: cough, shortness of breath, dyspnea with exertion, orthopnea, wheezing, stridor, hemoptysis GASTROINTESTINAL: Present: abdominal distention Absent: abdominal pain, abdominal distension, nausea, vomiting, diarrhea, constipation, melena, hematochezia GENITOURINARY: Absent: dysuria, frequency, urgency, hesitancy, hematuria, flank pain, genital pain MUSCULOSKELETAL: Absent: myalgia, arthralgia, joint swelling, back pain, neck pain SKIN: Absent: rash, itching, pallor HEMATOLOGIC/IMMUNOLOGIC: Absent: easy bleeding, easy bruising, lymphadenopathy, frequent infections ENDOCRINE: Absent: unexplained weight gain, unexplained weight loss, heat intolerance, cold intolerance NEUROLOGIC: Absent: headache, focal weakness or paresthesias, dizziness, unsteady gait, seizure, mental status changes, bladder or bowel incontinence PSYCHIATRIC: Absent: anxiety, depression, suicidal or homicidal ideation, hallucinations. PHYSICAL EXAMINATION Vital Signs - 24 hr 12/04/19 12/04/19 11:31 14:04 Temperature 97.7 F Pulse Rate 75 Respiratory 18 Rate Blood Pressure 117/56 L O2 Sat by Pulse 100 98 Oximetry (%) GENERAL: Awake, alert, and fully oriented, in no acute distress. EYES: PEERLA: EOMI; no scleral icterus NECK: no JVD; no lymphadenopathy LUNGS:CTA B/L no rales, rhonchi or wheezing HEART: Regular rate and rhythm, normal S1 and S2 without murmur, rub or gallop. ABDOMEN: tense; distention ; + fluid wave; no tenderness upon palaption +BS MUSCULOSKELETAL: Normal range of motion at all joints. No bony deformities or tenderness. No CVA tenderness. EXTREMITIES: warm; well-perfused ; 1+ pitting edema B/L PSYCHIATRIC: Cooperative. Good eye contact. Appropriate mood and affect. SKIN: Warm, dry, normal turgor, no rashes or lesions noted, normal capillary refill. Laboratory Results - last 24 hr 12/04/19 12/04/19 12/04/19 13:50 13:50 13:50 WBC 6.2 RBC 3.62 Hgb 12.3 Hct 36.8 MCV 101.6 H MCH 34.0 H MCHC 33.5 RDW 14.1 Plt Count 98 L D MPV 10.7 Absolute Neuts (auto) 4.5 Neutrophils % 73.3 Lymphocytes % 14.9 D Monocytes % 8.7 Eosinophils % 2.5 Basophils % 0.6 Nucleated RBC % 0 Sodium 139 Potassium 4.0 Chloride 105 Carbon Dioxide 21 Anion Gap 12 BUN 26.6 H Creatinine 1.4 H Est GFR (CKD-EPI)AfAm 40.74 Est GFR (CKD-EPI)NonAf 35.15 Random Glucose 159 H Calcium 8.5 Total Bilirubin 1.3 H AST 54 H ALT 34 Alkaline Phosphatase 316 H Ammonia 100.30 H B-Natriuretic Peptide 139.0 Total Protein 7.2 Albumin 2.8 L Urine Color Urine Appearance Urine pH Ur Specific [place] Urine Protein Urine Glucose (UA) Urine Ketones Urine Blood Urine Nitrite Urine Bilirubin Urine Urobilinogen Ur Leukocyte Esterase 12/04/19 14:07 WBC RBC Hgb Hct MCV MCH MCHC RDW Plt Count MPV Absolute Neuts (auto) Neutrophils % Lymphocytes % Monocytes % Eosinophils % Basophils % Nucleated RBC % Sodium Potassium Chloride Carbon Dioxide Anion Gap BUN Creatinine Est GFR (CKD-EPI)AfAm Est GFR (CKD-EPI)NonAf Random Glucose Calcium Total Bilirubin AST ALT Alkaline Phosphatase Ammonia B-Natriuretic Peptide Total Protein Albumin Urine Color Yellow Urine Appearance Clear Urine pH 6.5 Ur Specific [place] 1.011 Urine Protein Negative Urine Glucose (UA) Negative Urine Ketones Negative Urine Blood Negative Urine Nitrite Negative Urine Bilirubin Negative Urine Urobilinogen 1.0 Ur Leukocyte Esterase Negative ASSESSMENT/PLAN: 79 y/o female with PMH of HTN HLD cyptogenic cirrhosis, DM, hypothyroidism, breast ca presents to the ED from her GI doctors office due to increasing ascites and LE edema found to also have MURPHY #Ascites likely due to medication non-compliance -IR eval for paracentesis with cytology -c/w propanolol Hold for SBP<90 -c/w lactulose- ammonia was found to be 100; titrate to have 3-4 bowel movements per day -once renal function improves will restart diuretics -GI consult Dr Jerzy appreciated -f.u abdomen imaging #MURPHY amollnika pre-renal v. possible start of hepatorenal syndrome? -will hold diuretics - mild IV hydration -nephro consult -urine lytes -daily weights -daily i's and o's -monitor electrolytes #DM holding home glipizide -ISS ACHS -BGMS ACHS #Hypothyroidism c/w synthroid #HLD c/w statin f/e/n not on standing fluids monitor electrolytes sodium diet dvt ppx: heparin sq Family Medical History Family History: Denies Visit type - Medication Review Med list reviewed for High Risk Meds patients 65 and older: Yes - Emergency Visit Emergency Visit: Yes ED Registration Date: 12/04/19 Care time: The patient presented to the Emergency Department on the above date and was hospitalized for further evaluation of their emergent condition. - New Patient This patient is new to me today: Yes Date on this admission: 12/04/19 - Critical Care Critical Care patient: No ATTENDING PHYSICIAN STATEMENT I saw and evaluated the patient. I reviewed the resident's note and discussed the case with the resident. I agree with the resident's findings and plan as documented. SUBJECTIVE: OBJECTIVE: ASSESSMENT AND PLAN:
[2019-12-04] MEDS: INSULIN SLIDING SCALE (NOVOLOG) 1 VIAL SQ SCH ×2 (17:19→23:52)
--- NOTE | 2019-12-04 17:36 | PN ---
Teaching Attending Note Name of Resident: Allyssa Maier ATTENDING PHYSICIAN STATEMENT I saw and evaluated the patient. I reviewed the resident's note and discussed the case with the resident. I agree with the resident's findings and plan as documented. SUBJECTIVE: OBJECTIVE: ASSESSMENT AND PLAN: 79 year old female with a PMHx notable for HTN , HLD , cyptogenic cirrhosis, DM II, hypothyroidism, & breast cancer who presents for increasing ascites and LE edema found to also have MURPHY #Ascites Likely due to medication non-compliance -IR eval for paracentesis with cytology -Will hold lasix in light of MURPHY -c/w propanolol -c/w lactulose #MURPHY -Likely pre-renal vs possible start of hepatorenal syndrome? -will hold lasix
[2019-12-04] MEDS ORDERED: LACTULOSE 20 GM/30 ML UDC (FOR ORAL USE ONLY) ONE (18:27)
[2019-12-04] MEDS: LACTULOSE 20 GM/30 ML UDC (FOR ORAL USE ONLY) PO SCH ×2 (18:43→23:54)
[2019-12-04] MEDS ORDERED: PATIENT'S OWN MEDICATION (NON-FORMULARY) (Lovastatin [Lovastatin] 40 MG) PO SCH (22:00)
[2019-12-04] MEDS: HEPARIN NA (PORCINE) 5,000 UNITS/ML 1ML VIAL SQ SCH (23:54)
[2019-12-04] MEDS: SPIRONOLACTONE 25 MG TABLET PO SCH (23:56)
[2019-12-04] MEDS: CARVEDILOL 6.25 MG TABLET (FP) PO SCH (23:56)
[2019-12-04] MEDS: ATORVASTATIN CA 10 MG TABLET (FP) PO SCH (23:56)
[2019-12-05 01:12] VITALS: BMI 23.3
[2019-12-05] MEDS: INSULIN SLIDING SCALE (NOVOLOG) 1 VIAL SQ SCH ×4 (07:20→22:03)
[2019-12-05] MEDS: LEVOTHYROXINE NA 75 MCG TABLET (FP) PO SCH (07:22)
[2019-12-05] MEDS: HEPARIN NA (PORCINE) 5,000 UNITS/ML 1ML VIAL SQ SCH ×3 (07:22→22:03)
[2019-12-05 08:20] LABS: INR 1.27 (0.83-1.09)
[2019-12-05 08:22] LABS: BASO % 0.6 % (0-2.0); EOS % 2.8 % (0-4.5); HEMATOCRIT 32.3 % (32.4-45.2); LYMPH % 17.9 % (8-40); MCH 34.5 pg (25.7-33.7); MEAN CELL VOLUME 101.4 fl (80-96); MEAN PLT VOLUME 10.9 fl (7.5-11.1); MONO % 8.9 % (3.8-10.2); NEUT % 69.8 % (42.8-82.8); PLATELET COUNT 74 K/MM3 (134-434); RBC 3.18 M/mm3 (3.60-5.2); RDW 14.2 % (11.6-15.6); WHITE BLOOD COUNT 4.2 K/mm3 (4.0-10.0)
[2019-12-05 08:23] LABS: ACTIVATED PTT 35.9 SECONDS (25.2-36.5)
[2019-12-05 08:53] LABS: ALBUMIN 2.3 g/dl (3.4-5.0); BLOOD UREA NITROGEN 21.8 mg/dL (7-18); CALCIUM 8.1 mg/dL (8.5-10.1); CREATININE 0.9 mg/dL (0.55-1.3); MAGNESIUM 1.9 mg/dL (1.8-2.4); PHOSPHOROUS 3.1 mg/dL (2.5-4.9); POTASSIUM 3.5 mmol/L (3.5-5.1); TOT PROT 5.8 g/dl (6.4-8.2)
[2019-12-05] MEDS: LACTULOSE 20 GM/30 ML UDC (FOR ORAL USE ONLY) PO SCH ×4 (09:06→22:03)
[2019-12-05] MEDS: SPIRONOLACTONE 25 MG TABLET PO SCH ×2 (09:06→22:03)
[2019-12-05] MEDS: CARVEDILOL 6.25 MG TABLET (FP) PO SCH ×2 (09:07→22:03)
--- NOTE | 2019-12-05 09:10 | CONSULT ---
Consult Consult Specialty:: Nephrology Reason for Consultation:: MURPHY - History of Present Illness Chief Complaint: sent in for worsening ascites History of Present Illness: Pt is an 79 year old female with pmhx of htn, murphy, hld, liver cirrhosis, dm, hypothyroidism, and breast cancer who was sent in for worsening ascites and lower ext edema. I was called to evaluate her for elevated research center partner. She complains of worsening ascites. She denies shortness of breath. She denies dysuria or hematuria. She is not always compliant with her meds. She is awake and appears comfortable. 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 History of Recent Travel: No Home Medications - Allergies Allergies/Adverse Reactions: Allergies Allergy/AdvReac Type Severity Reaction Status Date / Time No Known Drug Allergies Allergy Verified 12/04/19 11:31 - Home Medications Home Medications: Ambulatory Orders RX: Albuterol Sulfate [Proair Respiclick] 90 mcg IH BID 06/23/18 RX: Cholecalciferol (Vitamin D3) [Vitamin D3] 1,000 unit PO DAILY 06/23/18 RX: Ferrous Sulfate 325 mg PO DAILY 06/23/18 RX: Levothyroxine [Synthroid -] 75 mcg PO DAILY 06/23/18 RX: Lovastatin 40 mg PO HS 06/24/18 RX: Glipizide 10 mg PO DAILY 08/23/18 RX: Omeprazole 20 mg PO DAILY #1 tablet. 08/23/18 RX: Lactulose (Oral Use) [Cephulac -] 20 gm PO QID #56 udc 10/04/19 RX: Carvedilol [Coreg -] 6.25 mg PO BID #60 tablet 11/20/19 RX: Lactulose (Oral Use) [Cephulac -] 20 gm PO QID #30 udc 11/20/19 RX: Spironolactone [Aldactone -] 25 mg PO BID #60 tablet 11/20/19 Furosemide [Lasix] 40 mg PO DAILY 12/04/19 Family Medical History Family Hx Cardiac Disorders: Mother Family Hx Congestive Heart Failure: Mother ( age 80) Family Hx Diabetes: Mother Family Hx Respiratory Disorders: Father ( of COPD age 70) Review of Systems - Review of Systems Constitutional: reports: No Symptoms Eyes: reports: No Symptoms HENT: reports: No Symptoms Neck: reports: No Symptoms Cardiovascular: reports: Edema Respiratory: reports: No Symptoms Gastrointestinal: reports: Other (ascites) Genitourinary: reports: No Symptoms Musculoskeletal: reports: No Symptoms Integumentary: reports: No Symptoms Neurological: reports: No Symptoms Endocrine: reports: No Symptoms Hematology/Lymphatic: reports: No Symptoms Psychiatric: reports: No Symptoms Physical Exam Vital Signs: Vital Signs Temperature 98.5 F 12/05/19 06:00 Pulse Rate 70 12/05/19 06:00 Respiratory Rate 20 12/05/19 06:00 Blood Pressure 112/65 12/05/19 06:00 O2 Sat by Pulse Oximetry (%) 98 12/05/19 07:26 Constitutional: Yes: Calm Eyes: Yes: Conjunctiva Clear HENT: Yes: Atraumatic Neck: Yes: Supple Cardiovascular: Yes: S1, S2 Respiratory: Yes: CTA Bilaterally Gastrointestinal: Yes: Ascites Musculoskeletal: Yes: WNL Edema: Yes Edema: LLE: Trace, RLE: Trace Neurological: Yes: Oriented Psychiatric: Yes: Oriented Labs: CBC, BMP 12/05/19 07:25 12/05/19 07:25 Laboratory Tests 11/19/19 11/20/19 12/04/19 09:34 07:30 13:50 Creatinine 1.1 0.8 1.4 H Urine Protein Urine Blood COVID-19 (HERNESTO) 12/04/19 12/04/19 12/05/19 14:07 20:50 07:25 Creatinine 0.9 Urine Protein Negative Urine Blood Negative COVID-19 (HERNESTO) Not detected Imaging - Results Chest X-ray: Report Reviewed Ultrasound: Report Reviewed Problem List - Problems (1) Ascites Code(s): R18.8 - OTHER ASCITES Qualifiers: Ascites type: other type Qualified Code(s): R18.8 - Other ascites Assessment/Plan Current Medications Generic Name Dose Route Start Last Admin Trade Name Freq PRN Reason Stop Dose Admin Atorvastatin Calcium 10 mg 12/04/19 22:00 12/04/19 23:56 Lipitor - PO 10 mg HS TERESA Administration Carvedilol 6.25 mg 12/04/19 22:00 12/05/19 09:07 Coreg - PO 6.25 mg BID TERESA Administration Heparin Sodium (Porcine) 5,000 unit 12/04/19 22:00 12/05/19 07:22 Heparin - SQ 5,000 unit TID TERESA Administration Insulin Aspart 1 vial 12/04/19 16:30 12/05/19 07:20 Novolog Vial Sliding Scale - SQ Not Given ACHS [facility] Protocol Lactulose 20 gm 12/04/19 18:00 12/05/19 09:06 Cephulac (Oral Use) PO 20 gm QID TERESA Administration Levothyroxine Sodium 75 mcg 12/05/19 07:00 12/05/19 07:22 Synthroid - PO 75 mcg AM TERESA Administration Spironolactone 25 mg 12/04/19 22:00 12/05/19 09:06 Aldactone - PO 25 mg BID TERESA Administration Impression 1. MURPHY 2. hx hypokalemia 3. liver cirrhosis 4. ascites 5. htn 6. hld 7. dm 8. breast ca 9. lung nodules 10. thombocytopenia Plan - renal function is improved - cont to monitor - pt getting paracentesis - agree with holding lasix for now - give albumin of large volume paracentesis - GI follow up - monitor lytes
[2019-12-05] MEDS ORDERED: POTASSIUM CHLORIDE TABS 20 MEQ TABLET.ER (FP) PO ONE (09:19)
--- NOTE | 2019-12-05 10:18 | EKG ---
Test Reason : Blood Pressure : / mmHG Vent. Rate : 082 BPM Atrial Rate : 082 BPM P-R Int : 204 ms QRS Dur : 066 ms QT Int : 394 ms P-R-T Axes : -26 -32 -01 degrees QTc Int : 460 ms NORMAL SINUS RHYTHM LEFT AXIS DEVIATION LOW VOLTAGE QRS INFERIOR INFARCT (CITED ON OR BEFORE 23-JUN-2018) ANTEROLATERAL INFARCT (CITED ON OR BEFORE 03-APR-2018) ABNORMAL ECG WHEN COMPARED WITH ECG OF 19-NOV-2019 08:55, NO SIGNIFICANT CHANGE WAS FOUND Confirmed by MD Mal, Yaniv ([id number]) on 12/05/2019 10:17:36 AM Referred By: Confirmed By:Yaniv Resendez MD
[2019-12-05] MEDS ORDERED: INSULIN (NOVOLOG) ASPART 100 UNITS/ML 10ML VIAL ONE (11:17)
--- NOTE | 2019-12-05 13:10 | PN ---
Physical Exam: SUBJECTIVE: Patient seen and examined. Pt. denied any acute complaints. Pt. for Paracentesis today. OBJECTIVE: Vital Signs Period Temp Pulse Resp BP Sys/Carrizales Pulse Ox Last 24 Hr 97.1 F-98.5 F 66-72 16-20 110-119/52-65 96-987 GENERAL: The patient is awake, alert, and fully oriented, in no acute distress. HEAD: Normal with no signs of trauma. EYES: Sclera anicteric, conjunctiva clear. ENT: moist mucous membranes. NECK: Trachea midline, full range of motion, supple. LUNGS: Breath sounds equal, clear to auscultation bilaterally, no wheezes, no crackles, no accessory muscle use. HEART: Regular rate and rhythm, S1, S2 without murmur, rub or gallop. ABDOMEN: Soft, nontender, distended, normoactive bowel sounds, no guarding, no rebound EXTREMITIES: 2+ dorsal pedal pulses, no calf tenderness, warm, well-perfused, no edema. NEUROLOGICAL: Normal speech, gait not observed. PSYCH: Normal mood, normal affect. SKIN: Warm, dry, normal turgor Laboratory Results - last 24 hr 12/04/19 12/04/19 12/04/19 13:50 13:50 13:50 WBC 6.2 RBC 3.62 Hgb 12.3 Hct 36.8 MCV 101.6 H MCH 34.0 H MCHC 33.5 RDW 14.1 Plt Count 98 L D MPV 10.7 Absolute Neuts (auto) 4.5 Neutrophils % 73.3 Lymphocytes % 14.9 D Monocytes % 8.7 Eosinophils % 2.5 Basophils % 0.6 Nucleated RBC % 0 PT with INR INR PTT (Actin FS) Sodium 139 Potassium 4.0 Chloride 105 Carbon Dioxide 21 Anion Gap 12 BUN 26.6 H Creatinine 1.4 H Est GFR (CKD-EPI)AfAm 40.74 Est GFR (CKD-EPI)NonAf 35.15 POC Glucometer Random Glucose 159 H Calcium 8.5 Phosphorus Magnesium Total Bilirubin 1.3 H AST 54 H ALT 34 Alkaline Phosphatase 316 H Ammonia 100.30 H B-Natriuretic Peptide 139.0 Total Protein 7.2 Albumin 2.8 L TSH Free T4 Urine Color Urine Appearance Urine pH Ur Specific [place] Urine Protein Urine Glucose (UA) Urine Ketones Urine Blood Urine Nitrite Urine Bilirubin Urine Urobilinogen Ur Leukocyte Esterase COVID-19 ([facility]NESTO) 12/04/19 12/04/19 12/04/19 14:07 20:50 23:44 WBC RBC Hgb Hct MCV MCH MCHC RDW Plt Count MPV Absolute Neuts (auto) Neutrophils % Lymphocytes % Monocytes % Eosinophils % Basophils % Nucleated RBC % PT with INR INR PTT (Actin FS) Sodium Potassium Chloride Carbon Dioxide Anion Gap BUN Creatinine Est GFR (CKD-EPI)AfAm Est GFR (CKD-EPI)NonAf POC Glucometer 152 Random Glucose Calcium Phosphorus Magnesium Total Bilirubin AST ALT Alkaline Phosphatase Ammonia B-Natriuretic Peptide Total Protein Albumin TSH Free T4 Urine Color Yellow Urine Appearance Clear Urine pH 6.5 Ur Specific [place] 1.011 Urine Protein Negative Urine Glucose (UA) Negative Urine Ketones Negative Urine Blood Negative Urine Nitrite Negative Urine Bilirubin Negative Urine Urobilinogen 1.0 Ur Leukocyte Esterase Negative COVID-19 (HERNESTO) Not detected 12/05/19 12/05/19 12/05/19 07:19 07:25 07:25 WBC 4.2 RBC 3.18 L Hgb 11.0 Hct 32.3 L MCV 101.4 H MCH 34.5 H MCHC 34.0 RDW 14.2 Plt Count 74 L D MPV 10.9 Absolute Neuts (auto) 3.0 Neutrophils % 69.8 Lymphocytes % 17.9 D Monocytes % 8.9 Eosinophils % 2.8 Basophils % 0.6 Nucleated RBC % 0 PT with INR 15.00 H INR 1.27 H PTT (Actin FS) 35.9 Sodium Potassium Chloride Carbon Dioxide Anion Gap BUN Creatinine Est GFR (CKD-EPI)AfAm Est GFR (CKD-EPI)NonAf POC Glucometer 114 Random Glucose Calcium Phosphorus Magnesium Total Bilirubin AST ALT Alkaline Phosphatase Ammonia B-Natriuretic Peptide Total Protein Albumin TSH Free T4 Urine Color Urine Appearance Urine pH Ur Specific [place] Urine Protein Urine Glucose (UA) Urine Ketones Urine Blood Urine Nitrite Urine Bilirubin Urine Urobilinogen Ur Leukocyte Esterase COVID-19 (HERNESTO) 12/05/19 12/05/19 07:25 11:12 WBC RBC Hgb Hct MCV MCH MCHC RDW Plt Count MPV Absolute Neuts (auto) Neutrophils % Lymphocytes % Monocytes % Eosinophils % Basophils % Nucleated RBC % PT with INR INR PTT (Actin FS) Sodium 140 Potassium 3.5 Chloride 109 H Carbon Dioxide 21 Anion Gap 10 BUN 21.8 H Creatinine 0.9 Est GFR (CKD-EPI)AfAm 69.50 Est GFR (CKD-EPI)NonAf 59.96 POC Glucometer 181 Random Glucose 108 H Calcium 8.1 L Phosphorus 3.1 Magnesium 1.9 Total Bilirubin 1.0 AST 36 ALT 24 Alkaline Phosphatase 247 H Ammonia B-Natriuretic Peptide Total Protein 5.8 L Albumin 2.3 L TSH 11.10 H Free T4 1.21 Urine Color Urine Appearance Urine pH Ur Specific [place] Urine Protein Urine Glucose (UA) Urine Ketones Urine Blood Urine Nitrite Urine Bilirubin Urine Urobilinogen Ur Leukocyte Esterase COVID-19 (HERNESTO) Active Medications Generic Name Dose Route Start Last Admin Trade Name Freq PRN Reason Stop Dose Admin Atorvastatin Calcium 10 mg 12/04/19 22:00 12/04/19 23:56 Lipitor - PO 10 mg HS TERESA Administration Carvedilol 6.25 mg 12/04/19 22:00 12/05/19 09:07 Coreg - PO 6.25 mg BID TERESA Administration Heparin Sodium (Porcine) 5,000 unit 12/04/19 22:00 12/05/19 07:22 Heparin - SQ 5,000 unit TID TERESA Administration Insulin Aspart 1 vial 12/04/19 16:30 12/05/19 11:18 Novolog Vial Sliding Scale - SQ 2 units ACHS TERESA Administration Protocol Lactulose 20 gm 12/04/19 18:00 12/05/19 09:06 Cephulac (Oral Use) PO 20 gm QID TERESA Administration Levothyroxine Sodium 75 mcg 12/05/19 07:00 12/05/19 07:22 Synthroid - PO 75 mcg AM TERESA Administration Spironolactone 25 mg 12/04/19 22:00 12/05/19 09:06 Aldactone - PO 25 mg BID TERESA Administration ASSESSMENT/PLAN: Pt. is an 79 y.o. F w/ PMHx. of HTN, HLD, cyptogenic cirrhosis, DM, hypothyroidism, Hx. of breast CA presents to the ED from her GI doctors office due to increasing ascites and LE edema found to also have MURPHY #Ascites -likely due to medication non-compliance -IR eval for paracentesis with cytology, f/u fluid analysis -c/w propanolol Hold for SBP<90 -c/w lactulose- ammonia was found to be 100; titrate to have 3-4 bowel movements per day -once renal function improves will restart diuretics -GI consult Dr Bertrand appreciated -Abd. US shows moderate ascites and cirrhosis #MURPHY -likely pre-renal as Cr. corrected to 0.9 today -will hold Lasix, c/w Aldactone -s/p IV hydration -nephro consult appreciated -urine lytes -daily weights -daily i's and o's #DM holding home glipizide -ISS ACHS -BGMS ACHS #Hypothyroidism c/w synthroid #HLD c/w statin #FEN not on standing fluids monitor electrolytes sodium controlled diet dvt ppx: heparin sq Visit type - Emergency Visit Emergency Visit: No - New Patient This patient is new to me today: No - Critical Care Critical Care patient: No - Discharge Referral Referred to [facility] Med P.C[facility] No - Medication Review Med list reviewed for High Risk Meds patients 65 and older: Yes ATTENDING PHYSICIAN STATEMENT I saw and evaluated the patient. I reviewed the resident's note and discussed the case with the resident. I agree with the resident's findings and plan as documented. SUBJECTIVE: OBJECTIVE: ASSESSMENT AND PLAN:
[2019-12-05 15:36] LABS: BF WBC & OTHER NUCLEATED CELLS 253 /mm3
[2019-12-05 16:13] LABS: BODY FLUID MESOTHELIAL 1 %; BODY FLUID MONOCYTE 48 %
--- NOTE | 2019-12-05 17:43 | PN ---
Teaching Attending Note Name of Resident: Efren Rivera ATTENDING PHYSICIAN STATEMENT I saw and evaluated the patient. I reviewed the resident's note and discussed the case with the resident. I agree with the resident's findings and plan as documented. SUBJECTIVE: OBJECTIVE: GA: The patient is awake, alert, and fully oriented, in no acute distress. ambulatory. HEENT NC/AT, EOMI< neck supple, dry MM LUNGS: Breath sounds equal, clear to auscultation bilaterally, no wheezes, no crackles, no accessory muscle use. HEART: Regular rate and rhythm, S1, S2 without murmur, rub or gallop. ABDOMEN: Soft, nontender, markedly distended, hyperactive bowel sounds, no guarding, no rebound EXTREMITIES: 2+ dorsal pedal pulses, no calf tenderness, warm, well-perfused, no edema. NEUROLOGICAL: Normal speech, gait not observed. PSYCH: Normal mood, normal affect. SKIN: Warm, dry, normal turgor Vital Signs - 24 hr 12/04/19 12/05/19 12/05/19 19:44 00:50 01:03 Temperature 97.1 F L 98.2 F Pulse Rate 69 Pulse Rate [ 66 Right Radial] Respiratory 16 20 Rate Blood Pressure 119/52 L Blood Pressure 116/59 L [Right Arm] O2 Sat by Pulse 98 98 98 Oximetry (%) 12/05/19 12/05/19 12/05/19 01:47 06:00 07:26 Temperature 98.5 F Pulse Rate 70 Pulse Rate [ Right Radial] Respiratory 20 Rate Blood Pressure 112/65 Blood Pressure [Right Arm] O2 Sat by Pulse 98 96 98 Oximetry (%) 12/05/19 12/05/19 12/05/19 09:00 10:38 14:00 Temperature 98.4 F 98.1 F Pulse Rate 72 70 Pulse Rate [ Right Radial] Respiratory 20 20 20 Rate Blood Pressure 110/60 116/58 L Blood Pressure [Right Arm] O2 Sat by Pulse 987 H 98 Oximetry (%) 12/05/19 12/05/19 15:26 17:30 Temperature 98.3 F Pulse Rate 65 Pulse Rate [ Right Radial] Respiratory 20 Rate Blood Pressure 111/46 L Blood Pressure [Right Arm] O2 Sat by Pulse 98 Oximetry (%) Laboratory Results - last 24 hr 12/04/19 12/04/19 12/05/19 20:50 23:44 07:19 WBC RBC Hgb Hct MCV MCH MCHC RDW Plt Count MPV Absolute Neuts (auto) Neutrophils % Lymphocytes % Monocytes % Eosinophils % Basophils % Nucleated RBC % PT with INR INR PTT (Actin FS) Sodium Potassium Chloride Carbon Dioxide Anion Gap BUN Creatinine Est GFR (CKD-EPI)AfAm Est GFR (CKD-EPI)NonAf POC Glucometer 152 114 Random Glucose Calcium Phosphorus Magnesium Total Bilirubin AST ALT Alkaline Phosphatase Total Protein Albumin TSH Free T4 Fluid Source Fluid WBC Fluid RBC Fluid Neutrophils Fluid Lymphocytes Pleural Monocytes Pleural Mesothelial COVID-19 (HERNESTO) Not detected 12/05/19 12/05/19 12/05/19 07:25 07:25 07:25 WBC 4.2 RBC 3.18 L Hgb 11.0 Hct 32.3 L MCV 101.4 H MCH 34.5 H MCHC 34.0 RDW 14.2 Plt Count 74 L D MPV 10.9 Absolute Neuts (auto) 3.0 Neutrophils % 69.8 Lymphocytes % 17.9 D Monocytes % 8.9 Eosinophils % 2.8 Basophils % 0.6 Nucleated RBC % 0 PT with INR 15.00 H INR 1.27 H PTT (Actin FS) 35.9 Sodium 140 Potassium 3.5 Chloride 109 H Carbon Dioxide 21 Anion Gap 10 BUN 21.8 H Creatinine 0.9 Est GFR (CKD-EPI)AfAm 69.50 Est GFR (CKD-EPI)NonAf 59.96 POC Glucometer Random Glucose 108 H Calcium 8.1 L Phosphorus 3.1 Magnesium 1.9 Total Bilirubin 1.0 AST 36 ALT 24 Alkaline Phosphatase 247 H Total Protein 5.8 L Albumin 2.3 L TSH 11.10 H Free T4 1.21 Fluid Source Fluid WBC Fluid RBC Fluid Neutrophils Fluid Lymphocytes Pleural Monocytes Pleural Mesothelial COVID-19 (HERNESTO) 12/05/19 12/05/19 12/05/19 11:12 13:32 16:33 WBC RBC Hgb Hct MCV MCH MCHC RDW Plt Count MPV Absolute Neuts (auto) Neutrophils % Lymphocytes % Monocytes % Eosinophils % Basophils % Nucleated RBC % PT with INR INR PTT (Actin FS) Sodium Potassium Chloride Carbon Dioxide Anion Gap BUN Creatinine Est GFR (CKD-EPI)AfAm Est GFR (CKD-EPI)NonAf POC Glucometer 181 184 Random Glucose Calcium Phosphorus Magnesium Total Bilirubin AST ALT Alkaline Phosphatase Total Protein Albumin TSH Free T4 Fluid Source Abdomenal Fluid WBC 253 Fluid RBC 331 Fluid Neutrophils 15 Fluid Lymphocytes 37 Pleural Monocytes 48 Pleural Mesothelial 1 COVID-19 (HERNESTO) Home Medications Medication Instructions Recorded Albuterol Sulfate [Proair 90 mcg IH BID 06/23/18 Respiclick] Levothyroxine [Synthroid -] 75 mcg PO DAILY 06/23/18 Lovastatin 40 mg PO HS 06/24/18 Glipizide 10 mg PO DAILY 08/23/18 Omeprazole 20 mg PO DAILY #1 tablet. 08/23/18 Carvedilol [Coreg -] 6.25 mg PO BID #60 tablet 11/20/19 Lactulose (Oral Use) [Cephulac -] 20 gm PO QID #30 udc 11/20/19 Spironolactone [Aldactone -] 25 mg PO BID #60 tablet 11/20/19 Furosemide [Lasix] 40 mg PO DAILY 12/04/19 Current Medications Generic Name Dose Route Start Last Admin Trade Name Freq PRN Reason Stop Dose Admin Atorvastatin Calcium 10 mg 12/04/19 22:00 12/04/19 23:56 Lipitor - PO 10 mg HS TERESA Administration Carvedilol 6.25 mg 12/04/19 22:00 12/05/19 09:07 Coreg - PO 6.25 mg BID TERESA Administration Heparin Sodium (Porcine) 5,000 unit 12/04/19 22:00 12/05/19 14:55 Heparin - SQ 5,000 unit TID TERESA Administration Insulin Aspart 1 vial 12/04/19 16:30 12/05/19 16:35 Novolog Vial Sliding Scale - SQ 2 units ACHS TERESA Administration Protocol Lactulose 20 gm 12/04/19 18:00 12/05/19 17:28 Cephulac (Oral Use) PO 20 gm QID TERESA Administration Levothyroxine Sodium 75 mcg 12/05/19 07:00 12/05/19 07:22 Synthroid - PO 75 mcg AM TERESA Administration Spironolactone 25 mg 12/04/19 22:00 12/05/19 09:06 Aldactone - PO 25 mg BID TERESA Administration ASSESSMENT AND PLAN: 79 F Cyptogenic cirrhosis requiring therapeutic paracentesis r/o SBP MURPHY HTN HLD DM hypothyroidism H/o breast ca Plan: Cont. Lactulose to maintain 2-3 BM/daily, patient has a h/o hepatic encephalopathy Replace K to keep >4.0 Cont. Spironolactone/add Lasix IR consult for paracentesis, add Ceftriaxone to cover for SBP ppx GI consult: Dr enamorado DVT ppx: SCD
--- NOTE | 2019-12-05 18:32 | CON.GI ---
Consult Consult Specialty:: Gastroenterology Referred by:: Jose Maier MD Reason for Consultation:: Ascites - History of Present Illness Chief Complaint: Enlarging abdomen History of Present Illness: 79F referred by her PMD for increasing abdominal girth. She had over 2 liters removed today. Carol denies pain or fever. When I ask her about her salt and medication intake she admits that she is not certain whether or not she is taking her pills correctly as she feels overwhelmed. I discussed the home situation with her son Abdulkadir and emphasized the need for him to buy pill administration boxes and to supervise her medication intake and also to avoid buying salt containing products when they go shopping. He replied that he understood and would do so. I told Carol that she needs to allow her son to do these things with her. She had an EGD with Dr. Bertrand in 08/28 revealing moderate sized esophageal varices. She as had a colonoscopy more remotely. Her cirrhosis is felt to be on the basis of CHOW: she has ascites, esophageal varices, hepatic encephalopathy and thrombocytopenia. 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 08/23/18 Carvedilol [Coreg -] 6.25 mg PO BID #60 tablet 11/20/19 Lactulose (Oral Use) [Cephulac -] 20 gm PO QID #30 udc 11/20/19 Spironolactone [Aldactone -] 25 mg PO BID #60 tablet 11/20/19 Furosemide [Lasix] 40 mg PO DAILY 12/04/19 Family Medical History Family Hx Cardiac Disorders: Mother Family Hx Congestive Heart Failure: Mother ( age 80) Family Hx Diabetes: Mother Family Hx Respiratory Disorders: Father ( of COPD age 70) Review of Systems - Review of Systems Constitutional: reports: No Symptoms Eyes: reports: No Symptoms HENT: reports: No Symptoms Neck: reports: No Symptoms Cardiovascular: reports: No Symptoms Respiratory: reports: No Symptoms Gastrointestinal: reports: Other (bloating) Genitourinary: reports: No Symptoms Physical Exam-GI Vital Signs: Vital Signs Temperature 98.3 F 12/05/19 17:30 Pulse Rate 65 12/05/19 17:30 Respiratory Rate 20 12/05/19 17:30 Blood Pressure 111/46 L 12/05/19 17:30 O2 Sat by Pulse Oximetry (%) 98 12/05/19 15:26 CBC,CMP WBC 4.2 K/mm3 (4.0-10.0) 12/05/19 07:25 RBC 3.18 M/mm3 (3.60-5.2) L 12/05/19 07:25 Hgb 11.0 GM/dL (10.7-15.3) 12/05/19 07:25 Hct 32.3 % (32.4-45.2) L 12/05/19 07:25 MCV 101.4 fl (80-96) H 12/05/19 07:25 MCH 34.5 pg (25.7-33.7) H 12/05/19 07:25 MCHC 34.0 g/dl (32.0-36.0) 12/05/19 07:25 RDW 14.2 % (11.6-15.6) 12/05/19 07:25 Plt Count 74 K/MM3 (134-434) L D 12/05/19 07:25 MPV 10.9 fl (7.5-11.1) 12/05/19 07:25 Absolute Neuts (auto) 3.0 K/mm3 (1.5-8.0) 12/05/19 07:25 Neutrophils % 69.8 % (42.8-82.8) 12/05/19 07:25 Lymphocytes % 17.9 % (8-40) D 12/05/19 07:25 Monocytes % 8.9 % (3.8-10.2) 12/05/19 07:25 Eosinophils % 2.8 % (0-4.5) 12/05/19 07:25 Basophils % 0.6 % (0-2.0) 12/05/19 07:25 Nucleated RBC % 0 % (0-0) 12/05/19 07:25 Sodium 140 mmol/L (136-145) 12/05/19 07:25 Potassium 3.5 mmol/L (3.5-5.1) 12/05/19 07:25 Chloride 109 mmol/L (98-107) H 12/05/19 07:25 Carbon Dioxide 21 mmol/L (21-32) 12/05/19 07:25 Anion Gap 10 MMOL/L (8-16) 12/05/19 07:25 BUN 21.8 mg/dL (7-18) H 12/05/19 07:25 Creatinine 0.9 mg/dL (0.55-1.3) 12/05/19 07:25 Est GFR (CKD-EPI)AfAm 69.50 12/05/19 07:25 Est GFR (CKD-EPI)NonAf 59.96 12/05/19 07:25 POC Glucometer 184 UNITS (80-120) 12/05/19 16:33 Random Glucose 108 mg/dL (74-106) H 12/05/19 07:25 Calcium 8.1 mg/dL (8.5-10.1) L 12/05/19 07:25 Phosphorus 3.1 mg/dL (2.5-4.9) 12/05/19 07:25 Magnesium 1.9 mg/dL (1.8-2.4) 12/05/19 07:25 Total Bilirubin 1.0 mg/dL (0.2-1) 12/05/19 07:25 AST 36 U/L (15-37) 12/05/19 07:25 ALT 24 U/L (13-61) 12/05/19 07:25 Alkaline Phosphatase 247 U/L (45-117) H 12/05/19 07:25 Ammonia 100.30 umol/L (11-32) H 12/04/19 13:50 B-Natriuretic Peptide 139.0 pg/ml (5-450) 12/04/19 13:50 Total Protein 5.8 g/dl (6.4-8.2) L 12/05/19 07:25 Albumin 2.3 g/dl (3.4-5.0) L 12/05/19 07:25 TSH 11.10 uIU/ml (0.358-3.74) H 12/05/19 07:25 Free T4 1.21 ng/dl (0.76-1.46) 12/05/19 07:25 Current Medications Generic Name Dose Route Start Last Admin Trade Name Freq PRN Reason Stop Dose Admin Atorvastatin Calcium 10 mg 12/04/19 22:00 12/04/19 23:56 Lipitor - PO 10 mg HS TERESA Administration Carvedilol 6.25 mg 12/04/19 22:00 12/05/19 09:07 Coreg - PO 6.25 mg BID TERESA Administration Heparin Sodium (Porcine) 5,000 unit 12/04/19 22:00 12/05/19 14:55 Heparin - SQ 5,000 unit TID TERESA Administration Ceftriaxone Sodium 1 gm/ 50 mls @ 100 mls/hr 12/05/19 18:15 12/05/19 18:43 Dextrose IVPB 100 mls/hr DAILY TERESA Administration Insulin Aspart 1 vial 12/04/19 16:30 12/05/19 16:35 Novolog Vial Sliding Scale - SQ 2 units ACHS TERESA Administration Protocol Lactulose 20 gm 12/04/19 18:00 12/05/19 17:28 Cephulac (Oral Use) PO 20 gm QID TERESA Administration Levothyroxine Sodium 75 mcg 12/05/19 07:00 12/05/19 07:22 Synthroid - PO 75 mcg AM TERESA Administration Spironolactone 25 mg 12/04/19 22:00 12/05/19 09:06 Aldactone - PO 25 mg BID TERESA Administration Constitutional: Yes: Calm Eyes: Yes: Conjunctiva Clear HENT: Yes: Normocephalic Neck: Yes: Trachea Midline Cardiovascular: Yes: Regular Rate and Rhythm Respiratory: Yes: CTA Bilaterally Gastrointestinal Inspection: Yes: WNL, Distention ...Auscultate: Yes: Normoactive Bowel Sounds ...Palpate: Yes: Soft, Other (nontender) ...Rectal Exam: Yes: Deferred (done 2 weeks ago) Edema: No Neurological: Yes: Alert Labs: CBC, BMP 12/05/19 07:25 12/05/19 07:25 INR, PTT INR 1.27 (0.83-1.09) H 12/05/19 07:25 Laboratory Tests 10/19/10 10/20/10 07/15/15 06:45 06:40 18:45 Iron Saturation Ferritin Alkaline Phosphatase 71 124 H D Ammonia Tumor Marker AFP TRACEY Screen Negative Hep Bs Antigen Hep B Core IgM Ab Hepatitis C Ab (EIA) HIV Ag/Ab Combo Qual 04/03/18 04/03/18 06/23/18 05:08 05:08 12:05 Iron Saturation 4 L Ferritin Alkaline Phosphatase 101 129 H Ammonia Tumor Marker AFP TRACEY Screen Hep Bs Antigen Hep B Core IgM Ab Hepatitis C Ab (EIA) HIV Ag/Ab Combo Qual 10/01/19 10/01/19 10/01/19 10:35 10:35 10:35 Iron Saturation Ferritin Alkaline Phosphatase 194 H Ammonia 137.20 H Tumor Marker AFP TRACEY Screen Hep Bs Antigen Hep B Core IgM Ab Hepatitis C Ab (EIA) HIV Ag/Ab Combo Qual Negative 10/01/19 10/03/19 10/04/19 11:20 07:16 07:40 Iron Saturation Ferritin Alkaline Phosphatase 112 146 H Ammonia Tumor Marker AFP TRACEY Screen Hep Bs Antigen Negative Hep B Core IgM Ab Negative Hepatitis C Ab (EIA) 0.1 HIV Ag/Ab Combo Qual 11/19/19 11/19/19 11/20/19 09:34 09:34 07:30 Iron Saturation Ferritin Alkaline Phosphatase 312 H 277 H Ammonia 148.80 H Tumor Marker AFP TRACEY Screen Hep Bs Antigen Hep B Core IgM Ab Hepatitis C Ab (EIA) HIV Ag/Ab Combo Qual 11/20/19 11/20/19 11/20/19 07:30 07:30 07:30 Iron Saturation Ferritin 290.1 Alkaline Phosphatase Ammonia 57.70 H Tumor Marker AFP 6.5 TRACEY Screen Hep Bs Antigen Hep B Core IgM Ab Hepatitis C Ab (EIA) HIV Ag/Ab Combo Qual 12/04/19 12/04/19 12/05/19 13:50 13:50 07:25 Iron Saturation Ferritin Alkaline Phosphatase 316 H 247 H Ammonia 100.30 H Tumor Marker AFP TRACEY Screen Hep Bs Antigen Hep B Core IgM Ab Hepatitis C Ab (EIA) HIV Ag/Ab Combo Qual Problem List - Problems (1) Ascites Code(s): R18.8 - OTHER ASCITES Qualifiers: Ascites type: other type Qualified Code(s): R18.8 - Other ascites (2) 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) Code(s): K75.81 - NONALCOHOLIC STEATOHEPATITIS (CHOW); K74.60 - UNSPECIFIED CIRRHOSIS OF LIVER (3) Breast cancer Code(s): C50.919 - MALIGNANT NEOPLASM OF UNSP SITE OF UNSPECIFIED FEMALE BREAST (4) HLD (hyperlipidemia) Code(s): E78.5 - HYPERLIPIDEMIA, UNSPECIFIED (5) HTN (hypertension) Code(s): I10 - ESSENTIAL (PRIMARY) HYPERTENSION (6) Hypothyroid Code(s): E03.9 - HYPOTHYROIDISM, UNSPECIFIED (7) Thrombocytopenia Code(s): D69.6 - THROMBOCYTOPENIA, UNSPECIFIED (8) Esophageal varices determined by endoscopy Code(s): I85.00 - ESOPHAGEAL VARICES WITHOUT BLEEDING (9) Hepatic encephalopathy Code(s): K72.90 - HEPATIC FAILURE, UNSPECIFIED WITHOUT COMA Assessment/Plan Impression: - I suspect that Carol's reaccumulating ascites and her elevate ammonia levels reflect poor medication and salt restriction compliance. I discussed this with her son, Abdulkadir who will play a more active role in these areas. A TIPS is relatively contraindicated by her hepatic encephalopathy but not completely so as it may be able to be managed with increased lactulose dosing with xifaxan. Her last echo revealed good RV function so she should be able to tolerate it hemodynamically. Her AFP was normal earlier this month. - Her ascites WBC count is 253 but only 15% are PMNs. Chemistries and culture are pending but she has already been started on antibiotics Plan: -- No objections to discharge if free of fever, abdominal pain and worsening renal function tomorrow. She is at risk for hepatorenal syndrome.
[2019-12-05] MEDS ORDERED: cefTRIAXone SODIUM 1 GM VIAL ONE (18:36)
[2019-12-05] MEDS ORDERED: DEXTROSE 5%-WATER - 50 ML IVPB ONE (18:37)
[2019-12-05] MEDS: CEFTRIAXONE 1 GM in DEXTROSE 5%-WATER - 50 ML IVPB SCH (18:43)
[2019-12-05] MEDS: ATORVASTATIN CA 10 MG TABLET (FP) PO SCH (22:03)
[2019-12-06] MEDS: LEVOTHYROXINE NA 75 MCG TABLET (FP) PO SCH (06:37)
[2019-12-06] MEDS: HEPARIN NA (PORCINE) 5,000 UNITS/ML 1ML VIAL SQ SCH (06:37)
[2019-12-06] MEDS: INSULIN SLIDING SCALE (NOVOLOG) 1 VIAL SQ SCH ×2 (06:38→12:03)
[2019-12-06 07:16] VITALS: PULSE 62; TEMP 98.6
[2019-12-06 08:43] LABS: BASO % 0.9 % (0-2.0); EOS % 3.6 % (0-4.5); HEMATOCRIT 31.6 % (32.4-45.2); HEMOGLOBIN 10.7 GM/dL (10.7-15.3); LYMPH % 29.2 % (8-40); MCH 34.6 pg (25.7-33.7); MCHC 33.7 g/dl (32.0-36.0); MEAN CELL VOLUME 102.7 fl (80-96); MEAN PLT VOLUME 11.5 fl (7.5-11.1); MONO % 8.8 % (3.8-10.2); NEUT % 57.5 % (42.8-82.8); PLATELET COUNT 66 K/MM3 (134-434); RBC 3.08 M/mm3 (3.60-5.2); RDW 14.2 % (11.6-15.6); WHITE BLOOD COUNT 3.2 K/mm3 (4.0-10.0)
[2019-12-06 08:46] LABS: INR 1.26 (0.83-1.09); PROTHROMBIN TIME (PATIENT) 14.9 SEC (9.7-13.0)
[2019-12-06 09:16] LABS: ALBUMIN 2.1 g/dl (3.4-5.0); BLOOD UREA NITROGEN 16.8 mg/dL (7-18); CALCIUM 7.9 mg/dL (8.5-10.1); MAGNESIUM 2.1 mg/dL (1.8-2.4); POTASSIUM 4.1 mmol/L (3.5-5.1)
[2019-12-06 09:19] LABS: BILIRUBIN,TOTAL 1.2 mg/dL (0.2-1); CREATININE 0.8 mg/dL (0.55-1.3); TOT PROT 5.5 g/dl (6.4-8.2)
[2019-12-06] MEDS ORDERED: cefTRIAXone SODIUM 1 GM VIAL ONE (10:05)
[2019-12-06] MEDS ORDERED: DEXTROSE 5%-WATER - 50 ML IVPB ONE (10:06)
[2019-12-06] MEDS: SPIRONOLACTONE 25 MG TABLET PO SCH (10:12)
[2019-12-06] MEDS: CARVEDILOL 6.25 MG TABLET (FP) PO SCH ×2 (10:12→10:14)
[2019-12-06] MEDS: LACTULOSE 20 GM/30 ML UDC (FOR ORAL USE ONLY) PO SCH (10:12)
[2019-12-06] MEDS: CEFTRIAXONE 1 GM in DEXTROSE 5%-WATER - 50 ML IVPB SCH (10:13)
[2019-12-06] MEDS ORDERED: FLUCONAZOLE 100 MG TABLET (UD) PO SCH (10:15)
--- NOTE | 2019-12-06 11:52 | PN ---
Progress Note, Physician History of Present Illness: Pt seen and examined at bedside. She is awake and alert. She denies shortness of breath. - Current Medication List Current Medications: Active Medications Atorvastatin Calcium (Lipitor -) 10 mg PO HS [facility] Last Admin: 12/05/19 22:03 Dose: 10 mg Documented by: Carvedilol (Coreg -) 6.25 mg PO BID [facility] Last Admin: 12/06/19 10:14 Dose: 6.25 mg Documented by: Heparin Sodium (Porcine) (Heparin -) 5,000 unit SQ TID [facility] Last Admin: 12/06/19 06:37 Dose: 5,000 unit Documented by: Ceftriaxone Sodium 1 gm/ (Dextrose) 50 mls @ 100 mls/hr IVPB DAILY [facility] Last Admin: 12/06/19 10:13 Dose: 100 mls/hr Documented by: Insulin Aspart (Novolog Vial Sliding Scale -) 1 vial SQ ACHS [facility]; Protocol Last Admin: 12/06/19 06:38 Dose: Not Given Documented by: Lactulose (Cephulac (Oral Use)) 20 gm PO QID [facility] Last Admin: 12/06/19 10:12 Dose: 20 gm Documented by: Levothyroxine Sodium (Synthroid -) 75 mcg PO AM [facility] Last Admin: 12/06/19 06:37 Dose: 75 mcg Documented by: Spironolactone (Aldactone -) 25 mg PO BID [facility] Last Admin: 12/06/19 10:12 Dose: 25 mg Documented by: - Objective Vital Signs: Vital Signs Temperature 98.6 F 12/06/19 06:00 Pulse Rate 62 12/06/19 06:00 Respiratory Rate 20 12/06/19 06:42 Blood Pressure 82/45 L 12/06/19 06:00 O2 Sat by Pulse Oximetry (%) 98 12/06/19 06:42 Constitutional: Yes: Calm Eyes: Yes: Conjunctiva Clear HENT: Yes: Atraumatic Neck: Yes: Supple Cardiovascular: Yes: S1, S2 Respiratory: Yes: CTA Bilaterally Gastrointestinal: Yes: Normal Bowel Sounds, Soft, Ascites Genitourinary: Yes: WNL Musculoskeletal: Yes: WNL Edema: No Integumentary: Yes: WNL Neurological: Yes: Oriented Psychiatric: Yes: Oriented Labs: CBC, BMP 12/06/19 07:40 12/06/19 07:40 INR, PTT INR 1.26 (0.83-1.09) H 12/06/19 07:40 Problem List - Problems (1) Ascites Code(s): R18.8 - OTHER ASCITES Qualifiers: Ascites type: other type Qualified Code(s): R18.8 - Other ascites Assessment/Plan Current Medications Generic Name Dose Route Start Last Admin Trade Name Flora PRN Reason Stop Dose Admin Atorvastatin Calcium 10 mg 12/04/19 22:00 12/05/19 22:03 Lipitor - PO 10 mg HS TERESA Administration Carvedilol 6.25 mg 12/04/19 22:00 12/06/19 10:14 Coreg - PO 6.25 mg BID TERESA Administration Heparin Sodium (Porcine) 5,000 unit 12/04/19 22:00 12/06/19 06:37 Heparin - SQ 5,000 unit TID TERESA Administration Ceftriaxone Sodium 1 gm/ 50 mls @ 100 mls/hr 12/05/19 18:15 12/06/19 10:13 Dextrose IVPB 100 mls/hr DAILY TERESA Administration Insulin Aspart 1 vial 12/04/19 16:30 12/06/19 06:38 Novolog Vial Sliding Scale - SQ Not Given ACHS TERESA Protocol Lactulose 20 gm 12/04/19 18:00 12/06/19 10:12 Cephulac (Oral Use) PO 20 gm QID TERESA Administration Levothyroxine Sodium 75 mcg 12/05/19 07:00 12/06/19 06:37 Synthroid - PO 75 mcg AM TERESA Administration Spironolactone 25 mg 12/04/19 22:00 12/06/19 10:12 Aldactone - PO 25 mg BID TERESA Administration Impression 1. MURPHY 2. hx hypokalemia 3. liver cirrhosis 4. ascites 5. htn 6. hld 7. dm 8. breast ca 9. lung nodules 10. 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
--- NOTE | 2019-12-06 12:24 | DS ---
Physical Exam: SUBJECTIVE: Patient seen and examined. No acute events overnight. OBJECTIVE: Vital Signs Period Temp Pulse Resp BP Sys/Carrizales Pulse Ox Last 24 Hr 98.1 F-98.8 F 62-104 20-20 82-116/45-66 98-98 PHYSICAL EXAM GENERAL: The patient is awake, alert, and fully oriented, in no acute distress. HEAD: Normal with no signs of trauma. EYES: Sclera anicteric, conjunctiva clear. ENT: moist mucous membranes. NECK: Trachea midline, full range of motion, supple. LUNGS: Breath sounds equal, clear to auscultation bilaterally, no wheezes, no crackles, no accessory muscle use. HEART: Regular rate and rhythm, S1, S2 without murmur, rub or gallop. ABDOMEN: Soft, nontender, distended, normoactive bowel sounds, no guarding, no rebound EXTREMITIES: 2+ dorsal pedal pulses, no calf tenderness, warm, well-perfused, no edema. NEUROLOGICAL: Normal speech, gait not observed. PSYCH: Normal mood, normal affect. SKIN: Warm, dry, normal turgor LABS Laboratory Results - last 24 hr 12/05/19 12/05/19 12/05/19 13:32 16:33 22:02 WBC RBC Hgb Hct MCV MCH MCHC RDW Plt Count MPV Absolute Neuts (auto) Neutrophils % Lymphocytes % Monocytes % Eosinophils % Basophils % Nucleated RBC % PT with INR INR Sodium Potassium Chloride Carbon Dioxide Anion Gap BUN Creatinine Est GFR (CKD-EPI)AfAm Est GFR (CKD-EPI)NonAf POC Glucometer 184 168 Random Glucose Calcium Phosphorus Magnesium Total Bilirubin AST ALT Alkaline Phosphatase Ammonia C-Reactive Protein Total Protein Albumin Fluid Source Abdomenal Fluid WBC 253 Fluid RBC 331 Fluid Neutrophils 15 Fluid Lymphocytes 37 Pleural Monocytes 48 Pleural Mesothelial 1 12/06/19 12/06/19 12/06/19 06:36 07:40 07:40 WBC RBC Hgb Hct MCV MCH MCHC RDW Plt Count MPV Absolute Neuts (auto) Neutrophils % Lymphocytes % Monocytes % Eosinophils % Basophils % Nucleated RBC % PT with INR 14.90 H INR 1.26 H Sodium 139 Potassium 4.1 Chloride 110 H Carbon Dioxide 22 Anion Gap 7 L BUN 16.8 Creatinine 0.8 Est GFR (CKD-EPI)AfAm 80.14 Est GFR (CKD-EPI)NonAf 69.14 POC Glucometer 98 Random Glucose 97 Calcium 7.9 L Phosphorus 3.0 Magnesium 2.1 Total Bilirubin 1.2 H AST 41 H ALT 24 Alkaline Phosphatase 255 H Ammonia C-Reactive Protein Total Protein 5.5 L Albumin 2.1 L Fluid Source Fluid WBC Fluid RBC Fluid Neutrophils Fluid Lymphocytes Pleural Monocytes Pleural Mesothelial 12/06/19 12/06/19 12/06/19 07:40 07:40 07:40 WBC 3.2 L RBC 3.08 L Hgb 10.7 Hct 31.6 L MCV 102.7 H MCH 34.6 H MCHC 33.7 RDW 14.2 Plt Count 66 L MPV 11.5 H Absolute Neuts (auto) 1.9 Neutrophils % 57.5 Lymphocytes % 29.2 D Monocytes % 8.8 Eosinophils % 3.6 Basophils % 0.9 Nucleated RBC % 0 PT with INR INR Sodium Potassium Chloride Carbon Dioxide Anion Gap BUN Creatinine Est GFR (CKD-EPI)AfAm Est GFR (CKD-EPI)NonAf POC Glucometer Random Glucose Calcium Phosphorus Magnesium Total Bilirubin AST ALT Alkaline Phosphatase Ammonia 66.20 H C-Reactive Protein 2.9 H Total Protein Albumin Fluid Source Fluid WBC Fluid RBC Fluid Neutrophils Fluid Lymphocytes Pleural Monocytes Pleural Mesothelial 12/06/19 12:02 WBC RBC Hgb Hct MCV MCH MCHC RDW Plt Count MPV Absolute Neuts (auto) Neutrophils % Lymphocytes % Monocytes % Eosinophils % Basophils % Nucleated RBC % PT with INR INR Sodium Potassium Chloride Carbon Dioxide Anion Gap BUN Creatinine Est GFR (CKD-EPI)AfAm Est GFR (CKD-EPI)NonAf POC Glucometer 136 Random Glucose Calcium Phosphorus Magnesium Total Bilirubin AST ALT Alkaline Phosphatase Ammonia C-Reactive Protein Total Protein Albumin Fluid Source Fluid WBC Fluid RBC Fluid Neutrophils Fluid Lymphocytes Pleural Monocytes Pleural Mesothelial HOSPITAL COURSE: Date of Admission:12/04/19 Date of Discharge: 12/06/19 Pt is an 79 yo female with a PMHx of HTN, HLD, cyptogenic cirrhosis, DM, hypothyroidism, and breast cancer, with a hospitalization two weeks ago for AMS 2/2 to hepatic encephalopathy, who presents to the ED from her GI specialist due to increasing ascites and LE edema. CXR showed some atelectasis changes since 11/19/19. EKG was unremarkable when compared to 11/19/19. Abdominal U/S showed ascites and hepatic cirrhosis. Paracentesis was conducted and showed no aerobic growth preliminary, other cultures are still pending. Nephrology as well as GE were consulted. Per the GE specialist, the patient is at no objections to discharge if free of fever, abdominal pain and worsening renal function; she is at risk for hepatorenal syndrome. Patient was given IV antibiotic. Medicine adjustment and hospital follow-up is noted below. Pt is medically stabilized and discharged to follow up with PCP and a GI specialist as outpatient for further evaluation. 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 We imaged your belly and it had a lot of fluid. We took out over 2 liters of fluid. The fluid did not show you had an infection or cancer. We gave you IV antibiotics while you were in the hospital. You were seen by a GI doctor, Kidney doctor and had your fluid removed by and Interventional Radiologist. Please continue your medications as they were prescribed. Please limit your fluid and salt intake as we discussed while you wer in the hospital. Please follow up with your PCP within 1 week Please follow up with your Acid Maker (GI doctor) within 1 week. Please discuss having a TIPS procedure at that time. Please return to the ED if you are having chest pain, shortness of breath, worsening confusion, gaining more than 2lbs. of weight, notice blood in you stool or urine or having any other concerning symptoms. Referrals: Efren Amador MD [Primary Care Provider] - 1 Week Yadiel Bertrand MD [Staff Physician] - 1 Week Disposition: HOME - Home Medications Comprehensive Discharge Medication List: Ambulatory Orders Albuterol Sulfate [Proair Respiclick] 90 mcg IH BID 06/23/18 Levothyroxine [Synthroid -] 75 mcg PO DAILY 06/23/18 Lovastatin 40 mg PO HS 06/24/18 Glipizide 10 mg PO DAILY 08/23/18 Omeprazole 20 mg PO DAILY #1 tablet. 08/23/18 Carvedilol [Coreg -] 6.25 mg PO BID #60 tablet 11/20/19 Lactulose (Oral Use) [Cephulac -] 20 gm PO QID #30 udc 11/20/19 Spironolactone [Aldactone -] 25 mg PO BID #60 tablet 11/20/19 Furosemide [Lasix] 40 mg PO DAILY 12/04/19 This patient is new to me today: No Emergency Visit: Yes ED Registration Date: 12/04/19 Care time: The patient presented to the Emergency Department on the above date and was hospitalized for further evaluation of their emergent condition. Critical Care patient: No - Discharge Referral Referred to [facility] Med P.C.: No ATTENDING PHYSICIAN STATEMENT I saw and evaluated the patient. I reviewed the resident's note and discussed the case with the resident. I agree with the resident's findings and plan as documented. SUBJECTIVE: OBJECTIVE: ASSESSMENT AND PLAN:
[2019-12-06 12:56] VITALS: BP 95/53
[2019-12-07] MEDS ORDERED: FUROSEMIDE 40 MG TABLET (FP) PO SCH (10:00)
--- NOTE | 2019-12-07 12:33 | PATH ---
Cytology Non-Gynecological Report Patient Name: ALEXIS LAGOS Med. Rec. #: [id number] /Age/Gender: 1940 (Age: 79) / F Account: [id number] Location: [facility] MED/SURG Taken: 12/05/2019 Received: 12/05/2019 Reported: 12/07/2019 Physicians: Micheal Simpson M.D. PHYSICIAN EMERGENCY DEPT Specimen(s) Received A: PERITONEAL FLUID IN ALCOHOL B: PERITONEAL FLUID FRESH Clinical History Ascites Final Diagnosis A & B: ABDOMINAL FLUID, PARACENTESIS: SATISFACTORY FOR EVALUATION. NEGATIVE FOR MALIGNANT CELLS. MESOTHELIAL CELLS, MACROPHAGES AND RARE LYMPHOCYTES PRESENT. Electronically Signed Hieu Lucio M.D. Gross Description A. Approximately 45cc of yellow fluid received fixed in 50% alcohol. One cytospin and one cellblock prepared. B. Approximately 3300cc of yellow fluid received fresh. One cytospin and one cellblock prepared.
== END 2019-12-06 14:50 | disposition home or self-care (01) | DRG 433 ==
LOC: JER 11:20 → JERBED 15:33 → J8W 23:37
PROVIDERS: ADMIT Internal Medicine
PROC: 0W9G3ZX Drainage of Peritoneal Cavity, Percutaneous Approach, Diagnostic (ICD-10-PCS; principal; 2019-12-05)
DX: K74.69 Other cirrhosis of liver (principal); N17.9 Acute kidney failure, unspecified; R18.8 Other ascites; K72.90 Hepatic failure, unspecified without coma; K75.81 Nonalcoholic steatohepatitis (NASH); E78.5 Hyperlipidemia, unspecified; I10 Essential (primary) hypertension; E03.9 Hypothyroidism, unspecified; D69.6 Thrombocytopenia, unspecified; E11.9 Type 2 diabetes mellitus without complications; Z91.14 Patient's other noncompliance with medication regimen
CPT/HCPCS: 36415; 71046-TC-FY; 76700-TC; 76942-TC; 80053; 81003; 82042; 82140; 82150; 82465; 82945; 82962; 83615; 83735; 83880; 83986; 84100; 84439; 84443; 84478; 85025; 85610; 85730; 86140; 87070; 87075; 87102; 87116; 87205; 87206; 87210; 88108; 88305-TC; 93005; 93010; 99285-25; J1644; U0003

== ENCOUNTER 2020-02-28 17:25 | Emergency (ER) | payer BC, OTHER ==
[2020-02-28 18:50] LABS: BASO % 0.9 % (0-2.0); EOS % 2.3 % (0-4.5); HEMATOCRIT 39.2 % (32.4-45.2); HEMOGLOBIN 13.2 GM/dL (10.7-15.3); LYMPH % 11.2 % (8-40); MCH 33.8 pg (25.7-33.7); MCHC 33.7 g/dl (32.0-36.0); MEAN CELL VOLUME 100.3 fl (80-96); MEAN PLT VOLUME 9.9 fl (7.5-11.1); MONO % 7.6 % (3.8-10.2); PLATELET COUNT 108 K/MM3 (134-434); RBC 3.91 M/mm3 (3.60-5.2); RDW 14.2 % (11.6-15.6); WHITE BLOOD COUNT 7.5 K/mm3 (4.0-10.0)
[2020-02-28 18:57] LABS: INR 1.27 (0.83-1.09); PROTHROMBIN TIME (PATIENT) 15.3 SEC (9.7-13.0)
[2020-02-28 18:59] LABS: ACTIVATED PTT 32.3 SECONDS (25.2-36.5)
[2020-02-28 19:03] VITALS: TEMP 98.4; BMI 22.2
[2020-02-28 19:16] LABS: POTASSIUM 3.8 mmol/L (3.5-5.1)
[2020-02-28 19:19] LABS: CALCIUM 8.6 mg/dL (8.5-10.1)
[2020-02-28 19:20] LABS: ALBUMIN 2.7 g/dl (3.4-5.0)
[2020-02-28 19:22] LABS: CREATININE 0.9 mg/dL (0.55-1.3)
[2020-02-28 19:24] LABS: BILIRUBIN,TOTAL 1.8 mg/dL (0.2-1); TOT PROT 7.2 g/dl (6.4-8.2)
[2020-02-28 20:02] VITALS: BP 139/62; PULSE 92
== END 2020-02-28 20:43 | disposition short-term general hospital (02) ==
LOC: JER 17:25
DX: S06.5X0A Traumatic subdural hemorrhage without loss of consciousness, initial encounter (principal); R55 Syncope and collapse; R79.89 Other specified abnormal findings of blood chemistry
CPT/HCPCS: 36415; 70450-TC; 71260-TC; 72125-TC; 72128-TC; 72131-TC; 74177-TC; 80053; 80307; 82140; 82550; 83735; 84484; 85025; 85610; 85730; 86850; 86900; 86901; 93005; 93010; 99285-25; C9803; Q9967; U0003

== ENCOUNTER 2020-04-01 11:49 | Inpatient (IN) | payer BC, OTHER ==
[2020-04-01] MEDS ORDERED: LACTATED RINGERS SOLUTION 1,000 ML IV STA (12:32)
[2020-04-01 14:13] LABS: BASO % 0.7 % (0-2.0); EOS % 2.9 % (0-4.5); MCH 32.5 pg (25.7-33.7); MCHC 33.3 g/dl (32.0-36.0); MEAN CELL VOLUME 97.4 fl (80-96); MEAN PLT VOLUME 8.6 fl (7.5-11.1); MONO % 7.4 % (3.8-10.2); PLATELET COUNT 106 K/MM3 (134-434); RBC 4.31 M/mm3 (3.60-5.2); RDW 16.7 % (11.6-15.6); WHITE BLOOD COUNT 6.4 K/mm3 (4.0-10.0)
[2020-04-01 14:24] LABS: INR 1.4 (0.83-1.09)
[2020-04-01 14:28] LABS: POTASSIUM 3.8 mmol/L (3.5-5.1)
[2020-04-01 14:30] LABS: ALBUMIN 2.1 g/dl (3.4-5.0); BLOOD UREA NITROGEN 13.3 mg/dL (7-18); CALCIUM 7.9 mg/dL (8.5-10.1)
[2020-04-01 14:33] LABS: CREATININE 0.7 mg/dL (0.55-1.3)
[2020-04-01 14:35] LABS: TOT PROT 6.4 g/dl (6.4-8.2)
[2020-04-01 14:58] LABS: EPI CELLS 18 /uL (0-25.1); HYALINE CASTS 135 /uL (0-3.1); PH,URINE >= 9.0 (5.0-8.0); URINE APPEARANCE TURBID; URINE BACTERIA 432 /uL (0-1359); URINE BILIRUBIN 1+ (NEGATIVE); URINE COLOR DK YELLOW; URINE GLUCOSE (UA) NEGATIVE (NEGATIVE); URINE KETONE NEGATIVE (NEGATIVE); URINE LEUK ESTERASE 1+ (NEGATIVE); URINE NITRITE NEGATIVE (NEGATIVE); URINE PROTEIN 3+ (NEGATIVE); URINE RBC 39 /uL (0-23.9); URINE WBC 3708 /uL (0-25.8)
[2020-04-01] MEDS ORDERED: CEFTRIAXONE 1,000 MG in DEXTROSE 5%-WATER - 50 ML IVPB ONE (15:42)
[2020-04-01] MEDS ORDERED: LACTULOSE 20 GM/30 ML UDC (FOR RECTAL USE ONLY) PR ONE (16:45)
[2020-04-01] MEDS ORDERED: D5-1/2NS+20 MEQ KCL - 20 MEQ/1,000 ML INFUS.BAG IV SCH (17:15)
[2020-04-01] MEDS ORDERED: CEFTRIAXONE 1 GM/50 ML BAG ONE (17:31)
[2020-04-01] MEDS: NYSTATIN POWDER 100,000 UNITS/GM - 15 GM TOPICAL POWDER TP SCH (21:53)
[2020-04-01] MEDS: LACTULOSE 20 GM/30 ML UDC (FOR RECTAL USE ONLY) PR SCH (21:53)
[2020-04-01] MEDS: CARVEDILOL 6.25 MG TABLET (FP) PO SCH (21:53)
[2020-04-01] MEDS ORDERED: MIRTAZAPINE 15 MG TABLET (FP) PO SCH (22:00)
[2020-04-01] MEDS ORDERED: FAMOTIDINE 20 MG/50 ML IVPB 20 MG/50 ML MG IVPB ONE (23:45)
[2020-04-01] MEDS: FAMOTIDINE 20 MG/50 ML IVPB 20 MG/50 ML MG IVPB SCH (23:58)
[2020-04-02 04:40] VITALS: BMI 18.3
[2020-04-02] MEDS ORDERED: LEVOTHYROXINE NA 100 MCG TABLET (FP) PO SCH (07:00)
[2020-04-02 08:35] LABS: INR 1.46 (0.83-1.09); PROTHROMBIN TIME (PATIENT) 17.5 SEC (9.7-13.0)
[2020-04-02 08:50] LABS: POTASSIUM 3.5 mmol/L (3.5-5.1)
[2020-04-02 08:54] LABS: BLOOD UREA NITROGEN 13.9 mg/dL (7-18); CALCIUM 7.6 mg/dL (8.5-10.1)
[2020-04-02 08:57] LABS: CREATININE 0.6 mg/dL (0.55-1.3)
[2020-04-02 08:59] LABS: BILIRUBIN,TOTAL 2.4 mg/dL (0.2-1); TOT PROT 5.7 g/dl (6.4-8.2)
[2020-04-02 09:17] LABS: HEMATOCRIT 38.6 % (32.4-45.2); HEMOGLOBIN 12.7 GM/dL (10.7-15.3); MCH 32.4 pg (25.7-33.7); MCHC 32.8 g/dl (32.0-36.0); MEAN CELL VOLUME 98.9 fl (80-96); MEAN PLT VOLUME 10.3 fl (7.5-11.1); PLATELET COUNT 58 K/MM3 (134-434); RDW 16.6 % (11.6-15.6); WHITE BLOOD COUNT 5.7 K/mm3 (4.0-10.0)
[2020-04-02] MEDS: FUROSEMIDE 40 MG TABLET (FP) PO SCH ×2 (09:44→10:45)
[2020-04-02] MEDS: CARVEDILOL 6.25 MG TABLET (FP) PO SCH ×3 (09:44→22:28)
[2020-04-02] MEDS: RIFAXIMIN 550 MG TABLET (UD) PO SCH ×3 (09:44→22:28)
[2020-04-02] MEDS: SPIRONOLACTONE 25 MG TABLET PO SCH ×2 (09:44→10:44)
[2020-04-02] MEDS: LACTULOSE 20 GM/30 ML UDC (FOR RECTAL USE ONLY) PR SCH ×3 (09:44→22:27)
[2020-04-02 09:52] LABS: BASO % 0.8 % (0-2.0); EOS % 2.9 % (0-4.5); LYMPH % 13.6 % (8-40); MONO % 7.4 % (3.8-10.2); NEUT % 75.3 % (42.8-82.8)
[2020-04-02] MEDS ORDERED: cefTRIAXone SODIUM 1 GM VIAL ONE (10:02)
[2020-04-02] MEDS ORDERED: DEXTROSE 5%-WATER - 50 ML IVPB ONE (10:02)
[2020-04-02] MEDS ORDERED: ACETAMINOPHEN 325 MG TABLET (FP) PO PRN (10:37)
[2020-04-02] MEDS: FAMOTIDINE 20 MG/50 ML IVPB 20 MG/50 ML MG IVPB SCH (10:43)
[2020-04-02] MEDS: CEFTRIAXONE 1 GM in DEXTROSE 5%-WATER - 50 ML IVPB SCH (10:44)
[2020-04-02] MEDS: LEVOTHYROXINE NA 112 MCG TABLET (FP) PO SCH (11:02)
[2020-04-02] MEDS: INSULIN SLIDING SCALE (NOVOLOG) 1 VIAL SQ SCH ×3 (11:56→23:21)
[2020-04-02] MEDS: NYSTATIN POWDER 100,000 UNITS/GM - 15 GM TOPICAL POWDER TP SCH ×2 (13:01→22:28)
[2020-04-02] MEDS ORDERED: INSULIN (NOVOLOG) ASPART 100 UNITS/ML 10ML VIAL ONE (20:58)
[2020-04-03] MEDS: LEVOTHYROXINE NA 112 MCG TABLET (FP) PO SCH (06:16)
[2020-04-03] MEDS: INSULIN SLIDING SCALE (NOVOLOG) 1 VIAL SQ SCH ×4 (06:48→22:34)
[2020-04-03] MEDS ORDERED: DEXTROSE 5%-WATER - 50 ML IVPB ONE (09:59)
[2020-04-03] MEDS ORDERED: cefTRIAXone SODIUM 1 GM VIAL ONE (09:59)
[2020-04-03] MEDS: CEFTRIAXONE 1 GM in DEXTROSE 5%-WATER - 50 ML IVPB SCH (10:44)
[2020-04-03] MEDS: FAMOTIDINE 20 MG TABLET PO SCH (10:44)
[2020-04-03] MEDS: CARVEDILOL 6.25 MG TABLET (FP) PO SCH ×2 (10:44→22:24)
[2020-04-03] MEDS: RIFAXIMIN 550 MG TABLET (UD) PO SCH ×2 (10:44→22:26)
[2020-04-03] MEDS: SPIRONOLACTONE 25 MG TABLET PO SCH (10:44)
[2020-04-03] MEDS: FUROSEMIDE 40 MG TABLET (FP) PO SCH (10:44)
[2020-04-03] MEDS: NYSTATIN POWDER 100,000 UNITS/GM - 15 GM TOPICAL POWDER TP SCH ×2 (10:51→22:25)
[2020-04-03] MEDS ORDERED: INSULIN (NOVOLOG) ASPART 100 UNITS/ML 10ML VIAL ONE (14:49)
[2020-04-03] MEDS: LACTULOSE 20 GM/30 ML UDC (FOR RECTAL USE ONLY) PR SCH ×2 (14:51→23:30)
[2020-04-04] MEDS: INSULIN SLIDING SCALE (NOVOLOG) 1 VIAL SQ SCH ×4 (06:27→21:49)
[2020-04-04] MEDS: LEVOTHYROXINE NA 112 MCG TABLET (FP) PO SCH (06:27)
[2020-04-04 08:20] LABS: BASO % 0.6 % (0-2.0); EOS % 2.1 % (0-4.5); HEMATOCRIT 37.2 % (32.4-45.2); HEMOGLOBIN 12.7 GM/dL (10.7-15.3); LYMPH % 12.2 % (8-40); MCHC 34.1 g/dl (32.0-36.0); MEAN CELL VOLUME 96.6 fl (80-96); MEAN PLT VOLUME 8.9 fl (7.5-11.1); MONO % 7.1 % (3.8-10.2); PLATELET COUNT 90 K/MM3 (134-434); RBC 3.85 M/mm3 (3.60-5.2); RDW 16.5 % (11.6-15.6); WHITE BLOOD COUNT 7.6 K/mm3 (4.0-10.0)
[2020-04-04 08:38] LABS: POTASSIUM 3.5 mmol/L (3.5-5.1)
[2020-04-04 08:46] LABS: BLOOD UREA NITROGEN 12.7 mg/dL (7-18)
[2020-04-04 08:47] LABS: ALBUMIN 2.2 g/dl (3.4-5.0); BILIRUBIN,TOTAL 1.7 mg/dL (0.2-1)
[2020-04-04 08:48] LABS: TOT PROT 6.2 g/dl (6.4-8.2)
[2020-04-04 08:50] LABS: CALCIUM 7.9 mg/dL (8.5-10.1); CREATININE 0.6 mg/dL (0.55-1.3)
[2020-04-04] MEDS: NYSTATIN POWDER 100,000 UNITS/GM - 15 GM TOPICAL POWDER TP SCH ×2 (10:25→21:41)
[2020-04-04] MEDS: CEFTRIAXONE 1 GM in DEXTROSE 5%-WATER - 50 ML IVPB SCH (10:26)
[2020-04-04] MEDS ORDERED: DEXTROSE 5%-WATER - 50 ML IVPB ONE (10:30)
[2020-04-04] MEDS ORDERED: cefTRIAXone SODIUM 1 GM VIAL ONE (10:30)
[2020-04-04] MEDS: LACTULOSE 20 GM/30 ML UDC (FOR RECTAL USE ONLY) PR SCH (10:32)
[2020-04-04] MEDS: SPIRONOLACTONE 25 MG TABLET PO SCH (10:32)
[2020-04-04] MEDS: CARVEDILOL 6.25 MG TABLET (FP) PO SCH ×2 (10:32→21:41)
[2020-04-04] MEDS: FAMOTIDINE 20 MG TABLET PO SCH (10:32)
[2020-04-04] MEDS: FUROSEMIDE 40 MG TABLET (FP) PO SCH (10:32)
[2020-04-04] MEDS: RIFAXIMIN 550 MG TABLET (UD) PO SCH ×2 (10:32→21:41)
[2020-04-04] MEDS ORDERED: INSULIN (NOVOLOG) ASPART 100 UNITS/ML 10ML VIAL ONE ×3 (12:22→21:38)
[2020-04-04] MEDS ORDERED: LACTULOSE 20 GM/30 ML UDC (FOR ORAL USE ONLY) PO PRN (12:44)
[2020-04-05] MEDS: INSULIN SLIDING SCALE (NOVOLOG) 1 VIAL SQ SCH ×4 (06:03→21:02)
[2020-04-05] MEDS: LEVOTHYROXINE NA 112 MCG TABLET (FP) PO SCH (06:07)
[2020-04-05] MEDS ORDERED: DEXTROSE 5%-WATER - 50 ML IVPB ONE (09:21)
[2020-04-05] MEDS ORDERED: cefTRIAXone SODIUM 1 GM VIAL ONE (09:21)
[2020-04-05] MEDS: CEFTRIAXONE 1 GM in DEXTROSE 5%-WATER - 50 ML IVPB SCH (09:41)
[2020-04-05] MEDS: FAMOTIDINE 20 MG TABLET PO SCH (09:42)
[2020-04-05] MEDS: FUROSEMIDE 40 MG TABLET (FP) PO SCH (09:42)
[2020-04-05] MEDS: CARVEDILOL 6.25 MG TABLET (FP) PO SCH ×2 (09:42→21:02)
[2020-04-05] MEDS: SPIRONOLACTONE 25 MG TABLET PO SCH (09:42)
[2020-04-05] MEDS: RIFAXIMIN 550 MG TABLET (UD) PO SCH ×2 (09:43→21:02)
[2020-04-05] MEDS: NYSTATIN POWDER 100,000 UNITS/GM - 15 GM TOPICAL POWDER TP SCH ×2 (10:00→21:02)
[2020-04-05] MEDS ORDERED: INSULIN (NOVOLOG) ASPART 100 UNITS/ML 10ML VIAL ONE ×3 (11:32→19:51)
[2020-04-05] MEDS: LACTULOSE 20 GM/30 ML UDC (FOR ORAL USE ONLY) PO SCH ×2 (14:02→21:02)
[2020-04-05] MEDS ORDERED: PHYTONADIONE 10 MG/1 ML AMP IVPB ONE (14:44)
[2020-04-06] MEDS: LACTULOSE 20 GM/30 ML UDC (FOR ORAL USE ONLY) PO SCH ×5 (05:44→23:59)
[2020-04-06] MEDS: LEVOTHYROXINE NA 112 MCG TABLET (FP) PO SCH (06:23)
[2020-04-06] MEDS: INSULIN SLIDING SCALE (NOVOLOG) 1 VIAL SQ SCH ×4 (06:23→21:03)
[2020-04-06] MEDS ORDERED: cefTRIAXone SODIUM 1 GM VIAL ONE (09:56)
[2020-04-06] MEDS ORDERED: DEXTROSE 5%-WATER - 50 ML IVPB ONE (09:56)
[2020-04-06 10:08] LABS: BASO % 1.4 % (0-2.0); EOS % 3.1 % (0-4.5); HEMATOCRIT 35.8 % (32.4-45.2); HEMOGLOBIN 12.3 GM/dL (10.7-15.3); LYMPH % 15.4 % (8-40); MCH 33.3 pg (25.7-33.7); MCHC 34.3 g/dl (32.0-36.0); MEAN CELL VOLUME 97.2 fl (80-96); MEAN PLT VOLUME 9.3 fl (7.5-11.1); MONO % 6.8 % (3.8-10.2); NEUT % 73.3 % (42.8-82.8); PLATELET COUNT 86 K/MM3 (134-434); RBC 3.68 M/mm3 (3.60-5.2); RDW 16.6 % (11.6-15.6); WHITE BLOOD COUNT 6.6 K/mm3 (4.0-10.0)
[2020-04-06] MEDS: CEFTRIAXONE 1 GM in DEXTROSE 5%-WATER - 50 ML IVPB SCH (10:10)
[2020-04-06 10:17] LABS: INR 1.4 (0.83-1.09); PROTHROMBIN TIME (PATIENT) 16.8 SEC (9.7-13.0)
[2020-04-06 10:25] LABS: POTASSIUM 3.6 mmol/L (3.5-5.1)
[2020-04-06 10:28] LABS: ALBUMIN 2.1 g/dl (3.4-5.0); BLOOD UREA NITROGEN 12.3 mg/dL (7-18)
[2020-04-06] MEDS: NYSTATIN POWDER 100,000 UNITS/GM - 15 GM TOPICAL POWDER TP SCH ×2 (10:30→21:02)
[2020-04-06] MEDS: FUROSEMIDE 40 MG TABLET (FP) PO SCH (10:30)
[2020-04-06 10:31] LABS: CREATININE 0.8 mg/dL (0.55-1.3)
[2020-04-06 10:33] LABS: BILIRUBIN,TOTAL 1.4 mg/dL (0.2-1); TOT PROT 6.3 g/dl (6.4-8.2)
[2020-04-06] MEDS: FAMOTIDINE 20 MG TABLET PO SCH (10:34)
[2020-04-06] MEDS: CARVEDILOL 6.25 MG TABLET (FP) PO SCH ×2 (10:35→21:02)
[2020-04-06] MEDS: RIFAXIMIN 550 MG TABLET (UD) PO SCH ×2 (10:40→21:02)
[2020-04-06] MEDS: SPIRONOLACTONE 25 MG TABLET PO SCH (10:44)
[2020-04-07] MEDS: LACTULOSE 20 GM/30 ML UDC (FOR ORAL USE ONLY) PO SCH ×4 (03:48→21:31)
[2020-04-07] MEDS: INSULIN SLIDING SCALE (NOVOLOG) 1 VIAL SQ SCH ×4 (06:08→23:25)
[2020-04-07] MEDS: LEVOTHYROXINE NA 112 MCG TABLET (FP) PO SCH (06:08)
[2020-04-07] MEDS ORDERED: cefTRIAXone SODIUM 1 GM VIAL ONE (09:44)
[2020-04-07] MEDS ORDERED: DEXTROSE 5%-WATER - 50 ML IVPB ONE (09:44)
[2020-04-07] MEDS: CARVEDILOL 6.25 MG TABLET (FP) PO SCH ×2 (10:10→21:31)
[2020-04-07] MEDS: SPIRONOLACTONE 25 MG TABLET PO SCH (10:10)
[2020-04-07] MEDS: FUROSEMIDE 40 MG TABLET (FP) PO SCH (10:11)
[2020-04-07] MEDS: NYSTATIN POWDER 100,000 UNITS/GM - 15 GM TOPICAL POWDER TP SCH ×2 (10:12→21:31)
[2020-04-07] MEDS: FAMOTIDINE 20 MG TABLET PO SCH (10:12)
[2020-04-07] MEDS: CEFTRIAXONE 1 GM in DEXTROSE 5%-WATER - 50 ML IVPB SCH (10:35)
[2020-04-07] MEDS: RIFAXIMIN 550 MG TABLET (UD) PO SCH ×2 (10:35→21:31)
[2020-04-08] MEDS: LACTULOSE 20 GM/30 ML UDC (FOR ORAL USE ONLY) PO SCH ×3 (05:28→21:17)
[2020-04-08] MEDS: LEVOTHYROXINE NA 112 MCG TABLET (FP) PO SCH (06:13)
[2020-04-08] MEDS: INSULIN SLIDING SCALE (NOVOLOG) 1 VIAL SQ SCH ×4 (06:14→21:17)
[2020-04-08] MEDS ORDERED: cefTRIAXone SODIUM 1 GM VIAL ONE (09:08)
[2020-04-08] MEDS ORDERED: DEXTROSE 5%-WATER - 50 ML IVPB ONE (09:08)
[2020-04-08] MEDS: FAMOTIDINE 20 MG TABLET PO SCH (09:45)
[2020-04-08] MEDS: FUROSEMIDE 40 MG TABLET (FP) PO SCH (09:45)
[2020-04-08] MEDS: RIFAXIMIN 550 MG TABLET (UD) PO SCH ×2 (09:45→21:17)
[2020-04-08] MEDS: MULTIVITAMINS (DAILY MVI) TABLET (FP) PO SCH (09:45)
[2020-04-08] MEDS: CEFTRIAXONE 1 GM in DEXTROSE 5%-WATER - 50 ML IVPB SCH (09:45)
[2020-04-08] MEDS: SPIRONOLACTONE 25 MG TABLET PO SCH (09:46)
[2020-04-08] MEDS: CARVEDILOL 6.25 MG TABLET (FP) PO SCH ×2 (09:46→21:17)
[2020-04-08] MEDS: NYSTATIN POWDER 100,000 UNITS/GM - 15 GM TOPICAL POWDER TP SCH ×2 (09:47→21:16)
[2020-04-08 14:49] LABS: BF WBC & OTHER NUCLEATED CELLS 132 /mm3
[2020-04-08 15:09] LABS: BODY FLUID MACROPHAGES 24 %; BODY FLUID MESOTHELIAL 4 %; BODY FLUID MONOCYTE 13 %
[2020-04-08] MEDS ORDERED: INSULIN (NOVOLOG) ASPART 100 UNITS/ML 10ML VIAL ONE (21:14)
[2020-04-09] MEDS: LACTULOSE 20 GM/30 ML UDC (FOR ORAL USE ONLY) PO SCH ×3 (05:55→21:21)
[2020-04-09] MEDS: LEVOTHYROXINE NA 112 MCG TABLET (FP) PO SCH (05:59)
[2020-04-09] MEDS: INSULIN SLIDING SCALE (NOVOLOG) 1 VIAL SQ SCH ×4 (05:59→21:20)
[2020-04-09] MEDS ORDERED: INSULIN (NOVOLOG) ASPART 100 UNITS/ML 10ML VIAL ONE ×2 (06:20→11:53)
[2020-04-09] MEDS ORDERED: cefTRIAXone SODIUM 1 GM VIAL ONE (08:41)
[2020-04-09] MEDS ORDERED: DEXTROSE 5%-WATER - 50 ML IVPB ONE (08:41)
[2020-04-09] MEDS: NYSTATIN POWDER 100,000 UNITS/GM - 15 GM TOPICAL POWDER TP SCH ×2 (09:57→21:21)
[2020-04-09] MEDS: FUROSEMIDE 40 MG TABLET (FP) PO SCH (09:57)
[2020-04-09] MEDS: RIFAXIMIN 550 MG TABLET (UD) PO SCH ×2 (09:57→21:21)
[2020-04-09] MEDS: MULTIVITAMINS (DAILY MVI) TABLET (FP) PO SCH (09:57)
[2020-04-09] MEDS: FAMOTIDINE 20 MG TABLET PO SCH (09:57)
[2020-04-09] MEDS: SPIRONOLACTONE 25 MG TABLET PO SCH (09:58)
[2020-04-09] MEDS: CARVEDILOL 6.25 MG TABLET (FP) PO SCH ×2 (09:58→21:21)
[2020-04-09] MEDS: CEFTRIAXONE 1 GM in DEXTROSE 5%-WATER - 50 ML IVPB SCH (09:58)
[2020-04-09 11:46] LABS: BASO % 1.2 % (0-2.0); EOS % 4.5 % (0-4.5); HEMATOCRIT 35.4 % (32.4-45.2); HEMOGLOBIN 11.9 GM/dL (10.7-15.3); LYMPH % 16.4 % (8-40); MCH 33.2 pg (25.7-33.7); MCHC 33.5 g/dl (32.0-36.0); MEAN CELL VOLUME 99.1 fl (80-96); MEAN PLT VOLUME 9.9 fl (7.5-11.1); MONO % 7.5 % (3.8-10.2); NEUT % 70.4 % (42.8-82.8); PLATELET COUNT 75 K/MM3 (134-434); RBC 3.57 M/mm3 (3.60-5.2); RDW 16.9 % (11.6-15.6); WHITE BLOOD COUNT 4.9 K/mm3 (4.0-10.0)
[2020-04-09 12:06] LABS: CALCIUM 7.3 mg/dL (8.5-10.1)
[2020-04-09 12:07] LABS: BLOOD UREA NITROGEN 9.6 mg/dL (7-18)
[2020-04-09 12:10] LABS: ALBUMIN 1.8 g/dl (3.4-5.0); CREATININE 0.8 mg/dL (0.55-1.3)
[2020-04-09 12:12] LABS: BILIRUBIN,TOTAL 1.4 mg/dL (0.2-1); TOT PROT 5.7 g/dl (6.4-8.2)
[2020-04-10] MEDS: LACTULOSE 20 GM/30 ML UDC (FOR ORAL USE ONLY) PO SCH (06:23)
[2020-04-10] MEDS: LEVOTHYROXINE NA 112 MCG TABLET (FP) PO SCH (06:23)
[2020-04-10] MEDS: INSULIN SLIDING SCALE (NOVOLOG) 1 VIAL SQ SCH ×2 (06:23→11:29)
[2020-04-10 06:40] VITALS: BP 102/54; PULSE 63; TEMP 97.9
[2020-04-10 07:19] LABS: BASO % 1.3 % (0-2.0); EOS % 4.2 % (0-4.5); HEMATOCRIT 34.7 % (32.4-45.2); LYMPH % 21.7 % (8-40); MCH 33.6 pg (25.7-33.7); MCHC 34.6 g/dl (32.0-36.0); MEAN PLT VOLUME 9.6 fl (7.5-11.1); MONO % 7.7 % (3.8-10.2); NEUT % 65.1 % (42.8-82.8); PLATELET COUNT 88 K/MM3 (134-434); RBC 3.58 M/mm3 (3.60-5.2); RDW 17.1 % (11.6-15.6); WHITE BLOOD COUNT 4.9 K/mm3 (4.0-10.0)
[2020-04-10 07:46] LABS: BLOOD UREA NITROGEN 8.6 mg/dL (7-18); CALCIUM 7.3 mg/dL (8.5-10.1)
[2020-04-10 07:50] LABS: CREATININE 0.6 mg/dL (0.55-1.3)
[2020-04-10] MEDS ORDERED: cefTRIAXone SODIUM 1 GM VIAL ONE (09:35)
[2020-04-10] MEDS ORDERED: DEXTROSE 5%-WATER - 50 ML IVPB ONE (09:35)
[2020-04-10] MEDS: SPIRONOLACTONE 25 MG TABLET PO SCH (09:57)
[2020-04-10] MEDS: CEFTRIAXONE 1 GM in DEXTROSE 5%-WATER - 50 ML IVPB SCH (09:57)
[2020-04-10] MEDS: FUROSEMIDE 40 MG TABLET (FP) PO SCH (09:58)
[2020-04-10] MEDS: NYSTATIN POWDER 100,000 UNITS/GM - 15 GM TOPICAL POWDER TP SCH (09:58)
[2020-04-10] MEDS: RIFAXIMIN 550 MG TABLET (UD) PO SCH (09:58)
[2020-04-10] MEDS: FAMOTIDINE 20 MG TABLET PO SCH (09:58)
[2020-04-10] MEDS: MULTIVITAMINS (DAILY MVI) TABLET (FP) PO SCH (09:58)
[2020-04-10] MEDS: CARVEDILOL 6.25 MG TABLET (FP) PO SCH (09:58)
[2020-04-10 17:07] LABS: BODY FLUID ALBUMIN 0.6 g/dL (Not Estab.)
== END 2020-04-10 14:20 | DRG 441 ==
LOC: JER 11:49 → JERBED 17:03 → J7W 04-02 03:14
PROVIDERS: ADMIT Family Medicine; ATTEND Family Medicine
PROC: 0W9G3ZX Drainage of Peritoneal Cavity, Percutaneous Approach, Diagnostic (ICD-10-PCS; principal; 2020-04-08)
DX: K72.90 Hepatic failure, unspecified without coma (principal); E43 Unspecified severe protein-calorie malnutrition; S06.5X9A Traumatic subdural hemorrhage with loss of consciousness of unspecified duration, initial encounter; G92 Toxic encephalopathy; N39.0 Urinary tract infection, site not specified; R64 Cachexia; R18.8 Other ascites; E87.1 Hypo-osmolality and hyponatremia; Z68.1 Body mass index [BMI] 19.9 or less, adult; K75.81 Nonalcoholic steatohepatitis (NASH); E03.9 Hypothyroidism, unspecified; A49.1 Streptococcal infection, unspecified site; D69.6 Thrombocytopenia, unspecified; R41.82 Altered mental status, unspecified; E78.5 Hyperlipidemia, unspecified; W19.XXXA Unspecified fall, initial encounter; Y93.9 Activity, unspecified; Y92.89 Other specified places as the place of occurrence of the external cause; Y99.9 Unspecified external cause status
CPT/HCPCS: 36415; 70450-TC; 71045-TC-FY; 76942-TC; 80048; 80053; 81003; 82042; 82140; 82150; 82465; 82550; 82945; 82962; 83605; 83615; 83986; 84157; 84443; 84478; 84484; 85025; 85610; 85730; 86850; 86900; 86901; 87040; 87070; 87075; 87086; 87102; 87116; 87186; 87205; 87206; 87210; 87804; 88108; 88305-TC; 93005; 93010; 97116-GP; 97161-GP; 99285-25; C9803; U0003

== ENCOUNTER 2020-06-04 16:34 | Inpatient (IN) | payer BC, OTHER ==
[2020-06-04] MEDS ORDERED: SODIUM CHLORIDE 1,225 ML IV ONE (18:24)
[2020-06-04 19:14] LABS: BASO % 0.1 % (0-2.0); EOS % 0.1 % (0-4.5); HEMOGLOBIN 11.8 GM/dL (10.7-15.3); LYMPH % 4.9 % (8-40); MCH 34.5 pg (25.7-33.7); MCHC 33.8 g/dl (32.0-36.0); MEAN PLT VOLUME 10.2 fl (7.5-11.1); MONO % 2.4 % (3.8-10.2); NEUT % 92.5 % (42.8-82.8); PLATELET COUNT 42 K/MM3 (134-434); RBC 3.43 M/mm3 (3.60-5.2); RDW 20.2 % (11.6-15.6); WHITE BLOOD COUNT 7.9 K/mm3 (4.0-10.0)
[2020-06-04] MEDS: NOREPINEPHRINE NS PREMIX 8,000 MCG/500 ML BAG IVPB SCH (19:20)
[2020-06-04 19:28] LABS: POTASSIUM 4.7 mmol/L (3.5-5.1)
[2020-06-04 19:30] LABS: CALCIUM 8.6 mg/dL (8.5-10.1)
[2020-06-04 19:31] LABS: BLOOD UREA NITROGEN 45.7 mg/dL (7-18)
[2020-06-04 19:32] LABS: ALBUMIN 1.9 g/dl (3.4-5.0)
[2020-06-04 19:34] LABS: CREATININE 1.7 mg/dL (0.55-1.3); INR 1.26 (0.83-1.09); PROTHROMBIN TIME (PATIENT) 15.2 SEC (9.7-13.0)
[2020-06-04 19:36] LABS: ACTIVATED PTT 40.8 SECONDS (25.2-36.5); BILIRUBIN,TOTAL 1.8 mg/dL (0.2-1); TOT PROT 5.8 g/dl (6.4-8.2)
[2020-06-04] MEDS ORDERED: VANCOMYCIN 1,000 MG in DEXTROSE 5%-WATER - 250 ML IVPB ONE (21:02)
[2020-06-04] MEDS ORDERED: PIPERACILLIN/TAZOB 4.5 GM 4.5 GM in DEXTROSE 5%-WATER 100 ML IVPB ONE (21:03)
[2020-06-04] MEDS ORDERED: PIPERACILLIN/TAZOB 4.5 GM 4.5 GM/100 ML BAG IVPB ONE (21:04)
[2020-06-04 21:56] LABS: ANISOCYTOSIS 1+; MACROCYTOSIS 1+; PLATELET ESTIMATE DECREASED; TEAR DROP CELLS 1+
[2020-06-04 22:03] LABS: TOXIC GRANULATION 2+
[2020-06-04] MEDS ORDERED: VANCOMYCIN 1 GRAM (PRE-DOCKED) 1,000 MG/250 ML BAG IVPB ONE (22:24)
[2020-06-04 22:43] LABS: EPI CELLS 35 /uL (0-25.1); HYALINE CASTS 5 /uL (0-3.1); URINE APPEARANCE CLOUDY; URINE BACTERIA 71 /uL (0-1359); URINE BILIRUBIN NEGATIVE (NEGATIVE); URINE COLOR DK YELLOW; URINE GLUCOSE (UA) NEGATIVE (NEGATIVE); URINE KETONE TRACE (NEGATIVE); URINE LEUK ESTERASE TRACE (NEGATIVE); URINE NITRITE NEGATIVE (NEGATIVE); URINE PROTEIN NEGATIVE (NEGATIVE); URINE RBC 2 /uL (0-23.9); URINE UROBILINOGEN 0.2 mg/dL (0.2-1.0); URINE WBC 2 /uL (0-25.8)
[2020-06-04 23:00] LABS: BILIRUBIN,DIRECT 1.1 mg/dL (0.0-0.2)
[2020-06-04] MEDS ORDERED: ELECTROLYTE-148 SOLN 1,000 ML IV SCH (23:30)
[2020-06-05] MEDS ORDERED: PIPERACILLIN/TAZOB 2.25 GM 2.25 GM in DEXTROSE 5%-WATER - 50 ML IVPB SCH (03:00)
[2020-06-05] MEDS ORDERED: PIPERACILLIN/TAZOB 2.25 GM 2.25 GM/50 ML BAG IVPB ONE ×2 (03:01→10:36)
[2020-06-05] MEDS: PIPERACILLIN/TAZOB 2.25 GM 2.25 GM in DEXTROSE 5%-WATER - 50 ML IVPB SCH ×4 (03:06→21:33)
[2020-06-05] MEDS: VASOPRESSIN 40 UNITS in SODIUM CHLORIDE 98 ML IVPB SCH (06:36)
[2020-06-05 07:48] LABS: EOS % 0.2 % (0-4.5); HEMOGLOBIN 10.4 GM/dL (10.7-15.3); LYMPH % 3.8 % (8-40); MCH 34.4 pg (25.7-33.7); MCHC 33.5 g/dl (32.0-36.0); MEAN CELL VOLUME 102.7 fl (80-96); MEAN PLT VOLUME 10.5 fl (7.5-11.1); MONO % 3.5 % (3.8-10.2); NEUT % 92.5 % (42.8-82.8); PLATELET COUNT 71 K/MM3 (134-434); RBC 3.02 M/mm3 (3.60-5.2); RDW 20.4 % (11.6-15.6); WHITE BLOOD COUNT 16.5 K/mm3 (4.0-10.0)
[2020-06-05 07:58] LABS: POTASSIUM 4.8 mmol/L (3.5-5.1)
[2020-06-05 08:09] LABS: ALBUMIN 1.7 g/dl (3.4-5.0); BLOOD UREA NITROGEN 41.4 mg/dL (7-18); CALCIUM 7.6 mg/dL (8.5-10.1); MAGNESIUM 2.4 mg/dL (1.8-2.4)
[2020-06-05 08:12] LABS: CREATININE 1.6 mg/dL (0.55-1.3); INR 1.4 (0.83-1.09); PROTHROMBIN TIME (PATIENT) 17.1 SEC (9.7-13.0)
[2020-06-05 08:13] LABS: ACTIVATED PTT 48.7 SECONDS (25.2-36.5)
[2020-06-05 10:58] LABS: ANISOCYTOSIS 3+; MACROCYTOSIS 2+; OVALOCYTE 1+; PLATELET ESTIMATE DECREASED
[2020-06-05] MEDS ORDERED: SODIUM CHLORIDE 500 ML IV STA ×2 (11:33→12:39)
[2020-06-05] MEDS ORDERED: SODIUM CHLORIDE 1,000 ML IV SCH (12:45)
[2020-06-05] MEDS: HYDROCORTISONE SOD SUCCINATE 100 MG/2 ML VIAL IVPB SCH (13:51)
[2020-06-05] MEDS ORDERED: PIPERACILLIN/TAZOBACTAM 2.25 GM VIAL IVPB ONE ×2 (14:25→22:31)
[2020-06-05] MEDS ORDERED: DEXTROSE 5%-WATER - 50 ML IVPB ONE ×2 (14:26→22:31)
[2020-06-05] MEDS: NOREPINEPHRINE NS PREMIX 8,000 MCG/500 ML BAG IVPB SCH (19:31)
[2020-06-05] MEDS: CHLORHEXIDINE GLUCONATE 4% CLEANSER FOR DECOLONIZATION TP SCH (21:33)
[2020-06-05] MEDS: MUPIROCIN 2% TOPICAL OINTMENT FOR DECOLONIZATION NS SCH (22:31)
[2020-06-06] MEDS: HYDROCORTISONE SOD SUCCINATE 100 MG/2 ML VIAL IVPB SCH ×4 (00:31→19:03)
[2020-06-06] MEDS ORDERED: VASOPRESSIN 20 UNITS/ML VIAL IV ONE (02:00)
[2020-06-06] MEDS ORDERED: NOREPINEPHRINE BITARTRATE 8,000 MCG/500 ML BAG IVPB ONE (02:00)
[2020-06-06] MEDS: PIPERACILLIN/TAZOB 2.25 GM 2.25 GM in DEXTROSE 5%-WATER - 50 ML IVPB SCH ×4 (02:34→21:33)
[2020-06-06] MEDS ORDERED: DEXTROSE 5%-WATER - 50 ML IVPB ONE ×3 (02:40→21:23)
[2020-06-06] MEDS ORDERED: PIPERACILLIN/TAZOBACTAM 2.25 GM VIAL IVPB ONE ×3 (02:40→21:23)
[2020-06-06] MEDS ORDERED: ACETAMINOPHEN 1000 MG/100 ML VIAL (NON FORMULARY) IVPB ONE (03:30)
[2020-06-06] MEDS: VASOPRESSIN 40 UNITS in SODIUM CHLORIDE 98 ML IVPB SCH (06:29)
[2020-06-06] MEDS ORDERED: LACTULOSE 20 GM/30 ML UDC (FOR ORAL USE ONLY) PO PRN (08:26)
[2020-06-06] MEDS ORDERED: CARVEDILOL 6.25 MG TABLET (FP) PO SCH (10:00)
[2020-06-06] MEDS: FLUDROCORTISONE ACETATE 0.1 MG TABLET (FP) PO SCH (10:06)
[2020-06-06] MEDS: RIFAXIMIN 550 MG TABLET (UD) PO SCH ×2 (11:03→21:34)
[2020-06-06] MEDS: MULTIVITAMINS (DAILY MVI) TABLET (FP) PO SCH (11:03)
[2020-06-06] MEDS: ASCORBIC ACID 500 MG TABLET (FP) PO SCH (11:03)
[2020-06-06 18:37] LABS: BASO % 0.2 % (0-2.0); HEMATOCRIT 33.2 % (32.4-45.2); HEMOGLOBIN 10.8 GM/dL (10.7-15.3); LYMPH % 6.4 % (8-40); MCHC 32.6 g/dl (32.0-36.0); MEAN CELL VOLUME 104.4 fl (80-96); MEAN PLT VOLUME 9.5 fl (7.5-11.1); NEUT % 90.4 % (42.8-82.8); PLATELET COUNT 68 K/MM3 (134-434); RBC 3.18 M/mm3 (3.60-5.2); RDW 21.3 % (11.6-15.6); WHITE BLOOD COUNT 14.9 K/mm3 (4.0-10.0)
[2020-06-06 18:44] LABS: INR 1.4 (0.83-1.09); PROTHROMBIN TIME (PATIENT) 16.8 SEC (9.7-13.0)
[2020-06-06 18:47] LABS: ACTIVATED PTT 38.9 SECONDS (25.2-36.5)
[2020-06-06 19:00] LABS: POTASSIUM 4.6 mmol/L (3.5-5.1)
[2020-06-06 19:02] LABS: CALCIUM 7.4 mg/dL (8.5-10.1)
[2020-06-06 19:03] LABS: ALBUMIN 1.8 g/dl (3.4-5.0); BLOOD UREA NITROGEN 50.5 mg/dL (7-18); MAGNESIUM 2.4 mg/dL (1.8-2.4)
[2020-06-06] MEDS: INSULIN SLIDING SCALE (NOVOLOG) 1 VIAL SQ SCH ×2 (19:03→22:05)
[2020-06-06 19:06] LABS: CREATININE 1.7 mg/dL (0.55-1.3); PHOSPHOROUS 4.4 mg/dL (2.5-4.9)
[2020-06-06 19:07] LABS: BILIRUBIN,TOTAL 1.6 mg/dL (0.2-1); TOT PROT 5.6 g/dl (6.4-8.2)
[2020-06-06 20:12] LABS: ANISOCYTOSIS 2+; MACROCYTOSIS 1+; OVALOCYTE 1+
[2020-06-06 20:13] LABS: PLATELET ESTIMATE MOD DECREASED
[2020-06-06] MEDS: NOREPINEPHRINE NS PREMIX 8,000 MCG/500 ML BAG IVPB SCH (21:33)
[2020-06-06] MEDS: MIRTAZAPINE 15 MG TABLET (FP) PO SCH (21:33)
[2020-06-06] MEDS: CHLORHEXIDINE GLUCONATE 4% CLEANSER FOR DECOLONIZATION TP SCH (21:34)
[2020-06-06] MEDS: MUPIROCIN 2% TOPICAL OINTMENT FOR DECOLONIZATION NS SCH (22:05)
[2020-06-07] MEDS: HYDROCORTISONE SOD SUCCINATE 100 MG/2 ML VIAL IVPB SCH ×3 (00:26→12:20)
[2020-06-07] MEDS ORDERED: DEXTROSE 5%-WATER - 50 ML IVPB ONE ×3 (02:20→16:12)
[2020-06-07] MEDS ORDERED: PIPERACILLIN/TAZOBACTAM 2.25 GM VIAL IVPB ONE ×3 (02:20→16:11)
[2020-06-07] MEDS: PIPERACILLIN/TAZOB 2.25 GM 2.25 GM in DEXTROSE 5%-WATER - 50 ML IVPB SCH ×3 (02:28→16:15)
[2020-06-07] MEDS ORDERED: LEVOTHYROXINE NA 25 MCG TABLET (FP) ONE (05:30)
[2020-06-07] MEDS ORDERED: LEVOTHYROXINE NA 112 MCG TABLET (FP) ONE (05:30)
[2020-06-07] MEDS: VASOPRESSIN 40 UNITS in SODIUM CHLORIDE 98 ML IVPB SCH (05:38)
[2020-06-07] MEDS: LEVOTHYROXINE 112 MCG, LEVOTHYROXINE 25 MCG PO SCH (06:06)
[2020-06-07] MEDS: INSULIN SLIDING SCALE (NOVOLOG) 1 VIAL SQ SCH ×4 (06:06→21:40)
[2020-06-07] MEDS ORDERED: LEVOTHYROXINE NA 112 MCG TABLET (FP) PO SCH (07:00)
[2020-06-07 07:30] LABS: BASO % 0.1 % (0-2.0); EOS % 0.2 % (0-4.5); HEMOGLOBIN 9.3 GM/dL (10.7-15.3); LYMPH % 9.8 % (8-40); MCH 34.9 pg (25.7-33.7); MCHC 34.4 g/dl (32.0-36.0); MEAN CELL VOLUME 101.6 fl (80-96); MEAN PLT VOLUME 8.8 fl (7.5-11.1); MONO % 4.6 % (3.8-10.2); NEUT % 85.3 % (42.8-82.8); PLATELET COUNT 28 K/MM3 (134-434); RBC 2.66 M/mm3 (3.60-5.2); RDW 20.5 % (11.6-15.6); WHITE BLOOD COUNT 5.7 K/mm3 (4.0-10.0)
[2020-06-07 07:45] LABS: POTASSIUM 4.4 mmol/L (3.5-5.1)
[2020-06-07 07:49] LABS: ALBUMIN 1.6 g/dl (3.4-5.0); CALCIUM 7.3 mg/dL (8.5-10.1); MAGNESIUM 2.5 mg/dL (1.8-2.4)
[2020-06-07 07:52] LABS: CREATININE 1.4 mg/dL (0.55-1.3)
[2020-06-07 07:53] LABS: PHOSPHOROUS 3.8 mg/dL (2.5-4.9)
[2020-06-07 07:54] LABS: BILIRUBIN,TOTAL 1.6 mg/dL (0.2-1); TOT PROT 4.8 g/dl (6.4-8.2)
[2020-06-07] MEDS ORDERED: LACTATED RINGERS SOLUTION 1,000 ML/1,000 ML INFUS.BAG IV STA (10:19)
[2020-06-07] MEDS ORDERED: SODIUM CHLORIDE 1,000 ML IV SCH (10:30)
[2020-06-07] MEDS: MULTIVITAMINS (DAILY MVI) TABLET (FP) PO SCH (10:52)
[2020-06-07] MEDS: FLUDROCORTISONE ACETATE 0.1 MG TABLET (FP) PO SCH (10:52)
[2020-06-07] MEDS: ASCORBIC ACID 500 MG TABLET (FP) PO SCH (10:52)
[2020-06-07] MEDS: RIFAXIMIN 550 MG TABLET (UD) PO SCH ×2 (10:53→21:25)
[2020-06-07] MEDS: LACTATED RINGERS SOLUTION 1,000 ML/1,000 ML INFUS.BAG IV SCH (17:13)
[2020-06-07] MEDS: MIRTAZAPINE 15 MG TABLET (FP) PO SCH (21:23)
[2020-06-07] MEDS: NOREPINEPHRINE NS PREMIX 8,000 MCG/500 ML BAG IVPB SCH (21:23)
[2020-06-07] MEDS: CHLORHEXIDINE GLUCONATE 4% CLEANSER FOR DECOLONIZATION TP SCH (21:23)
[2020-06-07] MEDS: MUPIROCIN 2% TOPICAL OINTMENT FOR DECOLONIZATION NS SCH (21:25)
[2020-06-08] MEDS ORDERED: LEVOTHYROXINE NA 112 MCG TABLET (FP) ONE (02:19)
[2020-06-08] MEDS ORDERED: LEVOTHYROXINE NA 25 MCG TABLET (FP) ONE (02:19)
[2020-06-08] MEDS ORDERED: PT OWN MED DRAWER 7, Y5N ONE (02:21)
[2020-06-08] MEDS: HYDROCORTISONE SOD SUCCINATE 100 MG/2 ML VIAL IVPB SCH ×4 (02:23→18:52)
[2020-06-08] MEDS: VASOPRESSIN 40 UNITS in SODIUM CHLORIDE 98 ML IVPB SCH (06:44)
[2020-06-08] MEDS: INSULIN SLIDING SCALE (NOVOLOG) 1 VIAL SQ SCH ×4 (06:45→21:41)
[2020-06-08] MEDS: LEVOTHYROXINE 112 MCG, LEVOTHYROXINE 25 MCG PO SCH (06:46)
[2020-06-08 07:32] LABS: BASO % 0.3 % (0-2.0); EOS % 0.1 % (0-4.5); HEMATOCRIT 28.1 % (32.4-45.2); HEMOGLOBIN 9.6 GM/dL (10.7-15.3); LYMPH % 7.7 % (8-40); MCH 34.7 pg (25.7-33.7); MEAN CELL VOLUME 102.1 fl (80-96); MEAN PLT VOLUME 8.7 fl (7.5-11.1); MONO % 3.3 % (3.8-10.2); NEUT % 88.6 % (42.8-82.8); RBC 2.75 M/mm3 (3.60-5.2); RDW 20.4 % (11.6-15.6); WHITE BLOOD COUNT 4.3 K/mm3 (4.0-10.0)
[2020-06-08 07:48] LABS: PLATELET COUNT 19 K/MM3 (134-434)
[2020-06-08 07:57] LABS: POTASSIUM 4.3 mmol/L (3.5-5.1)
[2020-06-08 08:05] LABS: ALBUMIN 1.6 g/dl (3.4-5.0); BLOOD UREA NITROGEN 52.6 mg/dL (7-18); CALCIUM 7.4 mg/dL (8.5-10.1); MAGNESIUM 2.6 mg/dL (1.8-2.4)
[2020-06-08 08:08] LABS: CREATININE 1.1 mg/dL (0.55-1.3)
[2020-06-08 08:10] LABS: BILIRUBIN,TOTAL 1.8 mg/dL (0.2-1); TOT PROT 4.9 g/dl (6.4-8.2)
[2020-06-08] MEDS: MUPIROCIN 2% TOPICAL OINTMENT FOR DECOLONIZATION NS SCH ×2 (10:58→21:24)
[2020-06-08] MEDS: FLUDROCORTISONE ACETATE 0.1 MG TABLET (FP) PO SCH (11:01)
[2020-06-08] MEDS: MULTIVITAMINS (DAILY MVI) TABLET (FP) PO SCH (11:04)
[2020-06-08] MEDS: ERTAPENEM SODIUM 0.5 GM in SODIUM CHLORIDE 50 ML IVPB SCH (11:04)
[2020-06-08] MEDS: RIFAXIMIN 550 MG TABLET (UD) PO SCH ×2 (11:04→21:23)
[2020-06-08] MEDS: ASCORBIC ACID 500 MG TABLET (FP) PO SCH (11:04)
[2020-06-08] MEDS: LACTATED RINGERS SOLUTION 1,000 ML/1,000 ML INFUS.BAG IV SCH (11:25)
[2020-06-08] MEDS: NOREPINEPHRINE NS PREMIX 8,000 MCG/500 ML BAG IVPB SCH (21:20)
[2020-06-08] MEDS: CHLORHEXIDINE GLUCONATE 4% CLEANSER FOR DECOLONIZATION TP SCH (21:22)
[2020-06-08] MEDS: MIRTAZAPINE 15 MG TABLET (FP) PO SCH (21:23)
[2020-06-09] MEDS ORDERED: LEVOTHYROXINE NA 112 MCG TABLET (FP) ONE (01:26)
[2020-06-09] MEDS: HYDROCORTISONE SOD SUCCINATE 100 MG/2 ML VIAL IVPB SCH ×4 (01:37→19:08)
[2020-06-09] MEDS: INSULIN SLIDING SCALE (NOVOLOG) 1 VIAL SQ SCH ×3 (06:24→21:11)
[2020-06-09] MEDS: LEVOTHYROXINE 112 MCG, LEVOTHYROXINE 25 MCG PO SCH (06:27)
[2020-06-09] MEDS: ERTAPENEM SODIUM 0.5 GM in SODIUM CHLORIDE 50 ML IVPB SCH (09:24)
[2020-06-09] MEDS: MUPIROCIN 2% TOPICAL OINTMENT FOR DECOLONIZATION NS SCH ×2 (09:25→21:08)
[2020-06-09] MEDS: MULTIVITAMINS (DAILY MVI) TABLET (FP) PO SCH (10:23)
[2020-06-09] MEDS: VASOPRESSIN 40 UNITS in SODIUM CHLORIDE 98 ML IVPB SCH (10:23)
[2020-06-09] MEDS: ASCORBIC ACID 500 MG TABLET (FP) PO SCH (10:23)
[2020-06-09] MEDS: FLUDROCORTISONE ACETATE 0.1 MG TABLET (FP) PO SCH (10:23)
[2020-06-09] MEDS: RIFAXIMIN 550 MG TABLET (UD) PO SCH ×2 (10:24→21:16)
[2020-06-09] MEDS: LACTATED RINGERS SOLUTION 1,000 ML/1,000 ML INFUS.BAG IV SCH (21:12)
[2020-06-09] MEDS: CHLORHEXIDINE GLUCONATE 4% CLEANSER FOR DECOLONIZATION TP SCH (21:14)
[2020-06-09] MEDS: MIRTAZAPINE 15 MG TABLET (FP) PO SCH (21:15)
[2020-06-09] MEDS: NOREPINEPHRINE NS PREMIX 8,000 MCG/500 ML BAG IVPB SCH (21:20)
[2020-06-10] MEDS: HYDROCORTISONE SOD SUCCINATE 100 MG/2 ML VIAL IVPB SCH ×4 (01:00→17:32)
[2020-06-10] MEDS: LACTATED RINGERS SOLUTION 1,000 ML/1,000 ML INFUS.BAG IV SCH (03:27)
[2020-06-10] MEDS: VASOPRESSIN 40 UNITS in SODIUM CHLORIDE 98 ML IVPB SCH ×2 (03:28→17:37)
[2020-06-10] MEDS ORDERED: LEVOTHYROXINE NA 112 MCG TABLET (FP) ONE ×3 (05:52→21:12)
[2020-06-10] MEDS ORDERED: LEVOTHYROXINE NA 25 MCG TABLET (FP) ONE ×3 (05:52→21:12)
[2020-06-10] MEDS: LEVOTHYROXINE 112 MCG, LEVOTHYROXINE 25 MCG PO SCH (06:01)
[2020-06-10] MEDS: INSULIN SLIDING SCALE (NOVOLOG) 1 VIAL SQ SCH ×4 (06:01→21:58)
[2020-06-10 06:51] LABS: BASO % 0.2 % (0-2.0); HEMATOCRIT 32.4 % (32.4-45.2); HEMOGLOBIN 11.3 GM/dL (10.7-15.3); LYMPH % 5.8 % (8-40); MCH 35.3 pg (25.7-33.7); MCHC 34.7 g/dl (32.0-36.0); MEAN CELL VOLUME 101.7 fl (80-96); MEAN PLT VOLUME 9.6 fl (7.5-11.1); MONO % 3.1 % (3.8-10.2); NEUT % 90.9 % (42.8-82.8); RBC 3.19 M/mm3 (3.60-5.2); RDW 20.6 % (11.6-15.6); WHITE BLOOD COUNT 8.7 K/mm3 (4.0-10.0)
[2020-06-10 07:13] LABS: POTASSIUM 4.9 mmol/L (3.5-5.1)
[2020-06-10 07:22] LABS: ALBUMIN 1.8 g/dl (3.4-5.0); CALCIUM 7.8 mg/dL (8.5-10.1)
[2020-06-10 07:23] LABS: BLOOD UREA NITROGEN 72.6 mg/dL (7-18); MAGNESIUM 2.6 mg/dL (1.8-2.4)
[2020-06-10 07:26] LABS: CREATININE 1.7 mg/dL (0.55-1.3); PHOSPHOROUS 4.1 mg/dL (2.5-4.9)
[2020-06-10 07:27] LABS: BILIRUBIN,TOTAL 2.1 mg/dL (0.2-1); TOT PROT 5.3 g/dl (6.4-8.2)
[2020-06-10 07:30] LABS: PLATELET COUNT 27 K/MM3 (134-434)
[2020-06-10] MEDS ORDERED: LACTULOSE 20 GM/30 ML UDC (FOR ORAL USE ONLY) GT PRN (09:41)
[2020-06-10] MEDS ORDERED: MULTIVIT-MINERALS ORAL LIQUID GT SCH (09:43)
[2020-06-10] MEDS: ERTAPENEM SODIUM 0.5 GM in SODIUM CHLORIDE 50 ML IVPB SCH (09:53)
[2020-06-10] MEDS: FLUDROCORTISONE ACETATE 0.1 MG TABLET (FP) GT SCH (09:57)
[2020-06-10] MEDS: RIFAXIMIN 550 MG TABLET (UD) PO SCH (10:00)
[2020-06-10] MEDS: ASCORBIC ACID 500 MG/5 ML UNIT DOSE CUP GT SCH (10:01)
[2020-06-10] MEDS: MULTIVIT-MINERALS ORAL LIQUID GT SCH (10:01)
[2020-06-10 10:08] LABS: ANISOCYTOSIS 1+; MACROCYTOSIS 1+; PLATELET ESTIMATE DECREASED
[2020-06-10] MEDS ORDERED: ALBUMIN HUMAN 25% 12.5 GM/50 ML VIAL IVPB ONE (13:00)
[2020-06-10] MEDS ORDERED: FUROSEMIDE 40 MG/4 ML INJECTABLE VIAL IVPUSH ONE (13:00)
[2020-06-10] MEDS ORDERED: VASOPRESSIN 20 UNITS/ML VIAL IV ONE (13:35)
[2020-06-10] MEDS: ALBUTEROL SO4 2.5/IPRATROPIUM 0.5 INH SOL 3 ML VIAL.NEB. NEB SCH (20:49)
[2020-06-10] MEDS: MIRTAZAPINE 15 MG TABLET (FP) GT SCH (21:30)
[2020-06-10] MEDS: CHLORHEXIDINE GLUCONATE 4% CLEANSER FOR DECOLONIZATION TP SCH (21:30)
[2020-06-10] MEDS: NOREPINEPHRINE NS PREMIX 8,000 MCG/500 ML BAG IVPB SCH ×2 (21:54→21:57)
[2020-06-10] MEDS: RIFAXIMIN 400 MG/20 ML SUSPENSION NGT SCH (22:14)
[2020-06-11] MEDS: HYDROCORTISONE SOD SUCCINATE 100 MG/2 ML VIAL IVPB SCH ×4 (00:21→17:04)
[2020-06-11] MEDS: LEVOTHYROXINE 112 MCG, LEVOTHYROXINE 25 MCG PEG SCH (06:05)
[2020-06-11] MEDS: RIFAXIMIN 400 MG/20 ML SUSPENSION NGT SCH ×3 (06:06→22:29)
[2020-06-11] MEDS: INSULIN SLIDING SCALE (NOVOLOG) 1 VIAL SQ SCH (06:16)
[2020-06-11 06:59] LABS: BASO % 0.3 % (0-2.0); HEMATOCRIT 35.9 % (32.4-45.2); HEMOGLOBIN 12.2 GM/dL (10.7-15.3); MCH 34.8 pg (25.7-33.7); MEAN CELL VOLUME 102.3 fl (80-96); MEAN PLT VOLUME 9.7 fl (7.5-11.1); MONO % 2.1 % (3.8-10.2); NEUT % 94.6 % (42.8-82.8); PLATELET COUNT 87 K/MM3 (134-434); RBC 3.51 M/mm3 (3.60-5.2); RDW 21.3 % (11.6-15.6); WHITE BLOOD COUNT 19.8 K/mm3 (4.0-10.0)
[2020-06-11] MEDS: VASOPRESSIN 40 UNITS in SODIUM CHLORIDE 98 ML IVPB SCH (07:00)
[2020-06-11] MEDS: ALBUTEROL SO4 2.5/IPRATROPIUM 0.5 INH SOL 3 ML VIAL.NEB. NEB SCH ×4 (07:19→20:40)
[2020-06-11 07:25] LABS: POTASSIUM 5.2 mmol/L (3.5-5.1)
[2020-06-11 07:35] LABS: CALCIUM 8.1 mg/dL (8.5-10.1)
[2020-06-11 07:36] LABS: ALBUMIN 2.1 g/dl (3.4-5.0); BLOOD UREA NITROGEN 85.3 mg/dL (7-18); MAGNESIUM 2.6 mg/dL (1.8-2.4)
[2020-06-11 07:39] LABS: CREATININE 1.9 mg/dL (0.55-1.3); PHOSPHOROUS 5.1 mg/dL (2.5-4.9)
[2020-06-11 07:40] LABS: BILIRUBIN,TOTAL 3.4 mg/dL (0.2-1)
[2020-06-11 07:41] LABS: TOT PROT 5.7 g/dl (6.4-8.2)
[2020-06-11 09:00] LABS: ANISOCYTOSIS 2+; MACROCYTOSIS 1+; PLATELET ESTIMATE DECREASED
[2020-06-11] MEDS ORDERED: PT OWN MED DRAWER 7, Y5N ONE ×5 (09:16→18:40)
[2020-06-11] MEDS: FLUDROCORTISONE ACETATE 0.1 MG TABLET (FP) GT SCH (09:22)
[2020-06-11] MEDS: ASCORBIC ACID 500 MG/5 ML UNIT DOSE CUP GT SCH (09:22)
[2020-06-11] MEDS: MULTIVIT-MINERALS ORAL LIQUID GT SCH (09:22)
[2020-06-11] MEDS ORDERED: DEXTROSE 5%-WATER - 1,000 ML with SODIUM BICARBONATE 8.4% - 150 MEQ IV SCH ×2 (11:45→11:52)
[2020-06-11] MEDS: FAMOTIDINE 20 MG/50 ML IVPB 20 MG/50 ML MG IVPB SCH (12:18)
[2020-06-11] MEDS: ERTAPENEM SODIUM 0.5 GM in SODIUM CHLORIDE 50 ML IVPB SCH (12:32)
[2020-06-11] MEDS: DEXTROSE 5%-WATER - 1,000 ML with SODIUM BICARBONATE 8.4% - 150 MEQ IV SCH (14:43)
[2020-06-11] MEDS: NOREPINEPHRINE NS PREMIX 8,000 MCG/500 ML BAG IVPB SCH (22:26)
[2020-06-11] MEDS: CHLORHEXIDINE GLUCONATE 4% CLEANSER FOR DECOLONIZATION TP SCH (22:28)
[2020-06-11] MEDS: MIRTAZAPINE 15 MG TABLET (FP) GT SCH (22:29)
[2020-06-12] MEDS: RIFAXIMIN 400 MG/20 ML SUSPENSION NGT SCH ×3 (05:12→21:53)
[2020-06-12] MEDS: HYDROCORTISONE SOD SUCCINATE 100 MG/2 ML VIAL IVPB SCH ×4 (05:12→17:33)
[2020-06-12] MEDS: LEVOTHYROXINE 112 MCG, LEVOTHYROXINE 25 MCG PEG SCH ×2 (06:27→09:01)
[2020-06-12] MEDS: VASOPRESSIN 40 UNITS in SODIUM CHLORIDE 98 ML IVPB SCH (06:36)
[2020-06-12 07:31] LABS: BASO % 0.1 % (0-2.0); HEMATOCRIT 36.7 % (32.4-45.2); HEMOGLOBIN 12.2 GM/dL (10.7-15.3); LYMPH % 3.5 % (8-40); MCH 35.1 pg (25.7-33.7); MCHC 33.1 g/dl (32.0-36.0); MEAN PLT VOLUME 9.9 fl (7.5-11.1); MONO % 2.2 % (3.8-10.2); NEUT % 94.2 % (42.8-82.8); PLATELET COUNT 69 K/MM3 (134-434); RBC 3.47 M/mm3 (3.60-5.2); RDW 22.3 % (11.6-15.6); WHITE BLOOD COUNT 14.5 K/mm3 (4.0-10.0)
[2020-06-12 08:08] LABS: ALBUMIN 1.8 g/dl (3.4-5.0); BLOOD UREA NITROGEN 89.7 mg/dL (7-18); CALCIUM 7.5 mg/dL (8.5-10.1)
[2020-06-12 08:09] LABS: MAGNESIUM 2.6 mg/dL (1.8-2.4)
[2020-06-12 08:12] LABS: PHOSPHOROUS 6.3 mg/dL (2.5-4.9)
[2020-06-12 08:13] LABS: BILIRUBIN,TOTAL 5.1 mg/dL (0.2-1); TOT PROT 5.1 g/dl (6.4-8.2)
[2020-06-12] MEDS ORDERED: LEVOTHYROXINE NA 25 MCG TABLET (FP) ONE (08:28)
[2020-06-12] MEDS ORDERED: PT OWN MED DRAWER 7, Y5N ONE ×3 (08:28→13:05)
[2020-06-12] MEDS ORDERED: LEVOTHYROXINE NA 112 MCG TABLET (FP) ONE (08:28)
[2020-06-12 08:30] LABS: POTASSIUM 5.2 mmol/L (3.5-5.1)
[2020-06-12] MEDS: FLUDROCORTISONE ACETATE 0.1 MG TABLET (FP) GT SCH (09:04)
[2020-06-12] MEDS: ASCORBIC ACID 500 MG/5 ML UNIT DOSE CUP GT SCH (09:06)
[2020-06-12] MEDS: MULTIVIT-MINERALS ORAL LIQUID GT SCH (09:07)
[2020-06-12] MEDS: FAMOTIDINE 20 MG/50 ML IVPB 20 MG/50 ML MG IVPB SCH (09:10)
[2020-06-12 09:46] LABS: ANISOCYTOSIS 2+; MACROCYTOSIS 2+; PLATELET ESTIMATE DECREASED
[2020-06-12] MEDS: ERTAPENEM SODIUM 0.5 GM in SODIUM CHLORIDE 50 ML IVPB SCH (10:23)
[2020-06-12] MEDS: DEXTROSE 5%-WATER - 1,000 ML with SODIUM BICARBONATE 8.4% - 150 MEQ IV SCH (15:12)
[2020-06-12 15:37] VITALS: BMI 21.7
[2020-06-12] MEDS ORDERED: MORPHINE SULFATE/0.9% NACL/PF 100 MG/100 ML BAG IVPB SCH (17:45)
[2020-06-12] MEDS ORDERED: LORazepam 2 MG/ML SDV VIAL IVPUSH ONE (17:48)
[2020-06-12 18:16] VITALS: BP 90/51; PULSE 118; TEMP 99.1
[2020-06-12] MEDS: ALBUTEROL SO4 2.5/IPRATROPIUM 0.5 INH SOL 3 ML VIAL.NEB. NEB SCH (20:47)
[2020-06-12] MEDS: CHLORHEXIDINE GLUCONATE 4% CLEANSER FOR DECOLONIZATION TP SCH (21:52)
[2020-06-12] MEDS: MIRTAZAPINE 15 MG TABLET (FP) GT SCH (21:53)
== END 2020-06-12 22:38 | disposition expired | DRG 871 ==
LOC: JER 16:34 → JERBED 22:20 → JICU 06-05 11:13
PROVIDERS: ADMIT Internal Medicine; ATTEND Internal Medicine
PROC: 05HN33Z Insertion of Infusion Device into Left Internal Jugular Vein, Percutaneous Approach (ICD-10-PCS; principal; 2020-06-05)
PROC: B544ZZA Ultrasonography of Left Jugular Veins, Guidance (ICD-10-PCS; 2020-06-05)
DX: A41.89 Other specified sepsis (principal); R65.21 Severe sepsis with septic shock; E43 Unspecified severe protein-calorie malnutrition; J18.9 Pneumonia, unspecified organism; R64 Cachexia; E87.2 Acidosis; R18.8 Other ascites; D68.9 Coagulation defect, unspecified; I24.8 Other forms of acute ischemic heart disease; N17.9 Acute kidney failure, unspecified; N39.0 Urinary tract infection, site not specified; I48.0 Paroxysmal atrial fibrillation; D64.9 Anemia, unspecified; Z85.3 Personal history of malignant neoplasm of breast; E03.9 Hypothyroidism, unspecified; E11.9 Type 2 diabetes mellitus without complications; I10 Essential (primary) hypertension; E78.5 Hyperlipidemia, unspecified; R74.8 Abnormal levels of other serum enzymes; K21.9 Gastro-esophageal reflux disease without esophagitis; R16.1 Splenomegaly, not elsewhere classified; K74.69 Other cirrhosis of liver; Z68.21 Body mass index [BMI] 21.0-21.9, adult; D69.6 Thrombocytopenia, unspecified; E86.1 Hypovolemia; R68.0 Hypothermia, not associated with low environmental temperature; K75.81 Nonalcoholic steatohepatitis (NASH); K72.90 Hepatic failure, unspecified without coma; B95.2 Enterococcus as the cause of diseases classified elsewhere; B96.1 Klebsiella pneumoniae [K. pneumoniae] as the cause of diseases classified elsewhere; E87.5 Hyperkalemia; E83.39 Other disorders of phosphorus metabolism; Z66 Do not resuscitate
CPT/HCPCS: 36415; 70450-TC; 71045-TC-FY; 71250-TC; 74176-TC; 80053; 81003; 82140; 82248; 82272; 82550; 82565; 82728; 82962; 83036; 83605; 83615; 83690; 83735; 84100; 84156; 84300; 84439; 84443; 84484; 85025; 85379; 85384; 85610; 85730; 86769; 87040; 87045; 87046; 87086; 87186; 87205; 87804; 93005; 93010; 94640; 99291; C9803; J0131; P9047; U0003